=== PATIENT | female | born 1990 | race Caucasian/White ===

== ENCOUNTER 2017-01-21 08:06 | Inpatient (IN) | payer MEDICAID ==
[2017-01-21] VITALS (8 sets, daily range): BP systolic 95–132; BP diastolic 52–88
[~2017-01-21] VITALS: Ht 172.7 cm; Wt 59.2 kg
[~2017-01-21 08:06] MED LIST: ABILIFY10 MG PO; ADVAIR 250/5028 PUFF IN; ALBUTEROL-200 PUFFS/ IH; ANTIPYRINE/BENZ10 ML OT; AZITHROMYCIN250 MG; AZITHROMYCIN250 MG PO; AZITHROMYCIN500 MG PO; BACTRIM DS 8001 TAB PO; BISACODYL5 MG PO; BUPRENORPHINE H1 TA2 SL; BUPRENORPHINE H1 TAB PO; CEFDINIR 300MG300 MG PO; CEFDINIR300 M1 PO; CIPRO 250MG TA250 MG PO; CIPRO 500MG TA500 MG PO; CIPROFLOXACIN500 MG PO; CLARITIN10 MG PO; CLINDAMYCIN HC300 MG PO; CORTISPORIN (GE10 M1 OT; DILAUDID2 MG PO; FLEXERIL10 M1 PO; GABAPENTIN100 M1 PO; HUMALOG MIX 75/10 ML SC; HUMALOG100 U/M1 SC; HYDROCODONE-APA1 TA2 PO; HYDROCODONE/ACE1 TA5 PO; HYDROCODONE1 TABLET PO; IBUPROFEN400 MG PO; INDERAL 20MG. T20 MG PO; KEFLEX 500MG.500 MG PO; LANTUS INS100 UNITS/ SC; LEVAQUIN500 MG PO; LORTAB 5/500 501 TAB PO; MACROBID 100MG100 MG PO; MIRALAX(PO17 GM/1 PA PO; MIRALAX17 GM/DOSE PO; MIRALAX17 GM/PACK; MIRALAX17 GM/PACK PO; MUPIROCIN 2% O1 INCH TP; NAPROSYN 250MG250 MG PO; NAPROXEN SODIU500 MG; NORCO 325 MG-51 TAB PO; NOVOLIN 70/30 710 ML SC; NOVOLOG MIX 70/10 M1 SC; NOVOLOG100 U/ML SC; OMNICEF 300 MG300 MG PO; PAXIL PO; PAXIL30 MG PO; PHENERGAN 25MG.25 M1 PO; PHENERGAN VC +120 M1 PO; PHENERGAN25 M3 PO; PROAIR HFA0.09 MG/AC IH; PROVERA 10MG TA10 MG PO; REGLAN 5MG TABLE5 MG PO; SEROQUEL 100MG100 MG PO; SEROQUEL XR150 MG PO; SEROQUEL50 MG PO; TABL PO; TAMIFLU75 MG PO; TESSALON PERLE100 MG PO; TRAMADOL 50MG T50 M1 PO; TRAMADOL50 M1 PO; TYLENOL ES500 MG PO; TYLENOL W/CODEI1 TAB PO; VICOPROFEN 7.51 TAB PO; VOLTAREN75 MG PO; XANAX 0.5MG TA0.5 MG PO; ZANAFLEX4 MG PO; ZITHROMAX Z PA250 MG PO; ZITHROMAX Z-PA250 M2 PO; ZOFRAN ODT4 MG PO; ZOFRAN ODT8 MG PO; ZOFRAN4 MG PO
[2017-01-21 09:11] LABS: ARTERIAL ABE -26.2 MMOL/L (-2.4-+2.3); ARTERIAL TCO2 3.9 MMOL/L (23-27); OXYGEN 28%
[2017-01-21 09:12] LABS: ALLEN'S TEST ACCEPTABLE
--- NOTE | 2017-01-21 09:22 | RADIOLOGY REPORT PS360 ---
CHEST-PORTABLE HISTORY: Shortness of air SOA ORDERING PHYSICIAN: PATIENT AGE: 26 years COMPARISON: 06/27/2016 FINDINGS: The cardiomediastinal silhouette and pulmonary vascularity are within normal limits. The lungs are clear without infiltrates, suspicious nodules, or pleural effusions. No acute bony abnormalities. IMPRESSION: Negative chest, no acute finding
[2017-01-21 09:36] LABS: BUN 22 mg/dL (7-18)
[2017-01-21 09:37] LABS: URINE BILIRUBIN - DIPSTICK NEGATIVE (NEG); URINE BLOOD 1+ (NEG)
[2017-01-21 09:37] LABS: GFR (ESTIMATED) 60 ML/MIN (59-)
--- NOTE | 2017-01-21 09:40 | Emergency Room Report ---
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 N Clinical Suspician of Infection? N Mental Status: 1 - Regular (Normal Baseline) Sepsis Risk:Low Sepsis Risk Have you (or family members/close friends) recently traveled outside the [place]? N If Yes, where/when: Have you had exposure to infectious disease within the past month? TB? Other? Specify: Source patient, RN notes reviewed, RN/MD Exam Limitations no limitations Comment This is a 26-year-old lady arriving to the emergency room by ambulance , with complaints of severe abdominal pain, intractable nausea and vomiting for the past 2-3 days. Patient advised that she has been unable to hold down any solids or fluids for the past 24 hours. She has a history of diabetes. Patient denies any chest pain, shows of breath, fever, productive cough, recent travel or exposure to sick contacts. ALLERGIES Coded Allergies: Adhesives (12/12/16) Penicillins (12/12/16) butalbital (12/12/16) codeine (12/12/16) iodine (12/12/16) ketorolac (12/12/16) Home Medications Active Scripts POLYETHYLENE GLYCOL (Miralax) 17 GM PO DAILY #5 NGHIA Prov: 05/08/16 Reported Medications Paroxetine (Paxil) 30 MG PO DAILY FLUTICASONE/SALMETEROL (Advair 250-50 Diskus) 1 PUFF IN BID Medroxyprogesterone Acetate (Provera 10MG Tablet) 10 MG PO DAILY Albuterol Sulfate (Proair Hfa) 1 PUFF IH Q6HP PRN ASTHMA Quetiapine Fumarate (Seroquel 50MG) 50 MG PO DAILY BUPRENORPHINE HCL/NALOXONE HCL (Buprenorphin-Naloxon 8-2 MG Sl) 1 TAB SL DAILY Propranolol Hcl (Inderal 20MG. Tablet) 20 MG PO DAILY Gabapentin (Gabapentin 400MG Capsule) 400 MG PO TID #90 Insulin Lispro, Recombinant (Humalog 100 UNITS/ML 10ML) 20 UNITS SC AC INSULIN GLARGINE (Lantus 3ML Solostar Pen) 40 UNITS SC BID History Medical History General CAD? No Angina: Yes [place]: No Hypertension? No Hyperlipidemia? No CHF? No DVT? No PE? No COPD? No Asthma? Yes Anemia? No GERD? No Gastric ulcers? No GI Bleed? No Hernia? Yes Thyroid Problems? No Hypothyroidism? No CVA? No Seizures? No Diabetes? Yes Insulin Dependent: Yes Insulin Pump: No Home FSBS? Yes Renal Insuffiency? No End Stage Renal Disease? No UTI? Yes Stones? Yes BPH? No GB Disease: Yes Nephritic Syndrome? No Asplenia? No Hepatitis? No Sickle Cell Disease? No Arthritis? No Migraines? No Cataracts? No Glaucoma? No MRSA? Yes HIV? No TB? No Anxiety? Yes Depression? No Cancer? No More? 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 LMP N/A Family History Family Hx Diabetes Yes CAD Yes Hypertension Yes Hyperlipidemia Yes Cancer Yes TB No Social History Smoking Hx Smoker: Current Every Day Smoker Tobacco: Yes Type Cigarettes Packs/day < 1 Pack Alcohol Alcohol: No Review of Systems All Other Systems Reviewed and Negative Gastrointestinal see HPI, abdominal pain, denies constipation, denies diarrhea, nausea, vomiting Physical Exam Vital Signs Vital Signs Date Time Temp Pulse Resp B/P Pulse O2 O2 Flow FiO2 Ox Delivery Rate 01/21 1203 98.8 101 22 123/99 100 01/21 1055 22 01/21 1031 101 18 123/99 100 01/21 1015 103 18 133/71 100 01/21 0913 101 18 119/78 100 01/21 0808 98.8 108 18 132/88 99 General Appearance normal appearance, WD/WN, severe distress Neck normal inspection, non-tender, supple, full range of motion Respiratory Status Yes: trachea midline, chest symmetrical, non tender chest. No: respiratory distress. Lung Sounds bilateral: normal breath sounds, lungs clear. 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 No Comment 09:30-Upon reevaluation patient appears medically stable, clinically improving, afebrile, nonseptic. 09:45-case discussed with Dr. Ansari, advised of patient's presentation, physical examination, findings, vital signs and ED course.. Dr. Ansari agreeable with admission, recommended aggressive IV hydration, and regular insulin Drip for sliding-scale scale. Care transferred to Dr. Ansari at this time. I'll write temporary bridge admission orders, per hospital protocol, at this time. Upon patient's arrival to the floor the unit nurse to contact Dr. Ansari again , he noted to obtain full inpatient admission orders. Results/Orders Laboratory Tests 01/21/17 1345: Lactic Acid 3.5 H 01/21/17 1247: POC Glucose 353 *H 01/21/17 1106: Sodium Cancelled, Potassium Cancelled, Chloride Cancelled, Carbon Dioxide Cancelled, BUN Cancelled, Creatinine Cancelled, Estimated Creat Clear Cancelled, Estimated GFR (MDRD) Cancelled, Glucose Cancelled, Calcium Cancelled 01/21/17 1020: Peripheral Blood Smear Pending 01/21/17 0925: Opiates Screen NEGATIVE, Urine Methadone Screen NEGATIVE, Barbiturates NEGATIVE, Phencyclidine Screen NEGATIVE, Amphetamines Screen NEGATIVE, Benzodiazepines Screen NEGATIVE, Cocaine Screen NEGATIVE, Marijuana (THC) Screen NEGATIVE, Urine Color YELLOW, Urine Appearance CLEAR, Urine pH 5.5, Ur Specific [place] 1.025, Urine Protein TRACE H, Urine Ketones 3+ H, Urine Blood 1+ H, Urine Nitrate NEGATIVE, Urine Bilirubin NEGATIVE, Urine Urobilinogen 0.2, Ur Leukocyte Esterase NEGATIVE, Urine WBC OCC, Ur Squamous Epith Cells 3-5, Urine Bacteria 1+ , Urine Mucus OCC, Urine Glucose 3+ H 01/21/17 0905: Lactic Acid 2.9 H, Acetone Level SMALL 01/21/17 0905: Amylase 42, Lipase 51 L, D-Dimer 1050 *H, Salicylates 5.7, Acetaminophen 0 L 01/21/17 0855: ABG pH 7.10 *L, ABG pCO2 (Temp Corrct 11.6 L, ABG pO2 (Temp Correct 146.0 H, ABG HCO3 3.5 L, ABG Total CO2 3.9 L, ABG O2 Sat (Calculated) 97.9, ABG Base Excess -26.2 L, Luis Test ACCEPTABLE, Blood Gas Comments LEFT RADIAL 01/21/17 0850: Sodium 128 L, Potassium 5.4 H, Chloride 96 L, Carbon Dioxide < 5 *L, BUN 22 H, Creatinine 1.1 H, Estimated Creat Clear 70, Estimated GFR (MDRD) 60, Glucose 456 H, Calcium 8.3 L, Total Bilirubin 0.5, AST 16, ALT 41, Alkaline Phosphatase 87, Creatine Kinase 45, CK-MB (CK-2) Rel Index 1.8, CK and CKMB Interp 0.8, Troponin I < 0.02, Total Protein 7.6, Albumin 3.6, Globulin 4.0 H, Albumin/Globulin Ratio 0.9 L 01/21/17 0600: Protein C Activity Cancelled, Protein S Activity Cancelled, Antithrombin III Ag Cancelled 01/21/17 0102: WBC 11.2 H, RBC 5.56 H, Hgb 16.6 H, Hct 49.1 H, MCV 88.4, RDW 12.3, Plt Count 159, MPV 8.3, Gran % 87.9 H, Gran # 9.9 H, Total Counted 100, Lymphocytes % 6.7 L, Monocytes % 4.2, Eosinophils % 0.4, Basophils % 0.1, Neutrophils 91 H, Lymphocytes (Manual) 6 L, Lymphocytes # 0.8, Monocytes ( Manual) 1 L, Monocytes # 0.5, Eosinophils # 0.1, Basophils # 0.0, Metamyelocytes 1, Myelocytes 1, Platelet Estimate CLUMPED, Tear Drop Cells 2+, [place]iarra Cells 4+, PUBS MCHC 33.8, MCH 29.9 Current Medication Orders Sig/Caleb Start time Last Medication Dose Route Stop Time Status Admin Promethazine HCl 12.5 MG Q4HP PRN 01/21 1330 DC 01/22 IV 2134 Sodium Chloride 25 ML PRN PRN 01/21 1330 DC 01/22 IV 2134 Ceftriaxone Sodium 1 GM DAILY 01/21 1329 AC 01/23 Sodium Chloride 50 ML IV 01/24 0859 0758 Morphine Sulfate 4 MG Q4HP PRN 01/21 1100 DC 05 IV 0633 Ondansetron HCl 4 MG Q6HP PRN 01/21 1100 DC 01/23 IV 0550 Sodium Chloride 1,000 ML .Q5H 01/21 1100 DC 01/23 IV 01/23 1259 1401 Orders Procedure Date/time Status BASIC METABOLIC PROFILE 01/22 0900 Complete DIET-2000 CALORIE ADA 01/21 L Complete Acetone, Serum 01/21 1800 Complete BASIC METABOLIC PROFILE 01/[address] CHEST W/PE PROTOCOL REQ 01/21 1110 Complete URINE 01/21 1049 Complete Decision to admit 01/21 0950 Active SALICYLATE 01/21 0934 Complete Acetaminophen 01/21 0934 Complete URINALYSIS/COMPLETE 01/21 0931 Complete LIPASE 01/21 0931 Complete DRUG ABUSE SCREEN (10) 01/21 0931 Complete AMYLASE 01/21 0931 Complete LACTIC ACID FOLLOW UP 01/21 0929 Complete ARTERIAL BLOOD GAS REQUEST 01/21 0855 Active Acetone, Serum 01/21 0841 Complete CULTURE, BLOOD 01/21 0816 Active LACTIC ACID 01/21 0816 Complete D-DIMER 01/21 0813 Complete ELECTROCARDIOGRAM REQUEST 01/21 0812 Active IV SALINE LOCK 01/21 0812 Active FSBS REQUEST BY [facility] 01/21 0812 Active CBC WITH AUTO DIFF 01/21 0812 Complete CARDIAC ENZYMES 01/21 0812 Complete CHEM 12 PROFILE 01/21 0812 Complete 12 LEAD EKG-BESSON (INITIAL) 01/21 0800 Active DIFFERENTIAL-WBC 01/21 0102 Complete ADMIT PATIENT 01/21 UNK Active PULSE OXIMETRY REQUEST 01/21 UNK Active VITAL SIGNS 01/21 UNK Active 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 of ischemic chgs, no ectopy XRAY/CT/US XRAY/CT/US XRAY chest XR interpretation by reviewed by me, discussed w/radiologist Xray Results no infiltrates, normal heart size, normal lung inflation thi Departure Departure Time of Disposition 951 Disposition Still a Patient Clinical Impression Primary Impression: DKA (diabetic ketoacidoses) Qualifiers: Diabetes mellitus type: type 2 Diabetes mellitus complication detail: without coma Qualified Code: E13.10 - Other specified diabetes mellitus with ketoacidosis without coma Secondary Impressions: Abdominal pain Qualifiers: Abdominal location: generalized Qualified Code: R10.84 - Generalized abdominal pain Dehydration Condition STABLE ED Critical Care Critical Care Yes Time spent 30-74 min Vital system(s) involved: Circulatory Failure, Metabolic Failure I was present at bedside for Coordinating pt's care, During my initial exam, Reviewing lab results, Reviewing old records, Discussing pt condition, For re- examinations, Examining radiographs If Critical Care minutes are documented, the time involved in the performance of seperately reportable procedures was not counted toward critical care time documented. I directly delivered medical care to this critically ill and/or injured patient. Timely evaluation and treatment was necessary to address the significant organ system(s) dysfunction present in this patient. at 0844
[2017-01-21 09:52] LABS: AMPHETAMINES/METAMPHETAMINES NEGATIVE ng/mL (<1000)
[2017-01-21 10:27] LABS: HEMOGLOBIN 16.6 g/dL (12.2-16.2); LYMPH % 6.7 % (10-50.0)
[2017-01-21 10:28] LABS: LYMPH # 0.8 K/mm3 (0.7-4.5)
[2017-01-21 10:48] LABS: NEUTROPHILS 91 % (42-76)
--- NOTE | 2017-01-21 13:50 | RADIOLOGY REPORT PS360 ---
CTA-CHEST HISTORY: Chest pain, elevated d-dimer CP, INCREASED D-DIMER ORDERING PHYSICIAN: Peter Ansari MD PATIENT AGE: 26 years TECHNIQUE: Helical acquisition obtained following the bolus administration of 60 mL of Isovue 370 followed by a saline bolus. Axial, sagittal, and coronal reformatted images are generated and reviewed. COMPARISON: None FINDINGS: Filling defect is present in the posterior basilar segmental branch of the right lower lobe pulmonary artery and within the anterior basilar segmental branches of the left lower lobe pulmonary artery consistent with bilateral pulmonary emboli. Heart size is normal. No mediastinal or hilar mass is evident. There is hyperinflation with attenuation of the peripheral pulmonary vessels which may be seen with obstructive airway disease such as COPD or asthma or bronchitis. Calcified granuloma is present in the left lower lobe posteriorly. No lobar consolidation or collapse. No effusions. No evidence of aortic aneurysm or dissection. No acute bony anomalies. There are mild degenerative changes in the thoracic spine. IMPRESSION: 1. Bilateral lower lobe pulmonary thromboemboli. 2. Hyperinflation, possible small airway disease such as asthma or bronchitis. 3. Otherwise negative CT chest Significant findings called to Chasidy the patient's nurse on 01/21/2017 1:45 PM.
--- NOTE | 2017-01-21 14:08 | HISTORY AND PHYSICAL REPORT ---
History and Physical ([facility]CA) Date of admission: 01/21/17 Chief complaint: Nausea,vomiting, diarrhea and abdominal pain History: History of Present Illness: Ms. Damon is a 26 year old female, patient of Anyi Torres APRN, with a history of type1 DM who presented to [facility] ER with nausea, vomiting, diarrhea and abdominal pain for the past 3 days. Her daughter recently had a viral GI and patient thought that she could manage and get well at home. She did discuss with endocrinology who instructed her not to take her insulin because she was not eating. She awakened at 0300 and was SOB and was having some MSCP. At that time she decided to come to the ER. Patient notes that she has been unable to eat or drink and has just been in the bed vomiting since 01/19/17. With evaluation in the ER she was found to be in DKA with metabolic acidosis. CTA of the chest revealed bilateral pulmonary emboli. She was admitted for further treatment. Past Medical History: Medical History: CAD? No Angina: Yes [place]: No Hypertension? No Hyperlipidemia? No CHF? No DVT? No PE? No COPD? No Asthma? Yes Anemia? No GERD? No Gastric ulcers? No GI Bleed? No Hernia? Yes Thyroid Problems? No Hypothyroidism? No CVA? No Seizures? No Diabetes? Yes Insulin Dependent: Yes Insulin Pump: No Home FSBS? Yes Renal Insuffiency? No UTI? Yes Stones? Yes BPH? No GB Disease: Yes Nephritic Syndrome? No Asplenia? No Hepatitis? No Sickle Cell Disease? No Arthritis? No Migraines? No Cataracts? No Glaucoma? No MRSA? Yes HIV? No TB? No Anxiety? Yes Depression? No Cancer? No More? Yes Additional hx: OVARY CYST Surgical history: Previous Surgery?Y FINGER-5TH DIGIT R HAND GALLBLADDER C SECTION APPENDIX -WITH COMPLICAT WISDOM TEETH ESSURE DIAG LAP X2 HYSTERECTOMY, PARTIAL I&D IN GROIN LABIAL DYSPLAGIA Medications: Active Scripts POLYETHYLENE GLYCOL (Miralax) 17 GM PO DAILY #5 NGHIA Prov: 05/08/16 Reported Medications Paroxetine (Paxil) 30 MG PO DAILY INSULIN NPL/INSULIN LISPRO (Humalog Mix 75-25 Vial) 80 UNITS SC QAM Insulin Glargine (Lantus Insulin Vial) 50 UNITS SC QHS INSULIN NPL/INSULIN LISPRO (Humalog Mix 75-25 Vial) 50 UNITS SC BID Albuterol Sulfate (Proair Hfa) 1 PUFF IH Q6HP PRN ASTHMA FLUTICASONE/SALMETEROL (Advair 250-50 Diskus) 1 PUFF IN BID Quetiapine Fumarate (Seroquel 25MG) 50 MG PO DAILY BUPRENORPHINE HCL/NALOXONE HCL (Suboxone 8 MG-2 MG Sl Film) 1 JOHN SL Gabapentin (Gabapentin 100MG) 100 MG PO BID Medroxyprogesterone Acetate (Provera 10MG Tablet) 10 MG PO DAILY Propranolol Hcl (Inderal) 10 MG PO DAILY #30 Allergies: Coded Allergies: Adhesives (12/12/16) Penicillins (12/12/16) butalbital (12/12/16) codeine (12/12/16) iodine (12/12/16) ketorolac (12/12/16) Family History: Family history: Postive for: CAD, DM, HTN, TIA, cancer. Social History: Smoking Hx Tobacco: Yes Smoker: Current Every Day Smoker Type: Cigarettes Packs/day: < 1 Pack Are you exposed to second hand Yes Alcohol: Alcohol: No Hx of Drug Use: Drug Use? No Patien't marital status is: Review of Systems: ENT No: ear ache, sore throat. Cardiovascular Positive for: chest pain. No: edema. Respiratory Positive for: shortness of air. No: non-productive, productive cough (sputum), wheezing. GI Positive for: abdominal pain, diarrhea, nausea, vomitting. No: hematemeis, hematochezia, melena. (female) No: hematuria (minimal UOP). Neurological Positive for: dizziness, weakness. No: seizure, syncope. Musculoskeletal No: joint pain. Additional information: Fx her right foot about 1 month ago; has been seeing Dr. Espinal Physical Exam: Vital signs: 1ST Vital Signs Result Date Time Pulse Ox 99 01/22 808 B/P 132/88 01/22 808 Temp 98.8 01/22 808 Pulse 108 01/22 808 Resp 18 01/22 808 Exam: General appearance: alert, rapid RR; appears uncomfortable Eyes: anicteric, pupils reactive to light ENT: coated tongue Neck: lymphadenopathy (absent), thyroid (normal) Cardiovascular: regular rate & rhythm, ST on monitor Respiratory: clear to auscultation (bilat anterior and posterior) ABD: soft, no tenderness, bowel sounds present Extremities: moves all, warm, no calf tenderness, paloma on right foot Skin: dry, warm Neuro: alert, oriented, speech clear Lab data: Labs: Laboratory Tests 01/21/17 1345: Lactic Acid 3.5 H 01/21/17 0925: Opiates Screen NEGATIVE, Urine Methadone Screen NEGATIVE, Barbiturates NEGATIVE, Phencyclidine Screen NEGATIVE, Amphetamines Screen NEGATIVE, Benzodiazepines Screen NEGATIVE, Cocaine Screen NEGATIVE, Marijuana (THC) Screen NEGATIVE, Urine Color YELLOW, Urine Appearance CLEAR, Urine pH 5.5, Ur Specific [place] 1.025, Urine Protein TRACE H, Urine Ketones 3+ H, Urine Blood 1+ H, Urine Nitrate NEGATIVE, Urine Bilirubin NEGATIVE, Urine Urobilinogen 0.2, Ur Leukocyte Esterase NEGATIVE, Urine WBC OCC, Ur Squamous Epith Cells 3-5, Urine Bacteria 1+ , Urine Mucus OCC, Urine Glucose 3+ H 01/21/17 0905: Lactic Acid 2.9 H, Acetone Level SMALL 01/21/17 0905: Amylase 42, Lipase 51 L, D-Dimer 1050 *H, Salicylates 5.7, Acetaminophen 0 L 01/21/17 0855: ABG pH 7.10 *L, ABG pCO2 (Temp Corrct 11.6 L, ABG pO2 (Temp Correct 146.0 H, ABG HCO3 3.5 L, ABG Total CO2 3.9 L, ABG O2 Sat (Calculated) 97.9, ABG Base Excess -26.2 L, Luis Test ACCEPTABLE, Blood Gas Comments LEFT RADIAL 01/21/17 0850: Sodium 128 L, Potassium 5.4 H, Chloride 96 L, Carbon Dioxide < 5 *L, BUN 22 H, Creatinine 1.1 H, Estimated Creat Clear 70, Estimated GFR (MDRD) 60, Glucose 456 H, Calcium 8.3 L, Total Bilirubin 0.5, AST 16, ALT 41, Alkaline Phosphatase 87, Creatine Kinase 45, CK-MB (CK-2) Rel Index 1.8, CK and CKMB Interp 0.8, Troponin I < 0.02, Total Protein 7.6, Albumin 3.6, Globulin 4.0 H, Albumin/Globulin Ratio 0.9 L 01/21/17 0102: WBC 11.2 H, RBC 5.56 H, Hgb 16.6 H, Hct 49.1 H, MCV 88.4, RDW 12.3, Plt Count 159, MPV 8.3, Gran % 87.9 H, Gran # 9.9 H, Total Counted 100, Lymphocytes % 6.7 L, Monocytes % 4.2, Eosinophils % 0.4, Basophils % 0.1, Neutrophils 91 H, Lymphocytes (Manual) 6 L, Lymphocytes # 0.8, Monocytes ( Manual) 1 L, Monocytes # 0.5, Eosinophils # 0.1, Basophils # 0.0, Metamyelocytes 1, Myelocytes 1, Platelet Estimate CLUMPED, Tear Drop Cells 2+, [place] Cells 4+, PUBS MCHC 33.8, MCH 29.9 Microbiology 01/21 850 BLOOD: Anaerobic Blood Culture - RECD 01/21 850 BLOOD: Aerobic Blood Culture - RECD 01/21 850 BLOOD: Anaerobic Blood Culture - RECD 01/21 850 BLOOD: Aerobic Blood Culture - RECD Radiology results: Results: 01/21/17 CTA of chest IMPRESSION: 1. Bilateral lower lobe pulmonary thromboemboli. 2. Hyperinflation, possible small airway disease such as asthma or bronchitis. 3. Otherwise negative CT chest 01/21/17 CXR IMPRESSION: Negative chest, no acute finding Diagnosis(es): 1. DKA (diabetic ketoacidoses) Status: Acute 2. IDDM (insulin dependent diabetes mellitus) Status: Chronic 3. Metabolic acidosis Status: Acute 4. Abdominal pain Status: Acute 5. Hyperglycemia due to type 1 diabetes mellitus Status: Acute 6. Gastroenteritis Status: Acute 7. Bilateral pulmonary embolism Status: Acute Plan: Insulin GTT; IVF; Lovenox; nausea and pain control (Sarahy Hill APRN) Diagnosis(es): 1. DKA (diabetic ketoacidoses) Status: Acute 2. IDDM (insulin dependent diabetes mellitus) Status: Chronic 3. Metabolic acidosis Status: Acute 4. Bilateral pulmonary embolism Status: Acute 5. Abdominal pain Status: Acute 6. Hyperglycemia due to type 1 diabetes mellitus Status: Acute 7. Gastroenteritis Status: Acute Plan: Patient seen and agree with above note. Labs ordered on blood drawn prior to Lovenox administration as part of hypercoag workup. Continue IV fluid hydration and insulin administration. (Peter Ansari MD) at 1421 at 2039
[2017-01-22] VITALS (16 sets, daily range): BP systolic 102–137; BP diastolic 50–88
[2017-01-22 06:47] LABS: LYMPH # 2.3 K/mm3 (0.7-4.5); LYMPH % 23.3 % (10-50.0)
[2017-01-22 07:19] LABS: HEMOGLOBIN 14.3 g/dL (12.2-16.2)
[2017-01-22] MEDS ORDERED: GABAPENTIN 400400 M1 PO (08:46)
--- NOTE | 2017-01-22 09:01 | PHARMACY CLINIC NOTE ---
Patient Demographics Patient Demographics Admission date: 01/21/17 Date: 01/22/17 Time: 0859 Allergies Coded Allergies: Adhesives (12/12/16) Penicillins (12/12/16) butalbital (12/12/16) codeine (12/12/16) iodine (12/12/16) ketorolac (12/12/16) HEIGHT- FT: 5 IN: 8.00 K.153 VTE General Information Labs: Laboratory Tests 01/22 605 Hematology Hgb (12.2 - 16.2 g/dL) 14.3 Hct (37.0 - 47.0 %) 42.3 Plt Count (142 - 424 K/mm3) 215 Disclaimer The following section includes nursing documentation that has been pulled in for pharmacy review. Patient's VTE score: 2 Patient's VTE Risk: VERY LOW RISK Clinical trial participant? No VTE prophylaxis NQF [id number] VTE prophylaxis ordered? Yes Type of prophylaxis/treatment: MARYSE at 0900
--- NOTE | 2017-01-22 09:07 | ACUTE CARE PROGRESS NOTE (QUA) ---
Progress Notes Subjective Date 01/22/17 Time 0715 Note Still having nausea and is not eating; no further diarrhea; complaining of right CP and headache; feels her breathing is better. Objective Findings Laboratory Tests 01/22/17 0658: POC Glucose 116 H 01/22/17 0613: POC Glucose 112 H 01/22/17 0605: WBC 9.8, RBC 4.87, Hgb 14.3, Hct 42.3, MCV 86.9, RDW 12.6, Plt Count 215, MPV 6.6 L, Gran % 70.7, Gran # 6.9, Lymphocytes % 23.3, Monocytes % 5.6, Eosinophils % 0.3, Basophils % 0.1, Lymphocytes # 2.3, Monocytes # 0.6, Eosinophils # 0.0, Basophils # 0.0, PUBS MCHC 33.5, MCH 29.2, Acetone Level SMALL 01/22/17 0538: POC Glucose 125 H 01/22/17 0426: POC Glucose 123 H 01/22/17 0232: POC Glucose 133 H 01/22/17 0127: POC Glucose 133 H 01/22/17 0031: POC Glucose 153 H 01/21/17 2329: POC Glucose 142 H 01/21/17 2231: POC Glucose 110 01/21/17 2141: POC Glucose 106 01/21/17 2041: POC Glucose 93 01/21/17 1913: POC Glucose 148 H 01/21/17 1836: Lactic Acid 0.7, Acetone Level SMALL 01/21/17 1807: POC Glucose 153 H 01/21/17 1658: POC Glucose 214 H 01/21/17 1614: POC Glucose 212 H 01/21/17 1525: Sodium 136, Potassium 5.6 H, Chloride 104, Carbon Dioxide 6 *L, BUN 20 H, Creatinine 1.0, Estimated Creat Clear 77, Estimated GFR (MDRD) 67, Glucose 249 H, Calcium 7.9 L 01/21/17 1506: POC Glucose 259 H 01/21/17 1406: POC Glucose 256 H 01/21/17 1345: Lactic Acid 3.5 H 01/21/17 1247: POC Glucose 353 *H 01/21/17 0925: Opiates Screen NEGATIVE, Urine Methadone Screen NEGATIVE, Barbiturates NEGATIVE, Phencyclidine Screen NEGATIVE, Amphetamines Screen NEGATIVE, Benzodiazepines Screen NEGATIVE, Cocaine Screen NEGATIVE, Marijuana (THC) Screen NEGATIVE, Urine Color YELLOW, Urine Appearance CLEAR, Urine pH 5.5, Ur Specific [place] 1.025, Urine Protein TRACE H, Urine Ketones 3+ H, Urine Blood 1+ H, Urine Nitrate NEGATIVE, Urine Bilirubin NEGATIVE, Urine Urobilinogen 0.2, Ur Leukocyte Esterase NEGATIVE, Urine WBC OCC, Ur Squamous Epith Cells 3-5, Urine Bacteria 1+ , Urine Mucus OCC, Urine Glucose 3+ H 01/21/17904: Lactic Acid 2.9 H, Acetone Level SMALL 01/21/17904: Amylase 42, Lipase 51 L, D-Dimer 1050 *H, Salicylates 5.7, Acetaminophen 0 L Vital Signs Date Time Temp Pulse Resp B/P Pulse O2 O2 Flow FiO2 Ox Delivery Rate 01/22 0816 98.6 71 16 111/60 92 ROOM AIR / 0600 83 16 112/60 99 ROOM AIR / 0428 97.8 73 16 108/50 100 05/09 0422 97.8 73 16 108/50 100 ROOM AIR 05/09 0200 97 18 102/60 98 05/09 0000 99.0 90 18 103/54 100 ROOM AIR 05/08 2247 97.8 87 17 95/52 100 05/08 2200 97.8 87 17 95/52 100 ROOM AIR 05/08 1800 98.8 88 19 117/70 100 ROOM AIR 05/08 1602 98.3 90 20 116/73 05/08 1600 98.0 93 16 115/70 100 ROOM AIR 05/08 1548 98.3 90 20 116/73 100 ROOM AIR 05/08 1543 101 05/08 1539 100 ROOM AIR 05/08 1510 22 05/08 1400 98.7 107 28 129/77 99 ROOM AIR 05/08 1203 98.8 101 22 123/99 100 05/08 1055 22 05/08 1031 101 18 123/99 100 05/08 1015 103 18 133/71 100 05/08 0913 101 18 119/78 100 Current Medications Insulin Glargine 25 UNITS DAILY SC (UNV) Ondansetron HCl 0 .STK-MED ONE .ROUTE (DC) Promethazine HCl 0 .STK-MED ONE .ROUTE (DC) Sodium Chloride 25 ML .STK-MED ONE IV (DC) Enoxaparin Sodium 60 MG BID SC Sodium Chloride 25 ML .STK-MED ONE IV (DC) Promethazine HCl 0 .STK-MED ONE .ROUTE (DC) Sodium Chloride 1,000 ML .STK-MED ONE IV (DC) Ondansetron HCl 0 .STK-MED ONE .ROUTE (DC) Morphine Sulfate 0 .STK-MED ONE .ROUTE (DCr) Promethazine HCl 12.5 MG Q4HP PRN IV Sodium Chloride 25 ML PRN PRN IV Ceftriaxone Sodium 1 GM DAILY IV Sodium Chloride 50 ML Enoxaparin Sodium 0 .STK-MED ONE SC (DC) Sodium Chloride 1,000 ML .STK-MED ONE IV (DC) Iopamidol 60 ML ONCE ONE IJ (DC) Sodium Chloride 10 ML ONCE ONE IV (DC) Sodium Chloride 20 ML ONCE ONE IV (DC) Diagnostic Test (Pha) 1 EACH Q1 PS Insulin Human Regular 100 UNITS .Q25H IV Sodium Chloride 100 ML Sodium Bicarbonate 50 ML ONCE ONE IV (DC) Sodium Chloride 1,000 ML Enoxaparin Sodium 60 MG ONCE ONE SC (DC) Insulin Human Regular 100 UNITS .Q25H IV (DC) Sodium Chloride 100 ML Morphine Sulfate 4 MG Q4HP PRN IV Ondansetron HCl 4 MG Q6HP PRN IV Sodium Chloride 1,000 ML .Q5H IV Promethazine HCl 0 .STK-MED ONE .ROUTE (DC) Morphine Sulfate 4 MG ONCE ONE IV (DCr) Promethazine HCl 12.5 MG ONCE ONE IV (DC) Sodium Chloride 25 ML ONCE ONE IV (DC) Insulin Human Regular 100 UNITS .Q25H IV (DC) Sodium Chloride 100 ML Ondansetron HCl 4 MG ONCE ONE IV (DC) Sodium Bicarbonate 50 ML ONCE ONE IV (DC) Sodium Bicarbonate 50 ML ONCE ONE IV (DC) Sodium Bicarbonate 50 ML ONCE ONE IV (DC) Sodium Bicarbonate 50 ML ONCE ONE IV (DC) Sodium Chloride 1,000 ML .Q1H1M IV (DC) Sodium Chloride 10 ML PRN PRN IV Sodium Chloride 1,000 ML .Q1H1M IV (DC) Sodium Chloride 10 ML PRN PRN IV Sodium Chloride 1,000 ML .Q1H1M IV (DC) Sodium Chloride 10 ML PRN PRN IV Ondansetron HCl 4 MG ONCE ONE IV (DC) Sodium Chloride 10 ML PRN PRN IV (DC) 05/08 1500 05/08 2300 01/22 0700 Intake Total 1152 Output Total Balance 1152 Intake, IV 1152 Patient 126 lb Weight Last VS-Temp:98.6 B/P:111/60 Pulse:71 Resp:16 SaO2:92 ROOM AIR Last weight lbs:126 oz:0 K.153 Method:Stated Exam General appearance: alert, no acute distress Cardiovascular: regular rate & rhythm (ST on monitor) Respiratory: clear to auscultation (bilat anterior and posterior), good air movement ABD: non-distended, soft, no tenderness Extremities: no peripheral edema, no calf tenderness, paloma wrap on right foot Neuro: alert, oriented, speech clear Assessment/Plan Problem List 1. DKA (diabetic ketoacidoses) Status: Acute 2. IDDM (insulin dependent diabetes mellitus) Status: Chronic 3. Metabolic acidosis Status: Acute 4. Bilateral pulmonary embolism Status: Acute 5. Abdominal pain Status: Acute 6. Hyperglycemia due to type 1 diabetes mellitus Status: Acute 7. Gastroenteritis Status: Acute Patient condition Improving Plan: stop insulin gtt and place on Lantus at 25 units + LI SS insulin This inpt stay is expected to cross 2 MNs from start of care Yes (Sarahy Hill APRN) Assessment/Plan Problem List 1. DKA (diabetic ketoacidoses) Status: Acute 2. IDDM (insulin dependent diabetes mellitus) Status: Chronic 3. Metabolic acidosis Status: Acute 4. Bilateral pulmonary embolism Status: Acute 5. Abdominal pain Status: Acute 6. Hyperglycemia due to type 1 diabetes mellitus Status: Acute 7. Gastroenteritis Status: Acute Comments: Patient seen and agree with above note. (Peter Ansari MD) at [phone] at 0930
[2017-01-22] MEDS ORDERED: HUMALOG100 U/ML SC (09:20)
[2017-01-22] MEDS ORDERED: INSULIN GL100 UNITS/ SC (09:21)
[2017-01-23 04:20] VITALS: BP 118/65
[2017-01-23 07:50] VITALS: BP 126/73
[2017-01-23 08:00] VITALS: BP 126/73
--- NOTE | 2017-01-23 08:18 | ACUTE CARE PROGRESS NOTE (QUA) ---
Progress Notes Subjective Date 01/23/17 Time 0705 Note May feel a little better. Less headache; still with nausea; did eat some dinner- soup and sprite; states she vomited a little ; no stools; some abdominal pain; denies SOB; midsternal and right Chest discomfort; right foot is hurting; gets up to the BSC Objective Findings Laboratory Tests 01/23/17 0621: POC Glucose 130 H 01/23/17 0544: Acetone Level SMALL 01/22/17 2140: POC Glucose 265 H 01/22/17 1647: POC Glucose 143 H 01/22/17 1219: POC Glucose 160 H 01/22/17 1110: Sodium 136, Potassium 3.7, Chloride 107, Carbon Dioxide 12 L, BUN 12, Creatinine 0.9, Estimated Creat Clear 85, Estimated GFR (MDRD) 76, Glucose 169 H, Calcium 7.7 L 01/22/17 0907: POC Glucose 97 Vital Signs Date Time Temp Pulse Resp B/P Pulse O2 O2 Flow FiO2 Ox Delivery Rate 01/23 0633 19 01/23 0420 98.0 71 19 118/65 100 01/22 2256 16 01/22 2200 98.4 67 16 120/78 100 ROOM AIR 01/22 2115 98.5 85 16 122/76 100 01/22 2000 98.5 85 16 122/76 100 ROOM AIR 01/22 1813 98.5 85 16 116/73 100 ROOM AIR 01/22 1750 98.4 62 16 116/73 100 05/ 1623 98.6 71 16 124/71 100 ROOM AIR 01/22 1400 59 137/88 100 ROOM AIR 01/22 1219 99.7 79 16 119/58 99 ROOM AIR 01/22 1016 98.5 109 16 105/54 100 ROOM AIR 01/22 0816 98.6 71 16 111/60 92 ROOM AIR Current Medications Morphine Sulfate 0 .STK-MED ONE .ROUTE (DCr) Ondansetron HCl 0 .STK-MED ONE .ROUTE (DC) Ondansetron HCl 0 .STK-MED ONE .ROUTE (DC) Morphine Sulfate 0 .STK-MED ONE .ROUTE (DCr) Insulin Human [rDNA origin] 0 .STK-MED ONE SC (DC) Enoxaparin Sodium 0 .STK-MED ONE SC (DC) Sodium Chloride 1,000 ML .STK-MED ONE IV (DC) Sodium Chloride 25 ML .STK-MED ONE IV (DC) Promethazine HCl 0 .STK-MED ONE .ROUTE (DC) Ondansetron HCl 0 .STK-MED ONE .ROUTE (DC) Insulin Human [rDNA origin] 0 .STK-MED ONE SC (DC) Sumatriptan Succinate 6 MG ONCE ONE SC (DC) Diagnostic Test (Pha) 1 EACH W/MEALS&HS FS Insulin Human [rDNA origin] SEE ADMIN CRITERIA FOR LOW INTENSITY SS W/MEALS&HS SC Sodium Chloride 25 ML .STK-MED ONE IV (DC) Promethazine HCl 0 .STK-MED ONE .ROUTE (DC) Insulin Glargine 25 UNITS DAILY SC Enoxaparin Sodium 60 MG BID SC Promethazine HCl 12.5 MG Q4HP PRN IV Sodium Chloride 25 ML PRN PRN IV Ceftriaxone Sodium 1 GM DAILY IV Sodium Chloride 50 ML Diagnostic Test (Pha) 1 EACH Q1 PS (DC) Insulin Human Regular 100 UNITS .Q25H IV (DC) Sodium Chloride 100 ML Morphine Sulfate 4 MG Q4HP PRN IV Ondansetron HCl 4 MG Q6HP PRN IV Sodium Chloride 1,000 ML .Q5H IV Sodium Chloride 10 ML PRN PRN IV (DC) Sodium Chloride 10 ML PRN PRN IV (DC) Sodium Chloride 10 ML PRN PRN IV (DC) 05/ 1500 05/09 2300 05/10 0700 Intake Total 50 0 6165 Output Total 800 700 Balance -750 -700 6165 Intake, IV 6165 Intake, Oral 50 0 Output, Urine 800 700 Patient 126 lb 130 lb Weight Last VS-Temp:98.0 B/P:118/65 Pulse:71 Resp:19 SaO2:100 ROOM AIR Last weight lbs:130 oz:7 K.165 Method:Bed Scales Exam General appearance: alert, no acute distress Cardiovascular: regular rate & rhythm Respiratory: diminished BS in bases posteriorly ABD: non-distended, soft, no tenderness, bowel sounds present Extremities: no peripheral edema, paloma on right foot; right calf tenderness; no palpable cords or masses Neuro: alert, oriented, speech clear Assessment/Plan Problem List 1. DKA (diabetic ketoacidoses) Status: Acute 2. IDDM (insulin dependent diabetes mellitus) Status: Chronic 3. Metabolic acidosis Status: Acute 4. Bilateral pulmonary embolism Status: Acute 5. Abdominal pain Status: Acute 6. Hyperglycemia due to type 1 diabetes mellitus Status: Acute 7. Gastroenteritis Status: Acute 8. Vomiting 9. Fracture of right foot Patient condition Improving Plan: continue current care, move out of stepdown This inpt stay is expected to cross 2 MNs from start of care Yes (Sarahy Hill APRN) Assessment/Plan Problem List 1. DKA (diabetic ketoacidoses) Status: Acute 2. IDDM (insulin dependent diabetes mellitus) Status: Chronic 3. Metabolic acidosis Status: Acute 4. Bilateral pulmonary embolism Status: Acute 5. Abdominal pain Status: Acute 6. Hyperglycemia due to type 1 diabetes mellitus Status: Acute 7. Gastroenteritis Status: Acute 8. Vomiting Status: Acute 9. Fracture of right foot Status: Acute 10. Migraine Status: Acute Comments: Patient feels better today, had one dose of Imitrex yesterday, will continue it as needed, OK to transfer out of step down to acute care. (Peter Ansari MD) at 0817 at 0847
[2017-01-23 12:00] VITALS: BP 115/74
[2017-01-23 20:00] VITALS: BP 109/61
[2017-01-23 20:05] VITALS: BP 109/61
[2017-01-24] VITALS (7 sets, daily range): BP systolic 104–143; BP diastolic 57–89
--- NOTE | 2017-01-24 08:30 | ACUTE CARE PROGRESS NOTE (QUA) ---
Progress Notes Subjective Date 01/24/17 Time 0822 Note Patient reports not sleeping well overnight, had more pain, no vomiting, good UOP. Objective Findings Laboratory Tests 01/23/17 1721: POC Glucose 174 H 01/23/17 1205: POC Glucose 168 H Vital Signs Date Time Temp Pulse Resp B/P Pulse O2 O2 Flow FiO2 Ox Delivery Rate 01/25 800 98.4 59 16 104/61 97 ROOM AIR 01/24 0745 16 01/24 0400 98.5 62 16 131/87 97 ROOM AIR 01/23 2005 98.3 58 20 109/61 98 01/23 2003 20 01/24 2000 98.3 58 16 109/61 98 ROOM AIR 01/24 1200 98.5 58 20 115/74 98 ROOM AIR I&O Past 24 Hrs-ending at 0700 01/24 700 Intake Total 2104 Output Total Balance 2104 Last VS-Temp:98.4 B/P:104/61 Pulse:59 Resp:16 SaO2:97 ROOM AIR Last weight lbs:130 oz:7 K.165 Method:Bed Scales Exam General appearance: alert, awake, no acute distress Cardiovascular: regular rate & rhythm Respiratory: clear to auscultation ABD: normal bowel sounds, soft, tenderness (minimal to deep palpation) Extremities: no peripheral edema Assessment/Plan Problem List 1. DKA (diabetic ketoacidoses) Status: Acute 2. IDDM (insulin dependent diabetes mellitus) Status: Chronic 3. Metabolic acidosis Status: Resolved 4. Bilateral pulmonary embolism Status: Acute 5. Abdominal pain Status: Acute 6. Hyperglycemia due to type 1 diabetes mellitus Status: Acute 7. Gastroenteritis Status: Acute 8. Vomiting Status: Resolved 9. Fracture of right foot Status: Acute 10. Migraine Status: Acute 11. Hypokalemia Status: Acute This inpt stay is expected to cross 2 MNs from start of care Yes Comments: Patient slowly improving, plan on decreasing IV fluids today and get up to a chair today. Antibiotic Stewardship (2) Current Culture Results Microbiology 01/21 850 BLOOD: Anaerobic Blood Culture - RES 01/21 850 BLOOD: Aerobic Blood Culture - RES Infxn that will respond? Yes Right drug,dose,and route? Yes More targeted antbx? No How long atbx needed? 7 at 0830
[2017-01-24 09:13] LABS: HEMOGLOBIN 14.2 g/dL (12.2-16.2); LYMPH # 1.7 K/mm3 (0.7-4.5); LYMPH % 37.4 % (10-50.0)
[2017-01-25 04:27] VITALS: BP 107/61
[2017-01-25 07:10] LABS: HEMOGLOBIN 13.8 g/dL (12.2-16.2); LYMPH # 2.7 K/mm3 (0.7-4.5); LYMPH % 56.2 % (10-50.0)
[2017-01-25 08:00] VITALS: BP 111/71
--- NOTE | 2017-01-25 08:31 | ACUTE CARE PROGRESS NOTE (QUA) ---
Progress Notes Subjective Date 01/25/17 Time 0828 Note Still having some left-sided pain but it has improved from yesterday. She is going to try to eat breakfast this morning. Still having pain with deep breathing but that has improved. Objective Findings Last VS-Temp:97.8 B/P:111/71 Pulse:63 Resp:18 SaO2:99 ROOM AIR Last weight lbs:130 oz:7 K.165 Method:Bed Scales Laboratory Tests 01/25/17 0635: POC Glucose 231 H 01/25/17 0630: Sodium 138, Potassium 3.4 L, Chloride 105, Carbon Dioxide 31, BUN 4 L, Creatinine 0.6, Estimated Creat Clear 133, Estimated GFR (MDRD) 121, Glucose 244 H, Calcium 8.2 L, WBC 4.8, RBC 4.79, Hgb 13.8, Hct 40.2, MCV 83.9, RDW 12.5, Plt Count 175, MPV 6.7 L, Gran % 36.6 L, Gran # 1.8, Lymphocytes % 56.2 H, Monocytes % 4.8, Eosinophils % 1.9, Basophils % 0.4, Lymphocytes # 2.7, Monocytes # 0.2, Eosinophils # 0.1, Basophils # 0.0, PUBS MCHC 34.4, MCH 28.9 01/24/17 2008: POC Glucose 287 H 01/24/17 1632: POC Glucose 242 H 01/24/17 1128: POC Glucose 95 01/24/17 0905: Sodium 140, Potassium 3.3 L, Chloride 107, Carbon Dioxide 27, BUN 3 L, Creatinine 0.5 L, Estimated Creat Clear 159, Estimated GFR (MDRD) 149, Glucose 153 H, Calcium 7.9 L, WBC 4.6 L, RBC 4.89, Hgb 14.2, Hct 40.4, MCV 82.7, RDW 12.5, Plt Count 188, MPV 6.2 L, Gran % 55.1, Gran # 2.5, Lymphocytes % 37.4, Monocytes % 6.0, Eosinophils % 1.1, Basophils % 0.4, Lymphocytes # 1.7, Monocytes # 0.3, Eosinophils # 0.1, Basophils # 0.0, PUBS MCHC 35.1, MCH 29.1 Exam General appearance: alert, awake, no acute distress Cardiovascular: regular rate & rhythm Respiratory: clear to auscultation ABD: non-distended, normal bowel sounds, no rebound, soft, no guarding, slightly ttp in the LLQ Extremities: no peripheral edema Assessment/Plan Problem List 1. DKA (diabetic ketoacidoses) Status: Acute 2. IDDM (insulin dependent diabetes mellitus) Status: Chronic 3. Metabolic acidosis Status: Resolved 4. Bilateral pulmonary embolism Status: Acute 5. Abdominal pain Status: Acute 6. Hyperglycemia due to type 1 diabetes mellitus Status: Acute 7. Gastroenteritis Status: Acute 8. Vomiting Status: Resolved 9. Fracture of right foot Status: Acute 10. Migraine Status: Acute 11. Hypokalemia Status: Acute Plan: Pt has improved. Potassium still slightly low. Possible discharge home today on some xarelto and potassium. This inpt stay is expected to cross 2 MNs from start of care No (Connie Waldron) Assessment/Plan Problem List 1. DKA (diabetic ketoacidoses) Status: Acute 2. IDDM (insulin dependent diabetes mellitus) Status: Chronic 3. Metabolic acidosis Status: Resolved 4. Bilateral pulmonary embolism Status: Acute 5. Abdominal pain Status: Acute 6. Hyperglycemia due to type 1 diabetes mellitus Status: Acute 7. Gastroenteritis Status: Acute 8. Vomiting Status: Resolved 9. Fracture of right foot Status: Acute 10. Migraine Status: Acute 11. Hypokalemia Status: Acute Comments: Patient seen and agree with above note. Plan discharge on Xarelto, KCL and Zofran, f/u with primary in 1 week. (Peter Ansari MD) Antibiotic Stewardship (2) Infxn that will respond? Yes Right drug,dose,and route? Yes More targeted antbx? No (Connie Waldron) at 0831 at 0839
[2017-01-25] MEDS ORDERED: POTASSIUM CHLO20 ME4 PO (08:43)
[2017-01-25] MEDS ORDERED: ZOFRAN4 MG PO (08:44)
[2017-01-25] MEDS ORDERED: XARELTO15 MG PO (08:45)
[2017-01-25 10:11] LABS: NEUTROPHILS 35 % (42-76)
[2017-01-25 11:23] VITALS: BP 111/71
[2017-01-25 12:58] VITALS: BP 111/71
--- NOTE | 2017-01-31 08:55 | DISCHARGE SUMMARY STANDARD ---
Discharge Summary (FCA2) Date of admission: 01/21/17 Date of discharge: 01/25/17 Problem List: 1. DKA (diabetic ketoacidoses) 2. IDDM (insulin dependent diabetes mellitus) 3. Metabolic acidosis 4. Bilateral pulmonary embolism 5. Abdominal pain 6. Hyperglycemia due to type 1 diabetes mellitus 7. Gastroenteritis 8. Vomiting 9. Fracture of right foot 10. Migraine 11. Hypokalemia History of present illness: Ms. Damon is a 26 year old female, patient of Anyi Torres APRN, with a history of type1 DM who presented to [facility] ER with nausea, vomiting, diarrhea and abdominal pain for 3 days. Her daughter recently had a viral GI and patient thought that she could manage and get well at home. She did discuss with endocrinology who instructed her not to take her insulin because she was not eating. She awakened at 0300 and was SOB and was having some MSCP. At that time she decided to come to the ER. Patient noted that she had been unable to eat or drink and had just been in the bed vomiting since 01/19/17. With evaluation in the ER she was found to be in DKA with metabolic acidosis. CTA of the chest revealed bilateral pulmonary emboli. She was admitted for further treatment. Exam on admission: General appearance: alert, rapid RR; appears uncomfortable Eyes: anicteric, pupils reactive to light ENT: coated tongue Neck: lymphadenopathy (absent), thyroid (normal) Cardiovascular: regular rate & rhythm, ST on monitor Respiratory: clear to auscultation (bilat anterior and posterior) ABD: soft, no tenderness, bowel sounds present Extremities: moves all, warm, no calf tenderness, paloma on right foot Skin: dry, warm Neuro: alert, oriented, speech clear Hospital Course: She was started on an insulin drip, IVF's, lovenox, and pain control. She was able to be weaned off the insulin drip and started on lantus and sliding scale insulin. She was able to start eating and was moved out of step-down. She did develop a KHAN and was given some imitrex. She developed some left sided abdominal pain, but this improved. Her potassium was low and had to be replaced. By 01/25/17, she was stable to be discharged home on Xarelto, KCL and Zofran. She will need to f/u with her PCP in 1 week. Discharge medications: Continue taking these medications: Paroxetine (Paxil) 30 MG TAB 30 MILLIGRAM ORAL DAILY Albuterol Sulfate (Proair Hfa) 8.5 GM HFA.AER.AD 1 PUFF INHALATION EVERY 6 HOURS NEEDED as needed for ASTHMA Instructions: 1-2 PUFFS EVERY 4-6 HOURS FLUTICASONE/SALMETEROL (Advair 250-50 Diskus) 1 EACH BLST.W.DEV 1 PUFF IN VITRO TWICE A DAY Quetiapine Fumarate (Seroquel 50MG) 50 MG TABLET 50 MILLIGRAM ORAL DAILY BUPRENORPHINE HCL/NALOXONE HCL (Buprenorphin-Naloxon 8-2 MG Sl) 1 EACH TAB.SUBL 1 TABLET SUBLINGUAL DAILY Instructions: 1 AND 3/4 TABLET Medroxyprogesterone Acetate (Provera 10MG Tablet) 10 MG TABLET 10 MILLIGRAM ORAL DAILY POLYETHYLENE GLYCOL (Miralax) 17 GM POWD.PACK 17 GRAM ORAL DAILY Qty = 5 Propranolol Hcl (Inderal 20MG. Tablet) 20 MG TABLET 20 MILLIGRAM ORAL DAILY Comments: take 1 tablet by mouth at bedtime for migraines - SIG Obtained From Stephan Gabapentin (Gabapentin 400MG Capsule) 400 MG CAPSULE 400 MILLIGRAM ORAL THREE TIMES A DAY Qty = 90 Insulin Lispro, Recombinant (Humalog 100 UNITS/ML 10ML) 100 UNIT/ML VIAL 20 UNITS Subcutaneous Injection BEFORE MEALS Instructions: SLIDING SCALE PER FSBS RESULT INSULIN GLARGINE (Lantus 3ML Solostar Pen) 100 UNIT/ML VIAL 40 UNITS Subcutaneous Injection TWICE A DAY Start taking the following new medications: Potassium Chloride (Potassium Chloride) 20 MEQ TABLET.ER 20 Milliequivalent ORAL DAILY Qty = 30 No Refills ONDANSETRON HCL (Zofran 4MG Tab) 4 MG TABLET 4 MILLIGRAM ORAL EVERY 6 HOURS NEEDED as needed for NAUSEA AND VOMITING Qty = 20 No Refills Rivaroxaban (Xarelto) 15 MG TABLET 15 MILLIGRAM ORAL TWICE A DAY Qty = 42 No Refills Disposition: F/U with: ANYI TORRES APRN Follow up: 7 DAYS Activity: Cont Current activity Diet: Continue same diet Discharge to: HOME Agency needed? N at 0855
== END 2017-01-25 12:12 | disposition home or self-care (01) | DRG 175 ==
LOC: ER 08:06 → 2ND 09:53 → ER 09:53 → 2ND 11:17 → ICU 11:17 → 2ND 12:27
PROVIDERS: Emergency Medicine; Family Medicine
DX: I26.99 Other pulmonary embolism without acute cor pulmonale (principal); E13.10 Other specified diabetes mellitus with ketoacidosis without coma; Z79.4 Long term (current) use of insulin
CPT/HCPCS: J2405; Q9967

== ENCOUNTER 2017-04-14 18:09 | Inpatient (IN) | payer MEDICAID ==
[~2017-04-14] VITALS: Ht 170.2 cm; Wt 56.7 kg
[~2017-04-14 18:09] MED LIST changes: +BACTROBAN2% TP; +FLAGYL500 M1 PO; +GABAPENTIN 400400 M1 PO; +HUMALOG100 U/ML SC; +INSULIN GL100 UNITS/ SC; +POTASSIUM CHLO20 ME4 PO; +SEPTRA DS 800 M1 TAB PO; +XARELTO15 MG PO
[2017-04-14 18:10] VITALS: BP 120/68
[2017-04-14 18:23] LABS: ALLEN'S TEST Y; ARTERIAL ABE -23.6 MMOL/L (-2.4-+2.3); ARTERIAL TCO2 6.1 MMOL/L (23-27); OXYGEN R/A
[2017-04-14 18:26] LABS: LYMPH # 1.1 K/mm3 (0.7-4.5); LYMPH % 8.2 % (10-50.0)
--- NOTE | 2017-04-14 18:33 | Emergency Room Report ---
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 RECENTLY HOSPTIALIZED FOR SUCH Onset of symptoms date/time:/ or onset unknown for:MEDICAL HX UNKNOWN Treatment Prior to Arrival: [employer] Provided by: Sepsis Risk Assessment: Temp: 97.8 B/P: 120/68 MAP: 85 Pulse: 106 Resp: 18 Recent fever? N Clinical Suspician of Infection? N Mental Status: 1 - Regular (Normal Baseline) Sepsis Risk:Low Sepsis Risk Have you (or family members/close friends) recently traveled outside the [place]? N If Yes, where/when: Have you had exposure to infectious disease within the past month? TB? Other? Specify: 27 years old white female history of diabetes mellitus insulin-dependent and DKA. Recently discharged because of his C. difficile on Flagyl. She continues to have vomiting 10 times a day and diarrhea 3-4 times a day. Unable to keep anything down and getting weaker. Emesis: The patient arrived to the ED in a stable condition. Source patient, RN notes reviewed, family, EMS, old records ALLERGIES Coded Allergies: Adhesives (12/12/16) Penicillins (12/12/16) butalbital (12/12/16) caffeine (From FIORICET) (03/26/17) codeine (12/12/16) iodine (12/12/16) ketorolac (12/12/16) povidone-iodine (From BETADINE) (03/26/17) soap (From BETADINE) (03/26/17) Home Medications Active Scripts POLYETHYLENE GLYCOL (Miralax) 17 GM PO DAILY #5 NGHIA Prov: 05/08/16 Potassium Chloride 20 MEQ PO DAILY #30 TAB Prov: 01/25/17 Rivaroxaban (Xarelto) 15 MG PO BID #42 TAB Prov: 01/25/17 Metronidazole (Flagyl) 500 MG PO Q8 #30 TAB Prov: 03/29/17 PROMETHAZINE HCL (Phenergan 25MG Tab (Geq)) 25 MG PO Q6HP PRN N/V #20 TAB Prov: 03/29/17 Reported Medications Propranolol Hcl (Inderal 20MG. Tablet) 20 MG PO QHS Paroxetine (Paxil) 30 MG PO DAILY FLUTICASONE/SALMETEROL (Advair 250-50 Diskus) 1 PUFF IN BID INSULIN GLARGINE (Lantus 3ML Solostar Pen) 50 UNITS SC BID Insulin Lispro, Recombinant (Humalog 100 UNITS/ML 10ML) 15 UNITS SC ACHS Albuterol Sulfate (Proair Hfa) 1 PUFF IH Q6HP PRN ASTHMA Quetiapine Fumarate (Seroquel 50MG) 50 MG PO DAILY BUPRENORPHINE HCL/NALOXONE HCL (Buprenorphin-Naloxon 8-2 MG Sl) 1 TAB SL DAILY Gabapentin (Gabapentin 400MG Capsule) 400 MG PO TID #90 History Medical History General CAD? No Angina: Yes MO: No Hypertension? No Hyperlipidemia? No CHF? No DVT? No PE? Yes COPD? No Asthma? Yes Anemia? No GERD? Yes Gastric ulcers? Yes GI Bleed? No Hernia? Yes Thyroid Problems? No Hypothyroidism? No CVA? No Seizures? No Diabetes? Yes Insulin Dependent: Yes Insulin Pump: No Home FSBS? Yes Renal Insuffiency? No End Stage Renal Disease? No UTI? Yes Stones? Yes BPH? No GB Disease: Yes Nephritic Syndrome? No Asplenia? No Hepatitis? No Sickle Cell Disease? No Arthritis? No Migraines? Yes Cataracts? No Glaucoma? No MRSA? Yes HIV? No TB? No Anxiety? Yes Depression? No Cancer? No More? 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 Respiratory no symptoms reported Cardiovascular no symptoms reported Gastrointestinal see HPI, diarrhea, nausea, vomiting Genitourinary no symptoms reported. Musculoskeletal no symptoms reported Skin no symptoms reported Psychiatric/Neurological no symptoms reported Physical Exam Vital Signs Vital Signs Date Time Temp Pulse Resp B/P Pulse O2 O2 Flow FiO2 Ox Delivery Rate 04/14 1810 97.8 106 18 120/68 100 - WBC >12,000 or <4,000 or 10% bands? 2 or more SIRS Criteria Met? B/P:120/68 MAP:85 Creatinine >2.0? UA output<0.5ml/kg/hr for 2 hrs? Platelet count >100,000? Lactate >2.0mmol/1? INR >1.2 or PTT > than 60 sec? Evidence of Organ Dysfunction? Provider documented clinical suspician of infection? N Sepsis Criteria Count: 1 Sepsis Risk: Low Sepsis Risk General Appearance normal appearance, WD/WN Eye Exam - bilateral eye normal exam, bilateral eye PERRL, bilateral eye EOMI Ear, Nose, Throat hearing grossly normal, normal ENT inspection Neck normal inspection, non-tender, supple, full range of motion Respiratory Status Yes: trachea midline, chest symmetrical, non tender chest. No: respiratory distress. Lung Sounds bilateral: normal breath sounds, lungs clear. 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 No Results/Orders Laboratory Tests 04/14/171819: ABG pH 7.13 *L, ABG pCO2 (Temp Corrct 17.3 L, ABG pO2 (Temp Correct 110.0 H, ABG HCO3 5.6 L, ABG Total CO2 6.1 L, ABG O2 Sat (Calculated) 97.6, ABG Base Excess -23.6 L, Luis Test Y, Blood Gas Comments R/R, Magnesium 2.0 04/14/171809: Sodium 130 L, Potassium 5.6 H, Chloride 90 L, Carbon Dioxide 8 *L, BUN 26 H, Creatinine 1.5 H, Estimated Creat Clear 48 L, Estimated GFR (MDRD) 42 L, Glucose 572 *H, Calcium 10.0, Total Bilirubin 0.5, AST 28, ALT 66, Alkaline Phosphatase 136 H, Creatine Kinase 71, CK-MB (CK-2) Rel Index 0.7, CK and CKMB Interp < 0.5, Troponin I < 0.02, Total Protein 9.5 H, Albumin 4.9, Globulin 4.6 H, Albumin/Globulin Ratio 1.1, WBC 13.1 H, RBC 6.66 H, Hgb 19.6 *H, Hct 61.7 *H, MCV 92.6, RDW 12.3, Plt Count 339, MPV 8.5, Gran % 89.4 H, Gran # 11.7 H, Total Counted Pending, Lymphocytes % 8.2 L, Monocytes % 2.2, Eosinophils % 0.1, Basophils % 0.2, Neutrophils Pending, Lymphocytes (Manual) Pending, Lymphocytes # 1.1, Monocytes # 0.3, Eosinophils # 0.0, Basophils # 0.0, Platelet Estimate Pending, PUBS MCHC 31.7 L, MCH 29.4, Acetone Level SMALL Current Medication Orders Sig/Caleb Start time Last Medication Dose Route Stop Time Status Admin Insulin Human Regular 100 UNITS ONCE ONE 04/14 1900 AC Sodium Chloride 100 ML IV 04/15 1139 Sodium Chloride 10 ML PRN PRN 04/14 1830 AC IV 04/15 1817 Sodium Chloride 1,000 ML .Q1H1M 04/14 1830 AC IV 04/14 1930 Sodium Chloride 10 ML PRN PRN 04/14 1830 AC IV 04/15 1825 Sodium Chloride 1,000 ML .Q1H1M 04/14 1830 AC IV 04/14 1930 Sodium Chloride 10 ML PRN PRN 04/14 1830 AC IV 04/15 1825 Orders Procedure Date/time Status MAGNESIUM 04/14 182 Complete ABD ACUTE(MUL VIEWS) 04/14 1825 Active ELECTROCARDIOGRAM REQUEST 04/14 1818 Active IV SALINE LOCK 04/14 1818 Active URINALYSIS/COMPLETE 04/14 1818 Active URINE 04/14 1818 Active FSBS REQUEST BY CARE AREA 04/14 1818 Active DRUG ABUSE SCREEN (10) 04/14 1818 Active CBC WITH AUTO DIFF 04/14 1818 Active CARDIAC ENZYMES 04/14 1818 Complete CHEM 12 PROFILE 04/14 1818 Complete Acetone, Serum 04/14 1818 Complete DIFFERENTIAL-WBC 04/14 1810 Active 12 LEAD EKG-SIMEONSON (INITIAL) 04/14 UNK Active CM/EKG CM/EKG EKG SINUS TACHYCARDIA 105 right ATRIAL ENLARGEMENT BASELINE ARTIFACT NO ACUTE FINDING XRAY/CT/US XRAY/CT/US XRAY chest, abdomen XR interpretation by reviewed by me Xray Results normal/NAD Departure Departure Time of Disposition 1829 Disposition Still a Patient Clinical Impression Primary Impression: DKA, type 1 Secondary Impressions: C. difficile colitis, Dehydration, IDDM (insulin dependent diabetes mellitus) Condition STABLE Referrals William Lockhart MD Additional Instructions Patient was started on IV fluids and later on started insulin drip called Dr. Lockhart agreed to admit he was here tonight. She remains stable in the ED Discharge Counseling Counseled pt/family regarding diagnosis, test results, medications/RX, home care, follow up needs ED Critical Care Critical Care No If Critical Care minutes are documented, the time involved in the performance of seperately reportable procedures was not counted toward critical care time documented. I directly delivered medical care to this critically ill and/or injured patient. Timely evaluation and treatment was necessary to address the significant organ system(s) dysfunction present in this patient. at 1909
[2017-04-14 18:38] LABS: HEMOGLOBIN 19.6 g/dL (12.2-16.2)
[2017-04-14 18:51] LABS: BUN 26 mg/dL (7-18)
[2017-04-14 18:52] LABS: GFR (ESTIMATED) 42 ML/MIN (59-)
[2017-04-14 19:08] LABS: NEUTROPHILS 78 % (42-76)
--- OUTSIDE RECORDS SUMMARY | 2017-04-14 19:30 | External Medical Summary Rpt ---
Demographics Preferred Language Belarusian Marital Status Unknown Latter Day Affiliation Unknown Race Unknown Ethnic Group Unknown Author Author VIRGILIO Address Unknown Phone Immunization Unable to retrieve immunization data due to connection failure with Immunization Registry. Please try again later.
--- OUTSIDE RECORDS SUMMARY | 2017-04-14 19:30 | External Medical Summary Rpt ---
Demographics Preferred Language Urdu Marital Status Unknown Yarsani Affiliation Unknown Race Unknown Ethnic Group Unknown Author Author VIRGILIO Address Unknown Phone Immunization Unable to retrieve immunization data due to connection failure with Immunization Registry. Please try again later.
--- OUTSIDE RECORDS SUMMARY | 2017-04-14 19:32 | External Medical Summary Rpt ---
Author Author VIRGIL[employer] Finn, [employer] Address Unknown Phone Unavailable Results Glucose [Mass/volume] in Capillary blood by Glucometer Observa Value Referen Units Interpr Notes Date ti ce etation Range Glucose 70 - 110 mg/dl High No Mar 14 [Mass/vol informati 2016 6:20 ume] in on in AM Capillary source blood by data Glucomete r Glucose [Mass/volume] in Capillary blood by Glucometer Observa Value Referen Units Interpr Notes Date ti etation Range Glucose 70 - 110 mg/dl High No Mar 28 [Mass/vol informati 2016 8:54 ume] in on in PM Capillary source blood by data Glucomete r Glucose [Mass/volume] in Capillary blood by Glucometer Observa Value Referen Units Interpr Notes Date ti etation Range Glucose 70 - 110 mg/dl High No Mar 28 [Mass/vol informati 2016 4:52 ume] in on in PM Capillary source blood by data Glucomete r Glucose [Mass/volume] in Capillary blood by Glucometer Observa Value Referen Units Interpr Notes Date ti etation Range Glucose 70 - 110 mg/dl High No Mar 28 [Mass/vol informati 2016 ume] in on in 11:47 AM Capillary source blood by data Glucomete r Glucose [Mass/volume] in Capillary blood by Glucometer Observa Value Referen Units Interpr Notes Date ti etation Range Glucose 70 - 110 mg/dl High No Mar 28 [Mass/vol informati 2016 6:29 ume] in on in AM Capillary source blood by data Glucomete r Amylase [Enzymatic activity/volume] in Serum or Plasma Observa Value Referen Units Interpr Notes Date ti ce etation 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 Amylase 25 - 115 U/L Normal No Mar 28 [Enzymati informati 2017 6:15 c on in AM activity/ source volume] data in Serum or Plasma Lipase [Enzymatic activity/volume] in Serum or Plasma Observa Value Referen Units Interpr Notes Date tion ce etation 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 Lipase 73 - 393 U/L Low No Mar 28 [Enzymati informati 2016 6:15 c on in AM activity/ source volume] data in Serum or Plasma Basic metabolic panel in Blood Observa Value Referen Units Interpr Notes Date ti ce etation Range Urea 7 - 18 mg/dL No No Mar 28 nitrogen informati informati 2016 6:15 [Mass/vol on in on in AM ume] in source source Serum or data data Plasma Calcium 8.5 - mg/dL Low No Mar 28 [Mass/vol 10.1 informati 2016 6:15 ume] in on in AM Serum or source Plasma data Chloride 98 - 107 mmoL/L High No Mar 28 [Moles/vo informati 2016 6:15 lume] in on in AM Serum or source Plasma data Carbon 21.0 - mmoL/L Normal No Mar 28 dioxide, 32.0 informati 2016 6:15 total on in AM [Moles/vo source lume] in data Serum or Plasma Creatinin 0.55 - mg/dL Low No Mar 28 e 1.02 informati 2016 6:15 [Mass/vol on in AM ume] in source Serum or data Plasma Creatinin 50 - 200 ML/MIN Normal No Mar 28 e renal informati 2017 6:15 clearance on in AM source predicted data by Cockcroft -Gault formula Estimated 59- ML/MIN No REFERENCE Mar 28 informati RANGE: 2017 6:15 glomerula on in >60 AM r source ML/MIN/1. filtratio data 73 SQUARE n rate METERSIf (GF this patient is -A merican, then multiply theresult by 1.210. Glucose 74 - 106 mg/dL High No Mar 28 [Mass/vol informati 2016 6:15 ume] in on in AM Serum or source Plasma data Potassium 3.5 - 5.1 mmoL/L Normal No Mar 28 informati 2016 6:15 [Moles/vo on in AM lume] in source Serum or data Plasma Sodium 136 - 145 mmoL/L Normal No Mar 28 [Moles/vo informati 2016 6:15 lume] in on in AM Serum or source Plasma data CBC W Auto Differential panel in Blood Observa Value Referen Units Interpr Notes Date tion ce etation Range Basophils 0 - 0.2 K/MM3 Normal No Mar 28 informati 2016 6:15 [#/volume on in AM ] in source Blood by data Automated count Basophils 0.1 - 2.0 % Normal No Mar 28 / informati 2016 6:15 leukocyte on in AM s in source Blood by data Automated count Eosinophi 0.0 - 0.4 K/mm3 Normal No Mar 28 ls informati 2016 6:15 [#/volume on in AM ] in source Blood by data Automated count Eosinophi 0.1 - % Normal No Mar 28 ls/100 12.0 informati 2016 6:15 leukocyte on in AM s in source Blood by data Automated count Granulocy 1.8 - 7.8 K/mm3 Normal No Mar 28 nito informati 2016 6:15 [#/volume on in AM ] in source Blood by data Automated count Granulocy 37.0 - % Normal No Mar 28 nito/100 80.0 informati 2016 6:15 leukocyte on in AM s in source Blood by data Automated count Hematocri 37.0 - % Normal No Mar 28 t [Volume 47.0 informati 2016 6:15 on in AM Fraction] source of Blood data Hemoglobi 12.2 - g/dL No No Mar 28 n 16.2 informati informati 2016 6:15 [Mass/vol on in on in AM ume] in source source Blood data data Lymphocyt 0.7 - 4.5 K/mm3 Normal No Mar 28 es informati 2016 6:15 [#/volume on in AM ] in source Unspecifi data ed specimen by Automated count Lymphocyt 10 - 50.0 % Normal No Mar 28 es informati 2016 6:15 [#/volume on in AM ] in source Unspecifi data ed specimen by Automated count Erythrocy 27 - 31.2 pg Normal No Mar 28 te mean informati 2016 6:15 corpuscul on in AM ar source hemoglobi data n [Entitic mass] Erythrocy 31.8 - g/dl Normal No Mar 28 te mean 35.4 informati 2016 6:15 corpuscul on in AM ar source hemoglobi data n concentra tion [Mass/vol ume] by Automated count Erythrocy 82.2 - fl Normal No Mar 28 te mean 97.8 informati 2016 6:15 corpuscul on in AM ar volume source [Entitic data volume] by Automated count Monocytes 0.1 - 1.0 K/mm3 Normal No Mar 28 informati 2016 6:15 [#/volume on in AM ] in source Blood by data Automated count Monocytes 1.7 - 9.3 % Normal No Mar 28 /100 informati 2016 6:15 leukocyte on in AM s in source Blood by data Automated count Platelet 7.4 - fl Normal No Mar 28 mean 10.4 informati 2016 6:15 volume on in AM [Entitic source volume] data in Blood by Automated count Platelets 142 - 424 K/mm3 Normal No Mar 28 informati 2016 6:15 [#/volume on in AM ] in source Blood data Erythrocy 4.2 - 5.4 M/mm3 Normal No Mar 28 nito informati 2016 6:15 [#/volume on in AM ] in source Amniotic data fluid Erythrocy 11.5 - % Normal No Mar 28 te 17.5 informati 2016 6:15 distribut on in AM ion width source [Entitic data volume] by Automated count Leukocyte 4.8 - K/MM3 No No Mar 28 s 10.8 informati informati 2016 6:15 [#/volume on in on in AM ] in source source Blood data data Glucose [Mass/volume] in Capillary blood by Glucometer Observa Value Referen Units Interpr Notes Date tion ce etation Range Glucose 70 - 110 mg/dl High No Mar 27 [Mass/vol informati 2016 8:48 ume] in on in PM Capillary source blood by data Glucomete r Glucose [Mass/volume] in Capillary blood by Glucometer Observa Value Referen Units Interpr Notes Date tion ce etation Range Glucose 70 - 110 mg/dl High No Mar 27 [Mass/vol informati 2016 5:07 ume] in on in PM Capillary source blood by data Glucomete r Glucose [Mass/volume] in Capillary blood by Glucometer Observa Value Referen Units Interpr Notes Date tion ce etation Range Glucose 70 - 110 mg/dl No No Mar 27 [Mass/vol informati informati 2016 ume] in on in on in 12:04 PM Capillary source source blood by data data Glucomete r Glucose [Mass/volume] in Capillary blood by Glucometer Observa Value Referen Units Interpr Notes Date tion ce etation Range Glucose 70 - 110 mg/dl High No Mar 27 [Mass/vol informati 2017 6:51 ume] in on in AM Capillary source blood by data Glucomete r Acetone [Mass/volume] in Serum or Plasma Observa Value Referen Units Interpr Notes Date tion ce etation Range Acetone NOT No No No Mar 27 [Mass/vol DETECTD informati informati informati 2017 6:20 ume] in on in on in on in AM Serum or source source source Plasma data data data Basic metabolic panel in Blood Observa Value Referen Units Interpr Notes Date tion ce etation Range Urea 7 - 18 mg/dL No No Mar 27 nitrogen informati informati 2016 6:20 [Mass/vol on in on in AM ume] in source source Serum or data data Plasma Calcium 8.5 - mg/dL Low No Mar 27 [Mass/vol 10.1 informati 2016 6:20 ume] in on in AM Serum or source Plasma data Chloride 98 - 107 mmoL/L Normal No Mar 27 [Moles/vo informati 2016 6:20 lume] in on in AM Serum or source Plasma data Carbon 21.0 - mmoL/L Normal No Mar 27 dioxide, 32.0 informati 2017 6:20 total on in AM [Moles/vo source lume] in data Serum or Plasma Creatinin 0.55 - mg/dL No No Mar 27 e 1.02 informati informati 2017 6:20 [Mass/vol on in on in AM ume] in source source Serum or data data Plasma Creatinin 50 - 200 ML/MIN No No Mar 27 e renal informati informati 2017 6:20 clearance on in on in AM source source predicted data data by Cockcroft -Gault formula Estimated 59- ML/MIN No REFERENCE Mar 27 informati RANGE: 2017 6:20 glomerula on in >60 AM r source ML/MIN/1. filtratio data 73 SQUARE n rate METERSIf (GF this patient is -A merican, then multiply theresult by 1.210. Glucose 74 - 106 mg/dL High No Mar 27 [Mass/vol informati 2017 6:20 ume] in on in AM Serum or source Plasma data Potassium 3.5 - 5.1 mmoL/L Low No Mar 27 informati 2017 6:20 [Moles/vo on in AM lume] in source Serum or data Plasma Sodium 136 - 145 mmoL/L Normal No Mar 27 [Moles/vo informati 2017 6:20 lume] in on in AM Serum or source Plasma data Glucose [Mass/volume] in Capillary blood by Glucometer Observa Value Referen Units Interpr Notes Date tion ce etation Range Glucose 70 - 110 mg/dl High No Mar 26 [Mass/vol alert informati 2016 ume] in on in 11:56 PM Capillary source blood by data Glucomete r Gas panel in Venous blood Observa Value Referen Units Interpr Notes Date tion ce etation Range Base -2.4-2.3 MMOL/L Low No Mar 26 excess in informati 2016 Venous on in 11:11 PM blood source data Bicarbona 23 - 27 MMOL/L Low No Mar 26 te inform2016 [Moles/vo on in 11:11 PM lume] in source Venous data blood Carbon 41 - 51 MMHG Low No Mar 26 dioxide 2016 [Partial on in 11:11 PM pressure] source in data Venous blood pH of 7.31 - MMOL/L Low No Mar 26 Venous 7.41 2016 blood on in 11:11 PM source data Oxygen 35 - 40 MMHG High No Mar 26 content informati 2017 in Venous on in 11:11 PM blood source data Oxygen 75 - 80 % Low No Mar 26 saturatio ati 2017 n.calcula on in 11:11 PM jennifer from source oxygen data partial pressure in Venous blood Carbon 23 - 27 MMOL/L Low No Mar 26 dioxide, ati 2017 total on in 11:11 PM [Moles/vo source lume] in data Venous blood Acetone [Mass/volume] in Serum or Plasma Observa Value Referen Units Interpr Notes Date tion ce etation Range Acetone NOT No No No Mar 26 [Mass/vol DETECTD informati informati informati 2016 9:50 ume] in on in on in on in PM Serum or source source source Plasma data data data CBC W Auto Differential panel in Blood Observa Value Referen Units Interpr Notes Date tion ce etation Range Basophils 0 - 0.2 K/MM3 Normal No Mar 262016 9:50 [#/volume on in PM ] in source Blood by data Automated count Basophils 0.1 - 2.0 % Normal No Mar 26 /100 informati 2016 9:50 leukocyte on in PM s in source Blood by data Automated count Eosinophi 0.0 - 0.4 K/mm3 Normal No Mar 26 ls informati 2016 9:50 [#/volume on in PM ] in source Blood by data Automated count Eosinophi 0.1 - % Normal No Mar 26 ls/100 12.0 informati 2016 9:50 leukocyte on in PM s in source Blood by data Automated count Granulocy 1.8 - 7.8 K/mm3 Normal No Mar 26 nito informati 2016 9:50 [#/volume on in PM ] in source Blood by data Automated count Granulocy 37.0 - % Normal No Mar 26 nito/100 80.0 informati 2016 9:50 leukocyte on in PM s in source Blood by data Automated count Hematocri 37.0 - % High No Mar 26 t [Volume 47.0 informati 2016 9:50 on in PM Fraction] source of Blood data Hemoglobi 12.2 - g/dL Normal No Mar 26 n 16.2 informati 2016 9:50 [Mass/vol on in PM ume] in source Blood data Lymphocyt 0.7 - 4.5 K/mm3 Normal No Mar 26 es informati 2016 9:50 [#/volume on in PM ] in source Unspecifi data ed specimen by Automated count Lymphocyt 10 - 50.0 % Normal No Mar 26 es informati 2016 9:50 [#/volume on in PM ] in source Unspecifi data ed specimen by Automated count Erythrocy 27 - 31.2 pg Normal No Mar 26 te mean informati 2016 9:50 corpuscul on in PM ar source hemoglobi data n [Entitic mass] Erythrocy 31.8 - g/dl Normal No Mar 26 te mean 35.4 informati 2016 9:50 corpuscul on in PM ar source hemoglobi data n concentra tion [Mass/vol ume] by Automated count Erythrocy 82.2 - fl Normal No Mar 26 te mean 97.8 informati 2016 9:50 corpuscul on in PM ar volume source [Entitic data volume] by Automated count Monocytes 0.1 - 1.0 K/mm3 Normal No Mar 26 informati 2016 9:50 [#/volume on in PM ] in source Blood by data Automated count Monocytes 1.7 - 9.3 % Normal No Mar 26 / informati 2016 9:50 leukocyte on in PM s in source Blood by data Automated count Platelet 7.4 - fl Normal No Mar 26 mean 10.4 informati 2016 9:50 volume on in PM [Entitic source volume] data in Blood by Automated count Platelets 142 - 424 K/mm3 Normal No Mar 26 informati 2016 9:50 [#/volume on in PM ] in source Blood data Erythrocy 4.2 - 5.4 M/mm3 Normal No Mar 26 nito informati 2016 9:50 [#/volume on in PM ] in source Amniotic data fluid Erythrocy 11.5 - % Normal No Mar 26 te 17.5 informati 2016 9:50 distribut on in PM ion width source [Entitic data volume] by Automated count Leukocyte 4.8 - K/MM3 Normal No Mar 26 s 10.8 informati 2016 9:50 [#/volume on in PM ] in source Blood data Urinalysis dipstick W Reflex Microscopic panel in Urine Observa Value Referen Units Interpr Notes Date tion ce etation Range Appeara CLEAR CLEAR No No No Mar 26 nce of informa informa informa 2016 Urine tion in tion in tion in 9:46 PM source source source data data data Bilirub NEGATIV NEG No No No Mar 26 in E informa informa informa 2016 [Presen tion in tion in tion in 9:46 PM ce] in source source source Urine data data data by Test strip Erythro 3+ NEG No Abnorma No Mar 26 cytes informa l informa 2016 [Presen tion in tion in 9:46 PM ce] in source source Urine data data Color YELLOW YELLOW No No No Mar 26 of informa informa informa 2017 Urine tion in tion in tion in 9:46 PM source source source data data data Glucose NEG No High No Mar 26 [Mass/vol informati informati 2016 9:46 ume] in on in on in PM Urine by source source Test data data strip Ketones 3+ NEG mg/dL Abnorma No Mar 26 l informa 2016 [Presen tion in 9:46 PM ce] in source Urine data by Automat ed test strip Mucus NEGATIV NEG No No No Mar 26 [Presen E informa informa informa 2016 ce] in tion in tion in tion in 9:46 PM Urine source source source sedimen data data data t by Light microsc opy Nitrite NEGATIV NEG No No No Mar 26 E informa informa informa 2016 [Presen tion in tion in tion in 9:46 PM ce] in source source source Urine data data data by Test strip pH of 5.0 - 8.5 No Normal No Mar 26 Urine informati informati 2017 9:46 on in on in PM source source data data Protein NEG mg/dL High No Mar 26 [Mass/vol informati 2016 9:46 ume] in on in PM Urine by source Automated data test strip Specific 1.005 - No Normal No Mar 26 gravity 1.030 informati informati 2016 9:46 of Urine on in on in PM source source data data Urobili 0.2 NEG E.U./dL No No Mar 26 nogen informa informa 2016 [Presen tion in tion in 9:46 PM ce] in source source Urine data data by Test strip Urinalysis dipstick W Reflex Microscopic panel in Urine Observa Value Referen Units Interpr Notes Date tion ce etation Range Appeara CLEAR CLEAR No No No Mar 26 nce of informa informa informa 2016 Urine tion in tion in tion in 9:46 PM source source source data data data Bacteri OCC O No No No Mar 26 a informa informa informa 2016 [Presen tion in tion in tion in 9:46 PM ce] in source source source Urine data data data sedimen t by Light microsc opy Bilirub NEGATIV NEG No No No Mar 26 in E informa informa informa 2016 [Presen tion in tion in tion in 9:46 PM ce] in source source source Urine data data data by Test strip Erythro 3+ NEG No Abnorma No Mar 26 cytes informa l informa 2016 [Presen tion in tion in 9:46 PM ce] in source source Urine data data Color YELLOW YELLOW No No No Mar 26 of informa informa informa 2017 Urine tion in tion in tion in 9:46 PM source source source data data data Glucose NEG No High No Mar 26 [Mass/vol informati informati 2016 9:46 ume] in on in on in PM Urine by source source Test data data strip Ketones 3+ NEG mg/dL Abnorma No Mar 26 l informa 2016 [Presen tion in 9:46 PM ce] in source Urine data by Automat ed test strip Mucus NEGATIV NEG No No No Mar 26 [Presen E informa informa informa 2017 ce] in tion in tion in tion in 9:46 PM Urine source source source sedimen data data data t by Light microsc opy Nitrite NEGATIV NEG No No No Mar 26 E informa informa informa 2016 [Presen tion in tion in tion in 9:46 PM ce] in source source source Urine data data data by Test strip pH of 5.0 - 8.5 No Normal No Mar 26 Urine informati informati 2016 9:46 on in on in PM source source data data Protein NEG mg/dL High No Mar 26 [Mass/vol informati 2016 9:46 ume] in on in PM Urine by source Automated data test strip Erythro TNTC 0 rbc/hpf No No Mar 26 cytes informa informa 2016 [Presen tion in tion in 9:46 PM ce] in source source Urine data data sedimen t by Light microsc opy Specific 1.005 - No Normal No Mar 26 gravity 1.030 informati informati 2016 9:46 of Urine on in on in PM source source data data Urobili 0.2 NEG E.U./dL No No Mar 26 nogen informa informa 2016 [Presen tion in tion in 9:46 PM ce] in source source Urine data data by Test strip Leukocy [3 O wbc/hpf No No Mar 26 nito wbc/hpf informa informa 2016 [#/volu ; 5 tion in tion in 9:46 PM me] in wbc/hpf source source Urine ] data data Hemoglobin A1c in Blood Observa Value Referen Units Interpr Notes Date ti ce etation Range Hemoglo 9.6 0.0 - % High < 6% Mar 08 bin A1c 7.0 NON-ARACELI 2017 in BETIC 12:41 Blood LEVEL< AM 7% CONTROL LED DIABETI C LEVEL> 8% POORLY CONTROL LED DIABETI C LEVEL Comprehensive metabolic 2000 panel in Serum or Plasma Observa Value Referen Units Interpr Notes Date ti ce etation Range Albumin/G 1.1 - 1.8 No Normal No Mar 08 lobulin informati informati 2016 [Mass on in on in 12:41 AM ratio] in source source Serum or data data Plasma Albumin 3.4 - 5.0 gm/dL Normal No Mar 08 [Mass/vol informati 2016 ume] in on in 12:41 AM Serum or source Plasma data Alkaline 46 - 116 U/L Normal No Mar 08 phosphata informati 2017 se on in 12:41 AM [Enzymati source c data activity/ volume] in Serum or Plasma Bilirubin 0.2 - 1.0 mg/dL Normal No Mar 08 .total informati 2016 [Mass/vol on in 12:41 AM ume] in source Serum or data Plasma Urea 7 - 18 mg/dL Normal No Mar 08 nitrogen informati 2016 [Mass/vol on in 12:41 AM ume] in source Serum or data Plasma Calcium 8.5 - mg/dL Normal No Mar 08 [Mass/vol 10.1 informati 2016 ume] in on in 12:41 AM Serum or source Plasma data Chloride 98 - 107 mmoL/L Normal No Mar 08 [Moles/vo informati 2016 lume] in on in 12:41 AM Serum or source Plasma data Carbon 21.0 - mmoL/L Normal No Mar 08 dioxide, 32.0 informati 2017 total on in 12:41 AM [Moles/vo source lume] in data Serum or Plasma Creatinin 0.55 - mg/dL Normal No Mar 08 e 1.02 informati 2016 [Mass/vol on in 12:41 AM ume] in source Serum or data Plasma Creatinin 50 - 200 ML/MIN Normal No Mar 08 e renal informati 2017 clearance on in 12:41 AM source predicted data by Cockcroft -Gault formula Estimated 59- ML/MIN No REFERENCE Mar 08 informati RANGE: 2017 glomerula on in >60 12:41 AM r source ML/MIN/1. filtratio data 73 SQUARE n rate METERSIf (GF this patient is -A merican, then multiply theresult by 1.210. Globulin 1.3 - 3.2 gm/dL High No Mar 08 [Mass/vol informati 2017 ume] in on in 12:41 AM Serum source data Glucose 74 - 106 mg/dL High No Feb 23 [Mass/vol informati 2017 ume] in on in 12:41 AM Serum or source Plasma data Potassium 3.5 - 5.1 mmoL/L Normal No Mar 08 informati 2017 [Moles/vo on in 12:41 AM lume] in source Serum or data Plasma Sodium 136 - 145 mmoL/L Normal No Mar 08 [Moles/vo informati 2017 lume] in on in 12:41 AM Serum or source Plasma data Aspartate 15 - 37 U/L Normal No Mar 082016 aminotran on in 12:41 AM sferase source [Enzymati data c activity/ volume] in Serum or Plasma Alanine 12 - 78 U/L Normal No Mar 08 aminotran 2016 sferase on in 12:41 AM [Enzymati source c data activity/ volume] in Serum or Plasma Protein 6.4 - 8.2 gm/dL Normal No Mar 08 [Mass/vol inform2016 ume] in on in 12:41 AM Serum or source Plasma data CBC W Auto Differential panel in Blood Observa Value Referen Units Interpr Notes Date tion ce etation Range Basophils 0 - 0.2 K/MM3 Normal No Mar 082016 [#/volume on in 12:41 AM ] in source Blood by data Automated count Basophils 0.1 - 2.0 % Normal No Mar 08 /2016 leukocyte on in 12:41 AM s in source Blood by data Automated count Eosinophi 0.0 - 0.4 K/mm3 Normal No Mar 08 ls 2016 [#/volume on in 12:41 AM ] in source Blood by data Automated count Eosinophi 0.1 - % Normal No Mar 08 ls/100 12.0 2016 leukocyte on in 12:41 AM s in source Blood by data Automated count Granulocy 1.8 - 7.8 K/mm3 Normal No Mar 08 nito 2016 [#/volume on in 12:41 AM ] in source Blood by data Automated count Granulocy 37.0 - % Normal No Mar 08 nito/100 80.0 2016 leukocyte on in 12:41 AM s in source Blood by data Automated count Hematocri 37.0 - % Normal No Mar 08 t [Volume 47.0 ati 2016 on in 12:41 AM Fraction] source of Blood data Hemoglobi 12.2 - g/dL Normal No Mar 08 n 16.2 inform2016 [Mass/vol on in 12:41 AM ume] in source Blood data Lymphocyt 0.7 - 4.5 K/mm3 Normal No Mar 08 es inform2016 [#/volume on in 12:41 AM ] in source Unspecifi data ed specimen by Automated count Lymphocyt 10 - 50.0 % Normal No Mar 08 es inform2016 [#/volume on in 12:41 AM ] in source Unspecifi data ed specimen by Automated count Erythrocy 27 - 31.2 pg Normal No Mar 08 te mean 2016 corpuscul on in 12:41 AM ar source hemoglobi data n [Entitic mass] Erythrocy 31.8 - g/dl Normal No Mar 08 te mean 35.4 2016 corpuscul on in 12:41 AM ar source hemoglobi data n concentra tion [Mass/vol ume] by Automated count Erythrocy 82.2 - fl Normal No Mar 08 te mean 97.8 2016 corpuscul on in 12:41 AM ar volume source [Entitic data volume] by Automated count Monocytes 0.1 - 1.0 K/mm3 Normal No Mar 08 inform2016 [#/volume on in 12:41 AM ] in source Blood by data Automated count Monocytes 1.7 - 9.3 % Normal No Mar 08 /100 2016 leukocyte on in 12:41 AM s in source Blood by data Automated count Platelet 7.4 - fl Normal No Mar 08 mean 10.4 2016 volume on in 12:41 AM [Entitic source volume] data in Blood by Automated count Platelets 142 - 424 K/mm3 Normal No Mar 082016 [#/volume on in 12:41 AM ] in source Blood data Erythrocy 4.2 - 5.4 M/mm3 Normal No Mar 08 nito inform2016 [#/volume on in 12:41 AM ] in source Amniotic data fluid Erythrocy 11.5 - % Normal No Mar 08 te 17.5 2016 distribut on in 12:41 AM ion width source [Entitic data volume] by Automated count Leukocyte 4.8 - K/MM3 Normal No Mar 08 s 10.8 2016 [#/volume on in 12:41 AM ] in source Blood data Urinalysis dipstick W Reflex Microscopic panel in Urine Observa Value Referen Units Interpr Notes Date tion ce etation Range Appeara CLEAR CLEAR No No No Mar 08 nce of informa informa informa 2016 Urine tion in tion in tion in 12:23 source source source AM data data data Bacteri 1+ O No No No Mar 08 a informa informa informa 2016 [Presen tion in tion in tion in 12:23 ce] in source source source AM Urine data data data sedimen t by Light microsc opy Bilirub NEGATIV NEG No No No Mar 08 in E informa informa informa 2017 [Presen tion in tion in tion in 12:23 ce] in source source source AM Urine data data data by Test strip Erythro NEGATIV NEG No No No Mar 08 cytes E informa informa informa 2017 [Presen tion in tion in tion in 12:23 ce] in source source source AM Urine data data data Color YELLOW YELLOW No No No Mar 08 of informa informa informa 2017 Urine tion in tion in tion in 12:23 source source source AM data data data Glucose NEG No High No Mar 08 [Mass/vol informati informati 2017 ume] in on in on in 12:23 AM Urine by source source Test data data strip Ketones NEGATIV NEG mg/dL No No Mar 08 E informa informa 2016 [Presen tion in tion in 12:23 ce] in source source AM Urine data data by Automat ed test strip Mucus NEGATIV NEG No No No Mar 08 [Presen E informa informa informa 2017 ce] in tion in tion in tion in 12:23 Urine source source source AM sedimen data data data t by Light microsc opy Nitrite NEGATIV NEG No No No Mar 08 E informa informa informa 2016 [Presen tion in tion in tion in 12:23 ce] in source source source AM Urine data data data by Test strip pH of 5.0 - 8.5 No Normal No Mar 08 Urine informati informati 2017 on in on in 12:23 AM source source data data Protein NEG mg/dL No No Mar 08 [Mass/vol informati informati 2017 ume] in on in on in 12:23 AM Urine by source source Automated data data test strip Specific 1.005 - No Normal No Mar 08 gravity 1.030 informati informati 2017 of Urine on in on in 12:23 AM source source data data Epithel 3-5 0 - 5 #/hpf No No Mar 08 ial informa informa 2017 cells.s tion in tion in 12:23 quamous source source AM data data [Presen ce] in Urine sedimen t by Microsc opy high power field Urobili 1.0 NEG E.U./dL No No Mar 08 nogen informa informa 2017 [Presen tion in tion in 12:23 ce] in source source AM Urine data data by Test strip Leukocyte O wbc/hpf No No Mar 08 s informati informati 2016 [#/volume on in on in 12:23 AM ] in source source Urine data data Urinalysis dipstick W Reflex Microscopic panel in Urine Observa Value Referen Units Interpr Notes Date tion ce etation Range Appeara CLEAR CLEAR No No No Mar 08 nce of informa informa informa 2017 Urine tion in tion in tion in 12:23 source source source AM data data data Bilirub NEGATIV NEG No No No Mar 08 in E informa informa informa 2016 [Presen tion in tion in tion in 12:23 ce] in source source source AM Urine data data data by Test strip Erythro NEGATIV NEG No No No Mar 08 cytes E informa informa informa 2016 [Presen tion in tion in tion in 12:23 ce] in source source source AM Urine data data data Color YELLOW YELLOW No No No Mar 08 of informa informa informa 2017 Urine tion in tion in tion in 12:23 source source source AM data data data Glucose NEG No High No Mar 08 [Mass/vol informati informati 2017 ume] in on in on in 12:23 AM Urine by source source Test data data strip Ketones NEGATIV NEG mg/dL No No Mar 08 E informa informa 2016 [Presen tion in tion in 12:23 ce] in source source AM Urine data data by Automat ed test strip Mucus NEGATIV NEG No No No Mar 08 [Presen E informa informa informa 2016 ce] in tion in tion in tion in 12:23 Urine source source source AM sedimen data data data t by Light microsc opy Nitrite NEGATIV NEG No No No Mar 08 E informa informa informa 2016 [Presen tion in tion in tion in 12:23 ce] in source source source AM Urine data data data by Test strip pH of 5.0 - 8.5 No Normal No Mar 08 Urine informati informati 2017 on in on in 12:23 AM source source data data Protein NEG mg/dL No No Mar 08 [Mass/vol informati informati 2017 ume] in on in on in 12:23 AM Urine by source source Automated data data test strip Specific 1.005 - No Normal No Mar 08 gravity 1.030 informati informati 2016 of Urine on in on in 12:23 AM source source data data Urobili 1.0 NEG E.U./dL No No Mar 08 nogen informa informa 2017 [Presen tion in tion in 12:23 ce] in source source AM Urine data data by Test strip Acetone [Mass/volume] in Serum or Plasma Observa Value Referen Units Interpr Notes Date tion ce etation Range Acetone NOT No No No February 12 [Mass/vol DETECTD informati informati informati 2016 ume] in on in on in on in 10:20 PM Serum or source source source Plasma data data data Amylase [Enzymatic activity/volume] in Serum or Plasma Observa Value Referen Units Interpr Notes Date ti ce etation Range Amylase 25 - 115 U/L Normal No February 12 [Enzymati informati 2017 c on in 10:20 PM activity/ source volume] data in Serum or Plasma Comprehensive metabolic 2000 panel in Serum or Plasma Observa Value Referen Units Interpr Notes Date tion ce etation Range Albumin/G 1.1 - 1.8 No Low No February 12 lobulin informati informati 2016 [Mass on in on in 10:20 PM ratio] in source source Serum or data data Plasma Albumin 3.4 - 5.0 gm/dL Low No February 12 [Mass/vol informati 2016 ume] in on in 10:20 PM Serum or source Plasma data Alkaline 46 - 116 U/L Normal No February 12 phosphata informati 2016 se on in 10:20 PM [Enzymati source c data activity/ volume] in Serum or Plasma Bilirubin 0.2 - 1.0 mg/dL Low No February 12 .total informati 2016 [Mass/vol on in 10:20 PM ume] in source Serum or data Plasma Urea 7 - 18 mg/dL Normal No February 12 nitrogen informati 2016 [Mass/vol on in 10:20 PM ume] in source Serum or data Plasma Calcium 8.5 - mg/dL Normal No February 12 [Mass/vol 10.1 informati 2016 ume] in on in 10:20 PM Serum or source Plasma data Chloride 98 - 107 mmoL/L Normal No February 12 [Moles/vo informati 2017 lume] in on in 10:20 PM Serum or source Plasma data Carbon 21.0 - mmoL/L Normal No February 12 dioxide, 32.0 informati 2016 total on in 10:20 PM [Moles/vo source lume] in data Serum or Plasma Creatinin 0.55 - mg/dL Normal No February 12 e 1.02 informati 2016 [Mass/vol on in 10:20 PM ume] in source Serum or data Plasma Creatinin 50 - 200 ML/MIN Normal No February 12 e renal informati 2017 clearance on in 10:20 PM source predicted data by Cockcroft -Gault formula Estimated 59- ML/MIN No REFERENCE February 12 informati RANGE: 2017 glomerula on in >60 10:20 PM r source ML/MIN/1. filtratio data 73 SQUARE n rate METERSIf (GF this patient is -A merican, then multiply theresult by 1.210. Globulin 1.3 - 3.2 gm/dL High No February 12 [Mass/vol informati 2016 ume] in on in 10:20 PM Serum source data Glucose 74 - 106 mg/dL Normal No February 12 [Mass/vol informati 2016 ume] in on in 10:20 PM Serum or source Plasma data Potassium 3.5 - 5.1 mmoL/L Normal No February 12 inform2016 [Moles/vo on in 10:20 PM lume] in source Serum or data Plasma Sodium 136 - 145 mmoL/L Normal No February 12 [Moles/vo informati 2017 lume] in on in 10:20 PM Serum or source Plasma data Aspartate 15 - 37 U/L Normal No February 12 inform2016 aminotran on in 10:20 PM sferase source [Enzymati data c activity/ volume] in Serum or Plasma Alanine 12 - 78 U/L Normal No February 12 aminotran inform2016 sferase on in 10:20 PM [Enzymati source c data activity/ volume] in Serum or Plasma Protein 6.4 - 8.2 gm/dL Normal No February 12 [Mass/vol informati 2016 ume] in on in 10:20 PM Serum or source Plasma data Lipase [Enzymatic activity/volume] in Serum or Plasma Observa Value Referen Units Interpr Notes Date tion ce etation Range Lipase 73 - 393 U/L Low No February 12 [Enzymati informati 2017 c on in 10:20 PM activity/ source volume] data in Serum or Plasma Urinalysis dipstick W Reflex Microscopic panel in Urine Observa Value Referen Units Interpr Notes Date tion ce etation Range Appeara CLEAR CLEAR No No No February 12 nce of informa informa informa 2017 Urine tion in tion in tion in 10:20 source source source PM data data data Bacteri 1+ O No No No February 12 a informa informa informa 2016 [Presen tion in tion in tion in 10:20 ce] in source source source PM Urine data data data sedimen t by Light microsc opy Bilirub NEGATIV NEG No No No February 12 in E informa informa informa 2016 [Presen tion in tion in tion in 10:20 ce] in source source source PM Urine data data data by Test strip Erythro NEGATIV NEG No No No February 12 cytes E informa informa informa 2016 [Presen tion in tion in tion in 10:20 ce] in source source source PM Urine data data data Color YELLOW YELLOW No No No February 12 of informa informa informa 2016 Urine tion in tion in tion in 10:20 source source source PM data data data Glucose NEG No High No February 12 [Mass/vol informati informati 2016 ume] in on in on in 10:20 PM Urine by source source Test data data strip Ketones NEGATIV NEG mg/dL No No February 12 E informa informa 2016 [Presen tion in tion in 10:20 ce] in source source PM Urine data data by Automat ed test strip Mucus NEGATIV NEG No No No February 12 [Presen E informa informa informa 2016 ce] in tion in tion in tion in 10:20 Urine source source source PM sedimen data data data t by Light microsc opy Nitrite NEGATIV NEG No No No February 12 E informa informa informa 2016 [Presen tion in tion in tion in 10:20 ce] in source source source PM Urine data data data by Test strip pH of 5.0 - 8.5 No Normal No February 12 Urine informati informati 2017 on in on in 10:20 PM source source data data Protein NEG mg/dL No No February 12 [Mass/vol informati informati 2016 ume] in on in on in 10:20 PM Urine by source source Automated data data test strip Specific 1.005 - No Normal No February 12 gravity 1.030 informati informati 2016 of Urine on in on in 10:20 PM source source data data Epithel 5-10 0 - 5 #/hpf No No February 12 ial informa informa 2017 cells.s tion in tion in 10:20 quamous source source PM data data [Presen ce] in Urine sedimen t by Microsc opy high power field Urobili 1.0 NEG E.U./dL No No February 12 nogen informa informa 2016 [Presen tion in tion in 10:20 ce] in source source PM Urine data data by Test strip Leukocy [3 O wbc/hpf No No February 12 nito wbc/hpf informa informa 2016 [#/volu ; 5 tion in tion in 10:20 me] in wbc/hpf source source PM Urine ] data data Urinalysis dipstick W Reflex Microscopic panel in Urine Observa Value Referen Units Interpr Notes Date tion ce etation Range Appeara CLEAR CLEAR No No No February 12 nce of informa informa informa 2017 Urine tion in tion in tion in 10:20 source source source PM data data data Bilirub NEGATIV NEG No No No February 12 in E informa informa informa 2016 [Presen tion in tion in tion in 10:20 ce] in source source source PM Urine data data data by Test strip Erythro NEGATIV NEG No No No February 12 cytes E informa informa informa 2016 [Presen tion in tion in tion in 10:20 ce] in source source source PM Urine data data data Color YELLOW YELLOW No No No February 12 of informa informa informa 2017 Urine tion in tion in tion in 10:20 source source source PM data data data Glucose NEG No High No February 12 [Mass/vol informati informati 2017 ume] in on in on in 10:20 PM Urine by source source Test data data strip Ketones NEGATIV NEG mg/dL No No February 12 E informa informa 2016 [Presen tion in tion in 10:20 ce] in source source PM Urine data data by Automat ed test strip Mucus NEGATIV NEG No No No February 12 [Presen E informa informa informa 2016 ce] in tion in tion in tion in 10:20 Urine source source source PM sedimen data data data t by Light microsc opy Nitrite NEGATIV NEG No No No February 12 E informa informa informa 2016 [Presen tion in tion in tion in 10:20 ce] in source source source PM Urine data data data by Test strip pH of 5.0 - 8.5 No Normal No February 12 Urine informati ati 2016 on in on in 10:20 PM source source data data Protein NEG mg/dL No No February 12 [Mass/vol informati informati 2016 ume] in on in on in 10:20 PM Urine by source source Automated data data test strip Specific 1.005 - No Normal No February 12 gravity 1.030 informati 2016 of Urine on in on in 10:20 PM source source data data Urobili 1.0 NEG E.U./dL No No February 12 nogen informa informa 2016 [Presen tion in tion in 10:20 ce] in source source PM Urine data data by Test strip CBC W Auto Differential panel in Blood Observa Value Referen Units Interpr Notes Date tion ce etation Range Basophils 0 - 0.2 K/MM3 Normal No February 122016 [#/volume on in 10:20 PM ] in source Blood by data Automated count Basophils 0.1 - 2.0 % Normal No February 12 /100 2016 leukocyte on in 10:20 PM s in source Blood by data Automated count Eosinophi 0.0 - 0.4 K/mm3 Normal No February 12 ls 2016 [#/volume on in 10:20 PM ] in source Blood by data Automated count Eosinophi 0.1 - % Normal No February 12 ls/100 12.0 2016 leukocyte on in 10:20 PM s in source Blood by data Automated count Granulocy 1.8 - 7.8 K/mm3 Normal No February 12 nito 2016 [#/volume on in 10:20 PM ] in source Blood by data Automated count Granulocy 37.0 - % Normal No February 12 nito/100 80.0 2016 leukocyte on in 10:20 PM s in source Blood by data Automated count Hematocri 37.0 - % Normal No February 12 t [Volume 47.0 informati 2017 on in 10:20 PM Fraction] source of Blood data Hemoglobi 12.2 - g/dL Normal No February 12 n 16.2 inform2016 [Mass/vol on in 10:20 PM ume] in source Blood data Lymphocyt 0.7 - 4.5 K/mm3 Normal No February 12 es 2016 [#/volume on in 10:20 PM ] in source Unspecifi data ed specimen by Automated count Lymphocyt 10 - 50.0 % Normal No February 12 es inform2016 [#/volume on in 10:20 PM ] in source Unspecifi data ed specimen by Automated count Erythrocy 27 - 31.2 pg Normal No February 12 te mean 2016 corpuscul on in 10:20 PM ar source hemoglobi data n [Entitic mass] Erythrocy 31.8 - g/dl Normal No February 12 te mean 35.4 2016 corpuscul on in 10:20 PM ar source hemoglobi data n concentra tion [Mass/vol ume] by Automated count Erythrocy 82.2 - fl Normal No February 12 te mean 97.8 2016 corpuscul on in 10:20 PM ar volume source [Entitic data volume] by Automated count Monocytes 0.1 - 1.0 K/mm3 Normal No February 122016 [#/volume on in 10:20 PM ] in source Blood by data Automated count Monocytes 1.7 - 9.3 % Normal No February 12 /100 2016 leukocyte on in 10:20 PM s in source Blood by data Automated count Platelet 7.4 - fl Low No February 12 mean 10.4 2016 volume on in 10:20 PM [Entitic source volume] data in Blood by Automated count Platelets 142 - 424 K/mm3 Normal No February 122016 [#/volume on in 10:20 PM ] in source Blood data Erythrocy 4.2 - 5.4 M/mm3 Normal No February 12 nito inform2016 [#/volume on in 10:20 PM ] in source Amniotic data fluid Erythrocy 11.5 - % Normal No February 12 te 17.5 2016 distribut on in 10:20 PM ion width source [Entitic data volume] by Automated count Leukocyte 4.8 - K/MM3 Normal No February 12 s 10.8 informati 2016 [#/volume on in 10:20 PM ] in source Blood data Glucose [Mass/volume] in Capillary blood by Glucometer Observa Value Referen Units Interpr Notes Date tion ce etation Range Glucose 70 - 110 mg/dl High No January 24 [Mass/vol informati 2016 6:25 ume] in on in AM Capillary source blood by data Glucomete r Glucose [Mass/volume] in Capillary blood by Glucometer Observa Value Referen Units Interpr Notes Date ti ce etation Range Glucose 70 - 110 mg/dl High No January 23 [Mass/vol informati 2016 7:48 ume] in on in PM Capillary source blood by data Glucomete r F5 gene.p.[id number] [Presence] in Blood or Tissue by Molecular genetics method Observa Value Referen Units Interpr Notes Date ti ce etation Range 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 Factor V Leiden is more resistant to inactivation by activated protein C. As a result, factor V persists in the circulation leading to a mild hypercoagulable state. Factor V Leiden has been reported in patients with deep vein thrombosis, pulmonary embolus, central retinal vein occulsion, cerebral sinus thrombosis, and hepatic vein thrombosis. The relative risk of venous thrombosis is increased approximately 4-8 fold in individuals who are heterozygous. About 3-8% of the general [place] and popualation are heterozygous. The risk of venous thrombosis increases exponentially in patients with more than one risk factor, including: age, surgery, oral contreceptive use, , elevated homocystein levels, or Factor II/prothrombin mutation ([id number]). Additionally, for individuals found to be heterozygous for the Factor V Leiden mutation, presence of a second mutation, Factor V R2, further increases the risk of venous thrombosis. Contact [facility]'s Genetic Customer Service at for further information on both the Factor II (Prothrombin) DNA Analysis, and Factor V R2 DNA Analysis tests. Comment: Genetic counselors are available for health care providers to discuss results at [phone] ([phone]). Methodology: DNA analysis of the Factor V gene was performed by allele-specific PCR. The diagnostic sensitivity and specificity is >99% for both. Molecular-based testing is highly accurate, but as in any laboratory test, diagnostic errors may occur. All test results must be combined with clinical information for the most accurate interpretation. This test was developed and its performance characteristics determined by [facility]. It has not been cleared or approved by the [place]. Food and Drug administration. References: Timothy Lama (1996). Clin Lab Med 16:169-186 Marce Gutierrez, PhD, [facility] Nargis Salcido, PhD, [facility] Jing Tubbs, PhD, [facility] Teresa Lagos M.S., PhD, [facility] Ana Harding, PhD, [facility] Larissa Richardson, PhD, [facility] Buster Blount, PhD, [facility] TEST FLAG Factor V Leiden Mutation Factor V Leiden Abnormal Result: SINGLE R506Q MUTATION IDENTIFIED (HETEROZYGOUS) Factor V Leiden is a specific mutation (R506Q) in the factor V gene that is associated with an increased risk of venous thrombosis. Factor V Leiden is more resistant to inactivation by activated protein C. As a result, factor V persists in the circulation leading to a mild hypercoagulable state. Factor V Leiden has been reported in patients with deep vein thrombosis, pulmonary embolus, central retinal vein occulsion, cerebral sinus thrombosis, and hepatic vein thrombosis. The relative risk of venous thrombosis is increased approximately 4-8 fold in individuals who are heterozygous. About 3-8% of the general [place] and popualation are heterozygous. The risk of venous thrombosis increases exponentially in patients with more than one risk factor, including: age, surgery, oral contreceptive use, , elevated homocystein levels, or Factor II/prothrombin mutation (K59901A). Additionally, for individuals found to be heterozygous for the Factor V Leiden mutation, presence of a second mutation, Factor V R2, further increases the risk of venous thrombosis. Contact [facility] Genetic Customer Service at for further information on both the Factor II (Prothrombin) DNA Analysis, and Factor V R2 DNA Analysis tests. Comment: Genetic counselors are available for health care providers to discuss results at [phone] Methodology: DNA analysis of the Factor V gene was performed by allele-specific PCR. The diagnostic sensitivity and specificity is >99% for both. Molecular-based testing is highly accurate, but as in any laboratory test, diagnostic errors may occur. All test results must be combined with clinical information for the most accurate interpretation. This test was developed and its performance characteristics determined by [facility]. It has not been cleared or approved by the [place]. Food and Drug administration. References: Timothy Hicks. (1996). Clin Lab Med 16:169-186 Marce Gutierrez, PhD, [facility] Nargis Salcido, PhD, [facility] Jing Tubbs, PhD, FAC Eliane HendrixSYo, PhD, FAC Ana Harding, PhD, [facility] Larissa Richardson, PhD, [facility] Buster Blount, PhD, FAC
--- OUTSIDE RECORDS SUMMARY | 2017-04-14 19:32 | External Medical Summary Rpt ---
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 Additionally, for individuals found to be heterozygous for the Factor V Leiden mutation, presence of a second mutation, Factor V R2, further increases the risk of venous thrombosis. Contact [facility] Genetic Customer Service at for further information on both the Factor II (Prothrombin) DNA Analysis, and Factor V R2 DNA Analysis tests. Comment: Genetic counselors are available for health care providers to discuss results at [phone]). Methodology: DNA analysis of the Factor V gene was performed by allele-specific PCR. The diagnostic sensitivity and specificity is >99% for both. Molecular-based testing is highly accurate, but as in any laboratory test, diagnostic errors may occur. All test results must be combined with clinical information for the most accurate interpretation. This test was developed and its performance characteristics determined by [facility]. It has not been cleared or approved by the [place]. Food and Drug administration. References: Timothy Lama (1996). Clin Lab Med 16:169-186 Marce Gutierrez, PhD, [facility] Nargis Salcido, PhD, [facility] Jing Tubbs, PhD, [facility] Teresa Lagos M.S., PhD, [facility] Ana Harding, PhD, [facility] Larissa Richardson, PhD, [facility] Buster Blount, PhD, [facility] TEST FLAG Factor V Leiden Mutation Factor [...] elevated homocystein levels, or Factor II/prothrombin mutation ([id number]). Additionally, for individuals found to be heterozygous for the Factor V Leiden mutation, presence of a second mutation, Factor V R2, further increases the risk of venous thrombosis. Contact [facility] Genetic Customer Service at for further information on both the Factor II (Prothrombin) DNA Analysis, and Factor V R2 DNA Analysis tests. Comment: Genetic counselors are available for health care providers to discuss results at [phone] Methodology: DNA analysis of the Factor V gene was performed by allele-specific PCR. The diagnostic sensitivity and specificity is >99% for both. Molecular-based testing is highly accurate, but as in any laboratory test, diagnostic errors may occur. All test results must be combined with clinical information for the most accurate interpretation. This test was developed and its performance characteristics determined by [facility]. It has not been cleared or approved by the [place].S. Food and Drug administration. References: Timothy Hicks. (1996). Clin Lab Med 16:169-186 Marce Gutierrez, PhD, FAC Nargis Salcido, PhD, [facility] Jing Tubbs, PhD, FAC Eliane HendrixSYo, PhD, FAC Ana Harding, PhD, [facility] Larissa Richardson, PhD, [facility] Buster Blount, PhD, FAC
[2017-04-14 20:48] LABS: URINE BILIRUBIN - DIPSTICK NEGATIVE (NEG); URINE BLOOD TRACE-INTACT (NEG)
--- OUTSIDE RECORDS SUMMARY | 2017-04-14 20:49 | External Medical Summary Rpt ---
Demographics Preferred Language Indonesian Marital Status Unknown Alevism Affiliation Unknown Race Unknown Ethnic Group Unknown Author Author VIRGILIO Address Unknown Phone Immunization Unable to retrieve immunization data due to connection failure with Immunization Registry. Please try again later.
--- OUTSIDE RECORDS SUMMARY | 2017-04-14 20:49 | External Medical Summary Rpt ---
Demographics Preferred Language Kyrgyz Marital Status Unknown Latter Day Affiliation Unknown Race Unknown Ethnic Group Unknown Author Author VIRGILIO Address Unknown Phone Immunization Unable to retrieve immunization data due to connection failure with Immunization Registry. Please try again later.
--- OUTSIDE RECORDS SUMMARY | 2017-04-14 20:51 | External Medical Summary Rpt ---
Author Author VIRGILIO Huma, [employer] Organization [employer] Address Unknown Phone Unavailable Results Magnesium [Moles/volume] in Unspecified specimen Observa Value Referen Units Interpr Notes Date tion ce etation Range Magnesium 1.7 - 2.8 mg/dL Normal No Apr 14 informati 2016 6:20 [Moles/vo on in PM lume] in source Unspecifi data ed specimen Gas panel in Arterial blood Observa Value Referen Units Interpr Notes Date ti ce etation Range Base -2.4-+2.3 MMOL/L Low No Apr 14 excess in informati 2016 6:20 Arterial on in PM blood source data Arteria Y No No No No Apr 14 l informa informa informa informa 2017 patency tion in tion in tion in tion in 6:20 PM Wrist source source source source artery data data data data --pre arteria l punctur e Bicarbona 22.0 - MMOL/L Low No Apr 14 te 26.0 informati 2016 6:20 [Moles/vo on in PM lume] in source Arterial data blood Oxygen No No No No Apr 14 content informati informati informati informati 2017 6:20 in on in on in on in on in PM Arterial source source source source blood data data data data Carbon 35.0 - MMHG Low Apr 14 dioxide 45.0 2016 6:20 [Partial CRITICAL PM pressure] RESULTS in Arterial RESU blood LTS CALLED TO: DR CONRAD 04/14/17 [facility] [place] pH of 7.35 - MMOL/L Low alert Apr 14 Arterial 7.45 2016 6:20 blood CRITICAL PM RESULTS RESU LTS CALLED TO: DR CONRAD 04/14/17 [facility] [place] Oxygen 80 - 100 MMHG High No Apr 14 [Partial informati 2017 6:20 pressure] on in PM in source Arterial data blood Oxygen 90 - 100 % Normal No Apr 14 saturatio informati 2017 6:20 n.calcula on in PM jennifer from source oxygen data partial pressure in Arterial blood SOURCE R/R No No No No Apr 14 informa informa informa informa 2017 tion in tion in tion in tion in 6:20 PM source source source source data data data data Carbon 23 - 27 MMOL/L Low No Apr 14 dioxide, informati 2017 6:20 total on in PM [Moles/vo source lume] in data Arterial blood CBC W Auto Differential panel in Blood Observa Value Referen Units Interpr Notes Date tion ce etation Range Basophils 0 - 0.2 K/MM3 Normal No Apr 14 informati 2017 6:10 [#/volume on in PM ] in source Blood by data Automated count Basophils 0.1 - 2.0 % Normal No Apr 14 informati 2016 6:10 leukocyte on in PM s in source Blood by data Automated count Eosinophi 0.0 - 0.4 K/mm3 Normal No Apr 14 ls informati 2016 6:10 [#/volume on in PM ] in source Blood by data Automated count Eosinophi 0.1 - % Normal No Apr 14 ls/100 12.0 informati 2016 6:10 leukocyte on in PM s in source Blood by data Automated count Granulocy 1.8 - 7.8 K/mm3 High No Apr 14 nito informati 2016 6:10 [#/volume on in PM ] in source Blood by data Automated count Granulocy 37.0 - % High No Apr 14 nito/100 80.0 informati 2016 6:10 leukocyte on in PM s in source Blood by data Automated count Hematocri 37.0 - % High Apr 14 t [Volume 47.0 alert 2016 6:10 CRITICAL PM Fraction] RESULTS of Blood RESU LTS CALLED TO: Brijesh SAEED RN 04/14/17 1837 Vanesa Lange hn Hemoglobi 12.2 - g/dL High CALLED TO Apr 14 n 16.2 alert Brijesh SAEED 2016 6:10 [Mass/vol RN IN ER PM ume] in 04/14/17 Blood 1835 JS Lymphocyt 0.7 - 4.5 K/mm3 Normal No Apr 14 es informati 2016 6:10 [#/volume on in PM ] in source Unspecifi data ed specimen by Automated count Lymphocyt 10 - 50.0 % Low No Apr 14 es informati 2017 6:10 [#/volume on in PM ] in source Unspecifi data ed specimen by Automated count Erythrocy 27 - 31.2 pg Normal No Apr 14 te mean informati 2016 6:10 corpuscul on in PM ar source hemoglobi data n [Entitic mass] Erythrocy 31.8 - g/dl Low No Apr 14 te mean 35.4 informati 2017 6:10 corpuscul on in PM ar source hemoglobi data n concentra tion [Mass/vol ume] by Automated count Erythrocy 82.2 - fl Normal No Apr 14 te mean 97.8 informati 2017 6:10 corpuscul on in PM ar volume source [Entitic data volume] by Automated count Monocytes 0.1 - 1.0 K/mm3 Normal No Apr 14 informati 2017 6:10 [#/volume on in PM ] in source Blood by data Automated count Monocytes 1.7 - 9.3 % Normal No Apr 14 /100 informati 2017 6:10 leukocyte on in PM s in source Blood by data Automated count Platelet 7.4 - fl Normal No Apr 14 mean 10.4 informati 2017 6:10 volume on in PM [Entitic source volume] data in Blood by Automated count Platelets 142 - 424 K/mm3 No No Apr 14 informati informati 2017 6:10 [#/volume on in on in PM ] in source source Blood data data Erythrocy 4.2 - 5.4 M/mm3 High No Apr 14 nito informati 2017 6:10 [#/volume on in PM ] in source Amniotic data fluid Erythrocy 11.5 - % Normal No Apr 14 te 17.5 informati 2017 6:10 distribut on in PM ion width source [Entitic data volume] by Automated count Leukocyte 4.8 - K/MM3 High No Apr 14 s 10.8 informati 2016 6:10 [#/volume on in PM ] in source Blood data Differential panel, method unspecified - Observa Value Referen Units Interpr Notes Date tion ce etation Range Neutrophi 0 - 8 % High No Apr 14 ls.band informati 2017 6:10 form/100 on in PM leukocyte source s in data Blood by Automated count LYMPH 9 10 - 50 % Low No Apr 14 inform2016 tion in 6:10 PM source data Monocytes 2 - 9 % Low No Apr 14 / informati 2017 6:10 leukocyte on in PM s in source Blood by data Automated count Platele NORMAL No No No No Apr 14 ts informa informa informa informa 2016 [Presen tion in tion in tion in tion in 6:10 PM ce] in source source source source Blood data data data data by Light microsc opy Neutrophi 42 - 76 % High No Apr 14 ls informati 2016 6:10 [#/volume on in PM ] in source Blood by data Automated count Erythro NORMAL No No No No Apr 14 cyte informa informa informa informa 2017 morphol tion in tion in tion in tion in 6:10 PM ogy source source source source finding data data data data [Identi fier] in Blood Cells No #CELLS No No Apr 14 Counted informati informati informati 2016 6:10 Total [#] on in on in on in PM in Blood source source source data data data Glucose [Mass/volume] in Capillary blood by Glucometer Observa Value Referen Units Interpr Notes Date etation Range Glucose 70 - 110 mg/dl High No Mar 29 [Mass/vol informati 2016 6:20 ume] in on in AM Capillary source blood by data Glucomete r Glucose [Mass/volume] in Capillary blood by Glucometer Observa Value Referen Units Interpr Notes Date etation Range Glucose 70 - 110 mg/dl High No Mar 28 [Mass/vol informati 2016 8:54 ume] in on in PM Capillary source blood by data Glucomete r Glucose [Mass/volume] in Capillary blood by Glucometer Observa Value Referen Units Interpr Notes Date etation Range Glucose 70 - 110 mg/dl High No Mar 28 [Mass/vol informati 2016 4:52 ume] in on in PM Capillary source blood by data Glucomete r Glucose [Mass/volume] in Capillary blood by Glucometer Observa Value Referen Units Interpr Notes Date ce etation Range Glucose 70 - 110 [...] Date tion ce etation Range COMMENTS TO WASTE MANAGEMENT ENGINEER: run on blood in lab Amylase 25 - 115 U/L Normal No Mar 28 [Enzymati informati 2016 6:15 c on in AM activity/ source volume] data in Serum or Plasma Lipase [Enzymatic activity/volume] in Serum or Plasma Observa Value Referen Units Interpr Notes Date ti ce etation Range COMMENTS TO WASTE MANAGEMENT ENGINEER: run on blood in lab Lipase 73 [...] Low No Mar 28 e 1.02 informati 2017 6:15 [Mass/vol on in AM ume] in [...] - 5.1 mmoL/L Normal No Mar 28 inform2016 6:15 [Moles/vo on in AM lume] in [...] - 2.0 % Normal No Mar 28 informati 2016 6:15 leukocyte on in AM [...] % Normal No Mar 28 /100 informati 2017 6:15 leukocyte on in AM s in [...] High No Mar 27 [Mass/vol informati 2017 8:48 ume] in on in PM Capillary source blood by data Glucomete r Glucose [Mass/volume] in Capillary blood by Glucometer Observa Value Referen Units Interpr Notes Date tion ce etation Range Glucose 70 - 110 mg/dl High No Mar 27 [Mass/vol informati 2017 5:07 ume] in on in PM Capillary source blood by data Glucomete r Glucose [Mass/volume] in Capillary blood by Glucometer Observa Value Referen Units Interpr Notes Date tion ce etation Range Glucose 70 - 110 mg/dl No No Mar 27 [Mass/vol informati informati 2017 ume] in on in on in 12:04 PM Capillary source source blood by data data Glucomete r Glucose [Mass/volume] in Capillary blood by Glucometer Observa Value Referen Units Interpr Notes Date tion ce etation Range Glucose 70 - 110 mg/dl High No Mar 27 [Mass/vol informati 2016 6:51 ume] in on in AM Capillary source blood by data Glucomete r Acetone [Mass/volume] in Serum or Plasma Observa Value Referen Units Interpr Notes Date tion ce etation Range Acetone NOT No No No Mar 27 [Mass/vol DETECTD informati informati informati 2016 6:20 ume] in on in on in [...] Low No Mar 27 [Mass/vol 10.1 informati 2017 6:20 ume] in on in [...] mg/dL High No Mar 27 [Mass/vol informati 2016 6:20 ume] in on in AM Serum or source Plasma data Potassium 3.5 - 5.1 mmoL/L Low No Mar 27 inform2016 6:20 [Moles/vo on in AM lume] in [...] MMOL/L Low No Mar 26 excess in 2016 Venous on in 11:11 PM blood source data Bicarbona 23 - 27 MMOL/L Low No Mar 26 te 2016 [Moles/vo on in 11:11 PM lume] in [...] 80 % Low No Mar 26 saturatio 2016 n.calcula on in 11:11 PM jennifer from source oxygen data partial pressure in Venous blood Carbon 23 - 27 MMOL/L Low No Mar 26 dioxide, informati 2016 total on in 11:11 PM [Moles/vo source lume] in data Venous blood Acetone [Mass/volume] in Serum or Plasma Observa Value Referen Units Interpr Notes Date tion ce etation Range Acetone NOT No No No Mar 26 [Mass/vol DETECTD informati informati informati 2017 9:50 ume] in on in on in on in PM Serum or source source source Plasma data data data CBC W Auto Differential panel in Blood Observa Value Referen Units Interpr Notes Date tion ce etation Range Basophils 0 - 0.2 K/MM3 Normal No Mar 26 informati 2016 9:50 [...] Normal No Mar 26 nito/100 80.0 informati 2017 9:50 leukocyte on in PM s in [...] - 9.3 % Normal No Mar 26 /100 informati 2016 9:50 leukocyte on in PM s in source Blood by data Automated count Platelet 7.4 - fl Normal No Mar 26 mean 10.4 informati 2016 9:50 volume on in PM [Entitic source volume] data in Blood by Automated count Platelets 142 - 424 K/mm3 Normal No Mar 26 inform2016 9:50 [#/volume on in PM ] in source Blood data Erythrocy 4.2 - 5.4 M/mm3 Normal No Mar 26 nito ati 2016 9:50 [#/volume on in PM ] in source Amniotic data fluid Erythrocy 11.5 - % Normal No Mar 26 te 17.5 ati 2016 9:50 distribut on in PM ion [...] No Mar 26 of informa informa informa 2016 Urine tion [...] mg/dL High No Mar 26 [Mass/vol informati 2017 9:46 ume] in on in PM Urine [...] Interpr Notes Date tion ce etation Range Hemoglo 9.6 0.0 - [...] U/L Normal No Mar 08 phosphata informati 2016 se on in 12:41 AM [Enzymati source [...] Normal No Mar 08 dioxide, 32.0 informati 2016 total on in 12:41 AM [Moles/vo source [...] gm/dL High No Mar 08 [Mass/vol informati 2016 ume] in on in 12:41 AM Serum source data Glucose 74 - 106 mg/dL High No Mar 08 [Mass/vol informati 2016 ume] in on in 12:41 AM Serum or source Plasma data Potassium 3.5 - 5.1 mmoL/L Normal No Mar 082016 [Moles/vo on in 12:41 AM lume] in [...] 8.2 gm/dL Normal No Mar 08 [Mass/vol informati [...] - 2.0 % Normal No Mar 08 inform2016 leukocyte on in 12:41 AM s in source Blood by data Automated count Eosinophi 0.0 - 0.4 K/mm3 Normal No Mar 08 ls informati 2016 [#/volume on in 12:41 AM ] in source Blood by data Automated count Eosinophi 0.1 - % Normal No Mar 08 ls/100 12.0 informati 2016 leukocyte on in 12:41 AM s in source Blood by data Automated count Granulocy 1.8 - 7.8 K/mm3 Normal No Mar 08 nito informati 2016 [#/volume on in 12:41 AM ] in source Blood by data Automated count Granulocy 37.0 - % Normal No Mar 08 nito/100 80.0 informati 2016 leukocyte on in 12:41 AM s in source Blood by data Automated count Hematocri 37.0 - % Normal No Mar 08 t [Volume 47.0 informati 2016 on in 12:41 AM Fraction] source of Blood data Hemoglobi 12.2 - g/dL Normal No Mar 08 n 16.2 informati 2016 [Mass/vol on in 12:41 AM ume] in source Blood data Lymphocyt 0.7 - 4.5 K/mm3 Normal No Mar 08 es informati 2016 [#/volume on in 12:41 AM ] in source Unspecifi data ed specimen by Automated count Lymphocyt 10 - 50.0 % Normal No Mar 08 es informati 2016 [#/volume on in 12:41 AM ] in source Unspecifi data ed specimen by Automated count Erythrocy 27 - 31.2 pg Normal No Mar 08 te mean inform2016 corpuscul on in 12:41 AM ar source hemoglobi data n [Entitic mass] Erythrocy 31.8 - g/dl Normal No Mar 08 te mean 35.4 informati 2016 corpuscul on in 12:41 AM ar source hemoglobi data n concentra tion [Mass/vol ume] by Automated count Erythrocy 82.2 - fl Normal No Mar 08 te mean 97.8 informati 2016 corpuscul on in 12:41 AM ar volume source [Entitic data volume] by Automated count Monocytes 0.1 - 1.0 K/mm3 Normal No Mar 08 inform2016 [#/volume on in 12:41 AM ] in source Blood by data Automated count Monocytes 1.7 - 9.3 % Normal No Mar 08 /100 informati 2016 leukocyte on in 12:41 AM s in source Blood by data Automated count Platelet 7.4 - fl Normal No Mar 08 mean 10.4 informati 2016 volume on in 12:41 AM [Entitic source volume] data in Blood by Automated count Platelets 142 - 424 K/mm3 Normal No Mar 08 informati 2016 [#/volume on in 12:41 AM ] in source Blood data Erythrocy 4.2 - 5.4 M/mm3 Normal No Mar 08 nito informati 2016 [#/volume on in 12:41 AM ] in source Amniotic data fluid Erythrocy 11.5 - % Normal No Mar 08 te 17.5 informati 2016 distribut on in 12:41 AM ion width source [Entitic data volume] by Automated count Leukocyte 4.8 - K/MM3 Normal No Mar 08 s 10.8 informati 2017 [#/volume on in 12:41 AM ] in [...] No Mar 08 a informa informa informa 2017 [Presen tion in [...] No Mar 08 E informa informa informa 2017 [Presen tion [...] No No Mar 08 s informati informati 2017 [#/volume on in on in 12:23 AM [...] No No Mar 08 [Mass/vol informati informati 2016 ume] in on in on in 12:23 AM Urine by source source Automated data data test strip Specific 1.005 - No Normal No Mar 08 gravity 1.030 informati informati 2016 of Urine on in on in 12:23 AM source source data data Urobili 1.0 NEG E.U./dL No No Mar 08 nogen informa informa 2016 [Presen tion in tion in 12:23 ce] in source source AM Urine data data by Test strip Acetone [Mass/volume] in Serum or Plasma Observa Value Referen Units Interpr Notes Date ti ce etation Range Acetone NOT No No [...] U/L Normal No February 12 [Enzymati informati 2016 c on in 10:20 PM activity/ source [...] gm/dL Low No February 12 [Mass/vol informati 2017 ume] in on in 10:20 PM Serum [...] mmoL/L Normal No February 12 [Moles/vo informati 2016 lume] in on in 10:20 PM Serum [...] ML/MIN Normal No February 12 e renal inform2016 clearance on in 10:20 PM source predicted data by Cockcroft -Gault formula Estimated 59- ML/MIN No REFERENCE February 12 informati RANGE: 2017 glomerula on in >60 10:20 PM r source ML/MIN/1. filtratio data 73 SQUARE n rate METERSIf (GF this patient is -A merican, then multiply theresult by 1.210. Globulin 1.3 - 3.2 gm/dL High No February 12 [Mass/vol informati 2017 ume] in on in 10:20 PM Serum [...] mmoL/L Normal No February 12 [Moles/vo informati 2016 lume] in on in 10:20 PM Serum or source Plasma data Aspartate 15 - 37 U/L Normal No February 122016 aminotran on in 10:20 PM sferase source [...] Interpr Notes Date ti ce etation Range Appeara CLEAR CLEAR No No No February 12 nce of informa informa informa 2016 Urine [...] No No February 12 [Mass/vol informati informati 2017 [...] February 12 in E informa informa informa 2017 [Presen [...] NEGATIV NEG No No No February 12 [Pres E informa informa informa 2016 ce] in [...] 0.4 K/mm3 Normal No February 12 ls informati 2016 [#/volume on in 10:20 PM ] in source Blood by data Automated count Eosinophi 0.1 - % Normal No February 12 ls/100 12.0 inform2016 leukocyte on in 10:20 PM s in source Blood by data Automated count Granulocy 1.8 - 7.8 K/mm3 Normal No February 12 nito inform2016 [#/volume on in 10:20 PM ] in source Blood by data Automated count Granulocy 37.0 - % Normal No February 12 nito/100 80.0 inform2016 leukocyte on in 10:20 PM s in source Blood by data Automated count Hematocri 37.0 - % Normal No February 12 t [Volume 47.0 ati 2016 on in 10:20 PM Fraction] source of Blood data Hemoglobi 12.2 - g/dL Normal No February 12 n 16.2 inform2016 [Mass/vol on in 10:20 PM ume] in source Blood data Lymphocyt 0.7 - 4.5 K/mm3 Normal No February 12 es informati 2016 [#/volume on in 10:20 PM ] in source Unspecifi data ed specimen by Automated count Lymphocyt 10 - 50.0 % Normal No February 12 es informati 2016 [#/volume on in 10:20 PM [...] Normal No February 12 te mean 97.8 inform2016 corpuscul on in 10:20 PM ar volume source [Entitic data volume] by Automated count Monocytes 0.1 - 1.0 K/mm3 Normal No February 122016 [#/volume on in 10:20 PM ] in source Blood by data Automated count Monocytes 1.7 - 9.3 % Normal No February 12 /100 inform2016 leukocyte on in 10:20 PM s in source Blood by data Automated count Platelet 7.4 - fl Low No February 12 mean 10.4 informati 2016 volume on in 10:20 PM [Entitic source volume] data in Blood by Automated count Platelets 142 - 424 K/mm3 Normal No February 12 inform2016 [#/volume on in 10:20 PM ] in source Blood data Erythrocy 4.2 - 5.4 M/mm3 Normal No February 12 nito inform2016 [#/volume on in 10:20 PM ] in source Amniotic data fluid Erythrocy 11.5 - % Normal No February 12 te 17.5 inform2016 distribut on in 10:20 PM ion width [...] source blood by data Glucomete r F5 gene.p.[id number] [Presence] in Blood or Tissue by Molecular genetics method Observa Value Referen Units Interpr Notes Date tion ce etation Range COMMENTS TO WASTE MANAGEMENT ENGINEER: please do on blood drawn in ER [...] elevated homocystein levels, or Factor II/prothrombin mutation ([id number]). Additionally, for individuals found to be heterozygous for the Factor V Leiden mutation, presence of a second mutation, Factor V R2, further increases the risk of venous thrombosis. Contact [facility]'s Genetic Customer Service at for further information on both the Factor II (Prothrombin) DNA Analysis, and Factor V R2 DNA Analysis tests. Comment: Genetic counselors are available for health care providers to discuss results at [phone] Methodology: DNA analysis of the Factor V gene was performed by allele-specific PCR. The diagnostic sensitivity and specificity is >99% for both. Molecular-based testing is highly accurate, but as in any laboratory test, diagnostic errors may occur. All test results must be combined with clinical information for the most accurate interpretation. This test was developed and its performance characteristics determined by [employer]. It has not been cleared or approved by the [place] Food and Drug administration. References: Timothy Lama (1996). Clin Lab Med 16:169-186 Marce Gutierrez, PhD, FAC Nargis Salcido, PhD, [facility] Jing Tubbs, PhD, FAC Teresa Lagos MYoSYo, PhD, FAC Ana Harding, PhD, FAC Larissa Richardson, PhD, FAC Buster Blount, PhD, FACMG TEST FLAG Factor V Leiden Mutation Factor [...] elevated homocystein levels, or Factor II/prothrombin mutation ([id number]). Additionally, for individuals found to be heterozygous for the Factor V Leiden mutation, presence of a second mutation, Factor V R2, further increases the risk of venous thrombosis. Contact [facility]'s Genetic Customer Service at for further information on both the Factor II (Prothrombin) DNA Analysis, and Factor V R2 DNA Analysis tests. Comment: Genetic counselors are available for health care providers to discuss results at [phone] Methodology: DNA analysis of the Factor V gene was performed by allele-specific PCR. The diagnostic sensitivity and specificity is >99% for both. Molecular-based testing is highly accurate, but as in any laboratory test, diagnostic errors may occur. All test results must be combined with clinical information for the most accurate interpretation. This test was developed and its performance characteristics determined by [facility]. It has not been cleared or approved by the [place]. Food and Drug administration. References: Timothy Lama (1996). Clin Lab Med 16:169-186 Marce Gutierrez, PhD, FACMG Nargis Salcido, PhD, [facility] Jing Tubbs, PhD, FAC Teresa Lagos MYoS., PhD, FAC Ana Harding, PhD, FAC Larissa Richardson, PhD, FAC Buster Blount, PhD, FAC
--- OUTSIDE RECORDS SUMMARY | 2017-04-14 20:51 | External Medical Summary Rpt ---
[...] Date tion ce etation Range COMMENTS TO COAT CUTTER: run on blood in lab Amylase 25 - 115 U/L Normal No Mar 28 [Enzymati informati 2016 6:15 c on in AM activity/ source volume] data in Serum or Plasma Lipase [Enzymatic activity/volume] in Serum or Plasma Observa Value Referen Units Interpr Notes Date ti ce etation Range COMMENTS TO COAT CUTTER: run on blood in lab Lipase 73 [...] source blood by data Glucomete r F5 gene.p.[id number] [Presence] in Blood or Tissue by Molecular genetics method Observa Value Referen Units Interpr Notes Date tion ce etation Range COMMENTS TO COAT CUTTER: please do on blood drawn in ER [...] elevated homocystein levels, or Factor II/prothrombin mutation ([id number]). Additionally, for individuals found to be heterozygous for the Factor V Leiden mutation, presence of a second mutation, Factor V R2, further increases the risk of venous thrombosis. Contact [facility]'s Genetic Customer Service at for further information on both the Factor II (Prothrombin) DNA Analysis, and Factor V R2 DNA Analysis tests. Comment: Genetic counselors are available for health care providers to discuss results at [phone] Methodology: DNA analysis of the Factor V gene was performed by allele-specific PCR. The diagnostic sensitivity and specificity is >99% for both. Molecular-based testing is highly accurate, but as in any laboratory test, diagnostic errors may occur. All test results must be combined with clinical information for the most accurate interpretation. This test was developed and its performance characteristics determined by [employer]. It has not been cleared or approved by the [place]. Food and Drug administration. References: Timothy Lama (1996). Clin Lab Med 16:169-186 Marce Gutierrez, PhD, FAC Nargis Salcido, PhD, [facility] Jing Tubbs, PhD, FAC Teresa Lagos MYoSYo, [...] elevated homocystein levels, or Factor II/prothrombin mutation ([id number]). Additionally, for individuals found to be heterozygous for the Factor V Leiden mutation, presence of a second mutation, Factor V R2, further increases the risk of venous thrombosis. Contact [facility]'s Genetic Customer Service at for further information on both the Factor II (Prothrombin) DNA Analysis, and Factor V R2 DNA Analysis tests. Comment: Genetic counselors are available for health care providers to discuss results at [phone] Methodology: DNA analysis of the Factor V gene was performed by allele-specific PCR. The diagnostic sensitivity and specificity is >99% for both. Molecular-based testing is highly accurate, but as in any laboratory test, diagnostic errors may occur. All test results must be combined with clinical information for the most accurate interpretation. This test was developed and its performance characteristics determined by [facility]. It has not been cleared or approved by the [place]S. Food and Drug administration. References: Timothy Lama (1996). Clin Lab Med 16:169-186 Marce Gutierrez, PhD, FACMG Nargis Salcido, PhD, [facility] Jing Tubbs, PhD, FAC Teresa Lagos MYoS., PhD, FAC Ana Harding, PhD, FAC Larissa Richardson, PhD, FAC Buster Blount, PhD, FAC
[2017-04-14 21:04] LABS: AMPHETAMINES/METAMPHETAMINES NEGATIVE ng/mL (<1000)
--- NOTE | 2017-04-14 21:50 | HISTORY AND PHYSICAL REPORT ---
History and Physical (FCA) Date of admission: 04/14/17 Chief complaint: DKA, vomiting and diarrhea History: History of Present Illness: This 27-year-old diabetic returns to [facility] in diabetic ketoacidosis. She was hospitalized March 27 through March 29 in DKA and with diarrhea and vomiting. She states that she saw Anyi laguerre when necessary 1 week ago. There were no medication changes after hospitalization. 3 days ago she resumed vomiting and diarrhea. She states that she's vomited about 15 or 20 times today. Her last episode of diarrhea was this afternoon. During last hospitalization no stool was collected thus no testing was done. Her had been diagnosed with Salmonella and C. difficile. The patient states that she took a lesser amount of insulin yesterday while she was having vomiting and diarrhea. She took no insulin today. Past Medical History: Medical History: CAD? No Angina: No W[place]: No Hypertension? No Hyperlipidemia? No CHF? No DVT? No PE? Yes (January 21 [facility]. Takes Xarelto) COPD? No Asthma? Yes Anemia? No GERD? Yes Gastric ulcers? Yes GI Bleed? No Hernia? Yes Thyroid Problems? No Hypothyroidism? No CVA? No Seizures? No Diabetes? Yes (insulin-dependent) Insulin Dependent: Yes Insulin Pump: No Home FSBS? Yes Renal Insuffiency? No UTI? Yes Stones? Yes GB Disease: Yes Nephritic Syndrome? No Asplenia? No Hepatitis? No Sickle Cell Disease? No Arthritis? No Migraines? Yes (Propranolol) Cataracts? No Glaucoma? No MRSA? Yes HIV? No TB? No Anxiety? Yes Depression? No Cancer? No More? Yes Additional hx: OVARIAN CYSTS Additional medical history: She takes Buphenorphine/Naloxone, administered at a [facility] in [place], [place]. But she denies any drug abuse history. States she was directed by the court to attend the clinic and lost custody of her children. Surgical history: Previous Surgery?Y 1. FINGER-5TH DIGIT R HAND 2. Cholecystectomy 06/30/10 3. C SECTION 4. Peritoneal adhesions and APPENDIX-WITH bowel perforation and repair 10/30/10. Carly Ellison 5. WISDOM TEETH 6. ESSURE 7. DIAG LAP X2 8. HYSTERECTOMY & BSO, 04/07/12 9. PARTIAL I&D IN [place] 10. Labioplasty 07/14/13, Dr. Reina Medications: Active Scripts POLYETHYLENE GLYCOL (Miralax) 17 GM PO DAILY #5 NGHIA Prov: 05/08/16 Potassium Chloride 20 MEQ PO DAILY #30 TAB Prov: 01/25/17 Rivaroxaban (Xarelto) 15 MG PO BID #42 TAB Prov: 01/25/17 Metronidazole (Flagyl) 500 MG PO Q8 #30 TAB Prov: 03/29/17 PROMETHAZINE HCL (Phenergan 25MG Tab (Geq)) 25 MG PO Q6HP PRN N/V #20 TAB Prov: 03/29/17 Reported Medications Propranolol Hcl (Inderal 20MG. Tablet) 20 MG PO QHS Paroxetine (Paxil) 30 MG PO DAILY FLUTICASONE/SALMETEROL (Advair 250-50 Diskus) 1 PUFF IN BID INSULIN GLARGINE (Lantus 3ML Solostar Pen) 50 UNITS SC BID Insulin Lispro, Recombinant (Humalog 100 UNITS/ML 10ML) 15 UNITS SC ACHS Albuterol Sulfate (Proair Hfa) 1 PUFF IH Q6HP PRN ASTHMA Quetiapine Fumarate (Seroquel 50MG) 50 MG PO DAILY BUPRENORPHINE HCL/NALOXONE HCL (Buprenorphin-Naloxon 8-2 MG Sl) 1 TAB SL DAILY Gabapentin (Gabapentin 400MG Capsule) 400 MG PO TID #90 Allergies: Coded Allergies: Adhesives (12/12/16) Penicillins (12/12/16) butalbital (12/12/16) caffeine (From FIORICET) (03/26/17) codeine (12/12/16) iodine (12/12/16) ketorolac (12/12/16) povidone-iodine (From BETADINE) (03/26/17) soap (From BETADINE) (03/26/17) Family History: Family history: Postive for: CAD, DM, HTN. Additional family history: Her mother had a blood disorder. Her father had a heart attack. There is a history of diabetes in a paternal grandmother. She has 2 children living 6 and 8 years old. She had one stillborn child. Social History: Smoking Hx Tobacco: Yes Smoker: Current Every Day Smoker Type: Cigarettes Packs/day: < 1 Pack Are you exposed to second hand Yes Alcohol: Alcohol: No Hx of Drug Use: Drug Use? No Patien't marital status is: Patient's support system is: fair Review of Systems: Patient unresponsive? No Constitutional Positive for: chills, fatigue, lethargy, weak. ENT No: throat swelling. Cardiovascular Positive for: LUNA, chest pain. Respiratory Positive for: shortness of air. No: wheezing. GI Positive for: diarrhea, nausea, vomitting. (female) No: flank pain, vaginal bleeding. Skin No: bruising, laceration, rash. Neurological Positive for: bowel dysfunction, headache, weakness. No: change in LOC, syncope. Immune/allergy No: allergy. Eyes No: vision loss, eye pain. Musculoskeletal No: extremity pain, extremity swelling. Heme No: bleeding, bruising. Psychiatric Positive for: agitation, anxious. Physical Exam: Vital signs: 1ST Vital Signs Result Date Time Pulse Ox 100 04/14 1810 B/P 120/68 04/14 1810 Temp 97.8 04/14 1810 Pulse 106 04/14 1810 Resp 18 04/14 1810 Exam: General appearance: moderate distress, not feeling well. Complains of nausea. Eyes: anicteric, PERRLA ENT: dry mucous membranes Neck: supple Cardiovascular: regular rate & rhythm, no murmur Respiratory: aerating well, clear to auscultation, no respiratory distress ABD: normal bowel sounds, soft, no tenderness, no organomegaly Extremities: full range of motion, no peripheral edema Skin: dry, intact Neuro: alert, oriented, speech clear Lab data: Labs: Laboratory Tests 04/14/17 2030: Opiates Screen NEGATIVE, Urine Methadone Screen NEGATIVE, Barbiturates NEGATIVE, Phencyclidine Screen NEGATIVE, Amphetamines Screen NEGATIVE, Benzodiazepines Screen NEGATIVE, Cocaine Screen NEGATIVE, Marijuana (THC) Screen NEGATIVE, Urine Color YELLOW, Urine Appearance CLEAR, Urine pH 5.5, Ur Specific [place] >= 1.030 , Urine Protein TRACE H, Urine Ketones 3+ H, Urine Blood TRACE-INTACT, Urine Nitrate NEGATIVE, Urine Bilirubin NEGATIVE, Urine Urobilinogen 0.2, Ur Leukocyte Esterase NEGATIVE, Urine RBC OCC, Amorphous Sediment TRACE, Urine Glucose 3+ H 04/14/172021: POC Glucose 465 *H 04/14/171819: ABG pH 7.13 *L, ABG pCO2 (Temp Corrct 17.3 L, ABG pO2 (Temp Correct 110.0 H, ABG HCO3 5.6 L, ABG Total CO2 6.1 L, ABG O2 Sat (Calculated) 97.6, ABG Base Excess -23.6 L, Luis Test Y, Blood Gas Comments R/R, Magnesium 2.0 04/14/171809: Sodium 130 L, Potassium 5.6 H, Chloride 90 L, Carbon Dioxide 8 *L, BUN 26 H, Creatinine 1.5 H, Estimated Creat Clear 48 L, Estimated GFR (MDRD) 42 L, Glucose 572 *H, Calcium 10.0, Total Bilirubin 0.5, AST 28, ALT 66, Alkaline Phosphatase 136 H, Creatine Kinase 71, CK-MB (CK-2) Rel Index 0.7, CK and CKMB Interp < 0.5, Troponin I < 0.02, Total Protein 9.5 H, Albumin 4.9, Globulin 4.6 H, Albumin/Globulin Ratio 1.1, WBC 13.1 H, RBC 6.66 H, Hgb 19.6 *H, Hct 61.7 *H, MCV 92.6, RDW 12.3, Plt Count 339, MPV 8.5, Gran % 89.4 H, Gran # 11.7 H, Total Counted 100, Lymphocytes % 8.2 L, Monocytes % 2.2, Eosinophils % 0.1, Basophils % 0.2, Neutrophils 78 H, Band Neutrophils 12 H, Lymphocytes (Manual) 9 L, Lymphocytes # 1.1, Monocytes (Manual) 1 L, Monocytes # 0.3, Eosinophils # 0.0, Basophils # 0.0, RBC/WBC/PLT Morphology NORMAL, Platelet Estimate NORMAL, PUBS MCHC 31.7 L, MCH 29.4, Acetone Level SMALL Diagnosis(es): 1. Ketoacidosis in type I diabetes mellitus Status: Chronic 2. LONG-TERM (CURRENT) USE OF INSULIN Status: Chronic 3. Vomiting and diarrhea 4. IDDM (insulin dependent diabetes mellitus) 5. History of pulmonary embolus (PE) Status: Chronic 6. Bipolar 1 disorder Status: Chronic Plan: Receiving Insulin drip, IV fluids. Close monitoring of electrolytes. Diarrhea panel. at 0434
[2017-04-14 22:00] VITALS: BP 128/76
[2017-04-14 22:16] VITALS: BP 128/74
[2017-04-14 22:23] VITALS: BP 128/74
--- NOTE | 2017-04-14 22:48 | RADIOLOGY REPORT PS360 ---
ABD ACUTE(MUL VIEWS) Ordering Physician: William Lockhart MD Patient Age: 27 years: Female HISTORY: DKA . Abdominal pain TECHNIQUE: Upright chest with flat and upright views of abdomen FINDINGS UPRIGHT CHEST. Lungs are hyperexpanded with no acute findings. No focal pneumonia. No active disease. Small nodular density at the medial right base most likely partially calcified granuloma but is better appreciated than on previous CXR study . It does correlate with a calcified granuloma at the posterior LLL on previous CT chest 02/13/2017. There is also a nearly 9.5 mm partially calcified granuloma at far medial left lung base retrocardiac region. The tube was seen on CT chest 02/13/2017. No new findings. Heart jerrica and mediastinal structures unremarkable Right chest. Right lungs are clear and unremarkable. No air beneath diaphragm The flat and upright views of abdomen reveal nonspecific bowel gas pattern with no bowel dilatation or obstruction. Cholecystectomy noted. Minimal gas, throughout the bowel as well as well as minimal stool in colon. Kidneys appear generous but normal size. Psoas shadows are clear. Innumerable phleboliths are seen at the pelvic basin similar to previous studies. Postsurgical changes right and left pelvic basin from previous hysterectomy. IMPRESSION: 1. Unremarkable bowel gas pattern. Nonspecific abdomen with no bowel dilatation or obstruction. Previous cholecystectomy. Previous hysterectomy.. 2. The lungs are clear with no active disease.
[2017-04-15] VITALS (13 sets, daily range): BP systolic 92–132; BP diastolic 53–77
[2017-04-15 08:00] LABS: LYMPH # 2.4 K/mm3 (0.7-4.5); LYMPH % 15.8 % (10-50.0)
[2017-04-15 08:02] LABS: HEMOGLOBIN 16.4 g/dL (12.2-16.2)
--- NOTE | 2017-04-15 08:55 | PHARMACY CLINIC NOTE ---
Patient Demographics Patient Demographics Admission date: 04/14/17 Date: 04/15/17 Time: 0855 Allergies Coded Allergies: tramadol (Severe, 04/15/17) Adhesives (12/12/16) Penicillins (12/12/16) butalbital (12/12/16) caffeine (From FIORICET) (03/26/17) codeine (12/12/16) iodine (12/12/16) ketorolac (12/12/16) povidone-iodine (From BETADINE) (03/26/17) soap (From BETADINE) (03/26/17) HEIGHT- FT: 5 IN: 7.00 K.936 VTE General Information Labs: Laboratory Tests 04/15 04/14 0745 1810 Hematology Hgb (12.2 - 16.2 g/dL) 16.4 H 19.6 *H Hct (37.0 - 47.0 %) 47.6 H 61.7 *H Plt Count (142 - 424 K/mm3) 273 339 Disclaimer The following section includes nursing documentation that has been pulled in for pharmacy review. Patient's VTE score: 2 Patient's VTE Risk: VERY LOW RISK Clinical trial participant? No VTE prophylaxis NQF [id number] VTE prophylaxis ordered? Yes Type of prophylaxis/treatment: MARYSE at 0855
--- NOTE | 2017-04-15 09:47 | ACUTE CARE PROGRESS NOTE (QUA) ---
See Addendum Progress Notes Subjective Date 04/15/17 Time 0943 Note She remained stable through the night with blood sugars gradually coming down. At 0405 this morning her potassium was 5.8 and sugar was 292. At 7 this morning her sugar had come down to 171. We have decreased her insulin drip accordingly. Her white count remains elevated at 15,000. Chest x-ray is ordered urinalysis is ordered. Lantus will be continued. Objective Findings Last VS-Temp:98.5 B/P:107/71 Pulse:95 Resp:18 SaO2:98 ROOM AIR Last weight lbs:114 oz:8 K.936 Method:Bed Scales Exam General appearance: no acute distress (sleeping) Eyes: anicteric, PERRLA ENT: tongue appears a little dry Neck: full range of motion Cardiovascular: regular rate & rhythm Respiratory: good air movement ABD: soft, no tenderness Extremities: no peripheral edema Skin: dry, intact Neuro: oriented, speech clear Reviewed: medications, vital signs, lab results Assessment/Plan Problem List 1. Ketoacidosis in type I diabetes mellitus Status: Chronic 2. LONG-TERM (CURRENT) USE OF INSULIN Status: Chronic 3. Vomiting and diarrhea 4. IDDM (insulin dependent diabetes mellitus) 5. History of pulmonary embolus (PE) Status: Chronic 6. Bipolar 1 disorder Status: Chronic Plan: make medication changes This inpt stay is expected to cross 2 MNs from start of care Yes at 0947
--- NOTE | 2017-04-15 11:19 | RADIOLOGY REPORT PS360 ---
CHEST(2 VIEWS-NOT PORTABLE) Ordering Physician: William Lockhart MD Patient Age: 27 years: Female HISTORY: DKA, leukocytosis TECHNIQUE: PA and lateral chest COMPARISON is made to previous chest film from 03/26/2017 and February 12, 2017 Also utilized: CT chest january & yesterday's acute abdominal series FINDINGS No interval change. No focal pneumonia. No active disease evident. Heart, jerrica and mediastinal structures stable and satisfactory. The small calcified granuloma towards the left lung base again observed and was seen on prior CT from January 2017. There is also a vague 1 cm granuloma retrocardiac region at the far medial left base stable since the prior CT as well. IMPRESSION: ... Stable chest.. No appreciable change Nothing definitely acute. Old granulomatous disease noted
--- NOTE | 2017-04-15 18:41 | ACUTE CARE PROGRESS NOTE (QUA) ---
Progress Notes Subjective Date 04/15/17 Time 1836 Note Her blood sugars have stabilized. She still shows significant calculated anion gap. She did drop her blood sugar to 51 earlier today and required some orange juice. Sugars a bit in the high 100s and low 200 range. She is more alert this evening. She would like her diet advanced and we will do that. She did not get her morning long-acting insulin. I asked the nurse to go ahead and give her her evening dose at this point. She is on a sliding scale for additional insulin as needed. She has not urinated hardly at all today. Her IV rate remains 150. She seems well hydrated. Objective Findings Laboratory Tests 04/15/17 1750: POC Glucose 211 H 04/15/17 1647: POC Glucose 51 L 04/15/17 1321: POC Glucose 114 H 04/15/17 1300: Sodium 138, Potassium 5.1, Chloride 109 H, Carbon Dioxide 15 L, BUN 18, Creatinine 0.8, Estimated Creat Clear 87, Estimated GFR (MDRD) 86, Glucose 114 H, Calcium 8.8 04/15/17 0900: Sodium 134 L, Potassium 4.9, Chloride 107, Carbon Dioxide 13 L, BUN 18, Creatinine 0.9, Estimated Creat Clear 77, Estimated GFR (MDRD) 75, Glucose 233 H, Calcium 8.8 04/15/17 0747: POC Glucose 171 H 04/15/17 0745: WBC 15.0 H, RBC 5.51 H, Hgb 16.4 H, Hct 47.6 H, MCV 86.3, RDW 12.7, Plt Count 273, MPV 8.4, Gran % 77.5, Gran # 11.7 H, Lymphocytes % 15.8, Monocytes % 5.7, Eosinophils % 0.7, Basophils % 0.4, Lymphocytes # 2.4, Monocytes # 0.9, Eosinophils # 0.1, Basophils # 0.1, PUBS MCHC 33.8, MCH 29.2 04/15/17 0645: POC Glucose 224 H 04/15/17 0610: POC Glucose 217 H 04/15/17 0519: POC Glucose 230 H 04/15/17 0416: POC Glucose 322 *H 04/15/17 0405: Sodium 135 L, Potassium 5.8 H, Chloride 103, Carbon Dioxide 12 L, BUN 20 H, Creatinine 1.3 H, Estimated Creat Clear 53, Estimated GFR (MDRD) 49 L, Glucose 292 H, Calcium 8.7 04/15/17 0208: POC Glucose 336 *H 04/15/17 0205: Sodium 136, Potassium 5.9 H, Chloride 101, Carbon Dioxide 11 L, BUN 20 H, Creatinine 1.3 H, Estimated Creat Clear 53, Estimated GFR (MDRD) 49 L, Glucose 362 H, Calcium 8.6 04/15/17 0056: POC Glucose 383 *H 04/14/17 2359: Sodium 134 L, Potassium 6.8 *H, Chloride 98, Carbon Dioxide 10 *L, BUN 21 H, Creatinine 1.3 H, Estimated Creat Clear 53, Estimated GFR (MDRD) 49 L, Glucose 423 H, Calcium 8.6 04/14/17 2303: POC Glucose 409 *H 04/14/17 2210: Sodium 135 L, Potassium 6.0 H, Chloride 98, Carbon Dioxide 12 L, BUN 23 H, Creatinine 1.4 H, Estimated Creat Clear 49 L, Estimated GFR (MDRD) 45 L, Glucose 472 H, Calcium 9.1, Phosphorus 5.1 H, Magnesium 1.9, Total Bilirubin 0.3, AST 19, ALT 58, Alkaline Phosphatase 121 H, Total Protein 8.4 H, Albumin 4.2, Globulin 4.2 H, Albumin/Globulin Ratio 1.0 L 04/14/172156: POC Glucose 477 *H 04/14/172048: POC Glucose 494 *H 04/14/17 2030: Opiates Screen NEGATIVE, Urine Methadone Screen NEGATIVE, Barbiturates NEGATIVE, Phencyclidine Screen NEGATIVE, Amphetamines Screen NEGATIVE, Benzodiazepines Screen NEGATIVE, Cocaine Screen NEGATIVE, Marijuana (THC) Screen NEGATIVE, Urine Color YELLOW, Urine Appearance CLEAR, Urine pH 5.5, Ur Specific [place] >= 1.030 , Urine Protein TRACE H, Urine Ketones 3+ H, Urine Blood TRACE-INTACT, Urine Nitrate NEGATIVE, Urine Bilirubin NEGATIVE, Urine Urobilinogen 0.2, Ur Leukocyte Esterase NEGATIVE, Urine RBC OCC, Amorphous Sediment TRACE, Urine Glucose 3+ H 04/14/172021: POC Glucose 465 *H Last VS-Temp:98.5 B/P:107/71 Pulse:95 Resp:18 SaO2:98 ROOM AIR Last weight lbs:114 oz:8 K.936 Method:Bed Scales Exam General appearance: alert Cardiovascular: regular rate & rhythm Respiratory: clear to auscultation ABD: non-distended, soft, no tenderness Neuro: alert, oriented Reviewed: medications, vital signs, lab results, radiology report Assessment/Plan Problem List 1. Ketoacidosis in type I diabetes mellitus Status: Chronic 2. LONG-TERM (CURRENT) USE OF INSULIN Status: Chronic 3. Vomiting and diarrhea 4. IDDM (insulin dependent diabetes mellitus) 5. History of pulmonary embolus (PE) Status: Chronic 6. Bipolar 1 disorder Status: Chronic Patient condition Improving Plan: advance diet. Monitor blood sugars. Complete blood count and BMP in the morning. This inpt stay is expected to cross 2 MNs from start of care Yes at 1841
[2017-04-16] VITALS (11 sets, daily range): BP systolic 90–129; BP diastolic 58–84
[2017-04-16 06:32] LABS: LYMPH # 3.4 K/mm3 (0.7-4.5); LYMPH % 37.3 % (10-50.0)
--- NOTE | 2017-04-16 08:41 | ACUTE CARE PROGRESS NOTE (QUA) ---
Progress Notes Subjective Date 04/16/17 Time 0740 Note Pt is resting quietly in bed. She does not feel well. She reports having a migraine headache, as well as nausea and abdominal discomfort, which pain and nausea medication have not relieved. She did not eat breakfast. She has a hat in for stool specimen collection, however, she has not voided or had BM overnight. Objective Findings Last VS-Temp:98.1 B/P:106/74 Pulse:65 Resp:19 SaO2:97 ROOM AIR Last weight lbs:123 oz:0 K.792 Method:Floor Scales Exam General appearance: alert, awake, no acute distress Cardiovascular: regular rate & rhythm, normal peripheral pulses Respiratory: CTAB A&P ABD: non-distended, no rebound, soft, no tenderness, no guarding, no organomegaly, no palpable mass, bowel sounds present Extremities: full range of motion, no peripheral edema, no calf tenderness Neuro: alert, oriented, no focal deficit Reviewed: medications, vital signs, lab results, radiology report Assessment/Plan Problem List 1. Ketoacidosis in type I diabetes mellitus Status: Chronic 2. LONG-TERM (CURRENT) USE OF INSULIN Status: Chronic 3. Vomiting and diarrhea 4. IDDM (insulin dependent diabetes mellitus) 5. History of pulmonary embolus (PE) Status: Chronic 6. Bipolar 1 disorder Status: Chronic Patient condition Improving Plan: Glucose levels are improved. Will continue current care. Further per Dr. Lockhart. This inpt stay is expected to cross 2 MNs from start of care Yes at 0840
--- NOTE | 2017-04-16 08:50 | ACUTE CARE PROGRESS NOTE (QUA) ---
Progress Notes Subjective Date 04/16/17 Time 0844 Note She states that she still doesn't feel well and has not gotten out of bed except to go the bathroom. She states that she still has some loose stools but these have not been collected for analysis. She says that she hasn't urinated since she's been here. Her lab work has all normalized except for potassium of 3.3. Her blood sugar was 221 this morning. She did have another decline to 56 during the night. She received 40 units of Lantus this morning. Patient/family reports: headache, nausea Objective Findings Laboratory Tests 04/16/17 0605: Sodium 141, Potassium 3.3 L, Chloride 110 H, Carbon Dioxide 22, BUN 13, Creatinine 0.8, Estimated Creat Clear 87, Estimated GFR (MDRD) 86, Glucose 56 L , Calcium 8.6, WBC 9.0, RBC 5.16, Hgb 15.0, Hct 44.7, MCV 86.6, RDW 12.7, Plt Count 231, MPV 7.6, Gran % 56.3, Gran # 5.1, Lymphocytes % 37.3, Monocytes % 4.8 , Eosinophils % 1.2, Basophils % 0.4, Lymphocytes # 3.4, Monocytes # 0.4, Eosinophils # 0.1, Basophils # 0.0, PUBS MCHC 33.5, MCH 29.0 04/16/17 0602: POC Glucose 74 04/16/17 0204: POC Glucose 124 H 04/15/17 1946: POC Glucose 282 H 04/15/17 1750: POC Glucose 211 H 04/15/17 1647: POC Glucose 51 L 04/15/17 1321: POC Glucose 114 H 04/15/17 1300: Sodium 138, Potassium 5.1, Chloride 109 H, Carbon Dioxide 15 L, BUN 18, Creatinine 0.8, Estimated Creat Clear 87, Estimated GFR (MDRD) 86, Glucose 114 H, Calcium 8.8 04/15/17 1148: POC Glucose 140 H 04/15/17 0956: POC Glucose 180 H 04/15/17 0901: POC Glucose 215 H 04/15/17 0900: Sodium 134 L, Potassium 4.9, Chloride 107, Carbon Dioxide 13 L, BUN 18, Creatinine 0.9, Estimated Creat Clear 77, Estimated GFR (MDRD) 75, Glucose 233 H, Calcium 8.8 Last VS-Temp:98.1 B/P:106/74 Pulse:65 Resp:19 SaO2:97 ROOM AIR Last weight lbs:123 oz:0 K.792 Method:Floor Scales Exam General appearance: alert, no acute distress Cardiovascular: regular rate & rhythm Respiratory: clear to auscultation ABD: soft, no tenderness, no guarding, no organomegaly Genitourinary: decreased output Extremities: no peripheral edema (no evidence of edema) Musculoskeletal: normal exam Skin: dry, intact, normal color Neuro: oriented, speech clear Reviewed: medications, vital signs, lab results Assessment/Plan Problem List 1. Ketoacidosis in type I diabetes mellitus Status: Chronic 2. LONG-TERM (CURRENT) USE OF INSULIN Status: Chronic 3. Vomiting and diarrhea 4. IDDM (insulin dependent diabetes mellitus) 5. History of pulmonary embolus (PE) Status: Chronic 6. Bipolar 1 disorder Status: Chronic Patient condition Improving Plan: decrease Lantus. Straight cath for urine residual. Decrease IV rate. She is encouraged to get out of bed and to be more mobile. This inpt stay is expected to cross 2 MNs from start of care Yes at 0850
[2017-04-16 09:30] LABS: AEROMONAS NOT DETECTED (NOT DETECTE); ASTROVIRUS NOT DETECTED (NOT DETECTE); CYCLOSPORA CAYETANENSIS NOT DETECTED (NOT DETECTE); E COLI O157 NOT DETECTED (NOT DETECTE); ENTEROAGGREGATIVE E COLI NOT DETECTED (NOT DETECTE); ENTEROPATHOGENIC E COLI NOT DETECTED (NOT DETECTE); ENTEROTOXIGENIC E COLI NOT DETECTED (NOT DETECTE); NOROVIRUS NOT DETECTED (NOT DETECTE); SAPOVIRUS NOT DETECTED (NOT DETECTE); SHIGA-LIKE TOXIN PROD. E COLI NOT DETECTED (NOT DETECTE); SHIGELLA/ENTEROINVASIVE E COLI NOT DETECTED (NOT DETECTE); VIBRIO CHOLERAE NOT DETECTED (NOT DETECTE)
[2017-04-16 18:02] LABS: URINE BILIRUBIN - DIPSTICK NEGATIVE (NEG); URINE BLOOD NEGATIVE (NEG)
[2017-04-16 18:30] LABS: URINE SQUAMOUS CELLS TNTC #/hpf (0-5)
[2017-04-17 03:45] VITALS: BP 149/75
[2017-04-17 06:32] LABS: HEMOGLOBIN 13.5 g/dL (12.2-16.2); LYMPH # 2.6 K/mm3 (0.7-4.5); LYMPH % 38.1 % (10-50.0)
[2017-04-17 08:00] VITALS: BP 92/40
--- NOTE | 2017-04-17 08:17 | ACUTE CARE PROGRESS NOTE (QUA) ---
See Addendum Progress Notes Subjective Date 04/17/17 Time 0745 Note Pt is resting quietly in bed, arouses easily to voice. She reports she is feeling somewhat better. Her abdominal pain has improved, however, she is still having intermittent sharp abdominal pain. She was able to eat some breakfast this morning although she remains nauseated. She has been up and about, ambulated in the halls with her yesterday. She continues with loose stools, notes a specimen was collected overnight. She has voided several times. Objective Findings Last VS-Temp:98.6 B/P:149/75 Pulse:56 Resp:18 SaO2:100 ROOM AIR Last weight lbs:125 oz:0 K.699 Method:Floor Scales Exam General appearance: alert, awake, no acute distress Cardiovascular: regular rate & rhythm, normal peripheral pulses Respiratory: good air movement, CTAB A&P ABD: non-distended, no rebound, soft, no guarding, no organomegaly, no palpable mass, bowel sounds present, mildly and diffusely ttp Extremities: moves all, no peripheral edema, no calf tenderness Neuro: alert, oriented, no focal deficit Reviewed: medications, vital signs, lab results, radiology report, nursing notes Assessment/Plan Problem List 1. Ketoacidosis in type I diabetes mellitus Status: Chronic 2. LONG-TERM (CURRENT) USE OF INSULIN Status: Chronic 3. Vomiting and diarrhea 4. IDDM (insulin dependent diabetes mellitus) 5. History of pulmonary embolus (PE) Status: Chronic 6. Bipolar 1 disorder Status: Chronic Patient condition Improving Plan: Pt continues to improve. Labs have normalized. Urine culture showed no growth. Will continue current care. This inpt stay is expected to cross 2 MNs from start of care Yes at 0817 at 0838
[2017-04-17 09:27] VITALS: BP 92/50
--- NOTE | 2017-04-19 08:57 | DISCHARGE SUMMARY STANDARD ---
Discharge Summary (FCA2) Date of admission: 04/14/17 Date of discharge: 04/17/17 Problem List: 1. Ketoacidosis in type I diabetes mellitus 2. LONG-TERM (CURRENT) USE OF INSULIN 3. Vomiting and diarrhea 4. IDDM (insulin dependent diabetes mellitus) 5. History of pulmonary embolus (PE) 6. Bipolar 1 disorder History of present illness: Ms. Damon was a 27-year-old diabetic who returned to [facility] in diabetic ketoacidosis. She was hospitalized March 27 through March 29 in DKA and with diarrhea and vomiting. Her had been diagnosed with Salmonella and C. difficile. During recent hospitalization, no stool was collected, thus, no testing was done. She stated that she saw Anyi Vail when necessary one week ago and there were no medication changes after hospitalization. Three days ago she resumed vomiting and diarrhea. She stated that she vomited about 15 or 20 times and her last episode of diarrhea was this afternoon. The patient stated that she took a lesser amount of insulin the day prior to admission while she was having vomiting and diarrhea. She reported taking no insulin today. She was admitted and placed on insulin gtt. Exam on admission: General appearance: moderate distress, not feeling well. Complains of nausea. Eyes: anicteric, PERRLA ENT: dry mucous membranes Neck: supple Cardiovascular: regular rate & rhythm, no murmur Respiratory: aerating well, clear to auscultation, no respiratory distress ABD: normal bowel sounds, soft, no tenderness, no organomegaly Extremities: full range of motion, no peripheral edema Skin: dry, intact Neuro: alert, oriented, speech clear Hospital Course: The patient remained stable through the night with blood glucose levels decreasing gradually. Her WBC remained elevated and CXR and UA were ordered. By the morning of 04/15/17, her glucose levels had stabilized. Her long-acting insulin was resumed and her diet was advanced. She seemed well-hydrated, however , she reported little UOP since admission. The following morning, she was feeling worse with migraine, nausea, and abdominal discomfort. She again reported no UOP. Her glucose levels remained stable. Her potassium was low at 3.3. By the afternoon she was still not feeling well and had not voided. She was instructed to get out of bed and move around and straight cath was ordered for urine residual. By 04/17/17, the patient was feeling better. Her labs had normalized. She had been up and about on the unit with her and had eaten breakfast without nausea. She had voided several times. She had soft BM which was collected for stool PCR. 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 Imagin04/14/17 Acute Abdomen Series: 1. Unremarkable bowel gas pattern. Nonspecific abdomen with no bowel dilatation or obstruction. Previous cholecystectomy. Previous hysterectomy. 2. The lungs are clear with no active disease. 04/14/17 CXR: Stable chest. No appreciable change. Nothing definitely acute. Old granulomatous disease noted. 04/14/17 EKG: Sinus Tachycardia 105, right atrial enlargement, baseline artifact, no acute finding Discharge medications: Continue taking these medications: Paroxetine (Paxil) 30 MG TAB 30 MILLIGRAM ORAL DAILY Albuterol Sulfate (Proair Hfa) 8.5 GM HFA.AER.AD 1 PUFF INHALATION EVERY 6 HOURS NEEDED as needed for ASTHMA Instructions: 1-2 PUFFS EVERY 4-6 HOURS FLUTICASONE/SALMETEROL (Advair 250-50 Diskus) 1 EACH BLST.W.DEV 1 PUFF IN VITRO TWICE A DAY Quetiapine Fumarate (Seroquel 50MG) 50 MG TABLET 50 MILLIGRAM ORAL DAILY BUPRENORPHINE HCL/NALOXONE HCL (Buprenorphin-Naloxon 8-2 MG Sl) 1 EACH TAB.SUBL 1 TABLET SUBLINGUAL DAILY Instructions: 1 AND 3/4 TABLET Propranolol Hcl (Inderal 20MG. Tablet) 20 MG TABLET 20 MILLIGRAM ORAL AT BEDTIME NIGHTLY Comments: take 1 tablet by mouth at bedtime for migraines - SIG Obtained From Stephan Gabapentin (Gabapentin 400MG Capsule) 400 MG CAPSULE 400 MILLIGRAM ORAL THREE TIMES A DAY Qty = 90 Rivaroxaban (Xarelto) 15 MG TABLET 15 MILLIGRAM ORAL TWICE A DAY Qty = 42 INSULIN GLARGINE (Lantus 3ML Solostar Pen) 100 UNIT/ML VIAL 50 UNITS Subcutaneous Injection TWICE A DAY Insulin Lispro, Recombinant (Humalog 100 UNITS/ML 10ML) 100 UNIT/ML VIAL 15 UNITS Subcutaneous Injection BEFORE MEALS AND AT BEDTIME Instructions: SLIDING SCALE PER FSBS RESULT Disposition: Follow up with: ANYI VAIL APRN Follow up: 5 DAYS Activity: Cont Current activity Diet: Continue same diet Discharge to: HOME Agency needed? N at [phone]
== END 2017-04-17 10:10 | disposition home or self-care (01) | DRG 639 ==
LOC: ER 18:09 → 2ND 19:30 → ER 19:30 → 2ND 20:39
PROVIDERS: Emergency Medicine; Family Medicine
DX: E13.10 Other specified diabetes mellitus with ketoacidosis without coma (principal); Z79.4 Long term (current) use of insulin
CPT/HCPCS: J2405

== ENCOUNTER 2017-06-28 21:12 | Observation (INO) | payer MEDICAID ==
[~2017-06-28] VITALS: Ht 170.2 cm; Wt 57.8 kg
[2017-06-28 21:25] VITALS: BP 124/83
[2017-06-28 21:55] LABS: URINE BILIRUBIN - DIPSTICK NEGATIVE (NEG); URINE BLOOD 3+ (NEG)
[2017-06-28 21:58] LABS: URINE SQUAMOUS CELLS OCC #/hpf (0-5)
[2017-06-28 22:14] LABS: LYMPH # 2.3 K/mm3 (0.7-4.5)
[2017-06-28 22:18] LABS: HEMOGLOBIN 17.9 g/dL (12.2-16.2)
--- NOTE | 2017-06-28 22:42 | Emergency Room Report ---
History of Present Illness Time Seen by 2129 Presenting Problem in Triage Pt arrived:Walked Presenting Problem:BLOOD GLUCOSE HIGH CHECKED AT HOME 45 MINUTES AGO WAS 511, HAD KETONES IN URINE, CALLED PCP AND WAS TOLD TO COME TO ED. PT STATES SHE IS TIRED, LIGHT HEADED, NAUSEATED, VISION BLURRED. 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 N Clinical Suspician of Infection? N Mental Status: 1 - Regular (Normal Baseline) Sepsis Risk:Possible Sepsis Risk Have you (or family members/close friends) recently traveled outside the [place]? N If Yes, where/when: Have you had exposure to infectious disease within the past month? N TB? Other? Specify: Source patient, RN notes reviewed, family, old records Exam Limitations no limitations Comment pt with n/v over the last 24 hrs with hx of iddm and presents with larsen and not feeling well -no fever Cardiac Chest Pain Chest pain indicative of cardiac No Timing/Duration this evening Severity moderate ALLERGIES Coded Allergies: tramadol (Severe, 04/15/17) Adhesives (12/12/16) Penicillins (12/12/16) butalbital (12/12/16) caffeine (From FIORICET) (03/26/17) codeine (12/12/16) iodine (12/12/16) ketorolac (12/12/16) povidone-iodine (From BETADINE) (03/26/17) soap (From BETADINE) (03/26/17) Home Medications Active Scripts Rivaroxaban (Xarelto) 15 MG PO BID #42 TAB Prov: 01/25/17 Reported Medications Propranolol Hcl (Inderal 20MG. Tablet) 20 MG PO QHS Paroxetine (Paxil) 30 MG PO DAILY FLUTICASONE/SALMETEROL (Advair 250-50 Diskus) 1 PUFF IN BID INSULIN GLARGINE (Lantus 3ML Solostar Pen) 50 UNITS SC BID Insulin Lispro, Recombinant (Humalog 100 UNITS/ML 10ML) 15 UNITS SC ACHS Albuterol Sulfate (Proair Hfa) 1 PUFF IH Q6HP PRN ASTHMA Quetiapine Fumarate (Seroquel 50MG) 50 MG PO DAILY BUPRENORPHINE HCL/NALOXONE HCL (Buprenorphin-Naloxon 8-2 MG Sl) 1 TAB SL DAILY Gabapentin (Gabapentin 400MG Capsule) 400 MG PO TID #90 History Medical History General CAD? No Angina: No NM: No Hypertension? No Hyperlipidemia? No CHF? No DVT? No PE? Yes COPD? No Asthma? Yes Anemia? No GERD? Yes Gastric ulcers? Yes GI Bleed? No Hernia? Yes Thyroid Problems? No Hypothyroidism? No CVA? No Seizures? No Diabetes? Yes Insulin Dependent: Yes Insulin Pump: No Home FSBS? Yes Renal Insuffiency? No End Stage Renal Disease? No UTI? Yes Stones? Yes GB Disease: Yes Nephritic Syndrome? No Asplenia? No Hepatitis? No Sickle Cell Disease? No Arthritis? No Migraines? Yes Cataracts? No Glaucoma? No MRSA? Yes HIV? No TB? No Anxiety? Yes Depression? No Cancer? No More? 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 Respiratory denies cough, denies shortness of breath, denies wheezing Cardiovascular denies chest pain, denies syncope Gastrointestinal see HPI, denies abdominal pain, denies diarrhea, nausea, vomiting Genitourinary denies: dysuria, frequency, hesitancy, hematuria. Musculoskeletal denies joint pain, denies neck pain Skin denies rash Psychiatric/Neurological denies headache, denies seizure Physical Exam Vital Signs Vital Signs Date Time Temp Pulse Resp B/P Pulse O2 O2 Flow FiO2 Ox Delivery Rate 06/28 2317 98.4 89 18 98/56 97 06/285 98.6 125 20 124/83 93 - WBC >12,000 or <4,000 or 10% bands? 2 or more SIRS Criteria Met? B/P: MAP:96 Creatinine >2.0? UA output<0.5ml/kg/hr for 2 hrs? Platelet count >100,000? Lactate >2.0mmol/1? INR >1.2 or PTT > than 60 sec? Evidence of Organ Dysfunction? Provider documented clinical suspician of infection? N Sepsis Criteria Count: 2N Sepsis Risk: Possible Sepsis Risk General Appearance no apparent distress Eye Exam - bilateral eye PERRL, bilateral eye EOMI Ear, Nose, Throat normal ENT inspection Neck supple Respiratory Status No: respiratory distress. Lung Sounds bilateral: lungs clear. 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 No Results/Orders Laboratory Tests 06/28/172204: Sodium 130 L, Potassium 4.6, Chloride 95 L, Carbon Dioxide 16 L, BUN 17, Creatinine 1.0, Estimated Creat Clear 72, Estimated GFR (MDRD) 67, Glucose 549 * H, Calcium 9.2, Total Bilirubin 0.8, AST 19, ALT 18, Alkaline Phosphatase 85, Total Protein 8.0, Albumin 4.3, Globulin 3.7 H, Albumin/Globulin Ratio 1.2, WBC 9.8, RBC 6.35 H, Hgb 17.9 H, Hct 54.4 H, MCV 85.7, RDW 12.6, Plt Count 290, MPV 8.8, Gran % 72.2, Gran # 7.1, Lymphocytes % 23.0, Monocytes % 3.4, Eosinophils % 0.8, Basophils % 0.5, Lymphocytes # 2.3, Monocytes # 0.3, Eosinophils # 0.1, Basophils # 0.1, PUBS MCHC 32.9, MCH 28.2, Acetone Level SMALL 10/13/17 2148: Urine Color YELLOW, Urine Appearance CLOUDY, Urine pH 5.5, Ur Specific [place] 1.020, Urine Protein NEGATIVE, Urine Ketones 3+ H, Urine Blood 3+ H, Urine Nitrate NEGATIVE, Urine Bilirubin NEGATIVE, Urine Urobilinogen 0.2, Ur Leukocyte Esterase NEGATIVE, Urine RBC TNTC, Ur Squamous Epith Cells OCC, Urine Glucose 3+ H 06/28/174: POC Glucose 480 *H Current Medication Orders Sig/Caleb Start time Last Medication Dose Route Stop Time Status Admin Ondansetron HCl 4 MG ONCE ONE 06/28 2330 DC 06/28 IV 06/28 2331 2324 Ondansetron HCl 0 .STK-MED ONE 06/28 2322 DC .ROUTE Insulin Human Regular 5 UNITS ONCE ONE 06/28 2315 DC 06/28 IVP 06/28 Insulin Human Regular 0 .STK-MED ONE 06/28 2306 DC .ROUTE Sodium Chloride 1,000 ML .STK-MED ONE 06/28 2146 DC IV Sodium Chloride 10 ML PRN PRN 06/28 2145 AC IV 06/29 2141 Sodium Chloride 1,000 ML .Q1H1M 06/28 2145 DC 06/28 IV 06/28 2245 231 Sodium Chloride 10 ML PRN PRN 06/28 2145 AC IV 06/29 2142 Orders Procedure Date/time Status Decision to admit 06/28 2320 Active Acetone, Serum 06/28 2242 Complete FSBS REQUEST BY CARE AREA 06/28 2147 Active IV SALINE LOCK 06/28 2142 Active URINALYSIS/COMPLETE 06/28 2142 Complete CBC WITH AUTO DIFF 06/28 2142 Complete CHEM 12 PROFILE 06/28 2142 Complete FINGERSTICK BLOOD SUGAR 06/28 2134 Complete Departure Departure Time of Disposition 2314 Disposition Still a Patient Clinical Impression Primary Impression: DKA (diabetic ketoacidoses) Qualifiers: Diabetes mellitus type: type 1 Diabetes mellitus complication detail: without coma Qualified Code: E10.10 - Type 1 diabetes mellitus with ketoacidosis without coma Condition STABLE Referrals ROMAN VAIL APRN (Family) discussed with dr presley ESPANA Critical Care Critical Care No at 2344
[2017-06-29] VITALS (18 sets, daily range): BP systolic 85–115; BP diastolic 45–77
--- NOTE | 2017-06-29 13:21 | HISTORY AND PHYSICAL REPORT ---
Demographics: Admit date: 06/28/17 Chief complaint: Nausea/vomiting PRIMARY DIAGNOSIS: DKA Allergies: Coded Allergies: tramadol (Severe, 04/15/17) Adhesives (12/12/16) Penicillins (12/12/16) butalbital (12/12/16) caffeine (From FIORICET) (03/26/17) codeine (12/12/16) iodine (12/12/16) ketorolac (12/12/16) povidone-iodine (From BETADINE) (03/26/17) soap (From BETADINE) (03/26/17) History of present illness: History of present illness: 27-year-old white female with type 1 diabetes for the last 10 years with a history of multiple episodes of DKA and variety of sicknesses who came to the emergency department with nausea and vomiting. Found to be ketotic and acidotic with serum acetone positive. Admitted to step down unit with insulin drip. This morning on rn managed care rounds was improved, conscious. Improving vital sign parameters. Past medical history: Family HX Diabetes Yes CAD Yes Hypertension Yes Hyperlipidemia Yes Cancer Yes TB No Immunization HX DT/Tetanus Unknown Flu 2017-18FSN Pneumonia Received In Past Other PT STATES SHE HAD HER FLU SHOT IN THE LAST 30 DAYS TB Test in last year No General CAD? No Angina: No [place]: No Hypertension? No Hyperlipidemia? No CHF? No DVT? No PE? Yes COPD? No Asthma? Yes Anemia? No GERD? Yes Gastric ulcers? Yes GI Bleed? No Hernia? Yes Thyroid Problems? No Hypothyroidism? No CVA? No Seizures? Yes Diabetes? Yes Insulin Dependent: Yes Insulin Pump: No Home FSBS? Yes Renal Insuffiency? No UTI? Yes Stones? Yes GB Disease: Yes Nephritic Syndrome? No Asplenia? No Hepatitis? No Sickle Cell Disease? No Arthritis? No Migraines? Yes Cataracts? No Glaucoma? No MRSA? Yes HIV? No TB? No Anxiety? Yes Depression? No Cancer? No More? Yes Additional hx: OVARIAN CYSTS Past Surgical HX Previous Surgery?Y FINGER-5TH DIGIT R HAND GALLBLADDER C SECTION APPENDIX -WITH COMPLICAT WISDOM TEETH ESSURE DIAG LAP X2 HYSTERECTOMY, PARTIAL I&D IN GROIN LABIAL DYSPLAGIA Current home meds: Active Scripts Rivaroxaban (Xarelto) 15 MG PO BID #42 TAB Prov: 01/25/17 Reported Medications Propranolol Hcl (Inderal 20MG. Tablet) 20 MG PO QHS Paroxetine (Paxil) 30 MG PO DAILY FLUTICASONE/SALMETEROL (Advair 250-50 Diskus) 1 PUFF IN BID INSULIN GLARGINE (Lantus 3ML Solostar Pen) 50 UNITS SC BID Insulin Lispro, Recombinant (Humalog 100 UNITS/ML 10ML) 15 UNITS SC ACHS Albuterol Sulfate (Proair Hfa) 1 PUFF IH Q6HP PRN ASTHMA Quetiapine Fumarate (Seroquel 50MG) 50 MG PO DAILY BUPRENORPHINE HCL/NALOXONE HCL (Buprenorphin-Naloxon 8-2 MG Sl) 1 TAB SL DAILY Gabapentin (Gabapentin 400MG Capsule) 400 MG PO TID #90 Social Hx: Smoking HX Tobacco Yes Type Cigarettes Packs/day < 1 PACK Are you/the child exposed to second-hand smoke: Yes Alcohol Alcohol: No Hx of Drug Use Drug Use? No Patien't marital status is single Patient's support system is poor Comment: Multiple issues of medical noncompliance, tobacco abuse in spite of her medical problems and history of pulmonary embolism. Review of systems: Constitutional malaise, weakness. Respiratory No: no symptoms reported. Cardiovascular No no symptoms reported Gastrointestinal/Abdominal abdomen distended, abdominal pain, nausea, poor appetite Genitourinary No: no symptoms reported. Musculoskeletal No: no symptoms reported. Neurological No: see HPI. Exam: Lab data for last 24 hours: Laboratory Tests 06/29/17 1229: POC Glucose 334 *H 06/29/17 1148: Sodium 135 L, Potassium 4.0, Chloride 105, Carbon Dioxide 19 L, BUN 9, Creatinine 0.7, Estimated Creat Clear 107, Estimated GFR (MDRD) 100, Glucose 371 H, Calcium 7.5 L, Phosphorus 3.0, Magnesium 1.4, Acetone Level NONE DETECTED 06/29/17 1143: POC Glucose 320 *H 06/29/17 1041: POC Glucose 340 *H 06/29/17 0939: POC Glucose 224 H 06/29/17 0903: Sodium 137, Potassium 3.5, Chloride 109 H, Carbon Dioxide 23, BUN 12, Creatinine 0.6, Estimated Creat Clear 124, Estimated GFR (MDRD) 120, Glucose 112 H, Calcium 7.5 L 06/29/17 0841: POC Glucose 93 06/29/17 0745: Sodium 138, Potassium 3.5, Chloride 109 H, Carbon Dioxide 22, BUN 11, Creatinine 0.6, Estimated Creat Clear 124, Estimated GFR (MDRD) 120, Glucose 116 H, Calcium 7.5 L 06/29/17 0644: POC Glucose 140 H 06/29/17 0526: POC Glucose 188 H 06/29/17 0405: Sodium 136, Potassium 3.5, Chloride 106, Carbon Dioxide 21 L, BUN 12, Creatinine 0.6, Estimated Creat Clear 124, Estimated GFR (MDRD) 120, Glucose 256 H, Calcium 7.8 L, Acetone Level DETECTED H 06/29/17 0334: POC Glucose 259 H 06/29/17 0228: POC Glucose 271 H 06/29/17 0016: Sodium 135 L, Potassium 3.7, Chloride 103, Carbon Dioxide 18 L, BUN 15, Creatinine 0.8, Estimated Creat Clear 90, Estimated GFR (MDRD) 86, Glucose 372 H, Calcium 7.7 L, Phosphorus 2.9, Magnesium 1.5 06/28/175: Sodium 130 L, Potassium 4.6, Chloride 95 L, Carbon Dioxide 16 L, BUN 17, Creatinine 1.0, Estimated Creat Clear 72, Estimated GFR (MDRD) 67, Glucose 549 * H, Calcium 9.2, Total Bilirubin 0.8, AST 19, ALT 18, Alkaline Phosphatase 85, Total Protein 8.0, Albumin 4.3, Globulin 3.7 H, Albumin/Globulin Ratio 1.2, WBC 9.8, RBC 6.35 H, Hgb 17.9 H, Hct 54.4 H, MCV 85.7, RDW 12.6, Plt Count 290, MPV 8.8, Gran % 72.2, Gran # 7.1, Lymphocytes % 23.0, Monocytes % 3.4, Eosinophils % 0.8, Basophils % 0.5, Lymphocytes # 2.3, Monocytes # 0.3, Eosinophils # 0.1, Basophils # 0.1, PUBS MCHC 32.9, MCH 28.2, Acetone Level SMALL 06/28/17 9329: Urine Color YELLOW, Urine Appearance CLOUDY, Urine pH 5.5, Ur Specific [employer] 1.020, Urine Protein NEGATIVE, Urine Ketones 3+ H, Urine Blood 3+ H, Urine Nitrate NEGATIVE, Urine Bilirubin NEGATIVE, Urine Urobilinogen 0.2, Ur Leukocyte Esterase NEGATIVE, Urine RBC TNTC, Ur Squamous Epith Cells OCC, Urine Glucose 3+ H 06/28/172133: POC Glucose 480 *H Admission vital signs: 1ST Vital Signs Result Date Time Pulse Ox 93 06/28 2125 B/P 124/83 06/28 2125 Temp 98.6 06/28 2125 Pulse 125 06/28 2125 Resp 20 06/28 2125 O2 Delivery ROOM AIR 06/29 010 Additional information: This morning on rn managed care rounds patient is awake, alert, responsive, normal cranial nerves. Lungs clear except for smoker's rhonchi, heart rate regular- improved over admission in the ER. Abdomen soft. No extremity edema or clubbing. Plan: Problem List 1. IDDM Status Chronic 2. Ketoacidosis in type I diabetes mellitus Status Chronic Plan: Continue step down care. Insulin drip and ongoing monitoring. Await clearance of ketones. Cautious diet advancement. at 1321
--- NOTE | 2017-06-29 13:35 | PHARMACY CLINIC NOTE ---
Patient Demographics Patient Demographics Admission date: 06/29/17 Date: 06/29/17 Time: 1334 Allergies Coded Allergies: tramadol (Severe, 04/15/17) Adhesives (12/12/16) Penicillins (12/12/16) butalbital (12/12/16) caffeine (From FIORICET) (03/26/17) codeine (12/12/16) iodine (12/12/16) ketorolac (12/12/16) povidone-iodine (From BETADINE) (03/26/17) soap (From BETADINE) (03/26/17) HEIGHT- FT: 5 IN: 7.00 K.991 VTE General Information Labs: Laboratory Tests 06/285 Hematology Hgb (12.2 - 16.2 g/dL) 17.9 H Hct (37.0 - 47.0 %) 54.4 H Plt Count (142 - 424 K/mm3) 290 Disclaimer The following section includes nursing documentation that has been pulled in for pharmacy review. Patient's VTE score: 3 Patient's VTE Risk: LOW RISK Clinical trial participant? No VTE prophylaxis NQF [id number] VTE prophylaxis ordered? Yes Type of prophylaxis/treatment: Heparin (XARELTO) at 1045
--- OUTSIDE RECORDS SUMMARY | 2017-06-29 22:41 | External Medical Summary Rpt | Continuity of Care Document ---
Author Author Organization Address Unknown Phone Unavailable Care Team Providers Care Nurses' Association Counselor Name Role Phone , Unavailable Unavailable EMS Current Medications Section EMS Allergies and Adverse Reactions EMS Past Medical History Medications Administered Section EMS Procedures Performed EMS Vital Signs EMS Patient Care Report Narrative EC-1 responded emergent to the [address] [place] [address] for a 27 year old female who has fallen. Upon arrival [facility] Department was out with the patient providing care. Patient was found sitting upright in the floor of the gas station. Patient was alert. Patient confused about the event. Patient could tell me her name and date of . Bystanders stated patient came in the store. Stated patient was shaking and not making sense. Stated she fell backwards and was unresponsive for a brief period of time. Patient is an insulin dependent diabetic. Patient had hit her head during the fall. Patient had an approximately 1.5 cm laceration to the back of the head, minor bleeding. Blood glucose obtained, 70 mg/dl. Patient had drank some of an orange juice prior to my arrival. Cervical collar placed on patient. Patient laid back on the floor. Motor and sensory intact in extremities. Patient scooped with scoop stretcher. Towel rolls placed and taped to secure head. Patient secured and lifted to stretcher. Patient secured and moved to ambulance. Patient vitals obtained. Patient placed on environmental services director, sinus rhythm, No ST abnormality, No ectopy. 12 lead transmitted to [facility] ER. 18g IV started in right AC, saline lock. Blood samples obtained. Patient given fluid bolus of sodium chloride 0.9%. EC-1 then cleared en route to [facility] ER non-emergent. Patient monitored en route with no change. Patient report called in to [facility] ER en route. Patient delivered to [facility] ER bed #5. Patient lifted and moved over to bed on board. Patient report given to Peter Humphrey EMT-P. EC-1 then cleared returning to service. PATIENT TRANSPORTED DUE TO FALL AND LOC. PATIENT CONFUSED.
--- OUTSIDE RECORDS SUMMARY | 2017-06-29 22:41 | External Medical Summary Rpt | Continuity of Care Document ---
Author Author Organization Address Unknown Phone Unavailable Care Team Providers Care Yarding Supervisor Name Role Phone , Unavailable Unavailable EMS Current Medications Section EMS Allergies and Adverse Reactions EMS Past Medical History Medications Administered Section EMS Procedures Performed EMS Vital Signs EMS Patient Care Report Narrative EC-1 responded emergent to the [address] [place] [address] for a 27 year old female who has fallen. Upon arrival [facility] Department was out with the patient [...] ambulance. Patient vitals obtained. Patient placed on bus driver/monitor, sinus rhythm, No ST abnormality, No ectopy. 12 lead transmitted to [facility] ER. 18g IV started in right AC, saline lock. Blood samples obtained. Patient given fluid bolus of sodium chloride 0.9%. EC-1 then cleared en route to [facility] ER non-emergent. Patient monitored en route with no change. Patient report called in to [facility] ER en route. Patient delivered to [facility] ER bed #5. Patient lifted and moved over to bed on board. Patient report given to Peter Humphrey EMT-P. EC-1 then cleared returning to service. PATIENT TRANSPORTED DUE TO FALL AND LOC. PATIENT CONFUSED.
--- OUTSIDE RECORDS SUMMARY | 2017-06-29 23:51 | External Medical Summary Rpt | CCD ---
Author Author , VIRGILIO POOLE Address Unknown Phone [email or web address] Name Relationship Address Phone WILLY, Next Of Kin Unknown Unavailable NAEL Immunization Name Date Rout CVX Reac Dose Comm Prov Is Faci e tion ent ider Refu lity Give sed n PPV2 09-0 Intr 33 0.5 Hist BOUR No BOUR 3 7-20 amus mL oric BONC BONC 17 cula al OMMH OMMH r Info rmat ion - Sour ce Unsp ecif ied
--- OUTSIDE RECORDS SUMMARY | 2017-06-29 23:51 | External Medical Summary Rpt | CCD ---
Author Author , VIRGILIO POOLE Address Unknown Phone [email or web address] Name Relationship Address Phone WILLY, Next [...]
--- OUTSIDE RECORDS SUMMARY | 2017-06-29 23:54 | External Medical Summary Rpt ---
Author Author VIRGILIO Finn, [employer] Organization [employer] Address Unknown Phone Unavailable Results Urinalysis dipstick W Reflex Microscopic panel in Urine Observa Value Referen Units Interpr Notes Date tion ce etation Range Appeara CLOUDY CLEAR No No No Jun 28 nce of informa informa informa 2016 Urine tion in tion in tion in 9:48 PM source source source data data data Bilirub NEGATIV NEG No No No Jun 28 in E informa informa informa 2016 [Presen tion in tion in tion in 9:48 PM ce] in source source source Urine data data data by Test strip Erythro 3+ NEG No Abnorma No Jun 28 cytes informa l informa 2016 [Presen tion in tion in 9:48 PM ce] in source source Urine data data Color YELLOW YELLOW No No No Jun 28 of informa informa informa 2016 Urine tion in tion in tion in 9:48 PM source source source data data data Glucose NEG No High No Jun 28 [Mass/vol informati informati 2016 9:48 ume] in on in on in PM Urine by source source Test data data strip Ketones 3+ NEG mg/dL Abnorma No Jun 28 l informa 2016 [Presen tion in 9:48 PM ce] in source Urine data by Automat ed test strip Mucus NEGATIV NEG No No No Jun 28 [Presen E informa informa informa 2016 ce] in tion in tion in tion in 9:48 PM Urine source source source sedimen data data data t by Light microsc opy Nitrite NEGATIV NEG No No No Jun 28 E informa informa informa 2016 [Presen tion in tion in tion in 9:48 PM ce] in source source source Urine data data data by Test strip pH of 5.0 - 8.5 No Normal No Jun 28 Urine informati informati 2016 9:48 on in on in PM source source data data Protein NEG mg/dL No No Jun 28 [Mass/vol informati informati 2016 9:48 ume] in on in on in PM Urine by source source Automated data data test strip Specific 1.005 - No Normal No Jun 28 gravity 1.030 informati informati 2017 9:48 of Urine on in on in PM source source data data Urobili 0.2 NEG E.U./dL No No Jun 28 nogen informa informa 2016 [Presen tion in tion in 9:48 PM ce] in source source Urine data data by Test strip Glucose [Mass/volume] in Capillary blood by Glucometer Observa Value Referen Units Interpr Notes Date tion ce etation Range Glucose 70 - 110 mg/dl High No Jun 28 [Mass/vol alert informati 2016 9:34 ume] in on in PM Capillary source blood by data Glucomete r Basic metabolic panel in Blood Observa Value Referen Units Interpr Notes Date ti ce etation Range Urea 7 - 18 mg/dL Normal No Apr 17 nitrogen informati 2016 6:25 [Mass/vol on in AM ume] in source Serum or data Plasma Calcium 8.5 - mg/dL Low No Apr 17 [Mass/vol 10.1 informati 2017 6:25 ume] in on in AM Serum or source Plasma data Chloride 98 - 107 mmoL/L High No Apr 17 [Moles/vo informati 2017 6:25 lume] in on in AM Serum or source Plasma data Carbon 21.0 - mmoL/L Normal No Apr 17 dioxide, 32.0 informati 2017 6:25 total on in AM [Moles/vo source lume] in data Serum or Plasma Creatinin 0.55 - mg/dL Normal No Apr 17 e 1.02 informati 2016 6:25 [Mass/vol on in AM ume] in source Serum or data Plasma Creatinin 50 - 200 ML/MIN Normal No Apr 17 e renal informati 2017 6:25 clearance on in AM source predicted data by Cockcroft -Gault formula Estimated 59- ML/MIN No REFERENCE Apr 17 informati RANGE: 2017 6:25 glomerula on in >60 AM r source ML/MIN/1. filtratio data 73 SQUARE n rate METERSIf (GF this patient is -A merican, then multiply theresult by 1.210. Glucose 74 - 106 mg/dL High No Aug 2 [Mass/vol informati 2017 6:25 ume] in on in AM Serum or source Plasma data Potassium 3.5 - 5.1 mmoL/L Normal No Apr 17 informati 2017 6:25 [Moles/vo on in AM lume] in source Serum or data Plasma Sodium 136 - 145 mmoL/L Normal No Apr 17 [Moles/vo informati 2017 6:25 lume] in on in AM Serum or source Plasma data CBC W Auto Differential panel in Blood Observa Value Referen Units Interpr Notes Date tion ce etation Range Basophils 0 - 0.2 K/MM3 Normal No Apr 17 informati 2016 6:25 [#/volume on in AM ] in source Blood by data Automated count Basophils 0.1 - 2.0 % Normal No Apr 17 /100 informati 2017 6:25 leukocyte on in AM s in source Blood by data Automated count Eosinophi 0.0 - 0.4 K/mm3 Normal No Apr 17 ls informati 2017 6:25 [#/volume on in AM ] in source Blood by data Automated count Eosinophi 0.1 - % Normal No Apr 17 ls/100 12.0 informati 2017 6:25 leukocyte on in AM s in source Blood by data Automated count Granulocy 1.8 - 7.8 K/mm3 Normal No Apr 17 nito informati 2017 6:25 [#/volume on in AM ] in source Blood by data Automated count Granulocy 37.0 - % Normal No Apr 17 nito/100 80.0 informati 2017 6:25 leukocyte on in AM s in source Blood by data Automated count Hematocri 37.0 - % Normal No Apr 17 t [Volume 47.0 informati 2016 6:25 on in AM Fraction] source of Blood data Hemoglobi 12.2 - g/dL Normal No Apr 17 n 16.2 informati 2017 6:25 [Mass/vol on in AM ume] in source Blood data Lymphocyt 0.7 - 4.5 K/mm3 Normal No Apr 17 es informati 2017 6:25 [#/volume on in AM ] in source Unspecifi data ed specimen by Automated count Lymphocyt 10 - 50.0 % Normal No Apr 17 es informati 2016 6:25 [#/volume on in AM ] in source Unspecifi data ed specimen by Automated count Erythrocy 27 - 31.2 pg Normal No Apr 17 te mean informati 2017 6:25 corpuscul on in AM ar source hemoglobi data n [Entitic mass] Erythrocy 31.8 - g/dl Normal No Apr 17 te mean 35.4 informati 2017 6:25 corpuscul on in AM ar source hemoglobi data n concentra tion [Mass/vol ume] by Automated count Erythrocy 82.2 - fl Normal No Apr 17 te mean 97.8 informati 2017 6:25 corpuscul on in AM ar volume source [Entitic data volume] by Automated count Monocytes 0.1 - 1.0 K/mm3 Normal No Apr 2 informati 2017 6:25 [#/volume on in AM ] in source Blood by data Automated count Monocytes 1.7 - 9.3 % Normal No Apr 2 /100 informati 2017 6:25 leukocyte on in AM s in source Blood by data Automated count Platelet 7.4 - fl Normal No Apr 17 mean 10.4 informati 2017 6:25 volume on in AM [Entitic source volume] data in Blood by Automated count Platelets 142 - 424 K/mm3 No No Apr 2 informati informati 2017 6:25 [#/volume on in on in AM ] in source source Blood data data Erythrocy 4.2 - 5.4 M/mm3 Normal No Apr 2 nito informati 2017 6:25 [#/volume on in AM ] in source Amniotic data fluid Erythrocy 11.5 - % Normal No Apr 17 te 17.5 informati 2017 6:25 distribut on in AM ion width source [Entitic data volume] by Automated count Leukocyte 4.8 - K/MM3 Normal No Apr 2 s 10.8 informati 2016 6:25 [#/volume on in AM ] in source Blood data Glucose [Mass/volume] in Capillary blood by Glucometer Observa Value Referen Units Interpr Notes Date tion ce etation Range Glucose 70 - 110 mg/dl High No Apr 2 [Mass/vol informati 2017 5:52 ume] in on in AM Capillary source blood by data Glucomete r Glucose [Mass/volume] in Capillary blood by Glucometer Observa Value Referen Units Interpr Notes Date tion ce etation Range Glucose 70 - 110 mg/dl High No Apr 16 [Mass/vol informati 2017 8:56 ume] in on in PM Capillary source blood by data Glucomete r Urinalysis dipstick W Reflex Microscopic panel in Urine Observa Value Referen Units Interpr Notes Date tion ce etation Range Collected by nurse? Y Hold specimen in OE? N Appeara SL CLEAR No No No Apr 16 nce of CLOUDY informa informa informa 2016 Urine tion in tion in tion in 5:42 PM source source source data data data Bacteri 3+ O No No No Apr 16 a informa informa informa 2016 [Presen tion in tion in tion in 5:42 PM ce] in source source source Urine data data data sedimen t by Light microsc opy Bilirub NEGATIV NEG No No No Apr 16 in E informa informa informa 2016 [Presen tion in tion in tion in 5:42 PM ce] in source source source Urine data data data by Test strip Erythro NEGATIV NEG No No No Apr 16 cytes E informa informa informa 2016 [Presen tion in tion in tion in 5:42 PM ce] in source source source Urine data data data Color YELLOW YELLOW No No No Apr 16 of informa informa informa 2016 Urine tion in tion in tion in 5:42 PM source source source data data data Glucose NEG No High No Apr 16 [Mass/vol informati informati 2016 5:42 ume] in on in on in PM Urine by source source Test data data strip Ketones NEGATIV NEG mg/dL No No Apr 16 E informa informa 2016 [Presen tion in tion in 5:42 PM ce] in source source Urine data data by Automat ed test strip Mucus NEGATIV NEG No No No Apr 16 [Presen E informa informa informa 2016 ce] in tion in tion in tion in 5:42 PM Urine source source source sedimen data data data t by Light microsc opy Nitrite NEGATIV NEG No No No Apr 16 E informa informa informa 2016 [Presen tion in tion in tion in 5:42 PM ce] in source source source Urine data data data by Test strip pH of 5.0 - 8.5 No Normal No Apr 16 Urine informati informati 2017 5:42 on in on in PM source source data data Protein NEG mg/dL No No Apr 16 [Mass/vol informati informati 2016 5:42 ume] in on in on in PM Urine by source source Automated data data test strip Erythro NONE 0 rbc/hpf No No Apr 16 cytes informa informa 2016 [Presen tion in tion in 5:42 PM ce] in source source Urine data data sedimen t by Light microsc opy Specific 1.005 - No Normal No Apr 16 gravity 1.030 informati informati 2017 5:42 of Urine on in on in PM source source data data Epithel TNTC 0 - 5 #/hpf No No Apr 16 ial informa informa 2017 cells.s tion in tion in 5:42 PM quamous source source data data [Presen ce] in Urine sedimen t by Microsc opy high power field Urobili 0.2 NEG E.U./dL No No Apr 16 nogen informa informa 2016 [Presen tion in tion in 5:42 PM ce] in source source Urine data data by Test strip Leukocy [10 O wbc/hpf No No Apr 16 nito wbc/hpf informa informa 2016 [#/volu ; 20 tion in tion in 5:42 PM me] in wbc/hpf source source Urine ] data data Yeast 1+ NONE No No No Apr 16 [Presen informa informa informa 2016 ce] in tion in tion in tion in 5:42 PM Urine source source source sedimen data data data t by Light microsc opy Urinalysis dipstick W Reflex Microscopic panel in Urine Observa Value Referen Units Interpr Notes Date tion ce etation Range Collected by nurse? Y Hold specimen in OE? N Appeara SL CLEAR No No No Apr 16 nce of CLOUDY informa informa informa 2017 Urine tion in tion in tion in 5:42 PM source source source data data data Bilirub NEGATIV NEG No No No Apr 16 in E informa informa informa 2016 [Presen tion in tion in tion in 5:42 PM ce] in source source source Urine data data data by Test strip Erythro NEGATIV NEG No No No Apr 16 cytes E informa informa informa 2016 [Presen tion in tion in tion in 5:42 PM ce] in source source source Urine data data data Color YELLOW YELLOW No No No Apr 16 of informa informa informa 2017 Urine tion in tion in tion in 5:42 PM source source source data data data Glucose NEG No High No Apr 16 [Mass/vol informati informati 2016 5:42 ume] in on in on in PM Urine by source source Test data data strip Ketones NEGATIV NEG mg/dL No No Apr 16 E informa informa 2016 [Presen tion in tion in 5:42 PM ce] in source source Urine data data by Automat ed test strip Mucus NEGATIV NEG No No No Apr 16 [Presen E informa informa informa 2016 ce] in tion in tion in tion in 5:42 PM Urine source source source sedimen data data data t by Light microsc opy Nitrite NEGATIV NEG No No No Apr 16 E informa informa informa 2016 [Presen tion in tion in tion in 5:42 PM ce] in source source source Urine data data data by Test strip pH of 5.0 - 8.5 No Normal No Apr 16 Urine informati informati 2016 5:42 on in on in PM source source data data Protein NEG mg/dL No No Apr 16 [Mass/vol informati informati 2016 5:42 ume] in on in on in PM Urine by source source Automated data data test strip Specific 1.005 - No Normal No Apr 16 gravity 1.030 informati informati 2016 5:42 of Urine on in on in PM source source data data Urobili 0.2 NEG E.U./dL No No Apr 16 nogen informa informa 2016 [Presen tion in tion in 5:42 PM ce] in source source Urine data data by Test strip Glucose [Mass/volume] in Capillary blood by Glucometer Observa Value Referen Units Interpr Notes Date ti ce etation Range Glucose 70 - 110 mg/dl High No Apr 16 [Mass/vol informati 2016 4:46 ume] in on in PM Capillary source blood by data Glucomete r Glucose [Mass/volume] in Capillary blood by Glucometer Observa Value Referen Units Interpr Notes Date ti ce etation Range Glucose 70 - 110 mg/dl High No Apr 16 [Mass/vol informati 2016 ume] in on in 11:57 AM Capillary source blood by data Glucomete r Glucose [Mass/volume] in Capillary blood by Glucometer Observa Value Referen Units Interpr Notes Date tion ce etation Range Glucose 70 - 110 mg/dl High No Apr 16 [Mass/vol informati 2017 8:27 ume] in on in AM Capillary source blood by data Glucomete r Basic metabolic panel in Blood Observa Value Referen Units Interpr Notes Date tion ce etation Range Urea 7 - 18 mg/dL No No Apr 16 nitrogen informati informati 2017 6:05 [Mass/vol on in on in AM ume] in source source Serum or data data Plasma Calcium 8.5 - mg/dL Normal No Apr 16 [Mass/vol 10.1 informati 2017 6:05 ume] in on in AM Serum or source Plasma data Chloride 98 - 107 mmoL/L High No Apr 16 [Moles/vo informati 2016 6:05 lume] in on in AM Serum or source Plasma data Carbon 21.0 - mmoL/L Normal No Apr 16 dioxide, 32.0 informati 2017 6:05 total on in AM [Moles/vo source lume] in data Serum or Plasma Creatinin 0.55 - mg/dL Normal No Apr 16 e 1.02 informati 2017 6:05 [Mass/vol on in AM ume] in source Serum or data Plasma Creatinin 50 - 200 ML/MIN Normal No Apr 16 e renal informati 2017 6:05 clearance on in AM source predicted data by Cockcroft -Gault formula Estimated 59- ML/MIN No REFERENCE Apr 16 informati RANGE: 2017 6:05 glomerula on in >60 AM r source ML/MIN/1. filtratio data 73 SQUARE n rate METERSIf (GF this patient is -A merican, then multiply theresult by 1.210. Glucose 74 - 106 mg/dL Low No Apr 16 [Mass/vol informati 2017 6:05 ume] in on in AM Serum or source Plasma data Potassium 3.5 - 5.1 mmoL/L Low No Apr 16 informati 2016 6:05 [Moles/vo on in AM lume] in source Serum or data Plasma Sodium 136 - 145 mmoL/L Normal No Apr 16 [Moles/vo informati 2017 6:05 lume] in on in AM Serum or source Plasma data CBC W Auto Differential panel in Blood Observa Value Referen Units Interpr Notes Date tion ce etation Range Basophils 0 - 0.2 K/MM3 Normal No Apr 16 informati 2017 6:05 [#/volume on in AM ] in source Blood by data Automated count Basophils 0.1 - 2.0 % Normal No Apr 16 /100 informati 2017 6:05 leukocyte on in AM s in source Blood by data Automated count Eosinophi 0.0 - 0.4 K/mm3 Normal No Apr 16 ls informati 2016 6:05 [#/volume on in AM ] in source Blood by data Automated count Eosinophi 0.1 - % Normal No Apr 16 ls/100 12.0 informati 2017 6:05 leukocyte on in AM s in source Blood by data Automated count Granulocy 1.8 - 7.8 K/mm3 Normal No Apr 16 nito informati 2017 6:05 [#/volume on in AM ] in source Blood by data Automated count Granulocy 37.0 - % Normal No Apr 16 nito/100 80.0 informati 2017 6:05 leukocyte on in AM s in source Blood by data Automated count Hematocri 37.0 - % Normal No Apr 16 t [Volume 47.0 informati 2016 6:05 on in AM Fraction] source of Blood data Hemoglobi 12.2 - g/dL Normal No Apr 16 n 16.2 informati 2017 6:05 [Mass/vol on in AM ume] in source Blood data Lymphocyt 0.7 - 4.5 K/mm3 Normal No Apr 16 es informati 2017 6:05 [#/volume on in AM ] in source Unspecifi data ed specimen by Automated count Lymphocyt 10 - 50.0 % Normal No Apr 16 es informati 2017 6:05 [#/volume on in AM ] in source Unspecifi data ed specimen by Automated count Erythrocy 27 - 31.2 pg Normal No Apr 16 te mean informati 2017 6:05 corpuscul on in AM ar source hemoglobi data n [Entitic mass] Erythrocy 31.8 - g/dl Normal No Apr 16 te mean 35.4 informati 2017 6:05 corpuscul on in AM ar source hemoglobi data n concentra tion [Mass/vol ume] by Automated count Erythrocy 82.2 - fl Normal No Apr 16 te mean 97.8 informati 2017 6:05 corpuscul on in AM ar volume source [Entitic data volume] by Automated count Monocytes 0.1 - 1.0 K/mm3 Normal No Apr 16 informati 2016 6:05 [#/volume on in AM ] in source Blood by data Automated count Monocytes 1.7 - 9.3 % Normal No Apr 16 informati 2017 6:05 leukocyte on in AM s in source Blood by data Automated count Platelet 7.4 - fl Normal No Apr 16 mean 10.4 informati 2017 6:05 volume on in AM [Entitic source volume] data in Blood by Automated count Platelets 142 - 424 K/mm3 Normal No Apr 16 informati 2017 6:05 [#/volume on in AM ] in source Blood data Erythrocy 4.2 - 5.4 M/mm3 Normal No Apr 16 nito informati 2017 6:05 [#/volume on in AM ] in source Amniotic data fluid Erythrocy 11.5 - % Normal No Apr 16 te 17.5 informati 2017 6:05 distribut on in AM ion width source [Entitic data volume] by Automated count Leukocyte 4.8 - K/MM3 No No Apr 16 s 10.8 informati informati 2017 6:05 [#/volume on in on in AM ] in source source Blood data data Glucose [Mass/volume] in Capillary blood by Glucometer Observa Value Referen Units Interpr Notes Date tion ce etation Range Glucose 70 - 110 mg/dl No No Apr 16 [Mass/vol informati informati 2017 6:02 ume] in on in on in AM Capillary source source blood by data data Glucomete r Glucose [Mass/volume] in Capillary blood by Glucometer Observa Value Referen Units Interpr Notes Date tion ce etation Range Glucose 70 - 110 mg/dl High No Apr 16 [Mass/vol informati 2016 2:04 ume] in on in AM Capillary source blood by data Glucomete r Glucose [Mass/volume] in Capillary blood by Glucometer Observa Value Referen Units Interpr Notes Date tion ce etation Range Glucose 70 - 110 mg/dl High No Apr 15 [Mass/vol informati 2016 7:46 ume] in on in PM Capillary source blood by data Glucomete r Glucose [Mass/volume] in Capillary blood by Glucometer Observa Value Referen Units Interpr Notes Date ti ce etation Range Glucose 70 - 110 mg/dl High No Apr 15 [Mass/vol informati 2016 5:50 ume] in on in PM Capillary source blood by data Glucomete r Glucose [Mass/volume] in Capillary blood by Glucometer Observa Value Referen Units Interpr Notes Date tion ce etation Range Glucose 70 - 110 mg/dl Low No Apr 15 [Mass/vol informati 2016 4:47 ume] in on in PM Capillary source blood by data Glucomete r Glucose [Mass/volume] in Capillary blood by Glucometer Observa Value Referen Units Interpr Notes Date tion ce etation Range Glucose 70 - 110 mg/dl High No Apr 15 [Mass/vol informati 2016 1:21 ume] in on in PM Capillary source blood by data Glucomete r Basic metabolic panel in Blood Observa Value Referen Units Interpr Notes Date tion ce etation Range COMMENTS TO RESIDENT CARE MANAGER RN: draw around 1300 Urea 7 - 18 mg/dL Normal No Apr 15 nitrogen informati 2016 1:00 [Mass/vol on in PM ume] in source Serum or data Plasma Calcium 8.5 - mg/dL Normal No Apr 15 [Mass/vol 10.1 informati 2016 1:00 ume] in on in PM Serum or source Plasma data Chloride 98 - 107 mmoL/L High No Apr 15 [Moles/vo informati 2016 1:00 lume] in on in PM Serum or source Plasma data Carbon 21.0 - mmoL/L Low No Apr 15 dioxide, 32.0 informati 2017 1:00 total on in PM [Moles/vo source lume] in data Serum or Plasma Creatinin 0.55 - mg/dL Normal No Apr 15 e 1.02 informati 2017 1:00 [Mass/vol on in PM ume] in source Serum or data Plasma Creatinin 50 - 200 ML/MIN Normal No Apr 15 e renal informati 2017 1:00 clearance on in PM source predicted data by Cockcroft -Gault formula Estimated 59- ML/MIN No REFERENCE Apr 15 informati RANGE: 2017 1:00 glomerula on in >60 PM r source ML/MIN/1. filtratio data 73 SQUARE n rate METERSIf (GF this patient is -A merican, then multiply theresult by 1.210. Glucose 74 - 106 mg/dL High No Apr 15 [Mass/vol informati 2016 1:00 ume] in on in PM Serum or source Plasma data Potassium 3.5 - 5.1 mmoL/L Normal No Apr 15 informati 2016 1:00 [Moles/vo on in PM lume] in source Serum or data Plasma Sodium 136 - 145 mmoL/L Normal No Apr 15 [Moles/vo informati 2017 1:00 lume] in on in PM Serum or source Plasma data Glucose [Mass/volume] in Capillary blood by Glucometer Observa Value Referen Units Interpr Notes Date tion ce etation Range Glucose 70 - 110 mg/dl High No Apr 15 [Mass/vol informati 2016 ume] in on in 11:48 AM Capillary source blood by data Glucomete r Glucose [Mass/volume] in Capillary blood by Glucometer Observa Value Referen Units Interpr Notes Date ti ce etation Range Glucose 70 - 110 mg/dl High No Apr 15 [Mass/vol informati 2016 9:56 ume] in on in AM Capillary source blood by data Glucomete r Glucose [Mass/volume] in Capillary blood by Glucometer Observa Value Referen Units Interpr Notes Date ti ce etation Range Glucose 70 - 110 mg/dl High No Apr 15 [Mass/vol informati 2016 9:01 ume] in on in AM Capillary source blood by data Glucomete r DIARRHEA PANEL,PCR Observa Value Referen Units Interpr Notes Date tion ce etation Range Adenovi NOT NOT No No No Apr 15 geena DETECTE DETECTE informa informa informa 2016 40+41 D tion in tion in tion in 9:00 AM Ag source source source [Presen data data data ce] in Stool Aeromon NOT NOT No No No Apr 15 as DETECTE DETECTE informa informa informa 2016 salmoni D tion in tion in tion in 9:00 AM ria source source source [Presen data data data ce] in Unspeci fied specime n Astrovi NOT NOT No No No Apr 15 geena DETECTE DETECTE informa informa informa 2017 [Presen D tion in tion in tion in 9:00 AM ce] in source source source Stool data data data by Electro n microsc opy Campylo NOT NOT No No No Apr 15 bacter DETECTE DETECTE informa informa informa 2017 sp Ab D tion in tion in tion in 9:00 AM [Presen source source source ce] in data data data Serum Clostri NOT NOT No No No Apr 15 dium DETECTE DETECTE informa informa informa 2017 diffici D tion in tion in tion in 9:00 AM le source source source toxin data data data A+B [Presen ce] in Stool Cryptos NOT NOT No No No Apr 15 poridiu DETECTE DETECTE informa informa informa 2017 m sp Ag D tion in tion in tion in 9:00 AM source source source [Presen data data data ce] in Unspeci fied specime n Cyclosp NOT NOT No No No Apr 15 ora DETECTE DETECTE informa informa informa 2017 cayetan D tion in tion in tion in 9:00 AM thom source source source [Presen data data data ce] in Unspeci fied specime n Escheri NOT NOT No No No Apr 15 zbigniew DETECTE DETECTE informa informa informa 2017 coli D tion in tion in tion in 9:00 AM [Presen source source source ce] in data data data Unspeci fied specime n by Culture FDA method Escheri NOT NOT No No No Apr 15 zbigniew DETECTE DETECTE informa informa informa 2017 coli D tion in tion in tion in 9:00 AM [Presen source source source ce] in data data data Unspeci fied specime n by Culture FDA method Escheri NOT NOT No No No Apr 15 zbigniew DETECTE DETECTE informa informa informa 2017 coli D tion in tion in tion in 9:00 AM Shiga-l source source source jurgen data data data toxin 1 assa Escheri NOT NOT No No No Apr 15 zbigniew DETECTE DETECTE informa informa informa 2017 coli D tion in tion in tion in 9:00 AM [id number] source source source data data data [Presen ce] in Stool by Organis m specifi c culture Entamoe NOT NOT No No No Apr 15 ba DETECTE DETECTE informa informa informa 2017 histoly D tion in tion in tion in 9:00 AM rula source source source [Presen data data data ce] in Stool by Trichro me stain Giardia NOT NOT No No No Apr 15 DETECTE DETECTE informa informa informa 2017 lamblia D tion in tion in tion in 9:00 AM Ag source source source [Presen data data data ce] in Stool Norovir NOT NOT No No No Apr 15 us Ag DETECTE DETECTE informa informa informa 2017 [Presen D tion in tion in tion in 9:00 AM ce] in source source source Stool data data data Stool NOT NOT No No No Apr 15 Plesiom DETECTE DETECTE informa informa informa 2017 onas D tion in tion in tion in 9:00 AM shigell source source source oides data data data DNA detec Rotavir NOT NOT No No No Apr 15 us RNA DETECTE DETECTE informa informa informa 2017 detecti D tion in tion in tion in 9:00 AM on by source source source probe data data data and tar Salmone NOT NOT No No No Apr 15 lla sp DETECTE DETECTE informa informa informa 2017 DNA D tion in tion in tion in 9:00 AM [Identi source source source fier] data data data in Unspeci fied specime n by Probe & target amplifi cation method Caliciv NOT NOT No No No Apr 15 irus DETECTE DETECTE informa informa informa 2017 [Identi D tion in tion in tion in 9:00 AM fier] source source source in data data data Stool by Electro n microsc opy Escheri NOT NOT No No No Apr 15 zbigniew DETECTE DETECTE informa informa informa 2016 coli D tion in tion in tion in 9:00 AM [Presen source source source ce] in data data data Unspeci fied specime n by Culture FDA method Escheri NOT NOT No No No Apr 15 zbigniew DETECTE DETECTE informa informa informa 2017 coli D tion in tion in tion in 9:00 AM SXT source source source gene+H7 data data data gene [Identi fier] in Unspeci fied specime n by Probe & target amplifi cation method Vibrio NOT NOT No No No Apr 15 cholera DETECTE DETECTE informa informa informa 2017 e DNA D tion in tion in tion in 9:00 AM [Presen source source source ce] in data data data Unspeci fied specime n by Probe & target amplifi cation method Vibrio NOT NOT No No No Apr 15 sp DNA DETECTE DETECTE informa informa informa 2017 [Identi D tion in tion in tion in 9:00 AM fier] source source source in data data data Unspeci fied specime n by Probe & target amplifi cation method Vibrio NOT NOT No No No Apr 15 sp DETECTE DETECTE informa informa informa 2017 identif D tion in tion in tion in 9:00 AM ied in source source source Stool data data data by Lana aquino c culture Basic metabolic panel in Blood Observa Value Referen Units Interpr Notes Date tion ce etation Range COMMENTS TO RESIDENT CARE MANAGER RN: Q2HR X 5 TILL 6AM TIMED FOR 0640, SAMPLE COLLECTED AT 0900 AFTER MULTIPLE ATTEMPS TO OBTAIN USABLE SAMPLE(FINGERSTICK) Urea 7 - 18 mg/dL Normal No Apr 15 nitrogen informati 2016 9:00 [Mass/vol on in AM ume] in source Serum or data Plasma Calcium 8.5 - mg/dL Normal No Apr 15 [Mass/vol 10.1 informati 2017 9:00 ume] in on in AM Serum or source Plasma data Chloride 98 - 107 mmoL/L Normal No Apr 15 [Moles/vo informati 2016 9:00 lume] in on in AM Serum or source Plasma data Carbon 21.0 - mmoL/L Low No Apr 15 dioxide, 32.0 informati 2017 9:00 total on in AM [Moles/vo source lume] in data Serum or Plasma Creatinin 0.55 - mg/dL No No Apr 15 e 1.02 informati informati 2017 9:00 [Mass/vol on in on in AM ume] in source source Serum or data data Plasma Creatinin 50 - 200 ML/MIN No No Apr 15 e renal informati informati 2017 9:00 clearance on in on in AM source source predicted data data by Cockcroft -Gault formula Estimated 59- ML/MIN No REFERENCE Apr 15 informati RANGE: 2017 9:00 glomerula on in >60 AM r source ML/MIN/1. filtratio data 73 SQUARE n rate METERSIf (GF this patient is -A merican, then multiply theresult by 1.210. Glucose 74 - 106 mg/dL High No Apr 15 [Mass/vol informati 2017 9:00 ume] in on in AM Serum or source Plasma data Potassium 3.5 - 5.1 mmoL/L Normal No Apr 15 informati 2016 9:00 [Moles/vo on in AM lume] in source Serum or data Plasma Sodium 136 - 145 mmoL/L Low No Apr 15 [Moles/vo informati 2017 9:00 lume] in on in AM Serum or source Plasma data Glucose [Mass/volume] in Capillary blood by Glucometer Observa Value Referen Units Interpr Notes Date tion ce etation Range Glucose 70 - 110 mg/dl High No Apr 15 [Mass/vol informati 2016 7:47 ume] in on in AM Capillary source blood by data Glucomete r CBC W Auto Differential panel in Blood Observa Value Referen Units Interpr Notes Date tion ce etation Range Basophils 0 - 0.2 K/MM3 Normal No Apr 15 informati 2016 7:45 [#/volume on in AM ] in source Blood by data Automated count Basophils 0.1 - 2.0 % Normal No Apr 15 / informati 2017 7:45 leukocyte on in AM s in source Blood by data Automated count Eosinophi 0.0 - 0.4 K/mm3 Normal No Apr 15 ls informati 2016 7:45 [#/volume on in AM ] in source Blood by data Automated count Eosinophi 0.1 - % Normal No Apr 15 ls/100 12.0 informati 2017 7:45 leukocyte on in AM s in source Blood by data Automated count Granulocy 1.8 - 7.8 K/mm3 High No Apr 15 nito informati 2017 7:45 [#/volume on in AM ] in source Blood by data Automated count Granulocy 37.0 - % Normal No Apr 15 nito/100 80.0 informati 2017 7:45 leukocyte on in AM s in source Blood by data Automated count Hematocri 37.0 - % High No Apr 15 t [Volume 47.0 informati 2016 7:45 on in AM Fraction] source of Blood data Hemoglobi 12.2 - g/dL High No Apr 15 n 16.2 informati 2016 7:45 [Mass/vol on in AM ume] in source Blood data Lymphocyt 0.7 - 4.5 K/mm3 Normal No Apr 15 es informati 2016 7:45 [#/volume on in AM ] in source Unspecifi data ed specimen by Automated count Lymphocyt 10 - 50.0 % Normal No Apr 15 es informati 2016 7:45 [#/volume on in AM ] in source Unspecifi data ed specimen by Automated count Erythrocy 27 - 31.2 pg Normal No Apr 15 te mean informati 2017 7:45 corpuscul on in AM ar source hemoglobi data n [Entitic mass] Erythrocy 31.8 - g/dl Normal No Apr 15 te mean 35.4 informati 2017 7:45 corpuscul on in AM ar source hemoglobi data n concentra tion [Mass/vol ume] by Automated count Erythrocy 82.2 - fl Normal No Apr 15 te mean 97.8 informati 2016 7:45 corpuscul on in AM ar volume source [Entitic data volume] by Automated count Monocytes 0.1 - 1.0 K/mm3 Normal No Apr 15 informati 2016 7:45 [#/volume on in AM ] in source Blood by data Automated count Monocytes 1.7 - 9.3 % Normal No Apr 15 /100 informati 2017 7:45 leukocyte on in AM s in source Blood by data Automated count Platelet 7.4 - fl Normal No Apr 15 mean 10.4 informati 2016 7:45 volume on in AM [Entitic source volume] data in Blood by Automated count Platelets 142 - 424 K/mm3 Normal No Apr 15 informati 2017 7:45 [#/volume on in AM ] in source Blood data Erythrocy 4.2 - 5.4 M/mm3 High No Apr 15 nito informati 2017 7:45 [#/volume on in AM ] in source Amniotic data fluid Erythrocy 11.5 - % Normal No Apr 15 te 17.5 informati 2017 7:45 distribut on in AM ion width source [Entitic data volume] by Automated count Leukocyte 4.8 - K/MM3 High No Apr 15 s 10.8 informati 2016 7:45 [#/volume on in AM ] in source Blood data Glucose [Mass/volume] in Capillary blood by Glucometer Observa Value Referen Units Interpr Notes Date tion ce etation Range Glucose 70 - 110 mg/dl High No Apr 15 [Mass/vol informati 2016 6:45 ume] in on in AM Capillary source blood by data Glucomete r Glucose [Mass/volume] in Capillary blood by Glucometer Observa Value Referen Units Interpr Notes Date ti ce etation Range Glucose 70 - 110 mg/dl High No Apr 15 [Mass/vol informati 2016 6:10 ume] in on in AM Capillary source blood by data Glucomete r Glucose [Mass/volume] in Capillary blood by Glucometer Observa Value Referen Units Interpr Notes Date tion ce etation Range Glucose 70 - 110 mg/dl High No Apr 15 [Mass/vol informati 2017 5:19 ume] in on in AM Capillary source blood by data Glucomete r Glucose [Mass/volume] in Capillary blood by Glucometer Observa Value Referen Units Interpr Notes Date tion ce etation Range Glucose 70 - 110 mg/dl High No Apr 15 [Mass/vol alert informati 2016 4:16 ume] in on in AM Capillary source blood by data Glucomete r Basic metabolic panel in Blood Observa Value Referen Units Interpr Notes Date tion ce etation Range COMMENTS TO RESIDENT CARE MANAGER RN: Q2HR X 5 TILL 6AM Urea 7 - 18 mg/dL High No Apr 15 nitrogen informati 2016 4:05 [Mass/vol on in AM ume] in source Serum or data Plasma Calcium 8.5 - mg/dL Normal No Apr 15 [Mass/vol 10.1 informati 2016 4:05 ume] in on in AM Serum or source Plasma data Chloride 98 - 107 mmoL/L Normal No Apr 15 [Moles/vo informati 2017 4:05 lume] in on in AM Serum or source Plasma data Carbon 21.0 - mmoL/L Low No Apr 15 dioxide, 32.0 informati 2017 4:05 total on in AM [Moles/vo source lume] in data Serum or Plasma Creatinin 0.55 - mg/dL High No Apr 15 e 1.02 informati 2017 4:05 [Mass/vol on in AM ume] in source Serum or data Plasma Creatinin 50 - 200 ML/MIN Normal No Apr 15 e renal informati 2017 4:05 clearance on in AM source predicted data by Cockcroft -Gault formula Estimated 59- ML/MIN Low REFERENCE Apr 15 RANGE: 2017 4:05 glomerula >60 AM r ML/MIN/1. filtratio 73 SQUARE n rate METERSIf (GF this patient is -A merican, then multiply theresult by 1.210. Glucose 74 - 106 mg/dL High No Apr 15 [Mass/vol informati 2016 4:05 ume] in on in AM Serum or source Plasma data Potassium 3.5 - 5.1 mmoL/L High SERUM Apr 15 SLIGHTLY 2017 4:05 [Moles/vo HEMOLYZED AM lume] in DUE TO Serum or DIFFICULT Plasma VENIPUNCT URE Sodium 136 - 145 mmoL/L Low No Apr 15 [Moles/vo informati 2017 4:05 lume] in on in AM Serum or source Plasma data Glucose [Mass/volume] in Capillary blood by Glucometer Observa Value Referen Units Interpr Notes Date tion ce etation Range Glucose 70 - 110 mg/dl High No Apr 15 [Mass/vol informati 2016 3:19 ume] in on in AM Capillary source blood by data Glucomete r Glucose [Mass/volume] in Capillary blood by Glucometer Observa Value Referen Units Interpr Notes Date tion ce etation Range Glucose 70 - 110 mg/dl High No Apr 15 [Mass/vol alert informati 2017 2:08 ume] in on in AM Capillary source blood by data Glucomete r Basic metabolic panel in Blood Observa Value Referen Units Interpr Notes Date tion ce etation Range COMMENTS TO RESIDENT CARE MANAGER RN: Q2HR X 5 TILL 6AM Urea 7 - 18 mg/dL High No Apr 15 nitrogen informati 2016 2:05 [Mass/vol on in AM ume] in source Serum or data Plasma Calcium 8.5 - mg/dL Normal No Apr 15 [Mass/vol 10.1 informati 2017 2:05 ume] in on in AM Serum or source Plasma data Chloride 98 - 107 mmoL/L Normal No Apr 15 [Moles/vo informati 2017 2:05 lume] in on in AM Serum or source Plasma data Carbon 21.0 - mmoL/L Low No Apr 15 dioxide, 32.0 informati 2017 2:05 total on in AM [Moles/vo source lume] in data Serum or Plasma Creatinin 0.55 - mg/dL High No Apr 15 e 1.02 informati 2017 2:05 [Mass/vol on in AM ume] in source Serum or data Plasma Creatinin 50 - 200 ML/MIN Normal No Apr 15 e renal informati 2017 2:05 clearance on in AM source predicted data by Cockcroft -Gault formula Estimated 59- ML/MIN Low REFERENCE Apr 15 RANGE: 2017 2:05 glomerula >60 AM r ML/MIN/1. filtratio 73 SQUARE n rate METERSIf (GF this patient is -A merican, then multiply theresult by 1.210. Glucose 74 - 106 mg/dL High No Apr 15 [Mass/vol informati 2017 2:05 ume] in on in AM Serum or source Plasma data Potassium 3.5 - 5.1 mmoL/L High SERUM NOT Apr 15 2017 2:05 [Moles/vo HEMOLYZED AM lume] in Serum or Plasma Sodium 136 - 145 mmoL/L Normal No Apr 15 [Moles/vo informati 2017 2:05 lume] in on in AM Serum or source Plasma data Glucose [Mass/volume] in Capillary blood by Glucometer Observa Value Referen Units Interpr Notes Date tion ce etation Range Glucose 70 - 110 mg/dl High No Apr 15 [Mass/vol alert informati 2017 ume] in on in 12:56 AM Capillary source blood by data Glucomete r Basic metabolic panel in Blood Observa Value Referen Units Interpr Notes Date tion ce etation Range COMMENTS TO RESIDENT CARE MANAGER RN: Q2HR X 5 TILL 6AM SPECIMEN SLIGHTLY HEMOLYZED DUE TO DIFFICULT VENIPUNCTURE CALLED TO DR. PICKARD Urea 7 - 18 mg/dL High No Apr 14 nitrogen informati 2016 [Mass/vol on in 11:59 PM ume] in source Serum or data Plasma Calcium 8.5 - mg/dL Normal No Apr 14 [Mass/vol 10.1 informati 2017 ume] in on in 11:59 PM Serum or source Plasma data Chloride 98 - 107 mmoL/L Normal No Apr 14 [Moles/vo informati 2017 lume] in on in 11:59 PM Serum or source Plasma data Carbon 21.0 - mmoL/L Low alert Apr 14 dioxide, 32.0 NOTIFICAT 2017 total ION 11:59 PM [Moles/vo RESULT lume] in Serum or Plasma Creatinin 0.55 - mg/dL High No Apr 14 e 1.02 informati 2017 [Mass/vol on in 11:59 PM ume] in source Serum or data Plasma Creatinin 50 - 200 ML/MIN Normal No Apr 14 e renal informati 2016 clearance on in 11:59 PM source predicted data by Cockcroft -Gault formula Estimated 59- ML/MIN Low REFERENCE Apr 14 RANGE: 2017 glomerula >60 11:59 PM r ML/MIN/1. filtratio 73 SQUARE n rate METERSIf (GF this patient is -A merican, then multiply theresult by 1.210. Glucose 74 - 106 mg/dL High Apr 14 [Mass/vol 2017 ume] in CRITICAL 11:59 PM Serum or RESULTS Plasma RESU LTS CALLED TO: 04/15/17 0042 Vanesa Lange hn Potassium 3.5 - 5.1 mmoL/L High Apr 14 alert 2016 [Moles/vo CRITICAL 11:59 PM lume] in RESULTS Serum or Plasma RESU LTS CALLED TO: DR. PICKARD 04/15/17 004 Vanesa Lange hnSPECIME N SLIGHTLY HEMOLYZED DUE TO DIFFICULT VENIPUNCT URE Sodium 136 - 145 mmoL/L Low No Apr 14 [Moles/vo informati 2017 lume] in on in 11:59 PM Serum or source Plasma data Glucose [Mass/volume] in Capillary blood by Glucometer Observa Value Referen Units Interpr Notes Date tion ce etation Range Glucose 70 - 110 mg/dl High No Apr 14 [Mass/vol alert informati 2017 ume] in on in 11:03 PM Capillary source blood by data Glucomete r Comprehensive metabolic 2000 panel in Serum or Plasma Observa Value Referen Units Interpr Notes Date tion ce etation Range HEMOLYSIS INDEX 111 Albumin/G 1.1 - 1.8 No Low No Apr 14 lobulin informati informati 2016 [Mass on in on in 10:10 PM ratio] in source source Serum or data data Plasma Albumin 3.4 - 5.0 gm/dL No No Apr 14 [Mass/vol informati informati 2017 ume] in on in on in 10:10 PM Serum or source source Plasma data data Alkaline 46 - 116 U/L High No Apr 14 phosphata informati 2017 se on in 10:10 PM [Enzymati source c data activity/ volume] in Serum or Plasma Bilirubin 0.2 - 1.0 mg/dL Normal No Apr 14 .total informati 2017 [Mass/vol on in 10:10 PM ume] in source Serum or data Plasma Urea 7 - 18 mg/dL High No Apr 14 nitrogen informati 2017 [Mass/vol on in 10:10 PM ume] in source Serum or data Plasma Calcium 8.5 - mg/dL Normal No Apr 14 [Mass/vol 10.1 informati 2017 ume] in on in 10:10 PM Serum or source Plasma data Chloride 98 - 107 mmoL/L Normal No Apr 14 [Moles/vo informati 2017 lume] in on in 10:10 PM Serum or source Plasma data Carbon 21.0 - mmoL/L Low No Apr 14 dioxide, 32.0 informati 2017 total on in 10:10 PM [Moles/vo source lume] in data Serum or Plasma Creatinin 0.55 - mg/dL High No Apr 14 e 1.02 informati 2017 [Mass/vol on in 10:10 PM ume] in source Serum or data Plasma Creatinin 50 - 200 ML/MIN Low No Apr 14 e renal informati 2017 clearance on in 10:10 PM source predicted data by Cockcroft -Gault formula Estimated 59- ML/MIN Low REFERENCE Apr 14 RANGE: 2017 glomerula >60 10:10 PM r ML/MIN/1. filtratio 73 SQUARE n rate METERSIf (GF this patient is -A merican, then multiply theresult by 1.210. Globulin 1.3 - 3.2 gm/dL High No Apr 14 [Mass/vol informati 2016 ume] in on in 10:10 PM Serum source data Glucose 74 - 106 mg/dL High Apr 14 [Mass/vol 2017 ume] in CRITICAL 10:10 PM Serum or RESULTS Plasma RESU LTS CALLED TO: Beba VILLATORO 04/14/17 2234 LangeVanesa hn Potassium 3.5 - 5.1 mmoL/L High Apr 14 2016 [Moles/vo CRITICAL 10:10 PM lume] in RESULTS Serum or Plasma RESU LTS CALLED TO: Beba BAIG RN 04/14/17 2235 LangeVanesa hn Sodium 136 - 145 mmoL/L Low No Apr 14 [Moles/vo informati 2017 lume] in on in 10:10 PM Serum or source Plasma data Aspartate 15 - 37 U/L No No Apr 14 informati informati 2017 aminotran on in on in 10:10 PM sferase source source [Enzymati data data c activity/ volume] in Serum or Plasma Alanine 12 - 78 U/L Normal No Apr 14 aminotran inform2016 sferase on in 10:10 PM [Enzymati source c data activity/ volume] in Serum or Plasma Protein 6.4 - 8.2 gm/dL High No Apr 14 [Mass/vol informati 2016 ume] in on in 10:10 PM Serum or source Plasma data Magnesium [Moles/volume] in Unspecified specimen Observa Value Referen Units Interpr Notes Date tion ce etation Range HEMOLYSIS INDEX 111 Magnesium 1.4 - 2.2 mg/dL Normal No Apr 14 inform2016 [Moles/vo on in 10:10 PM lume] in source Unspecifi data ed specimen Phosphate [Moles/volume] in Unspecified specimen Observa Value Referen Units Interpr Notes Date tion ce etation Range HEMOLYSIS INDEX 111 Phosphate 2.4 - 4.9 mg/dL High No Apr 14 inform2016 [Moles/vo on in 10:10 PM lume] in source Unspecifi data ed specimen Glucose [Mass/volume] in Capillary blood by Glucometer Observa Value Referen Units Interpr Notes Date tion ce etation Range Glucose 70 - 110 mg/dl High No Apr 14 [Mass/vol alert informati 2017 9:57 ume] in on in PM Capillary source blood by data Glucomete r Glucose [Mass/volume] in Capillary blood by Glucometer Observa Value Referen Units Interpr Notes Date ti ce etation Range Glucose 70 - 110 mg/dl High No Apr 14 [Mass/vol alert informati 2017 8:49 ume] in on in PM Capillary source blood by data Glucomete r Drugs identified in Urine by Screen method Observa Value Referen Units Interpr Notes Date tion ce etation Range Positive urine drug screen samples are stored for 7 days. Contact the Lab if confirmation of positives is needed. Ampheta NEGATIV <1000 ng/mL No No Apr 14 mine E informa informa 2016 [Presen tion in tion in 8:30 PM ce] in source source Urine data data by Screen method Barbitura <200 ng/mL No No Apr 14 nito informati informati 2017 8:30 [Mass/vol on in on in PM ume] in source source Urine by data data Screen method Benzodiaz 200 ng/mL ng/mL No No Apr 14 epines informati informati 2017 8:30 [Mass/vol on in on in PM ume] in source source Serum or data data Plasma by Screen method Cocaine <300 ng/g No No Apr 14 [Mass/vol informati informati 2017 8:30 ume] in on in on in PM Unspecifi source source ed data data specimen Methadone <300 ng/mL No No Apr 14 informati informati 2017 8:30 [Mass/vol on in on in PM ume] in source source Unspecifi data data ed specimen Opiates <300 ng/mL No No Apr 14 [Mass/vol informati informati 2017 8:30 ume] in on in on in PM Unspecifi source source ed data data specimen Phencycli <25 ng/mL No No Apr 14 dine informati informati 2017 8:30 [Mass/vol on in on in PM ume] in source source Unspecifi data data ed specimen 11-Hydr NEGATIV <50 ng/mL No No Apr 14 oxy E informa informa 2017 delta-9 tion in tion in 8:30 PM source source tetrahy data data drocann abinol [Presen ce] in Unspeci fied specime n Choriogonadotropin.beta subunit [Units] in 24 hour Urine Observa Value Referen Units Interpr Notes Date tion ce etation Range Choriogon NEG No No No Apr 14 adotropin informati informati informati 2017 8:30 .beta on in on in on in PM subunit source source source [Units] data data data in 24 hour Urine Glucose [Mass/volume] in Capillary blood by Glucometer Observa Value Referen Units Interpr Notes Date tion ce etation Range Glucose 70 - 110 mg/dl High No Apr 14 [Mass/vol alert informati 2017 8:22 ume] in on in PM Capillary source blood by data Glucomete r Magnesium [Moles/volume] in Unspecified specimen Observa Value Referen Units Interpr Notes Date tion ce etation Range Magnesium 1.7 - 2.8 mg/dL Normal No Apr 14 informati 2017 6:20 [Moles/vo on in PM lume] in source Unspecifi data ed specimen Gas panel in Arterial blood Observa Value Referen Units Interpr Notes Date tion ce etation Range Base -2.4-+2.3 MMOL/L Low No Apr 14 excess in informati 2017 6:20 Arterial on in PM blood source [...] Apr 14 content informati informati informati informati 2016 6:20 in on in on in on in on in PM Arterial source source source source blood data data data data Carbon 35.0 - MMHG Low Apr 14 dioxide 45.0 2016 6:20 [Partial CRITICAL PM pressure] RESULTS in Arterial RESU blood LTS CALLED TO: DR CONRAD 04/14/17 1822 Anderson Naranjo pH of 7.35 - MMOL/L Low alert Apr 14 Arterial 7.45 2016 6:20 blood CRITICAL PM RESULTS RESU LTS CALLED TO: DR CONRAD 04/14/172 Anderson Naranjo Oxygen 80 - 100 MMHG High No Apr 14 [Partial informati 2017 6:20 pressure] on in PM in source Arterial data blood Oxygen 90 - 100 % Normal No Apr 14 saturatio informati 2016 6:20 n.calcula on in PM jennifer from source oxygen data partial pressure in Arterial blood SOURCE R/R No No No No Apr 14 informa informa informa informa 2017 tion in tion in tion in tion in 6:20 PM source source source source data data data data Carbon 23 - 27 MMOL/L Low No Apr 14 dioxide, informati 2016 6:20 total on in PM [Moles/vo source [...] 2.0 % Normal No Apr 14 informati 2017 6:10 leukocyte on in PM s in source Blood by data Automated count Eosinophi 0.0 - 0.4 K/mm3 Normal No Apr 14 ls informati 2017 6:10 [#/volume on in PM ] in source Blood by data Automated count Eosinophi 0.1 - % Normal No Apr 14 ls/100 12.0 informati 2017 6:10 leukocyte on in PM s in source Blood by data Automated count Granulocy 1.8 - 7.8 K/mm3 High No Apr 14 nito informati 2017 6:10 [#/volume on in PM ] in source Blood by data Automated count Granulocy 37.0 - % High No Apr 14 nito/ 80.0 informati 2017 6:10 leukocyte on in PM s in source Blood by data Automated count Hematocri 37.0 - % High Apr 14 t [Volume 47.0 alert 2017 6:10 CRITICAL PM Fraction] RESULTS of Blood RESU LTS CALLED TO: Brijesh SAEED RN 04/14/17 1837 LangeVanesa hn Hemoglobi 12.2 - g/dL High CALLED [...] Normal No Apr 14 te mean informati 2017 6:10 corpuscul on in PM [...] 1.0 K/mm3 Normal No Apr 14 informati 2016 6:10 [#/volume on in PM ] in source Blood by data Automated count Monocytes 1.7 - 9.3 % Normal No Apr 14 informati 2016 [...] Normal No Apr 14 te 17.5 informati 2016 6:10 distribut on in PM ion width [...] - 9 % Low No Apr 14 informati 2016 6:10 leukocyte on in PM s in source Blood by data Automated count Platele NORMAL No No No No Apr 14 ts informa informa informa informa 2017 [Presen tion in tion in tion in tion in 6:10 PM ce] in source source source source Blood data data data data by Light microsc opy Neutrophi 42 - 76 % High No Apr 14 ls informati 2017 6:10 [#/volume on in PM [...] mg/dl High No Mar 28 [Mass/vol informati 2017 ume] in on in 11:47 AM Capillary [...] Date ti ce etation Range COMMENTS TO RESIDENT CARE MANAGER RN: run on blood in lab Amylase 25 - 115 U/L Normal No Mar 28 [Enzymati informati 2017 6:15 c on in AM activity/ source volume] data in Serum or Plasma Lipase [Enzymatic activity/volume] in Serum or Plasma Observa Value Referen Units Interpr Notes Date ti ce etation Range COMMENTS TO RESIDENT CARE MANAGER RN: run on blood in lab Lipase 73 [...] Normal No Mar 28 e renal informati 2016 6:15 clearance on in AM source predicted [...] Normal No Mar 28 mean 10.4 informati 2017 6:15 volume on in AM [Entitic source volume] data in Blood by Automated count Platelets 142 - 424 K/mm3 Normal No Mar 28 informati 2017 6:15 [#/volume on in AM ] in source Blood data Erythrocy 4.2 - 5.4 M/mm3 Normal No Mar 28 nito informati 2017 6:15 [#/volume on in AM ] in source Amniotic data fluid Erythrocy 11.5 - % Normal No Mar 28 te 17.5 informati 2017 6:15 distribut on in AM ion width [...] Normal No Mar 27 dioxide, 32.0 informati 2016 6:20 total on in AM [Moles/vo source lume] in data Serum or Plasma Creatinin 0.55 - mg/dL No No Mar 27 e 1.02 informati informati 2016 6:20 [Mass/vol on in [...] 5.1 mmoL/L Low No Mar 27 informati 2016 6:20 [Moles/vo on in AM lume] in [...] Units Interpr Notes Date ti etation Range Base -2.4-2.3 MMOL/L Low No Mar 26 excess in 2016 Venous on in 11:11 PM blood source data Bicarbona 23 - 27 MMOL/L Low No Mar 26 te 2016 [Moles/vo on in 11:11 PM lume] in source Venous data blood Carbon 41 - 51 MMHG Low No Mar 26 dioxide informati 2016 [Partial on in 11:11 PM pressure] source in data Venous blood pH of 7.31 - MMOL/L Low No Mar 26 Venous 7.41 2016 blood on in 11:11 PM source data Oxygen 35 - 40 MMHG High No Mar 26 content informati 2017 in Venous on in 11:11 PM blood source data Oxygen 75 - 80 % Low No Mar 26 saturatio 2017 n.calcula on in 11:11 PM jennifer from source oxygen data partial pressure in Venous blood Carbon 23 - 27 MMOL/L Low No Mar 26 dioxide, informati 2017 total on in 11:11 PM [Moles/vo [...] Interpr Notes Date ti ce etation Range Basophils 0 - 0.2 K/MM3 Normal No Mar 262016 9:50 [#/volume on in PM ] in source Blood by data Automated count Basophils 0.1 - 2.0 % Normal No Mar 26 informati 2016 9:50 leukocyte on in PM s in source Blood by data Automated count Eosinophi 0.0 - 0.4 K/mm3 Normal No Mar 26 ls ati 2016 9:50 [#/volume on in PM [...] - 9.3 % Normal No Mar 26 informati 2016 9:50 leukocyte on in PM s in source Blood by data Automated count Platelet 7.4 - fl Normal No Mar 26 mean 10.4 informati 2016 9:50 volume on in PM [Entitic source volume] data in Blood by Automated count Platelets 142 - 424 K/mm3 Normal No Mar 26 informati 2017 9:50 [#/volume on in PM ] in [...] No Mar 26 gravity 1.030 informati informati 2017 9:46 of Urine on in on in [...] 08 bin A1c 7.0 NON-ARACELI 2017 in [facility] 12:41 Blood LEVEL< AM 7% CONTROL LED [...] mg/dL High No Mar 08 [Mass/vol informati 2017 ume] in on in 12:41 AM Serum or source Plasma data Potassium 3.5 - 5.1 mmoL/L Normal No Mar 08 informati 2016 [Moles/vo on in 12:41 AM lume] in source Serum or data Plasma Sodium 136 - 145 mmoL/L Normal No Mar 08 [Moles/vo informati 2017 lume] in on in 12:41 AM Serum or source Plasma data Aspartate 15 - 37 U/L Normal No Mar 08 informati 2016 aminotran on in 12:41 AM sferase source [Enzymati data c activity/ volume] in Serum or Plasma Alanine 12 - 78 U/L Normal No Mar 08 aminotran 2016 sferase on in 12:41 AM [Enzymati source c data activity/ volume] in Serum or Plasma Protein 6.4 - 8.2 gm/dL Normal No Mar 08 [Mass/vol 2016 ume] in on in 12:41 AM Serum or source Plasma data CBC W Auto Differential panel in Blood Observa Value Referen Units Interpr Notes Date tion ce etation Range Basophils 0 - 0.2 K/MM3 Normal No Mar 08 inform2016 [#/volume on in 12:41 AM ] in source Blood by data Automated count Basophils 0.1 - 2.0 % Normal No Mar 08 /100 inform2016 leukocyte on in 12:41 AM s in source Blood by data Automated count Eosinophi 0.0 - 0.4 K/mm3 Normal No Mar 08 ls 2016 [#/volume on in 12:41 AM ] in source Blood by data Automated count Eosinophi 0.1 - % Normal No Mar 08 ls/100 12.0 inform2016 leukocyte on in 12:41 AM s [...] g/dL Normal No Mar 08 n 16.2 2016 [Mass/vol on in 12:41 AM ume] in source Blood data Lymphocyt 0.7 - 4.5 K/mm3 Normal No Mar 08 es 2016 [#/volume on in 12:41 AM ] [...] Normal No Mar 08 te mean 35.4 inform2016 corpuscul on in 12:41 AM ar source hemoglobi data n concentra tion [Mass/vol ume] by Automated count Erythrocy 82.2 - fl Normal No Mar 08 te mean 97.8 inform2016 corpuscul on in 12:41 AM ar volume source [Entitic data volume] by Automated count Monocytes 0.1 - 1.0 K/mm3 Normal No Mar 08 informati 2016 [#/volume on in 12:41 AM ] in source Blood by data Automated count Monocytes 1.7 - 9.3 % Normal No Mar 08 /100 inform2016 leukocyte on in 12:41 AM s in source Blood by data Automated count Platelet 7.4 - fl Normal No Mar 08 mean 10.4 inform2016 volume on in 12:41 AM [Entitic source [...] % Normal No Mar 08 te 17.5 inform2016 distribut on in 12:41 AM ion width source [Entitic data volume] by Automated count Leukocyte 4.8 - K/MM3 Normal No Mar 08 s 10.8 informati 2016 [#/volume on in 12:41 AM [...] February 12 [Mass/vol DETECTD informati informati informati 2017 ume] in on in on in on [...] ML/MIN Normal No February 12 e renal inform 2017 clearance on in 10:20 PM source [...] 3.5 - 5.1 mmoL/L Normal No February 122016 [Moles/vo on in 10:20 PM lume] in [...] 78 U/L Normal No February 12 aminotran 2016 sferase on in 10:20 PM [Enzymati source [...] Normal No February 12 Urine informati informati 2016 on in on in 10:20 PM source source data data Protein NEG mg/dL No No February 12 [Mass/vol informati informati 2016 ume] in on in on in 10:20 PM Urine by source source Automated data data test strip Specific 1.005 - No Normal No February 12 gravity 1.030 informati informati 2017 of Urine on in on in 10:20 PM source source data data Epithel 5-10 0 - 5 #/hpf No No February 12 ial informa informa 2017 cells.s tion in tion in 10:20 quamous source source PM data data [Presen ce] in Urine sedimen t by Microsc opy high power field Urobili 1.0 NEG E.U./dL No No February 12 nogen informa informa 2017 [Presen tion in tion in 10:20 ce] in source source PM Urine data data by Test strip Leukocy [3 O wbc/hpf No No February 12 nito wbc/hpf informa informa 2017 [#/volu ; 5 tion in tion in [...] February 12 [Presen E informa informa informa 2017 ce] [...] 8.5 No Normal No February 12 Urine 2016 on in on in 10:20 PM source source data data Protein NEG mg/dL No No February 12 [Mass/vol ati 2016 ume] in on in on in 10:20 PM Urine by source source Automated data data test strip Specific 1.005 - No Normal No February 12 gravity 1.030 ati 2016 of Urine on in on in [...] - 2.0 % Normal No February 12 /2016 leukocyte on in 10:20 PM s in [...] Normal No February 12 t [Volume 47.0 2016 on in 10:20 PM Fraction] source of Blood data Hemoglobi 12.2 - g/dL Normal No February 12 n 16.2 2016 [Mass/vol on in 10:20 PM ume] in source Blood data Lymphocyt 0.7 - 4.5 K/mm3 Normal No February 12 es inform2016 [#/volume [...] K/MM3 Normal No February 12 s 10.8 inform2016 [#/volume on in 10:20 PM ] [...] source blood by data Glucomete r F5 gene.p.[id number] [Presence] in Blood or Tissue by Molecular genetics method Observa Value Referen Units Interpr Notes Date ti ce etation Range COMMENTS TO RESIDENT CARE MANAGER RN: please do on blood drawn in ER [...] elevated homocystein levels, or Factor II/prothrombin mutation ([id number]). Additionally, for individuals found to be heterozygous for the Factor V Leiden mutation, presence of a second mutation, Factor V R2, further increases the risk of venous thrombosis. Contact [employer]'s Genetic Customer Service at for further information on both the Factor II (Prothrombin) DNA Analysis, and Factor V R2 DNA Analysis tests. Comment: Genetic counselors are available for health care providers to discuss results at [phone] Methodology: DNA analysis of the Factor V gene was performed by allele-specific PCR. The diagnostic sensitivity and specificity is >99% for both. Molecular-based testing is highly accurate, but as in any laboratory test, diagnostic errors may occur. All test results must be combined with clinical information for the most accurate interpretation. This test was developed and its performance characteristics determined by [employer]. It has not been cleared or approved by the [place]. Food and Drug administration. References: Timothy Lama (1996). Clin Lab Med 16:169-186 Marce Gutierrez, PhD, [facility] Nargis Salcido, PhD, [facility] Jing Tubbs, PhD, [facility] Teresa Lagos M.S., PhD, [facility] Ana Harding, PhD, [facility] Larissa Richardson, PhD, [facility] Buster Blount, PhD, [facility] TEST FLAG Factor V Leiden Mutation Factor [...] elevated homocystein levels, or Factor II/prothrombin mutation ([id number]). Additionally, for individuals found to be heterozygous for the Factor V Leiden mutation, presence of a second mutation, Factor V R2, further increases the risk of venous thrombosis. Contact [facility]'s Genetic Customer Service at for further information on both the Factor II (Prothrombin) DNA Analysis, and Factor V R2 DNA Analysis tests. Comment: Genetic counselors are available for health care providers to discuss results at [phone] Methodology: DNA analysis of the Factor V gene was performed by allele-specific PCR. The diagnostic sensitivity and specificity is >99% for both. Molecular-based testing is highly accurate, but as in any laboratory test, diagnostic errors may occur. All test results must be combined with clinical information for the most accurate interpretation. This test was developed and its performance characteristics determined by [facility]. It has not been cleared or approved by the U.S. Food and Drug administration. References: Timothy Hicks. (1996). Clin Lab Med 16:169-186 Marce Gutierrez, PhD, [facility] Nargis Salcido, PhD, [facility] Jing Tubbs, PhD, [facility] Teresa Lagos M.S., PhD, [facility] Ana Harding, PhD, [facility] Larissa Richardson, PhD, [facility] Buster Blount, PhD, [facility]
--- OUTSIDE RECORDS SUMMARY | 2017-06-29 23:54 | External Medical Summary Rpt ---
[...] Date tion ce etation Range COMMENTS TO PROCESS IMPROVEMENT SPECIALIST: draw around 1300 Urea 7 - 18 [...] Date tion ce etation Range COMMENTS TO PROCESS IMPROVEMENT SPECIALIST: Q2HR X 5 TILL 6AM TIMED FOR [...] Date tion ce etation Range COMMENTS TO PROCESS IMPROVEMENT SPECIALIST: Q2HR X 5 TILL 6AM Urea 7 [...] Date tion ce etation Range COMMENTS TO PROCESS IMPROVEMENT SPECIALIST: Q2HR X 5 TILL 6AM Urea 7 [...] Date tion ce etation Range COMMENTS TO PROCESS IMPROVEMENT SPECIALIST: Q2HR X 5 TILL 6AM SPECIMEN SLIGHTLY [...] Date ti ce etation Range COMMENTS TO PROCESS IMPROVEMENT SPECIALIST: run on blood in lab Amylase 25 - 115 U/L Normal No Mar 28 [Enzymati informati 2017 6:15 c on in AM activity/ source volume] data in Serum or Plasma Lipase [Enzymatic activity/volume] in Serum or Plasma Observa Value Referen Units Interpr Notes Date ti ce etation Range COMMENTS TO PROCESS IMPROVEMENT SPECIALIST: run on blood in lab Lipase 73 [...] 08 bin A1c 7.0 NON-ARACELI 2017 in [facility] 12:41 Blood LEVEL< AM 7% CONTROL [...] source blood by data Glucomete r F5 gene.p.[id number] [Presence] in Blood or Tissue by Molecular genetics method Observa Value Referen Units Interpr Notes Date ti ce etation Range COMMENTS TO PROCESS IMPROVEMENT SPECIALIST: please do on blood drawn in ER [...] elevated homocystein levels, or Factor II/prothrombin mutation ([id number]). Additionally, for individuals found to be heterozygous for the Factor V Leiden mutation, presence of a second mutation, Factor V R2, further increases the risk of venous thrombosis. Contact [employer]'s Genetic Customer Service at for further information on both the Factor II (Prothrombin) DNA Analysis, and Factor V R2 DNA Analysis tests. Comment: Genetic counselors are available for health care providers to discuss results at [phone]). Methodology: DNA analysis of the Factor V gene was performed by allele-specific PCR. The diagnostic sensitivity and specificity is >99% for both. Molecular-based testing is highly accurate, but as in any laboratory test, diagnostic errors may occur. All test results must be combined with clinical information for the most accurate interpretation. This test was developed and its performance characteristics determined by [employer]. It has not been cleared or approved by the [place].S. Food and Drug administration. References: Timothy Lama (1996). Clin Lab Med 16:169-186 Marce Gutierrez, PhD, [facility] Nargis Salcido, PhD, [facility] Jing Tubbs, PhD, [facility] Teresa Lagos M.S., PhD, [facility] Ana Harding, PhD, [facility] Larissa Richardson, PhD, [facility] Buster Blount, PhD, [facility] TEST FLAG Factor V Leiden Mutation Factor [...] elevated homocystein levels, or Factor II/prothrombin mutation ([id number]). Additionally, for individuals found to be heterozygous for the Factor V Leiden mutation, presence of a second mutation, Factor V R2, further increases the risk of venous thrombosis. Contact [facility]'s Genetic Customer Service at for further information on both the Factor II (Prothrombin) DNA Analysis, and Factor V R2 DNA Analysis tests. Comment: Genetic counselors are available for health care providers to discuss results at [phone]). Methodology: DNA analysis of the Factor V gene was performed by allele-specific PCR. The diagnostic sensitivity and specificity is >99% for both. Molecular-based testing is highly accurate, but as in any laboratory test, diagnostic errors may occur. All test results must be combined with clinical information for the most accurate interpretation. This test was developed and its performance characteristics determined by [facility]. It has not been cleared or approved by the U.S. Food and Drug administration. References: Timothy Hicks. (1996). Clin Lab Med 16:169-186 Marce Gutierrez, PhD, [facility] Nargis Salcido, PhD, [facility] Jing Tubbs, PhD, [facility] Teresa Lagos M.S., PhD, [facility] Ana Harding, PhD, [facility] Larissa Richardson, PhD, FAC Buster Blount, PhD, [facility]
[2017-06-30] VITALS (9 sets, daily range): BP systolic 90–131; BP diastolic 43–77
--- OUTSIDE RECORDS SUMMARY | 2017-06-30 01:28 | External Medical Summary Rpt | CCD ---
Author Author , VIRIGLIO POOLE Address Unknown Phone [email or web address] Support Name Relationship Address Phone WILLY, Next [...]
--- OUTSIDE RECORDS SUMMARY | 2017-06-30 01:28 | External Medical Summary Rpt | CCD ---
Author Author , VIRGILIO POOLE Address Unknown Phone [email or web address] Name Relationship Address Phone [place]Y, Next [...]
--- OUTSIDE RECORDS SUMMARY | 2017-06-30 01:32 | External Medical Summary Rpt ---
Author Author [facility] Finn, LEXISANGELES [employer] Organization [facility] Address Unknown Phone Unavailable Results Acetone [Mass/volume] in Serum or Plasma Observa Value Referen Units Interpr Notes Date tion ce etation Range Acetone NOT No No No Jun 28 [Mass/vol DETECTD informati informati informati 2016 ume] in on in on in on in 10:05 PM Serum or source source source Plasma data data data Comprehensive metabolic 2000 panel in Serum or Plasma Observa Value Referen Units Interpr Notes Date tion ce etation Range Albumin/G 1.1 - 1.8 No Normal No Jun 28 lobulin informati informati 2016 [Mass on in on in 10:05 PM ratio] in source source Serum or data data Plasma Albumin 3.4 - 5.0 gm/dL Normal No Jun 28 [Mass/vol informati 2016 ume] in on in 10:05 PM Serum or source Plasma data Alkaline 46 - 116 U/L Normal No Jun 28 phosphata informati 2016 se on in 10:05 PM [Enzymati source c data activity/ volume] in Serum or Plasma Bilirubin 0.2 - 1.0 mg/dL Normal No Jun 28 .total informati 2016 [Mass/vol on in 10:05 PM ume] in source Serum or data Plasma Urea 7 - 18 mg/dL Normal No Jun 28 nitrogen informati 2016 [Mass/vol on in 10:05 PM ume] in source Serum or data Plasma Calcium 8.5 - mg/dL Normal No Jun 28 [Mass/vol 10.1 informati 2016 ume] in on in 10:05 PM Serum or source Plasma data Chloride 98 - 107 mmoL/L Low No Jun 28 [Moles/vo informati 2016 lume] in on in 10:05 PM Serum or source Plasma data Carbon 21.0 - mmoL/L Low No Jun 28 dioxide, 32.0 informati 2016 total on in 10:05 PM [Moles/vo source lume] in data Serum or Plasma Creatinin 0.55 - mg/dL Normal No Jun 28 e 1.02 informati 2016 [Mass/vol on in 10:05 PM ume] in source Serum or data Plasma Creatinin 50 - 200 ML/MIN Normal No Jun 28 e renal 2016 clearance on in 10:05 PM source predicted data by Cockcroft -Gault formula Estimated 59- ML/MIN No REFERENCE Jun 28 informati RANGE: 2017 glomerula on in >60 10:05 PM r source ML/MIN/1. filtratio data 73 SQUARE n rate METERSIf (GF this patient is -A merican, then multiply theresult by 1.210. Globulin 1.3 - 3.2 gm/dL High No Jun 28 [Mass/vol informati 2016 ume] in on in 10:05 PM Serum source data Glucose 74 - 106 mg/dL High Jun 28 [Mass/vol alert 2016 ume] in CRITICAL 10:05 PM Serum or RESULTS Plasma RESU LTS CALLED TO: Magy WELSHPEE ER TECH06/28 2231 Vanesa Lange Potassium 3.5 - 5.1 mmoL/L Normal No Jun 282016 [Moles/vo on in 10:05 PM lume] in source Serum or data Plasma Sodium 136 - 145 mmoL/L Low No Jun 28 [Moles/vo informati 2016 lume] in on in 10:05 PM Serum or source Plasma data Aspartate 15 - 37 U/L Normal No Jun 282016 aminotran on in 10:05 PM sferase source [Enzymati data c activity/ volume] in Serum or Plasma Alanine 12 - 78 U/L Normal No Jun 28 aminotran 2016 sferase on in 10:05 PM [Enzymati source c data activity/ volume] in Serum or Plasma Protein 6.4 - 8.2 gm/dL Normal No Jun 28 [Mass/vol informati 2016 ume] in on in 10:05 PM Serum or source Plasma data CBC W Auto Differential panel in Blood Observa Value Referen Units Interpr Notes Date tion ce etation Range Basophils 0 - 0.2 K/MM3 Normal No Jun 282016 [#/volume on in 10:05 PM ] in source Blood by data Automated count Basophils 0.1 - 2.0 % Normal No Jun 282016 leukocyte on in 10:05 PM s in source Blood by data Automated count Eosinophi 0.0 - 0.4 K/mm3 Normal No Jun 28 ls 2016 [#/volume on in 10:05 PM ] in source Blood by data Automated count Eosinophi 0.1 - % Normal No Jun 28 ls/100 12.0 2016 leukocyte on in 10:05 PM s in source Blood by data Automated count Granulocy 1.8 - 7.8 K/mm3 Normal No Jun 28 nito 2016 [#/volume on in 10:05 PM ] in source Blood by data Automated count Granulocy 37.0 - % Normal No Jun 28 nito/100 80.0 inform2016 leukocyte on in 10:05 PM s in source Blood by data Automated count Hematocri 37.0 - % High No Jun 28 t [Volume 47.0 2016 on in 10:05 PM Fraction] source of Blood data Hemoglobi 12.2 - g/dL High No Jun 28 n 16.2 2016 [Mass/vol on in 10:05 PM ume] in source Blood data Lymphocyt 0.7 - 4.5 K/mm3 Normal No Jun 28 es 2016 [#/volume on in 10:05 PM ] in source Unspecifi data ed specimen by Automated count Lymphocyt 10 - 50.0 % Normal No Jun 28 es 2016 [#/volume on in 10:05 PM ] in source Unspecifi data ed specimen by Automated count Erythrocy 27 - 31.2 pg Normal No Jun 28 te mean 2016 corpuscul on in 10:05 PM ar source hemoglobi data n [Entitic mass] Erythrocy 31.8 - g/dl Normal No Jun 28 te mean 35.4 2016 corpuscul on in 10:05 PM ar source hemoglobi data n concentra tion [Mass/vol ume] by Automated count Erythrocy 82.2 - fl Normal No Jun 28 te mean 97.8 2016 corpuscul on in 10:05 PM ar volume source [Entitic data volume] by Automated count Monocytes 0.1 - 1.0 K/mm3 Normal No Jun 282016 [#/volume on in 10:05 PM ] in source Blood by data Automated count Monocytes 1.7 - 9.3 % Normal No Jun 282016 leukocyte on in 10:05 PM s in source Blood by data Automated count Platelet 7.4 - fl Normal No Jun 28 mean 10.4 2016 volume on in 10:05 PM [Entitic source volume] data in Blood by Automated count Platelets 142 - 424 K/mm3 No No Jun 28 informati inform2016 [#/volume on in on in 10:05 PM ] in source source Blood data data Erythrocy 4.2 - 5.4 M/mm3 High No Jun 28 nito 2016 [#/volume on in 10:05 PM ] in source Amniotic data fluid Erythrocy 11.5 - % Normal No Jun 28 te 17.5 2016 distribut on in 10:05 PM ion width source [Entitic data volume] by Automated count Leukocyte 4.8 - K/MM3 Normal No Jun 28 s 10.8 2016 [#/volume on in 10:05 PM ] in source Blood data Urinalysis [...] Abnorma No Jun 28 cytes informa l 2016 [Presen tion in tion in 9:48 PM ce] in source source Urine data data Color YELLOW YELLOW No No No Jun 28 of informa informa informa 2016 Urine tion in tion in tion in 9:48 PM source source source data data data Glucose NEG No High No Jun 28 [Mass/vol informati ati 2016 9:48 ume] in on in on in PM Urine by source source Test data data strip Ketones 3+ NEG mg/dL Abnorma No Jun 28 l inform2016 [Presen tion in 9:48 PM ce] in [...] Normal No Jun 28 Urine informati informati 2017 9:48 on in on in PM source source data data Protein NEG mg/dL No No Jun 28 [Mass/vol informati informati 2016 9:48 ume] in on in on in PM Urine by source source Automated data data test strip Erythro TNTC 0 rbc/hpf No No Jun 28 cytes informa informa 2016 [Presen tion in tion in 9:48 PM ce] in source source Urine data data sedimen t by Light microsc opy Specific 1.005 - No Normal No Jun 28 gravity 1.030 informati informati 2016 9:48 of Urine on in on in PM source source data data Epithel OCC 0 - 5 #/hpf No No Jun 28 ial informa informa 2017 cells.s tion in tion in 9:48 PM quamous source source data data [Presen ce] in Urine sedimen t by Microsc opy high power field Urobili 0.2 NEG E.U./dL No No Jun [...] No Jun 28 of informa informa informa 2017 Urine tion in tion in tion in 9:48 PM source source source data data data Glucose NEG No High No Jun 28 [Mass/vol informati informati 2016 9:48 ume] in on in on in PM Urine by source source Test data data strip Ketones 3+ NEG mg/dL Abnorma No Jun 28 l inform2016 [Presen tion in 9:48 PM ce] in [...] No Jun 28 gravity 1.030 informati informati 2016 9:48 of Urine on in on in [...] Low No Apr 17 [Mass/vol 10.1 informati 2016 6:25 ume] in on in AM Serum or source Plasma data Chloride 98 - 107 mmoL/L High No Apr 17 [Moles/vo informati 2016 6:25 lume] in on in AM Serum [...] 74 - 106 mg/dL High No Apr 17 [Mass/vol informati 2016 6:25 ume] in on in AM Serum or source Plasma data Potassium 3.5 - 5.1 mmoL/L Normal No Apr 17 informati 2016 6:25 [Moles/vo on in AM lume] in source Serum or data Plasma Sodium 136 - 145 mmoL/L Normal No Apr 17 [Moles/vo informati 2016 6:25 lume] in on in AM Serum [...] % Normal No Apr 17 /100 informati 2016 6:25 leukocyte on in AM s in source Blood by data Automated count Eosinophi 0.0 - 0.4 K/mm3 Normal No Apr 17 ls informati 2016 6:25 [#/volume on in AM ] in source Blood by data Automated count Eosinophi 0.1 - % Normal No Apr 17 ls/100 12.0 informati 2016 6:25 leukocyte on in AM s in [...] No Apr 17 t [Volume 47.0 informati 2017 6:25 on in AM Fraction] source of [...] 0.1 - 1.0 K/mm3 Normal No Apr 17 informati 2017 6:25 [#/volume on in AM ] in source Blood by data Automated count Monocytes 1.7 - 9.3 % Normal No Apr 17 /100 informati 2017 6:25 leukocyte on in AM s in source Blood by data Automated count Platelet 7.4 - fl Normal No Apr 17 mean 10.4 informati 2017 6:25 volume on in AM [Entitic source volume] data in Blood by Automated count Platelets 142 - 424 K/mm3 No No Apr 17 informati informati 2017 6:25 [#/volume on in on in AM ] in source source Blood data data Erythrocy 4.2 - 5.4 M/mm3 Normal No Apr 17 nito informati 2017 6:25 [#/volume on in AM ] in source Amniotic data fluid Erythrocy 11.5 - % Normal No Apr 17 te 17.5 informati 2016 6:25 distribut on in AM ion width source [Entitic data volume] by Automated count Leukocyte 4.8 - K/MM3 Normal No Apr 17 s 10.8 informati 2016 6:25 [#/volume on in AM ] in source Blood data Glucose [Mass/volume] in Capillary blood by Glucometer Observa Value Referen Units Interpr Notes Date tion ce etation Range Glucose 70 - 110 mg/dl High No Apr 17 [Mass/vol informati 2016 5:52 ume] in on in AM Capillary source blood by data Glucomete r Glucose [Mass/volume] in Capillary blood by Glucometer Observa Value Referen Units Interpr Notes Date ti ce etation Range Glucose 70 - 110 mg/dl High No Apr 16 [Mass/vol informati 2016 8:56 ume] in on in PM Capillary source blood by data Glucomete r Urinalysis dipstick W Reflex Microscopic panel in Urine Observa Value Referen Units Interpr Notes Date ti ce etation Range Collected by nurse? Y [...] High No Apr 16 [Mass/vol informati informati 2017 5:42 ume] in on in on in [...] No No Apr 16 ial informa informa 2016 cells.s tion in tion in 5:42 PM [...] High No Apr 16 [Mass/vol informati informati 2017 5:42 ume] in on in on in [...] No Apr 16 [Mass/vol informati informati 2017 5:42 ume] in on in on in [...] High No Apr 16 [Mass/vol informati 2017 4:46 ume] in on in PM Capillary source blood by data Glucomete r Glucose [Mass/volume] in Capillary blood by Glucometer Observa Value Referen Units Interpr Notes Date tion ce etation Range Glucose 70 - 110 mg/dl High No Apr 16 [Mass/vol informati 2017 ume] in on in 11:57 AM Capillary [...] mmoL/L High No Apr 16 [Moles/vo informati 2017 6:05 [...] mg/dL Low No Apr 16 [Mass/vol informati 2016 6:05 ume] in on in AM Serum or source Plasma data Potassium 3.5 - 5.1 mmoL/L Low No Apr 16 informati 2016 6:05 [Moles/vo on in AM lume] in source Serum or data Plasma Sodium 136 - 145 mmoL/L Normal No Apr 16 [Moles/vo informati 2016 6:05 lume] in on in AM Serum or source Plasma data CBC W Auto Differential panel in Blood Observa Value Referen Units Interpr Notes Date tion ce etation Range Basophils 0 - 0.2 K/MM3 Normal No Apr 16 informati 2016 6:05 [...] Normal No Apr 16 ls/100 12.0 informati 2016 6:05 leukocyte on in AM s in source Blood by data Automated count Granulocy 1.8 - 7.8 K/mm3 Normal No Apr 16 nito informati 2016 6:05 [#/volume on in AM ] in source Blood by data Automated count Granulocy 37.0 - % Normal No Apr 16 nito/100 80.0 informati 2017 6:05 leukocyte on in AM s in source Blood by data Automated count Hematocri 37.0 - % Normal No Apr 16 t [Volume 47.0 informati 2017 6:05 on in AM Fraction] source of Blood data Hemoglobi 12.2 - g/dL Normal No Apr 16 n 16.2 informati 2016 6:05 [Mass/vol on in AM ume] in [...] 1.0 K/mm3 Normal No Apr 16 informati 2017 6:05 [#/volume on in AM ] in source Blood by data Automated count Monocytes 1.7 - 9.3 % Normal No Apr 16 /100 informati [...] High No Apr 16 [Mass/vol informati 2017 2:04 ume] in on in AM Capillary [...] Date tion ce etation Range 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 TO CHARTER COACH DRIVER: draw around 1300 Urea 7 - 18 mg/dL Normal No Apr 15 nitrogen informati 2017 1:00 [Mass/vol on in PM ume] in source Serum or data Plasma Calcium 8.5 - mg/dL Normal No Apr 15 [Mass/vol 10.1 informati 2016 1:00 ume] in on in PM Serum or source Plasma data Chloride 98 - 107 mmoL/L High No Apr 15 [Moles/vo informati 2017 1:00 [...] Normal No Apr 15 [Moles/vo informati 2016 1:00 [...] geena DETECTE DETECTE informa informa informa 2017 40+41 D tion in tion in tion in 9:00 AM Ag source source source [Presen data data data ce] in Stool Aeromon NOT NOT No No No Apr 15 as DETECTE DETECTE informa informa informa 2017 salmoni D tion in tion in tion [...] source Stool data data data by Lana m specifi c culture Basic metabolic panel in Blood Observa Value Referen Units Interpr Notes Date tion ce etation Range COMMENTS TO CHARTER COACH DRIVER: Q2HR X 5 TILL 6AM TIMED FOR [...] Normal No Apr 15 [Moles/vo informati 2017 9:00 [...] High No Apr 15 [Mass/vol informati 2016 9:00 ume] in on in AM Serum or source Plasma data Potassium 3.5 - 5.1 mmoL/L Normal No Apr 15 informati 2016 9:00 [Moles/vo on in AM lume] in source Serum or data Plasma Sodium 136 - 145 mmoL/L Low No Apr 15 [Moles/vo informati 2016 9:00 [...] % Normal No Apr 15 / informati 2016 7:45 leukocyte on in AM s in source Blood by data Automated count Eosinophi 0.0 - 0.4 K/mm3 Normal No Apr 15 ls informati 2016 7:45 [#/volume on in AM ] in source Blood by data Automated count Eosinophi 0.1 - % Normal No Apr 15 ls/100 12.0 informati 2016 7:45 leukocyte on in AM s in [...] No Apr 15 t [Volume 47.0 informati 2017 7:45 on in AM Fraction] source of Blood data Hemoglobi 12.2 - g/dL High No Apr 15 n 16.2 informati 2017 7:45 [Mass/vol on in AM ume] in source Blood data Lymphocyt 0.7 - 4.5 K/mm3 Normal No Apr 15 es informati 2017 7:45 [#/volume on in AM ] in source Unspecifi data ed specimen by Automated count Lymphocyt 10 - 50.0 % Normal No Apr 15 es informati 2017 7:45 [#/volume on in AM [...] No Apr 15 te mean 97.8 informati 2017 7:45 corpuscul on in AM ar volume source [Entitic data volume] by Automated count Monocytes 0.1 - 1.0 K/mm3 Normal No Apr 15 informati 2017 7:45 [#/volume on in AM ] in source Blood by data Automated count Monocytes 1.7 - 9.3 % Normal No Apr 15 /100 informati 2017 7:45 leukocyte on in AM s in source Blood by data Automated count Platelet 7.4 - fl Normal No Apr 15 mean 10.4 informati 2017 7:45 volume on in AM [Entitic source [...] High No Apr 15 s 10.8 informati 2017 7:45 [#/volume on in AM ] in source Blood data Glucose [Mass/volume] in Capillary blood by Glucometer Observa Value Referen Units Interpr Notes Date tion ce etation Range Glucose 70 - 110 mg/dl High No Apr 15 [Mass/vol informati 2017 6:45 ume] in on in AM Capillary source blood by data Glucomete r Glucose [Mass/volume] in Capillary blood by Glucometer Observa Value Referen Units Interpr Notes Date tion ce etation Range Glucose 70 - 110 mg/dl High No Apr 15 [Mass/vol informati 2017 6:10 ume] in on in AM Capillary [...] No Apr 15 [Mass/vol alert informati 2017 4:16 ume] in on in AM Capillary source blood by data Glucomete r Basic metabolic panel in Blood Observa Value Referen Units Interpr Notes Date tion ce etation Range COMMENTS TO CHARTER COACH DRIVER: Q2HR X 5 TILL 6AM Urea 7 - 18 mg/dL High No Apr 15 nitrogen informati 2017 4:05 [Mass/vol on in AM ume] in source Serum or data Plasma Calcium 8.5 - mg/dL Normal No Apr 15 [Mass/vol 10.1 informati 2017 4:05 ume] in on in AM Serum [...] High No Apr 15 [Mass/vol informati 2017 3:19 ume] in on in AM Capillary [...] Date tion ce etation Range COMMENTS TO CHARTER COACH DRIVER: Q2HR X 5 TILL 6AM Urea 7 - 18 mg/dL High No Apr 15 nitrogen informati 2017 2:05 [Mass/vol on in AM ume] in source Serum or data Plasma Calcium 8.5 - mg/dL Normal No Apr 15 [Mass/vol 10.1 informati 2016 2:05 ume] in on in AM Serum or source Plasma data Chloride 98 - 107 mmoL/L Normal No Apr 15 [Moles/vo informati 2016 2:05 lume] in on in AM Serum or source Plasma data Carbon 21.0 - mmoL/L Low No Apr 15 dioxide, 32.0 informati 2016 2:05 total on in AM [Moles/vo source lume] in data Serum or Plasma Creatinin 0.55 - mg/dL High No Apr 15 e 1.02 informati 2016 2:05 [Mass/vol on in AM ume] in source Serum or data Plasma Creatinin 50 - 200 ML/MIN Normal No Apr 15 e renal informati 2016 2:05 clearance on in AM source predicted data by Cockcroft -Gault formula Estimated 59- ML/MIN Low REFERENCE Apr 15 RANGE: 2017 2:05 glomerula >60 AM r ML/MIN/1. filtratio 73 SQUARE n rate METERSIf (GF this patient is -A merican, then multiply theresult by 1.210. Glucose 74 - 106 mg/dL High No Apr 15 [Mass/vol informati 2016 2:05 ume] in on in AM Serum or source Plasma data Potassium 3.5 - 5.1 mmoL/L High SERUM NOT Apr 15 2017 2:05 [Moles/vo HEMOLYZED AM lume] in Serum or Plasma Sodium 136 - 145 mmoL/L Normal No Apr 15 [Moles/vo informati 2016 2:05 lume] in on in AM Serum or source Plasma data Glucose [Mass/volume] in Capillary blood by Glucometer Observa Value Referen Units Interpr Notes Date tion ce etation Range Glucose 70 - 110 mg/dl High No Apr 15 [Mass/vol alert informati 2016 ume] in on in 12:56 AM Capillary source blood by data Glucomete r Basic metabolic panel in Blood Observa Value Referen Units Interpr Notes Date tion ce etation Range COMMENTS TO CHARTER COACH DRIVER: Q2HR X 5 TILL 6AM SPECIMEN SLIGHTLY HEMOLYZED DUE TO DIFFICULT VENIPUNCTURE CALLED TO DR. PICKARD Urea 7 - 18 mg/dL High No Apr 14 nitrogen informati 2016 [Mass/vol on in 11:59 PM ume] in source Serum or data Plasma Calcium 8.5 - mg/dL Normal No Apr 14 [Mass/vol 10.1 informati 2016 ume] in on in 11:59 PM Serum [...] Normal No Apr 14 e renal informati 2017 clearance on in 11:59 PM source predicted data by Cockcroft -Gault formula Estimated 59- ML/MIN Low REFERENCE Apr 14 RANGE: 2017 glomerula >60 11:59 PM r ML/MIN/1. filtratio 73 SQUARE n rate METERSIf (GF this patient is -A merican, then multiply theresult by 1.210. Glucose 74 - 106 mg/dL High Apr 14 [Mass/vol 2016 ume] in CRITICAL 11:59 PM Serum or RESULTS Plasma RESU LTS CALLED TO: 04/15/17 0042 Vanesa Lange hn Potassium 3.5 - 5.1 mmoL/L High Apr 14 alert 2016 [Moles/vo CRITICAL 11:59 PM lume] in RESULTS Serum or Plasma RESU LTS CALLED TO: DR. PICKARD 04/15/17 0043 Vanesa Lange hnSPECIME N SLIGHTLY HEMOLYZED DUE TO DIFFICULT VENIPUNCT URE Sodium 136 - 145 mmoL/L Low No Apr 14 [Moles/vo informati 2016 lume] in on in 11:59 PM Serum [...] No No Apr 14 [Mass/vol informati informati 2016 ume] in on in on in 10:10 PM Serum or source source Plasma data data Alkaline 46 - 116 U/L High No Apr 14 phosphata informati 2016 se on in 10:10 PM [Enzymati source c data activity/ volume] in Serum or Plasma Bilirubin 0.2 - 1.0 mg/dL Normal No Apr 14 .total informati 2016 [Mass/vol on in 10:10 PM ume] in source Serum or data Plasma Urea 7 - 18 mg/dL High No Apr 14 nitrogen informati 2016 [Mass/vol on in 10:10 PM ume] in source Serum or data Plasma Calcium 8.5 - mg/dL Normal No Apr 14 [Mass/vol 10.1 informati 2016 ume] in on in 10:10 PM Serum or source Plasma data Chloride 98 - 107 mmoL/L Normal No Apr 14 [Moles/vo informati 2016 lume] in on in 10:10 PM Serum or source Plasma data Carbon 21.0 - mmoL/L Low No Apr 14 dioxide, 32.0 informati 2017 total on in 10:10 PM [Moles/vo source lume] in data Serum or Plasma Creatinin 0.55 - mg/dL High No Apr 14 e 1.02 informati 2016 [Mass/vol on in 10:10 PM ume] in [...] RESULTS Plasma RESU LTS CALLED TO: Beba SAFIA RM 04/14/17 2234 Vanesa Lange Potassium 3.5 - 5.1 mmoL/L High Apr 14 2016 [Moles/vo CRITICAL 10:10 PM lume] in RESULTS Serum or Plasma RESU LTS CALLED TO: Beba SAFIA RN 04/14/17 2235 LangeVanesa hn Sodium 136 - 145 mmoL/L Low No Apr 14 [Moles/vo informati 2016 lume] in on in 10:10 PM Serum or source Plasma data Aspartate 15 - 37 U/L No No Apr 14 informati informati 2016 aminotran on in on in 10:10 PM sferase source source [Enzymati data data c activity/ volume] in Serum or Plasma Alanine 12 - 78 U/L Normal No Apr 14 aminotran informati 2017 sferase on in 10:10 PM [Enzymati source c data activity/ volume] in Serum or Plasma Protein 6.4 - 8.2 gm/dL High No Apr 14 [Mass/vol informati 2017 ume] in on in 10:10 PM Serum or source Plasma data Magnesium [Moles/volume] in Unspecified specimen Observa Value Referen Units Interpr Notes Date ti etation Range HEMOLYSIS INDEX 111 Magnesium 1.4 - 2.2 mg/dL Normal No Apr 14 inform2016 [Moles/vo on in 10:10 PM lume] in source Unspecifi data ed specimen Phosphate [Moles/volume] in Unspecified specimen Observa Value Referen Units Interpr Notes Date ti etation Range HEMOLYSIS INDEX 111 Phosphate 2.4 - 4.9 mg/dL High No Apr 14 inform2016 [Moles/vo on in 10:10 PM lume] in source Unspecifi data ed specimen Glucose [Mass/volume] in Capillary blood by Glucometer Observa Value Referen Units Interpr Notes Date ti etation Range Glucose 70 - 110 mg/dl High No Apr 14 [Mass/vol alert informati 2016 9:57 ume] in on in PM Capillary source blood by data Glucomete r Glucose [Mass/volume] in Capillary blood by Glucometer Observa Value Referen Units Interpr Notes Date tion ce etation Range Glucose 70 - 110 mg/dl High No Apr 14 [Mass/vol alert informati 2016 8:49 ume] in on in PM Capillary [...] No Apr 14 adotropin informati informati informati 2016 8:30 .beta on in on in on in PM subunit source source source [Units] data data data in 24 hour Urine Glucose [Mass/volume] in Capillary blood by Glucometer Observa Value Referen Units Interpr Notes Date ti ce etation Range Glucose 70 - 110 mg/dl High No Apr 14 [Mass/vol alert informati 2016 8:22 ume] in on in PM Capillary source blood by data Glucomete r Magnesium [Moles/volume] in Unspecified specimen Observa Value Referen Units Interpr Notes Date ti ce etation Range Magnesium 1.7 - 2.8 [...] Low No Apr 14 te 26.0 informati 2017 6:20 [Moles/vo on in PM [...] MMOL/L Low alert Apr 14 Arterial 7.45 2017 6:20 blood CRITICAL PM RESULTS RESU LTS CALLED TO: DR CONRAD 04/14/17 182 Anderson Naranjo Oxygen 80 - 100 MMHG [...] High No Apr 14 nito/100 80.0 informati 2017 6:10 leukocyte on in PM s in source Blood by data Automated count Hematocri 37.0 - % High Apr 14 t [Volume 47.0 alert 2016 6:10 CRITICAL PM Fraction] RESULTS of Blood RESU LTS CALLED TO: Brijesh SAEED RN 04/14/17 1837 Lange,Vanesa hn Hemoglobi 12.2 - g/dL High CALLED TO Apr 14 n 16.2 alert L STRONG 2017 6:10 [Mass/vol RN IN ER PM ume] in 04/14/17 Blood 1835 JS Lymphocyt 0.7 - 4.5 K/mm3 Normal No Apr 14 es informati 2016 6:10 [#/volume on in PM ] in source Unspecifi data ed specimen by Automated count Lymphocyt 10 - 50.0 % Low No Apr 14 es informati 2016 6:10 [...] - 9.3 % Normal No Apr 14 / informati 2017 6:10 [...] Units Interpr Notes Date ce etation Range Neutrophi 0 - 8 % High No Apr 14 ls.band informati 2017 6:10 form/100 on in PM leukocyte source s in data Blood by Automated count LYMPH 9 10 - 50 % Low No Apr 14 inform2016 tion in 6:10 PM source data Monocytes 2 - 9 % Low No Apr 14 / informati 2016 6:10 leukocyte on in PM [...] No Apr 14 Counted informati informati informati 2017 6:10 Total [#] on in on in [...] Date tion ce etation Range COMMENTS TO CHARTER COACH DRIVER: run on blood in lab Amylase 25 - 115 U/L Normal No Mar 28 [Enzymati informati 2016 6:15 c on in AM activity/ source volume] data in Serum or Plasma Lipase [Enzymatic activity/volume] in Serum or Plasma Observa Value Referen Units Interpr Notes Date ti ce etation Range COMMENTS TO CHARTER COACH DRIVER: run on blood in lab Lipase 73 - 393 U/L Low No Mar 28 [Enzymati informati 2017 6:15 [...] Low No Mar 28 [Mass/vol 10.1 informati 2017 6:15 ume] in on in AM Serum or source Plasma data Chloride 98 - 107 mmoL/L High No Mar 28 [Moles/vo informati 2017 6:15 lume] in on in AM Serum or source Plasma data Carbon 21.0 - mmoL/L Normal No Mar 28 dioxide, 32.0 informati 2017 6:15 total on in AM [Moles/vo source [...] 0.4 K/mm3 Normal No Mar 28 ls ati 2016 6:15 [#/volume on in AM ] [...] No No Mar 27 nitrogen informati informati 2017 6:20 [Mass/vol on in [...] No Mar 27 e renal informati informati 2016 6:20 clearance on in on in AM [...] 51 MMHG Low No Mar 26 dioxide ati 2016 [Partial on in 11:11 PM pressure] source in data Venous blood pH of 7.31 - MMOL/L Low No Mar 26 Venous 7.41 2016 blood on in 11:11 PM source data Oxygen 35 - 40 MMHG High No Mar 26 content informati 2017 in Venous on in 11:11 PM blood source data Oxygen 75 - 80 % Low No Mar 26 saturatio informati 2016 n.calcula on in 11:11 PM jennifer [...] No Mar 26 nito wbc/hpf informa informa 2017 [#/volu ; 5 tion in tion in 9:46 PM me] in wbc/hpf source source Urine ] data data Hemoglobin A1c in Blood Observa Value Referen Units Interpr Notes Date tion ce etation Range Hemoglo 9.6 0.0 - % High < 6% Mar 08 bin A1c 7.0 NON-ARACELI 2017 in [facility] 12:41 Blood LEVEL< AM 7% CONTROL [...] Normal No Mar 08 e 1.02 informati 2017 [Mass/vol on in 12:41 AM ume] in [...] 78 U/L Normal No Mar 08 aminotran inform2016 sferase on in 12:41 AM [Enzymati source [...] - 2.0 % Normal No Mar 08 / inform2016 leukocyte on in 12:41 AM s [...] % Normal No Mar 08 /100 informati 2017 leukocyte on in 12:41 AM s in [...] M/mm3 Normal No Mar 08 nito informati 2017 [#/volume on in 12:41 AM [...] Units Interpr Notes Date ti etation Range Acetone NOT No No No [...] 116 U/L Normal No February 12 phosphata inform2016 se on in 10:20 PM [Enzymati source [...] [Moles/vo informati 2016 lume] in on in 10: PM Serum or source Plasma data Carbon [...] - 5.1 mmoL/L Normal No February 12 informati 2016 [Moles/vo on in 10:20 PM lume] in [...] No No February 12 E informa informa 2017 [Presen tion in tion [...] 7.8 K/mm3 Normal No February 12 nito informati 2016 [#/volume on in 10:20 PM ] in source Blood by data Automated count Granulocy 37.0 - % Normal No February 12 nito/100 80.0 2016 leukocyte on in 10:20 PM s in source Blood by data Automated count Hematocri 37.0 - % Normal No February 12 t [Volume 47.0 informati 2016 on in 10:20 PM Fraction] source of Blood data Hemoglobi 12.2 - g/dL Normal February 12 n 16.2 inform2016 [Mass/vol on [...] Automated count Erythrocy 82.2 - fl Normal February 12 te mean 97.8 inform2016 corpuscul on in 10:20 PM ar volume source [Entitic data volume] by Automated count Monocytes 0.1 - 1.0 K/mm3 Normal No February 122016 [#/volume on in 10:20 PM ] in source Blood by data Automated count Monocytes 1.7 - 9.3 % Normal No February 12 /2016 leukocyte [...] % Normal No February 12 te 17.5 informati 2016 distribut on in 10:20 PM ion width source [Entitic data volume] by Automated count Leukocyte 4.8 - K/MM3 Normal No February 12 s 10.8 2016 [#/volume on in 10:20 PM ] [...] source blood by data Glucomete r F5 gene.p.[id number] [Presence] in Blood or Tissue by Molecular genetics method Observa Value Referen Units Interpr Notes Date tion ce etation Range COMMENTS TO CHARTER COACH DRIVER: please do on blood drawn in ER [...] elevated homocystein levels, or Factor II/prothrombin mutation ([id number]). Additionally, for individuals found to be heterozygous for the Factor V Leiden mutation, presence of a second mutation, Factor V R2, further increases the risk of venous thrombosis. Contact [facility] at for further information on both the Factor II (Prothrombin) DNA Analysis, and Factor V R2 DNA Analysis tests. Comment: Genetic counselors are available for health care providers to discuss results at [phone]). Methodology: DNA analysis of the Factor V gene was performed by allele-specific PCR. The diagnostic sensitivity and specificity is >99% for both. Molecular-based testing is highly accurate, but as in any laboratory test, diagnostic errors may occur. All test results must be combined with clinical information for the most accurate interpretation. This test was developed and its performance characteristics determined by [facility]. It has not been cleared or approved by the U.S. Food and Drug administration. References: Timothy Lama (1996). Clin Lab Med 16:169-186 Marce Gutierrez, PhD, [facility] Nargis Salcido, PhD, [facility] Jing Tubbs, PhD, [facility] Teresa Lagos MYoSYo, PhD, [facility] Ana Harding, PhD, [facility] Larissa Richardson, PhD, [facility] Buster Blount, PhD, FAC TEST FLAG Factor V Leiden Mutation Factor [...] elevated homocystein levels, or Factor II/prothrombin mutation ([id number]). Additionally, for individuals found to be heterozygous for the Factor V Leiden mutation, presence of a second mutation, Factor V R2, further increases the risk of venous thrombosis. Contact [facility] at for further information on both the Factor II (Prothrombin) DNA Analysis, and Factor V R2 DNA Analysis tests. Comment: Genetic counselors are available for health care providers to discuss results at [phone]). Methodology: DNA analysis of the Factor V gene was performed by allele-specific PCR. The diagnostic sensitivity and specificity is >99% for both. Molecular-based testing is highly accurate, but as in any laboratory test, diagnostic errors may occur. All test results must be combined with clinical information for the most accurate interpretation. This test was developed and its performance characteristics determined by [facility]. It has not been cleared or approved by the [place].S. Food and Drug administration. References: Timothy Lama (1996). Clin Lab Med 16:169-186 Marce Gutierrez, PhD, [facility] Nargis Salcido, PhD, [facility] Jing Tubbs, PhD, FAC Teresa Lagos MYoS., PhD, FAC Ana Harding, PhD, [facility] Larissa Richardson, PhD, F[facility] Buster Blount, PhD, [facility]
--- OUTSIDE RECORDS SUMMARY | 2017-06-30 01:32 | External Medical Summary Rpt ---
[...] Date tion ce etation Range COMMENTS TO OCULAR CARE TECHNOLOGIST: draw around 1300 Urea 7 - 18 [...] Date tion ce etation Range COMMENTS TO OCULAR CARE TECHNOLOGIST: Q2HR X 5 TILL 6AM TIMED FOR [...] Date tion ce etation Range COMMENTS TO OCULAR CARE TECHNOLOGIST: Q2HR X 5 TILL 6AM Urea 7 [...] Date tion ce etation Range COMMENTS TO OCULAR CARE TECHNOLOGIST: Q2HR X 5 TILL 6AM Urea 7 [...] Date tion ce etation Range COMMENTS TO OCULAR CARE TECHNOLOGIST: Q2HR X 5 TILL 6AM SPECIMEN SLIGHTLY [...] Date tion ce etation Range COMMENTS TO OCULAR CARE TECHNOLOGIST: run on blood in lab Amylase 25 - 115 U/L Normal No Mar 28 [Enzymati informati 2016 6:15 c on in AM activity/ source volume] data in Serum or Plasma Lipase [Enzymatic activity/volume] in Serum or Plasma Observa Value Referen Units Interpr Notes Date ti ce etation Range COMMENTS TO OCULAR CARE TECHNOLOGIST: run on blood in lab Lipase 73 [...] 08 bin A1c 7.0 NON-ARACELI 2017 in [facility] 12:41 Blood LEVEL< AM 7% CONTROL LED [...] source blood by data Glucomete r F5 gene.p.[id number] [Presence] in Blood or Tissue by Molecular genetics method Observa Value Referen Units Interpr Notes Date tion ce etation Range COMMENTS TO OCULAR CARE TECHNOLOGIST: please do on blood drawn in ER [...] elevated homocystein levels, or Factor II/prothrombin mutation ([id number]). Additionally, for individuals found to be heterozygous for the Factor V Leiden mutation, presence of a second mutation, Factor V R2, further increases the risk of venous thrombosis. Contact [facility] Customer [facility] at for further information on both the Factor II (Prothrombin) DNA Analysis, and Factor V R2 DNA Analysis tests. Comment: Genetic counselors are available for health care providers to discuss results at [phone]). Methodology: DNA analysis of the Factor V gene was performed by allele-specific PCR. The diagnostic sensitivity and specificity is >99% for both. Molecular-based testing is highly accurate, but as in any laboratory test, diagnostic errors may occur. All test results must be combined with clinical information for the most accurate interpretation. This test was developed and its performance characteristics determined by [facility]. It has not been cleared or approved by the [place].S. Food and Drug administration. References: Timothy Lama (1996). Clin Lab Med 16:169-186 Marce Gutierrez, PhD, [facility] Nargis Salcido, PhD, [facility] Jing Tubbs, PhD, [facility] Teresa Lagos MYoSYo, PhD, [facility] Ana Harding, PhD, [facility] Larissa Richardson, PhD, [facility] Buster Blount, PhD, FAC TEST FLAG Factor [...] elevated homocystein levels, or Factor II/prothrombin mutation ([id number]). Additionally, for individuals found to be heterozygous for the Factor V Leiden mutation, presence of a second mutation, Factor V R2, further increases the risk of venous thrombosis. Contact [facility] at for further information on both the Factor II (Prothrombin) DNA Analysis, and Factor V R2 DNA Analysis tests. Comment: Genetic counselors are available for health care providers to discuss results at [phone]). Methodology: DNA analysis of the Factor V gene was performed by allele-specific PCR. The diagnostic sensitivity and specificity is >99% for both. Molecular-based testing is highly accurate, but as in any laboratory test, diagnostic errors may occur. All test results must be combined with clinical information for the most accurate interpretation. This test was developed and its performance characteristics determined by [facility]. It has not been cleared or approved by the U.S. Food and Drug administration. References: Timothy Lama (1996). Clin Lab Med 16:169-186 Marce Gutierrez, PhD, [facility] Nargis Salcido, PhD, [facility] Jing Tubbs, PhD, FAC Teresa Lagos MYoS., PhD, FAC Ana Harding, PhD, FAC Larissa Richardson, PhD, FAC Buster Blount, PhD, [facility]
--- NOTE | 2017-06-30 08:24 | ACUTE CARE PROGRESS NOTE (QUA) ---
Progress Notes Subjective Date 06/30/17 Time 0822 Note Overall patient feels better, acetone levels have become negative and remained negative. Mild hyperglycemia-for her-noted. Cardiopulmonary exam unremarkable. Abdomen soft. However, patient has had significant diarrhea including a couple of incontinent episodes. Objective Findings Last VS-Temp:99.4 B/P:99/57 Pulse:56 Resp:17 SaO2:99 ROOM AIR Last weight lbs:127 oz:6 K.776 Method:Bed Scales Assessment/Plan Problem List 1. IDDM Status: Chronic 2. Ketoacidosis in type I diabetes mellitus Status: Chronic 3. Diarrhea Patient condition Improving Plan: continue current care, DKA has improved. Continue current care but I am concerned about her diarrhea. PCR panel. Continue hydration. This inpt stay is expected to cross 2 MNs from start of care Yes at 0823
[2017-07-01 03:59] VITALS: BP 109/58
--- NOTE | 2017-07-01 07:31 | DISCHARGE SUMMARY STANDARD ---
Demographics Admit date: 06/28/17 Discharge date: 07/01/17 History of present illness History of present illness 27-year-old white female with type 1 diabetes for the last 10 years with a history of multiple episodes of DKA and variety of sicknesses who came to the emergency department with nausea and vomiting. Found to be ketotic and acidotic with serum acetone positive. Admitted to step down unit with insulin drip. This morning on utility teller rounds was improved, conscious. Improving vital sign parameters. Hospital Course Hospital Course: Patient was admitted. On further evaluation of her situation it was found that she had not been taking her insulin over the past week because "it was too expensive." On further questioning, she states that she had been prescribed long-acting glargine insulin as well as rapid acting Humulin R type insulin from endocrinology at [facility], but because she is "locked in" to a nurse practitioner clinic in [place], [place] she was unable to obtain the prescriptions from [facility]. She states she's been trying to call her primary practitioner to get a refill but has not been successful in doing this. The end result was DKA and admission to the hospital. She improved in a stepwise fashion as noted in my daily progress notes and cleared her ketones after 36 hours of treatment of the step down unit. She did have some diarrhea. This spontaneously resolved and we were unable to get a PCR test. She had some nausea but this has also resolved and this morning she is eating well. Glucose levels remain elevated but acetone levels have cleared. She has no evidence of acidosis on basic metabolic panel and her renal function is unremarkable. Her examination this morning reveals clear lungs. Regular heart rate. Abdomen is slightly tender but no deep tenderness, rebound or guarding. Much improved. No edema or clubbing. Good capillary refill. She is alert and oriented 3. Plan will be to discharge her home today. Our care management staff will be in touch with her primary care practitioner to try to get these refills done for her given her "locked in" status. We will also make an appointment at the practitioner's office. Discharge diagnoses Problem List 1. IDDM Status Chronic 2. Ketoacidosis in type I diabetes mellitus Status Chronic 3. Diarrhea Medications Medications: Discharge meds are as noted. Follow up Follow up in office in: 2 DAYS with: GENNA ASSISTANT PASSENGER LOCOMOTIVE ENGINEER,ROMAN at [phone]
--- NOTE | 2017-07-01 07:31 | DISCHARGE SUMMARY STANDARD ---
Demographics Admit date: 06/28/17 Discharge date: 07/01/17 History of present illness History of present illness 27-year-old white female with type 1 diabetes for the last 10 years with a history of multiple episodes of DKA and variety of sicknesses who came to the emergency department with nausea and vomiting. Found to be ketotic and acidotic with serum acetone positive. Admitted to step down unit with insulin drip. This morning on tobacco educator rounds was improved, conscious. Improving vital sign parameters. Hospital Course Hospital Course: Patient was admitted. On further evaluation of her situation it was found that she had not been taking her insulin over the past week because "it was too expensive." On further questioning, she states that she had been prescribed long-acting glargine insulin as well as rapid acting Humulin R type insulin from endocrinology at [facility], but because she is "locked in" to a nurse practitioner clinic in [place], [place] she was unable to obtain the prescriptions from [facility]. She states she's been trying to call her primary practitioner to get a refill but has not been successful in doing this. The end result was DKA and admission to the hospital. She improved in a stepwise fashion as noted in my daily progress notes and cleared her ketones after 36 hours of treatment of the step down unit. She did have some diarrhea. This spontaneously resolved and we were unable to get a PCR test. She had some nausea but this has also resolved and this morning she is eating well. Glucose levels remain elevated but acetone levels have cleared. She has no evidence of acidosis on basic metabolic panel and her renal function is unremarkable. Her examination this morning reveals clear lungs. Regular heart rate. Abdomen is slightly tender but no deep tenderness, rebound or guarding. Much improved. No edema or clubbing. Good capillary refill. She is alert and oriented 3. Plan will be to discharge her home today. Our care management staff will be in touch with her primary care practitioner to try to get these refills done for her given her "locked in" status. We will also make an appointment at the practitioner's office. Discharge diagnoses Problem List 1. IDDM Status Chronic 2. Ketoacidosis in type I diabetes mellitus Status Chronic 3. Diarrhea Medications Medications: Discharge meds are as noted. Follow up Follow up in office in: 2 DAYS with: GENNA PROJECT RESERVOIR ENGINEER,ROMAN at [phone]
[2017-07-01 08:00] VITALS: BP 117/71
[2017-07-01 08:56] VITALS: BP 117/71
[2017-07-01 14:50] VITALS: BP 117/71
== END 2017-07-01 14:50 | disposition home or self-care (01) ==
LOC: ER 21:12 → 2ND 23:21 → ER 23:21 → 2ND 23:30
PROVIDERS: Emergency Medicine; Internal Medicine Adolescent Medicine
DX: E10.10 Type 1 diabetes mellitus with ketoacidosis without coma (principal); Z79.4 Long term (current) use of insulin; J45.909 Unspecified asthma, uncomplicated; Z23 Encounter for immunization; Z79.899 Other long term (current) drug therapy; F41.9 Anxiety disorder, unspecified; Z79.51 Long term (current) use of inhaled steroids; F17.210 Nicotine dependence, cigarettes, uncomplicated; Z86.711 Personal history of pulmonary embolism; R19.7 Diarrhea, unspecified; T38.3X6A Underdosing of insulin and oral hypoglycemic [antidiabetic] drugs, initial encounter; Z91.120 Patient's intentional underdosing of medication regimen due to financial hardship
CPT/HCPCS: G0378; J2405

== ENCOUNTER 2017-08-11 19:35 | Emergency (ER) | payer MEDICAID ==
[~2017-08-11] VITALS: Ht 170.2 cm; Wt 57.2 kg
[2017-08-11 20:11] LABS: HEMOGLOBIN 16.5 g/dL (12.2-16.2); LYMPH # 1.5 K/mm3 (0.7-4.5); LYMPH % 19.4 % (10-50.0)
--- OUTSIDE RECORDS SUMMARY | 2017-08-11 20:17 | External Medical Summary Rpt | CCD ---
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 Name Role Phone [facility] Unavailable Unavailable Hospital, [facility] Keyur Rees MD, Unavailable Unavailable Keyur Rees MD Purpose Continuity of Care Document - 12-10-2012 through 2016 Problems Code Diagnosis DOS Provider Status D68.51 ACTIVATED 07-17-2017 PROTEIN C RESISTANCE E11.65 TYPE 2 07-17-2017 DIABETES MELLITUS WITH HYPERGLYCEM IA F17.210 NICOTINE 07-17-2017 DEPENDENCE, CIGARETTES, UNCOMPLICAT ED F31.9 BIPOLAR 07-17-2017 DISORDER, UNSPECIFIED F41.9 ANXIETY 07-17-2017 DISORDER, UNSPECIFIED G43.909 MIGRAINE, 07-17-2017 UNSPECIFIED , NOT INTRACTABLE , WITHOUT STATUS MIGRAINOSUS I26.99 OTHER 07-17-2017 PULMONARY EMBOLISM WITHOUT ACUTE COR PULMONALE S93.401A SPRAIN OF 07-17-2017 UNSPECIFIED LIGAMENT OF RIGHT ANKLE, INITIAL ENCOUNTER X50.1XXA OVEREXERTIO 07-17-2017 N FROM PROLONGED STATIC OR AWKWARD POSTURES, INITIAL ENCOUNTER Y92.239 UNSPECIFIED 07-17-[address] PL[address]PITAL THE PLACE OF OCCURRENCE OF THE EXTERNAL CAUSE Z79.01 WOOD BORER 07-17-2017 (CURRENT) USE OF ANTICOAGULA NTS Z79.4 RESIDENTIAL 07-17-2017 (CURRENT) USE OF INSULIN Z79.899 OTHER LONG 07-17-2017 TERM (CURRENT) DRUG THERAPY Z83.2 FAMILY 07-17-2017 HISTORY OF DISEASES OF THE BLOOD AND BLOOD-FORMI NG ORGANS AND CERTAIN DISORDERS INVOLVING THE IMMUNE MECHANISM Z86.711 PERSONAL 07-17-2017 HISTORY OF PULMONARY EMBOLISM Z88.0 ALLERGY 07-17-2017 STATUS TO PENICILLIN Z88.6 ALLERGY 07-17-2017 STATUS TO ANALGESIC AGENT STATUS Z88.8 ALLERGY 07-17-2017 STATUS TO OTHER DRUGS, MEDICAMENTS AND BIOLOGICAL SUBSTANCES STATUS Z91.14 PATIENT'S 07-17-2017 OTHER NONCOMPLIAN CE WITH MEDICATION REGIMEN E04.2 NONTOXIC 06-26-2017 MULTINODULA R GOITER E11.40 TYPE 2 05-24-2017 DIABETES MELLITUS WITH DIABETIC NEUROPATHY, UNSPECIFIED E11.649 TYPE 2 05-24-2017 DIABETES MELLITUS WITH HYPOGLYCEMI A WITHOUT COMA E87.6 HYPOKALEMIA 05-24-2017 J45.909 UNSPECIFIED 05-24-2017 ASTHMA, UNCOMPLICAT ED M54.2 CERVICALGIA 05-24-2017 R51 HEADACHE 05-24-2017 R55 SYNCOPE AND 05-24-2017 COLLAPSE S09.90XA UNSPECIFIED 05-24-2017 INJURY OF HEAD, INITIAL ENCOUNTER Z79.02 WOOD BORER 05-24-2017 (CURRENT) USE OF ANTITHROMBO TICS/ANTIPL ATELETS Z79.51 WOOD BORER 05-24-2017 (CURRENT) USE OF INHALED STEROIDS Z86.14 PERSONAL 05-24-2017 HISTORY OF METHICILLIN RESISTANT STAPHYLOCOC CUS AUREUS INFECTION Z91.5 PERSONAL 05-24-2017 HISTORY OF SELF-HARM A04.7 ENTEROCOLIT 04-15-2017 IS DUE TO CLOSTRIDIUM DIFFICILE 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 E10.65 TYPE 1 04-15-2017 DIABETES MELLITUS WITH HYPERGLYCEM IA E86.0 DEHYDRATION 04-15-2017 R11.2 NAUSEA WITH 04-15-2017 VOMITING, UNSPECIFIED E10.10 TYPE 1 04-03-2017 DIABETES MELLITUS WITH KETOACIDOSI S WITHOUT COMA F11.20 OPIOID 04-03-2017 DEPENDENCE, UNCOMPLICAT ED M41.9 SCOLIOSIS, 04-03-2017 UNSPECIFIED R11.10 VOMITING, 04-03-2017 UNSPECIFIED Z88.5 ALLERGY 04-03-2017 STATUS TO NARCOTIC AGENT STATUS 250.11 Ketoacidosi Jeff s in type I [facility] mellitus [id number] Vaginitis [facility] [id number] Active [facility] 682.2 Cellulitis [place] and abscess [facility] 682.5 Cellulitis [place] of [facility] [id number] Chronic [facility] A04.72 ENTEROCOLIT IS D/T CLOSTRIDIUM DIFFICILE, NOT SPCF RECUR B34.9 VIRAL INFECTION, UNSPECIFIED E11.10 TYPE 2 DIABETES MELLITUS WITH KETOACIDOSI S WITHOUT COMA E11.9 TYPE 2 DIABETES MELLITUS WITHOUT COMPLICATIO NS E13.10 OTH DIABETES MELLITUS WITH KETOACIDOSI S WITHOUT COMA E87.2 ACIDOSIS H66.91 OTITIS MEDIA, UNSPECIFIED , RIGHT EAR J02.0 STREPTOCOCC AL PHARYNGITIS J02.9 ACUTE PHARYNGITIS , UNSPECIFIED J40 BRONCHITIS, NOT SPECIFIED ACUTE OR CHRONIC K59.00 CONSTIPATIO N, UNSPECIFIED L03.90 CELLULITIS, UNSPECIFIED M79.89 OTHER SPECIFIED SOFT TISSUE DISORDERS N23 UNSPECIFIED RENAL COLIC R10.9 UNSPECIFIED ABDOMINAL PAIN R31.9 HEMATURIA, UNSPECIFIED R73.9 HYPERGLYCEM IA, UNSPECIFIED S92.213A DISP FX OF CUBOID BONE OF UNSP FOOT, INIT FOR CLOS FX Allergies, Adverse Reactions, Alerts Type Allergy to substance Drug Allergy Adverse Reaction to Substance Substance Reaction Severity Adhesives I-RASH, STERI STRIPS Intermediate PCN (penicillin) I-HIVES/RASH Intermediate Codeine ANAPHYLACTIC REACTION Severe Acetaminophen S-DIFF. BREATHING Severe Povidone Iodine I-HIVES/RASH Intermediate Ketorolac NA-NAUSEA/VOMITING Mild Butalbital S-DIFF. BREATHING Severe Caffeine S-DIFF. BREATHING Severe Tramadol ANAPHYLACTIC REACTION Severe Clinical Alert Notifications Alert Diabetes: no eye exam in the last 365 days Diabetes: no lipid panel in the last 365 days Diabetes: no urine protein screening in the last 365 days Medications Na ND Rx Da Fi Fi Am Da Di Ph RX Ph St me C No te ll ll ou ys ag ar # ys at rm s nt no ma ic us Or Da si cy ia de te s n re d IN 49 12 0 No FL 28 -2 UE 10 2- Lo NZ 39 20 ng A 21 13 er 5 RU Ac S ti VA ve CC IN E 0. 5M L DE 00 12 0 No XT 40 -2 RO 97 2- Lo SE 51 20 ng 71 13 er 50 6 %- Ac WA ti TE ve R SY RI NG E IN 49 12 0 No FL 28 -2 UE 10 2- Lo NZ 39 20 ng A 21 13 er 5 RU Ac S ti VA ve CC IN E 0. 5M L IN 49 12 0 No FL 28 -2 UE 10 2- Lo NZ 39 20 ng A 21 13 er 5 RU Ac S ti VA ve CC IN E 0. 5M L AP 00 12 1 No AP 40 -2 /H 60 1- Lo YD 36 20 ng RO 56 13 er CO 2 DO Ac NE ti ve 32 5 MG -5 MG Al 68 12 1 No pr 08 -2 az 40 1- Lo ol 01 20 ng am 90 13 er 1 0. Ac 5M ti G ve Ta bl et Qu 00 12 1 No et 31 -2 ia 00 1- Lo pi 27 20 ng ne 13 13 er 9 10 Ac 0M ti G ve Ta bl et ON 00 12 1 No DA 64 -2 NS 16 1- Lo ET 08 20 ng RO 02 13 er N 5 HC Ac L ti 4 ve MG /2 ML AL AP 00 12 1 No AP 40 -2 /H 60 1- Lo YD 36 20 ng RO 56 13 er CO 2 DO Ac NE ti ve 32 5 MG -5 MG Al 68 12 1 No pr 08 -2 az 40 1- Lo ol 01 20 ng am 90 13 er 1 0. Ac 5M ti G ve Ta bl et Qu 00 12 1 No et 31 -2 ia 00 1- Lo pi 27 20 ng ne 13 13 er 9 10 Ac 0M ti G ve Ta bl et SO 00 12 1 No DI 40 -2 UM 97 1- Lo 98 20 ng CH 30 13 er LO 9 RI Ac DE ti ve 0. 9% SO CHARLES TI ON MA 00 12 1 No PA 90 -2 P 41 1- Lo 32 98 20 ng 5 26 13 er MG 1 Ac TA ti BL ve ET FS 12 1 No -2 BL 1- Lo OO 20 ng D 13 er [place] Ac R ti ve HU 00 12 1 No MA 00 -2 LO 27 1- Lo G 51 20 ng 10 01 13 er 0 7 UN Ac IT ti S/ ve ML AL AP 00 12 1 No AP 40 -2 /H 60 1- Lo YD 36 20 ng RO 56 13 er CO 2 DO Ac NE ti ve 32 5 MG -5 MG NO 00 12 1 No VO 16 -2 LO 93 1- Lo G 69 20 ng NM 61 13 er X 9 70 Ac -3 ti 0 ve FL EX PE N SY RN Al 68 12 1 No pr 08 -2 az 40 1- Lo ol 01 20 ng am 90 13 er 1 0. Ac 5M ti G ve Ta bl et LO 00 12 1 No VE 07 -2 NO 50 1- Lo X 62 20 ng 40 04 13 er 1 MG Ac /0 ti .4 ve ML SY RI NG E PA 68 12 1 No RO 08 -2 XE 40 1- Lo TI 04 20 ng NE 40 13 er 1 HC Ac L ti 10 ve MG TA BL ET LA 00 12 1 No NT 08 -2 US 82 1- Lo 21 20 ng SO [address] Ac AR ti ve 10 0 UN IT /M L Qu 00 12 1 No et 31 -2 ia 00 1- Lo pi 27 20 ng ne 13 13 er 9 10 Ac 0M ti G ve Ta bl et Sa 63 12 1 No li 80 -2 ne 70 0- Lo 10 20 ng Fl 07 13 er us 5 h Ac 10 ti ML ve Sy ri ng e Mo 00 12 0 No rp 40 -2 hi 91 0- Lo ne 76 20 ng 23 13 er 2M 0 G/ Ac Ml ti ve Sy ri ng e Sa 63 12 1 No li 80 -2 ne 70 0- Lo 10 20 ng Fl 07 13 er us 5 h Ac 10 ti ML ve Sy ri ng e Mo 00 12 0 No rp 40 -2 hi 91 0- Lo ne 76 20 ng 23 13 er 2M 0 G/ Ac Ml ti ve Sy ri ng e SO 00 12 0 No DI 40 -2 UM 97 0- Lo 98 20 ng CH 30 13 er LO 9 RI Ac DE ti ve 0. 9% SO CHARLES TI ON ON 00 12 0 No DA 64 -2 NS 16 0- Lo ET 08 20 ng RO 02 13 er N 5 HC Ac L ti 4 ve MG /2 ML AL Sa 63 12 1 No li 80 -2 ne 70 0- Lo 10 20 ng Fl 07 13 er us 5 h Ac 10 ti ML ve Sy ri ng e Mo 00 12 0 No rp 40 -2 hi 91 0- Lo ne 76 20 ng 23 13 er 2M 0 G/ Ac Ml ti ve Sy ri ng e SO 00 11 0 No DI 40 -1 UM 97 5- Lo 98 20 ng CH 30 13 er LO 9 RI Ac DE ti ve 0. 9% SO CHARLES TI ON Sa 63 11 0 No li 80 -1 ne 70 5- Lo 10 20 ng Fl 07 13 er us 5 h Ac 10 ti ML ve Sy ri ng e ON 00 11 0 No DA 64 -1 NS 16 5- Lo ET 08 20 ng RO 02 13 er N 5 HC Ac L ti 4 ve MG /2 ML AL HU 00 11 0 No MA 00 -1 LO 27 5- Lo G 51 20 ng 10 01 13 er 0 7 UN Ac IT ti S/ ve ML AL LA 00 11 0 No NT 08 -1 US 82 5- Lo 21 20 ng SO [address] Ac AR ti ve 10 0 UN IT /M L MA 00 11 0 No PA 90 -1 P 41 5- Lo 32 98 20 ng 5 26 13 er MG 1 Ac TA ti BL ve ET Sa 63 11 0 No li 80 -1 ne 70 5- Lo 10 20 ng Fl 07 13 er us 5 h Ac 10 ti ML ve Sy ri ng e SO 00 09 0 No DI 40 -1 UM 97 1- Lo 98 20 ng CH 30 13 er LO 9 RI Ac DE ti ve 0. 9% SO CHARLES TI ON Sa 63 09 0 No li 80 -1 ne 70 1- Lo 10 20 ng Fl 07 13 er us 5 h Ac 10 ti ML ve Sy ri ng e Sa 63 09 0 No li 80 -1 ne 70 1- Lo 10 20 ng Fl 07 13 er us 5 h Ac 10 ti ML ve Sy ri ng e HU 00 06 0 No MA 00 -2 LO 27 3- Lo G 51 20 ng 10 01 13 er 0 7 UN Ac IT ti S/ ve ML AL Sa 63 06 0 No li 80 -2 ne 70 2- Lo 10 20 ng Fl 07 13 er us 5 h Ac 10 ti ML ve Sy ri ng e Al 68 06 0 No pr 08 -2 az 40 2- Lo ol 01 20 ng am 90 13 er 1 0. Ac 5M ti G ve Ta bl et AP 00 06 1 No AP 40 -2 /H 60 2- Lo YD 36 20 ng RO 56 13 er CO 2 DO Ac NE ti ve 32 5 MG -5 MG Al 68 06 1 No pr 08 -2 az 40 2- Lo ol 01 20 ng am 90 13 er 1 0. Ac 5M ti G ve Ta bl et SO 00 06 0 No DI 40 -2 UM 97 2- Lo 98 20 ng CH 30 13 er LO 9 RI Ac DE ti ve 0. 9% SO CHARLES TI ON NO 00 06 0 No VO 16 -2 LI 91 2- Lo N 83 20 ng R 31 13 er 10 1 0 Ac UN ti IT ve S/ ML AL DE 00 06 0 No XT 40 -2 RO 97 2- Lo SE 94 20 ng 10 13 er 5% 9 -0 Ac .9 ti % ve NA CL IV SO LN Sa 63 06 0 No li 80 -2 ne 70 2- Lo 10 20 ng Fl 07 13 er us 5 h Ac 10 ti ML ve Sy ri ng e FS 06 0 No -2 BL 2- Lo OO 20 ng D 13 er [place] Ac R ti ve Al 68 06 0 No pr 08 -2 az 40 2- Lo ol 01 20 ng am 90 13 er 1 0. Ac 5M ti G ve Ta bl et AP 00 06 1 No AP 40 -2 /H 60 2- Lo YD 36 20 ng RO 56 13 er CO 2 DO Ac NE ti ve 32 5 MG -5 MG SD 00 06 1 No OM 64 -2 ET 11 2- Lo KHAN 49 20 ng ZI 53 13 er NE 5 Ac 25 ti ve MG /M L AM PU L NO 00 06 1 No VO 16 -2 LO 93 2- Lo G 69 20 ng NM 61 13 er X 9 70 Ac -3 ti 0 ve FL EX PE N SY RN Al 68 06 1 No pr 08 -2 az 40 2- Lo ol 01 20 ng am 90 13 er 1 0. Ac 5M ti G ve Ta bl et HU 00 03 0 No MA 00 -2 LO 27 8- Lo G 51 20 ng 10 01 13 er 0 7 UN Ac IT ti S/ ve ML AL FS 03 1 No -2 BL 8- Lo OO 20 ng D 13 er [place] Ac R ti ve OX 00 03 1 No YC 40 -2 OD 60 8- Lo ON 55 20 ng E 26 13 er HC 2 L Ac 5 ti MG ve TA BL ET LO 00 03 1 No VE 07 -2 NO 50 8- Lo X 62 20 ng 40 04 13 er 1 MG Ac /0 ti .4 ve ML SY RI NG E DI 00 03 1 No FL 04 -2 UC 93 8- Lo AN 43 20 ng 04 13 er 20 1 0 Ac MG ti ve TA BL ET NO 00 03 1 No VO 16 -2 LO 93 8- Lo G 69 20 ng NM 61 13 er X 9 70 Ac -3 ti 0 ve FL EX PE N SY RN Pa 00 03 1 No xi 90 -2 l 46 8- Lo 20 11 20 ng MG 06 13 er . 1 Ta Ac bl ti et ve Qu 00 03 1 No et 31 -2 ia 00 8- Lo pi 27 20 ng ne 13 13 er 9 10 Ac 0M ti G ve Ta bl et In 00 03 1 No [place] 08 -2 li 82 8- Lo n 22 20 ng Gl 06 13 er ar 0 gi Ac ne ti ve 10 0 Un it s/ Ml LE 50 03 0 No VA 45 -2 QU 80 7- Lo IN 16 20 ng -D 80 13 er 5W 1 Ac 50 ti 0 ve MG /1 00 ML BA G SO 00 03 2 No DI 40 -2 UM 97 7- Lo 98 20 ng CH 30 13 er LO 9 RI Ac DE ti ve 0. 9% SO CHARLES TI ON Al 68 03 2 No pr 08 -2 az 40 7- Lo ol 01 20 ng am 90 13 er 1 0. Ac 5M ti G ve Ta bl et In 00 03 1 No [place] 08 -2 li 82 7- Lo n 22 20 ng Gl 06 13 er ar 0 gi Ac ne ti ve 10 0 Un it s/ Ml Vital Signs 09-06-2013 15:25 Name Value Interpretat Reference Comment ion Range Body 98.4 [degF] Temperature BP 74 mm[Hg] Diastolic BP Systolic 117 mm[Hg] Heart 64 /min Rate/Pulse Respiratory 16 /min Rate 09-06-2013 08:00 Name Value Interpretat Reference Comment ion Range O2% 99 % 09-05-2013 00:35 Name Value Interpretat Reference Comment ion Range Height 167.64 cm Weight 56.756 kg Measured 09-04-2013 20:55 Name Value Interpretat Reference Comment ion Range Body 97 [degF] Temperature BP 82 mm[Hg] Diastolic BP Systolic 114 mm[Hg] Heart 112 /min Rate/Pulse O2% 98 % Respiratory 16 /min Rate Weight 0 [oz_av] Measured 07-31-2013 23:58 Name Value Interpretat Reference Comment ion Range BP 56 mm[Hg] Diastolic BP Systolic 103 mm[Hg] Heart 76 /min Rate/Pulse O2% 98 % Respiratory 18 /min Rate 07-31-2013 23:16 Name Value Interpretat Reference Comment ion Range Body 98.3 [degF] Temperature 07-31-2013 22:06 Name Value Interpretat Reference Comment ion Range Body 98.6 [degF] Temperature BP 79 mm[Hg] Diastolic BP Systolic 117 mm[Hg] Heart 69 /min Rate/Pulse O2% 97 % Respiratory 16 /min Rate 05-27-2013 17:51 Name Value Interpretat Reference Comment ion Range Body 98.9 [degF] Temperature BP 81 mm[Hg] Diastolic BP Systolic 127 mm[Hg] Heart 64 /min Rate/Pulse O2% 96 % Respiratory 20 /min Rate 05-27-2013 16:15 Name Value Interpretat Reference Comment ion Range Body 98.7 [degF] Temperature BP 69 mm[Hg] Diastolic BP Systolic 138 mm[Hg] Heart 81 /min Rate/Pulse O2% 98 % Respiratory 16 /min Rate 03-08-2013 11:16 Name Value Interpretat Reference Comment ion Range Body 99.2 [degF] Temperature BP 74 mm[Hg] Diastolic BP Systolic 126 mm[Hg] Heart 69 /min Rate/Pulse Respiratory 16 /min Rate 03-08-2013 08:00 Name Value Interpretat Reference Comment ion Range O2% 98 % 03-07-2013 05:16 Name Value Interpretat Reference Comment ion Range Height 152.40 cm Weight 58.968 kg Measured 03-07-2013 01:36 Name Value Interpretat Reference Comment ion Range Body 97.8 [degF] Temperature BP 93 mm[Hg] Diastolic BP Systolic 128 mm[Hg] Heart 82 /min Rate/Pulse O2% 98 % Respiratory 20 /min Rate Weight 00 [oz_av] Measured 12-12-2012 15:16 Name Value Interpretat Reference Comment ion Range Body 98.5 [degF] Temperature BP 78 mm[Hg] Diastolic BP Systolic 111 mm[Hg] Heart 69 /min Rate/Pulse Respiratory 20 /min Rate 12-12-2012 04:00 Name Value Interpretat Reference Comment ion Range O2% 97 % 12-10-2012 22:00 Name Value Interpretat Reference Comment ion Range O2% 98 % 12-10-2012 20:55 Name Value Interpretat Reference Comment ion Range Body 97.9 [degF] Temperature BP 75 mm[Hg] Diastolic BP Systolic 111 mm[Hg] Heart 70 /min Rate/Pulse Height 152.40 cm Respiratory 20 /min Rate Weight 124 [lb_av] Measured Weight 56.501 kg Measured Results Labs Lab Lab Date Result Refere Interp Status Commen Order Detail nces retati t Range on Glucose capillary blood glucometer (07-01-2017 11:45) Glucose = 191 70-110 complet 017 mg/dl ed capilla 11:[address] Basic metabolic panel (07-01-2017 09:00) Serum = 141 136-145 complet sodium 017 mmoL/L ed measure 09:00 ment Serum 2 = 3.7 3.5-5.1 complet potassi 017 mmoL/L ed um 09:00 measure ment Serum 2 = 212 74-106 complet or 017 mg/dL ed plasma 09:00 glucose measure ment (mas Estimat 2 = 86 59- complet ed 017 ML/MIN ed glomeru 09:00 lar filtrat ion rate (GF Comment: REFERENCE RANGE: >60 ML/MIN/1.73 SQUARE METERS Comment: If this patient is -[place], then multiply the Comment: result by 1.210. Estimat 2 = 96 50-200 complet ion of 017 ML/MIN ed creatin 09:00 ine renal clearan ce Serum 2 = 0.8 0.55-1. complet or 017 mg/dL 02 ed plasma 09:00 creatin ine measure ment ( Carbon 2 = 25 21.0-32 complet dioxide 017 mmoL/L .0 ed 09:00 measure ment Serum 2 = 109 98-107 complet or 017 mmoL/L ed plasma 09:00 chlorid e measure ment (mo Serum 2 = 8.0 8.5-10. complet or 017 mg/dL 1 ed plasma 09:00 calcium measure ment (mas Serum 2 = 9 7-18 complet or 017 mg/dL ed plasma 09:00 urea nitroge n measure men Glucose capillary blood glucometer (07-01-2017 06:34) Glucose 07-01-2 = 399 70-110 complet 017 mg/dl ed capilla 06:[address] Acetone, serum (07-01-2017 05:10) Acetone 07-01-2 = NONE NOT complet , serum 017 DETECTE DETECTD ed 05:10 D Basic metabolic panel (07-01-2017 05:10) Serum 07-01-2 = 139 136-145 complet sodium 017 mmoL/L ed measure 05:10 ment Serum 2 = 4.0 3.5-5.1 complet potassi 017 mmoL/L ed um 05:10 measure ment Serum 2 = 395 74-106 complet or 017 mg/dL ed plasma 05:10 glucose measure ment (mas Estimat 2 = 100 59- complet ed 017 ML/MIN ed glomeru 05:10 lar filtrat ion rate (GF Comment: REFERENCE RANGE: >60 ML/MIN/1.73 SQUARE METERS Comment: If this patient is -[place], then multiply the Comment: result by 1.210. Estimat 2 = 110 50-200 complet ion of 017 ML/MIN ed creatin 05:10 ine renal clearan ce Serum 2 = 0.7 0.55-1. complet or 017 mg/dL 02 ed plasma 05:10 creatin ine measure ment ( Carbon = 24 21.0-32 complet dioxide 017 mmoL/L .0 ed 05:10 measure ment Serum = 107 98-107 complet or 017 mmoL/L ed plasma 05:10 chlorid e measure ment (mo Serum = 8.2 8.5-10. complet or 017 mg/dL 1 ed plasma 05:10 calcium measure ment (mas Serum = 11 7-18 complet or 017 mg/dL ed plasma 05:10 urea nitroge n measure men Glucose capillary blood glucometer (06-30-2017 19:56) Glucose 2 = 254 70-110 complet 017 mg/dl ed capilla 19:[address] Basic metabolic panel (06-30-2017 18:00) Serum 06-30-2 = 140 136-145 complet sodium 017 mmoL/L ed measure 18:00 ment Serum 2 = 3.8 3.5-5.1 complet potassi 017 mmoL/L ed um 18:00 measure ment Serum = 370 74-106 complet or 017 mg/dL ed plasma 18:00 glucose measure ment (mas Estimat 2 = 75 59- complet ed 017 ML/MIN ed glomeru 18:00 lar filtrat ion rate (GF Comment: REFERENCE RANGE: >60 ML/MIN/1.73 SQUARE METERS Comment: If this patient is -[place], then multiply the Comment: result by 1.210. Estimat 2 = 86 50-200 complet ion of 017 ML/MIN ed creatin 18:00 ine renal clearan ce Serum = 0.9 0.55-1. complet or 017 mg/dL 02 ed plasma 18:00 creatin ine measure ment ( Carbon 10-15-2 = 27 21.0-32 complet dioxide 017 mmoL/L .0 ed 18:00 measure ment Serum 1015-2 = 107 98-107 complet or 017 mmoL/L ed plasma 18:00 chlorid e measure ment (mo Serum 15-2 = 8.3 8.5-10. complet or 017 mg/dL 1 ed plasma 18:00 calcium measure ment (mas Serum 06-30-2 = 9 7-18 complet or 017 mg/dL ed plasma 18:00 urea nitroge n measure men Acetone, serum (06-30-2017 18:00) Acetone -15-2 = NONE NOT complet , serum 017 DETECTE DETECTD ed 18:00 D Glucose capillary blood glucometer (06-30-2017 17:09) Glucose 06-30-2 = 352 70-110 complet 017 mg/dl ed capilla 17:[address] Phosphorus measurement (06-30-2017 12:00) Phospho -15-2 = 3.1 2.4-4.9 complet geena 017 mg/dL ed measure 12:00 ment Magnesium measurement (06-30-2017 12:00) Magnesi 06-30-2 = 1.4 1.4-2.2 complet um 017 mg/dL ed measure 12:00 ment Glucose capillary blood glucometer (06-30-2017 11:58) Glucose 06-30-2 = 293 70-110 complet 017 mg/dl ed capilla 11:[address] Basic metabolic panel (06-30-2017 08:59) Serum 15-2 = 142 136-145 complet sodium 017 mmoL/L ed measure 08:59 ment Serum 06-30-2 = 3.6 3.5-5.1 complet potassi 017 mmoL/L ed um 08:59 measure ment Serum 2 = 220 74-106 complet or 017 mg/dL ed plasma 08:59 glucose measure ment (mas Estimat 06-30-2 = 100 59- complet ed 017 ML/MIN ed glomeru 08:59 lar filtrat ion rate (GF Comment: REFERENCE RANGE: >60 ML/MIN/1.73 SQUARE METERS Comment: If this patient is -[place], then multiply the Comment: result by 1.210. Estimat 06-30-2 = 110 50-200 complet ion of 017 ML/MIN ed creatin 08:59 ine renal clearan ce Serum 2 = 0.7 0.55-1. complet or 017 mg/dL 02 ed plasma 08:59 creatin ine measure ment ( Carbon 06-30- = 24 21.0-32 complet dioxide 017 mmoL/L .0 ed 08:59 measure ment Serum 06-30-2 = 110 98-107 complet or 017 mmoL/L ed plasma 08:59 chlorid e measure ment (mo Serum 06-30-2 = 8.4 8.5-10. complet or 017 mg/dL 1 ed plasma 08:59 calcium measure ment (mas Serum 06-30-2 = 6 7-18 complet or 017 mg/dL ed plasma 08:59 urea nitroge n measure men Glucose capillary blood glucometer (06-30-2017 06:07) Glucose 06-30-2 = 360 70-110 complet 017 mg/dl ed capilla 06:[address] Basic metabolic panel (06-30-2017 06:00) Serum 06-30-2 = 6 7-18 complet or 017 mg/dL ed plasma 06:00 urea nitroge n measure men Serum 2 = 138 136-145 complet sodium 017 mmoL/L ed measure 06:00 ment Serum 06-30-2 = 4.1 3.5-5.1 complet potassi 017 mmoL/L ed um 06:00 measure ment Serum 06-30-2 = 436 74-106 complet or 017 mg/dL ed plasma 06:00 glucose measure ment (mas Comment: CRITICAL RESULTS Comment: RESULTS CALLED TO: S CALL RN 06/30/17 0630 [address] [place] Estimat 06-30-2 = 120 59- complet ed 017 ML/MIN ed glomeru 06:00 lar filtrat ion rate (GF Comment: REFERENCE RANGE: >60 ML/MIN/1.73 SQUARE METERS Comment: If this patient is -[place], then multiply the Comment: result by 1.210. Estimat 06-30-2 = 128 50-200 complet ion of 017 ML/MIN ed creatin 06:00 ine renal clearan ce Serum 2 = 0.6 0.55-1. complet or 017 mg/dL 02 ed plasma 06:00 creatin ine measure ment ( Carbon = 21 21.0-32 complet dioxide 017 mmoL/L .0 ed 06:00 measure ment Serum = 106 98-107 complet or 017 mmoL/L ed plasma 06:00 chlorid e measure ment (mo Serum = 8.4 8.5-10. complet or 017 mg/dL 1 ed plasma 06:00 calcium measure ment (mas Acetone, serum (06-30-2017 06:00) Acetone = NONE NOT complet , serum 017 DETECTE DETECTD ed 06:00 D Phosphorus measurement (06-29-2017 23:59) Phospho = 2.0 2.4-4.9 complet geena 017 mg/dL ed measure 23:59 ment Comment: NOTIFICATION RESULT Magnesium measurement (06-29-2017 23:59) Magnesi = 1.5 1.4-2.2 complet um 017 mg/dL ed measure 23:59 ment Glucose capillary blood glucometer (06-29-2017 20:16) Glucose = 374 70-110 complet 017 mg/dl ed capilla 20:[address] Acetone, serum (06-29-2017 18:03) Acetone = NONE NOT complet , serum 017 DETECTE DETECTD ed 18:03 D Basic metabolic panel (06-29-2017 18:03) Serum = 138 136-145 complet sodium 017 mmoL/L ed measure 18:03 ment Serum = 3.7 3.5-5.1 complet potassi 017 mmoL/L ed um 18:03 measure ment Serum = 340 74-106 complet or 017 mg/dL ed plasma 18:03 glucose measure ment (mas Estimat = 86 59- complet ed 017 ML/MIN ed glomeru 18:03 lar filtrat ion rate (GF Comment: REFERENCE RANGE: >60 ML/MIN/1.73 SQUARE METERS Comment: If this patient is -[place], then multiply the Comment: result by 1.210. Estimat = 93 50-200 complet ion of 017 ML/MIN ed creatin 18:03 ine renal clearan ce Carbon = 23 21.0-32 complet dioxide 017 mmoL/L .0 ed 18:03 measure ment Serum = 105 98-107 complet or 017 mmoL/L ed plasma 18:03 chlorid e measure ment (mo Serum 2 = 8.1 8.5-10. complet or 017 mg/dL 1 ed plasma 18:03 calcium measure ment (mas Serum = 5 7-18 complet or 017 mg/dL ed plasma 18:03 urea nitroge n measure men Serum 2 = 0.8 0.55-1. complet or 017 mg/dL 02 ed plasma 18:03 creatin ine measure ment ( Glucose capillary blood glucometer (06-29-2017 17:23) Glucose = 262 70-110 complet 017 mg/dl ed capilla 17:[address] Glucose capillary blood glucometer (06-29-2017 14:03) Glucose 2 = 323 70-110 complet 017 mg/dl ed capilla 14:[address] Glucose capillary blood glucometer (06-29-2017 12:29) Glucose = 334 70-110 complet 017 mg/dl ed capilla 12:[address] Acetone, serum (06-29-2017 11:48) Comment: SPECIMEN COMMENT: MAY USE BLOOD FROM 1200 LABS Acetone = NONE NOT complet , serum 017 DETECTE DETECTD ed 11:48 D Phosphorus measurement (06-29-2017 11:48) Phospho = 3.0 2.4-4.9 complet geena 017 mg/dL ed measure 11:48 ment Magnesium measurement (06-29-2017 11:48) Magnesi = 1.4 1.4-2.2 complet um 017 mg/dL ed measure 11:48 ment Basic metabolic panel (06-29-2017 11:48) Serum = 9 7-18 complet or 017 mg/dL ed plasma 11:48 urea nitroge n measure men Serum = 135 136-145 complet sodium 017 mmoL/L ed measure 11:48 ment Serum = 4.0 3.5-5.1 complet potassi 017 mmoL/L ed um 11:48 measure ment Serum = 371 74-106 complet or 017 mg/dL ed plasma 11:48 glucose measure ment (mas Estimat = 100 59- complet ed 017 ML/MIN ed glomeru 11:48 lar filtrat ion rate (GF Comment: REFERENCE RANGE: >60 ML/MIN/1.73 SQUARE METERS Comment: If this patient is -[place], then multiply the Comment: result by 1.210. Estimat = 107 50-200 complet ion of 017 ML/MIN ed creatin 11:48 ine renal clearan ce Serum = 0.7 0.55-1. complet or 017 mg/dL 02 ed plasma 11:48 creatin ine measure ment ( Carbon = 19 21.0-32 complet dioxide 017 mmoL/L .0 ed 11:48 measure ment Serum = 105 98-107 complet or 017 mmoL/L ed plasma 11:48 chlorid e measure ment (mo Serum = 7.5 8.5-10. complet or 017 mg/dL 1 ed plasma 11:48 calcium measure ment (mas Glucose capillary blood glucometer (06-29-2017 11:43) Glucose = 320 70-110 complet 017 mg/dl ed capilla 11:[address] Glucose capillary blood glucometer (06-29-2017 10:41) Glucose = 340 70-110 complet 017 mg/dl ed capilla 10:[address] Glucose capillary blood glucometer (06-29-2017 09:39) Glucose = 224 70-110 complet 017 mg/dl ed capilla 09:[address] Basic metabolic panel (06-29-2017 09:03) Serum = 137 136-145 complet sodium 017 mmoL/L ed measure 09:03 ment Serum = 3.5 3.5-5.1 complet potassi 017 mmoL/L ed um 09:03 measure ment Serum = 112 74-106 complet or 017 mg/dL ed plasma 09:03 glucose measure ment (mas Estimat = 120 59- complet ed 017 ML/MIN ed glomeru 09:03 lar filtrat ion rate (GF Comment: REFERENCE RANGE: >60 ML/MIN/1.73 SQUARE METERS Comment: If this patient is -[place], then multiply the Comment: result by 1.210. Estimat 06-29-2 = 124 50-200 complet ion of 017 ML/MIN ed creatin 09:03 ine renal clearan ce Serum = 0.6 0.55-1. complet or 017 mg/dL 02 ed plasma 09:03 creatin ine measure ment ( Carbon = 23 21.0-32 complet dioxide 017 mmoL/L .0 ed 09:03 measure ment Serum 2 = 109 98-107 complet or 017 mmoL/L ed plasma 09:03 chlorid e measure ment (mo Serum = 7.5 8.5-10. complet or 017 mg/dL 1 ed plasma 09:03 calcium measure ment (mas Serum 2 = 12 7-18 complet or 017 mg/dL ed plasma 09:03 urea nitroge n measure men Glucose capillary blood glucometer (06-29-2017 08:41) Glucose = 93 70-110 complet 017 mg/dl ed capilla 08:[address] Basic metabolic panel (06-29-2017 07:45) Serum 06-29-2 = 138 136-145 complet sodium 017 mmoL/L ed measure 07:45 ment Serum 2 = 3.5 3.5-5.1 complet potassi 017 mmoL/L ed um 07:45 measure ment Serum = 116 74-106 complet or 017 mg/dL ed plasma 07:45 glucose measure ment (mas Estimat = 120 59- complet ed 017 ML/MIN ed glomeru 07:45 lar filtrat ion rate (GF Comment: REFERENCE RANGE: >60 ML/MIN/1.73 SQUARE METERS Comment: If this patient is -[place], then multiply the Comment: result by 1.210. Estimat 06-29-2 = 124 50-200 complet ion of 017 ML/MIN ed creatin 07:45 ine renal clearan ce Serum = 0.6 0.55-1. complet or 017 mg/dL 02 ed plasma 07:45 creatin ine measure ment ( Carbon = 22 21.0-32 complet dioxide 017 mmoL/L .0 ed 07:45 measure ment Serum = 109 98-107 complet or 017 mmoL/L ed plasma 07:45 chlorid e measure ment (mo Serum = 7.5 8.5-10. complet or 017 mg/dL 1 ed plasma 07:45 calcium measure ment (mas Serum = 11 7-18 complet or 017 mg/dL ed plasma 07:45 urea nitroge n measure men Glucose capillary blood glucometer (06-29-2017 06:44) Glucose = 140 70-110 complet 017 mg/dl ed capilla 06:[address] Glucose capillary blood glucometer (06-29-2017 05:26) Glucose = 188 70-110 complet 017 mg/dl ed capilla 05:[address] Acetone, serum (06-29-2017 04:05) Acetone = NOT complet , serum 017 DETECTE DETECTD ed 04:05 D Comment: TRACE Comment: NOTIFICATION RESULT Basic metabolic panel (06-29-2017 04:05) Serum = 106 98-107 complet or 017 mmoL/L ed plasma 04:05 chlorid e measure ment (mo Serum = 7.8 8.5-10. complet or 017 mg/dL 1 ed plasma 04:05 calcium measure ment (mas Serum = 12 7-18 complet or 017 mg/dL ed plasma 04:05 urea nitroge n measure men Serum = 136 136-145 complet sodium 017 mmoL/L ed measure 04:05 ment Serum = 3.5 3.5-5.1 complet potassi 017 mmoL/L ed um 04:05 measure ment Serum = 256 74-106 complet or 017 mg/dL ed plasma 04:05 glucose measure ment (mas Estimat = 120 59- complet ed 017 ML/MIN ed glomeru 04:05 lar filtrat ion rate (GF Comment: REFERENCE RANGE: >60 ML/MIN/1.73 SQUARE METERS Comment: If this patient is -[place], then multiply the Comment: result by 1.210. Estimat = 124 50-200 complet ion of 017 ML/MIN ed creatin 04:05 ine renal clearan ce Serum 2 = 0.6 0.55-1. complet or 017 mg/dL 02 ed plasma 04:05 creatin ine measure ment ( Carbon 2 = 21 21.0-32 complet dioxide 017 mmoL/L .0 ed 04:05 measure ment Glucose capillary blood glucometer (06-29-2017 03:34) Glucose 06-29-2 = 259 70-110 complet 017 mg/dl ed capilla 03:[address] Glucose capillary blood glucometer (06-29-2017 02:28) Glucose 06-29-2 = 271 70-110 complet 017 mg/dl ed capilla 02:[address] Glucose capillary blood glucometer (06-29-2017 00:29) Glucose 06-29-2 = 347 70-110 complet 017 mg/dl ed capilla 00:[address] Phosphorus measurement (06-29-2017 00:16) Phospho 06-29-2 = 2.9 2.4-4.9 complet geena 017 mg/dL ed measure 00:16 ment Magnesium measurement (06-29-2017 00:16) Magnesi 06-29-2 = 1.5 1.4-2.2 complet um 017 mg/dL ed measure 00:16 ment Basic metabolic panel (06-29-2017 00:16) Serum 06-29-2 = 135 136-145 complet sodium 017 mmoL/L ed measure 00:16 ment Serum 2 = 3.7 3.5-5.1 complet potassi 017 mmoL/L ed um 00:16 measure ment Serum 2 = 372 74-106 complet or 017 mg/dL ed plasma 00:16 glucose measure ment (mas Estimat 2 = 86 59- complet ed 017 ML/MIN ed glomeru 00:16 lar filtrat ion rate (GF Comment: REFERENCE RANGE: >60 ML/MIN/1.73 SQUARE METERS Comment: If this patient is -[place], then multiply the Comment: result by 1.210. Estimat 2 = 90 50-200 complet ion of 017 ML/MIN ed creatin 00:16 ine renal clearan ce Serum 2 = 0.8 0.55-1. complet or 017 mg/dL 02 ed plasma 00:16 creatin ine measure ment ( Carbon = 18 21.0-32 complet dioxide 017 mmoL/L .0 ed 00:16 measure ment Serum = 103 98-107 complet or 017 mmoL/L ed plasma 00:16 chlorid e measure ment (mo Serum = 7.7 8.5-10. complet or 017 mg/dL 1 ed plasma 00:16 calcium measure ment (mas Serum = 15 7-18 complet or 017 mg/dL ed plasma 00:16 urea nitroge n measure men Acetone, serum (06-28-2017 22:05) Acetone = SMALL NOT complet , serum 017 DETECTD ed 22:05 Comprehensive metabolic panel (06-28-2017 22:05) Estimat = 67 59- complet ed 017 ML/MIN ed glomeru 22:05 lar filtrat ion rate (GF Comment: REFERENCE RANGE: >60 ML/MIN/1.73 SQUARE METERS Comment: If this patient is -[place], then multiply the Comment: result by 1.210. Estimat = 72 50-200 complet ion of 017 ML/MIN ed creatin 22:05 ine renal clearan ce Serum = 1.0 0.55-1. complet or 017 mg/dL 02 ed plasma 22:05 creatin ine measure ment ( Carbon = 16 21.0-32 complet dioxide 017 mmoL/L .0 ed 22:05 measure ment Serum = 95 98-107 complet or 017 mmoL/L ed plasma 22:05 chlorid e measure ment (mo Serum = 9.2 8.5-10. complet or 017 mg/dL 1 ed plasma 22:05 calcium measure ment (mas Serum = 17 7-18 complet or 017 mg/dL ed plasma 22:05 urea nitroge n measure men Serum = 0.8 0.2-1.0 complet or 017 mg/dL ed plasma 22:05 total bilirub in measure m Serum = 85 46-116 complet or 017 U/L ed plasma 22:05 alkalin e phospha tase avtar Serum = 4.3 3.4-5.0 complet or 017 gm/dL ed plasma 22:05 albumin measure ment (mas Serum = 1.2 1.1-1.8 complet or 017 ed plasma 22:05 albumin /globul in mass ra Protein = 8.0 6.4-8.2 complet total 017 gm/dL ed ser/denilson 22:05 s ALT = 18 12-78 complet (SGPT) 017 U/L ed ser/denilson 22:05 s Serum = 19 15-37 complet or 017 U/L ed plasma 22:05 asparta te aminotr ansfera Serum = 130 136-145 complet sodium 017 mmoL/L ed measure 22:05 ment Serum = 4.6 3.5-5.1 complet potassi 017 mmoL/L ed um 22:05 measure ment Serum = 549 74-106 complet or 017 mg/dL ed plasma 22:05 glucose measure ment (mas Comment: CRITICAL RESULTS Comment: RESULTS CALLED TO: Magy GLASGOW CATHOLIC PRIEST Comment: 06/28/17 [address] Serum = 3.7 1.3-3.2 complet globuli 017 gm/dL ed n 22:05 measure ment (mass/v olume) CBC w auto diff (06-28-2017 22:05) Blood = 9.8 4.8-10. complet leukocy 017 K/MM3 8 ed nito 22:05 count (number /volume ) Automat = 12.6 11.5-17 complet ed 017 % .5 ed erythro 22:05 cyte distrib ution width Pershing % = 3.4 % 1.7-9.3 complet 017 ed 22:05 Absolut = 0.3 0.1-1.0 complet e 017 K/mm3 ed monocyt 22:05 e count Automat = 85.7 82.2-97 complet ed 017 fl .8 ed erythro 22:05 cyte mean corpusc ular v Automat = 32.9 31.8-35 complet ed 017 g/dl .4 ed erythro 22:05 cyte mean corpusc ular h Mean = 28.2 27-31.2 complet corpusc 017 pg ed ular 22:05 hemoglo bin (MCH) determ Lymphoc = 23.0 10-50.0 complet yte 017 % ed count, 22:05 blood, automat ed Absolut = 2.3 0.7-4.5 complet e 017 K/mm3 ed lymphoc 22:05 yte count Blood = 17.9 12.2-16 complet hemoglo 017 g/dL .2 ed bin 22:05 measure ment (mass/v olum Blood = 54.4 37.0-47 complet hematoc 017 % .0 ed rit 22:05 (volume fractio n) Granulo = 72.2 37.0-80 complet cyte 017 % .0 ed percent 22:05 age Blood = 7.1 1.8-7.8 complet granulo 017 K/mm3 ed cytes 22:05 automat ed count (numb Automat = 0.8 % 0.1-12. complet ed 017 0 ed blood 22:05 eosinop hils/10 0 leukocy t Automat = 0.1 0.0-0.4 complet ed 017 K/mm3 ed blood 22:05 eosinop hil count Baso % = 0.5 % 0.1-2.0 complet 017 ed 22:05 Automat = 0.1 0-0.2 complet ed 017 K/MM3 ed blood 22:05 basophi l count (count/ vo Red = 6.35 4.2-5.4 complet blood 017 M/mm3 ed cell 22:05 count Blood = 290 142-424 complet platele 017 K/mm3 ed t count 22:05 Automat = 8.8 7.4-10. complet ed 017 fl 4 ed blood 22:05 platele t mean volume avtar Urinalysis with microscopy (06-28-2017 21:48) Urine = 5.5 5.0-8.5 complet pH 017 ed 21:48 Urine NEGATIV NEG complet nitrite 017 E ed 21:48 NEGATIV detecti E L on by test strip Mucus NEGATIV NEG complet detecti 017 E ed on in 21:48 NEGATIV urine E L sedimen t by lig Urine 0.2 0.2 NEG complet urobili 017 L ed nogen 21:48 E.U./dL detecti on by test str [place] OCC OCC 0-5 complet s 017 L ed epithel 21:48 #/hpf ial cells detecti on in u Urine = 1.020 1.005-1 complet specifi 017 .030 ed c 21:48 gravity measure ment Erythro TNTC 0 complet cytes 017 TNTC L ed detecti 21:48 rbc/hpf on in urine sedimen t Urine = NEG complet protein 017 NEGATIV ed 21:48 E mg/dL measure ment by automat ed t Urine 3+ 3+ L NEG complet ketones 017 mg/dL ed 21:48 detecti on by automat ed nito Glucose 3 + NEG complet ur 017 ed test 21:48 strip Urine YELLOW YELLOW complet color 017 YELLOW ed 21:48 L Urine 3+ 3+ L NEG complet blood 017 ed detecti 21:48 on Urine NEGATIV NEG complet total 017 E ed bilirub 21:48 NEGATIV in E L detecti on by test Urine CLOUDY CLEAR complet appeara 017 CLOUDY ed nce 21:48 L determi nation Urinalysis dipstick W Reflex Microscopic panel in Urine (06-28-2017 21:48) Erythro TNTC 0 complet cytes 017 ed [Presen 21:48 ce] in Urine sedimen t by Light microsc opy Epithel OCC 0#/hp complet ial 017 f - ed cells.s 21:48 5#/hp quamous f [Presen ce] in Urine sedimen t by Microsc opy high power field Urinalysis dipstick W Reflex Microscopic panel in Urine (06-28-2017 21:48) Appeara CLOUDY CLEAR complet nce of 017 ed Urine 21:48 Bilirub NEGATIV NEG complet in 017 E ed [Presen 21:48 ce] in Urine by Test strip Erythro 3+ NEG Abnorma complet cytes 017 l ed [Presen 21:48 ce] in Urine Color YELLOW YELLOW complet of 017 ed Urine 21:48 Ketones 3+ NEG Abnorma complet 017 l ed [Presen 21:48 ce] in Urine by Automat ed test strip Mucus NEGATIV NEG complet [Presen 017 E ed ce] in 21:48 Urine sedimen t by Light microsc opy Nitrite NEGATIV NEG complet 017 E ed [Presen 21:48 ce] in Urine by Test strip Urobili 0.2 NEG complet nogen 017 ed [Presen 21:48 ce] in Urine by Test strip Glucose capillary blood glucometer (06-28-2017 21:34) Glucose = 480 70-110 complet 017 mg/dl ed capilla 21:[address] Urinalysis dipstick W Reflex Microscopic panel in Urine (04-16-2017 17:42) Bacteri 3+ O complet a 017 ed [Presen 17:42 ce] in Urine sedimen t by Light microsc opy Erythro NONE 0 complet cytes 017 ed [Presen 17:42 ce] in Urine sedimen t by Light microsc opy Epithel TNTC 0#/hp complet ial 017 f - ed cells.s 17:42 5#/hp quamous f [Presen ce] in Urine sedimen t by Microsc opy high power field Leukocy 10-20 O complet nito 017 wbc/hpf ed [#/volu 17:42 me] in Urine Yeast 1+ NONE complet [Presen 017 ed ce] in 17:42 Urine sedimen t by Light microsc opy Urinalysis dipstick W Reflex Microscopic panel in Urine (04-16-2017 17:42) Appeara SL CLEAR complet nce of 017 CLOUDY ed Urine 17:42 Bilirub NEGATIV NEG complet in 017 E ed [Presen 17:42 ce] in Urine by Test strip Erythro NEGATIV NEG complet cytes 017 E ed [Presen 17:42 ce] in Urine Color YELLOW YELLOW complet of 017 ed Urine 17:42 Ketones NEGATIV NEG complet 017 E ed [Presen 17:42 ce] in Urine by Automat ed test strip Mucus NEGATIV NEG complet [Presen 017 E ed ce] in 17:42 Urine sedimen t by Light microsc opy Nitrite NEGATIV NEG complet 017 E ed [Presen 17:42 ce] in Urine by Test strip Urobili 0.2 NEG complet nogen 017 ed [Presen 17:42 ce] in Urine by Test strip Drugs identified in Urine by Screen method (04-14-2017 20:30) Ampheta NEGATIV <1000 complet mine 017 E ed [Presen 20:30 ce] in Urine by Screen method 11-Hydr NEGATIV <50 complet oxy 017 E ed delta-9 20:30 tetrahy drocann abinol [Presen ce] in Unspeci fied specime n Gas panel in Arterial blood (04-14-2017 18:20) Arteria Y complet l 017 ed patency 18:20 Wrist artery --pre arteria l punctur e SOURCE R/R complet 017 ed 18:20 Differential panel, method unspecified - (04-14-2017 18:10) LYMPH 9 % 10% - Low complet 017 50% ed 18:10 Platele NORMAL complet ts 017 ed [Presen 18:10 ce] in Blood by Light microsc opy Erythro NORMAL complet cyte 017 ed morphol 18:10 ogy finding [Identi fier] in Blood Urinalysis dipstick W Reflex Microscopic panel in Urine (03-26-2017 21:46) Appeara CLEAR CLEAR complet nce of 017 ed Urine 21:46 Bacteri OCC O complet a 017 ed [Presen 21:46 ce] in Urine sedimen t by Light microsc opy Bilirub NEGATIV NEG complet in 017 E ed [Presen 21:46 ce] in Urine by Test strip Erythro 3+ NEG Abnorma complet cytes 017 l ed [Presen 21:46 ce] in Urine Color YELLOW YELLOW complet of 017 ed Urine 21:46 Ketones 3+ NEG Abnorma complet 017 l ed [Presen 21:46 ce] in Urine by Automat ed test strip Mucus NEGATIV NEG complet [Presen 017 E ed ce] in 21:46 Urine sedimen t by Light microsc opy Nitrite NEGATIV NEG complet 017 E ed [Presen 21:46 ce] in Urine by Test strip Erythro TNTC 0 complet cytes 017 ed [Presen 21:46 ce] in Urine sedimen t by Light microsc opy Urobili 0.2 NEG complet nogen 017 ed [Presen 21:46 ce] in Urine by Test strip Leukocy 3-5 O complet nito 017 wbc/hpf ed [#/volu 21:46 me] in Urine Hemoglobin A1c in Blood (03-08-2017 00:41) Hemoglo 9.6 % 0.0% High complet bin A1c 017 - ed in 00:41 7.0% Blood Urinalysis dipstick W Reflex Microscopic panel in Urine (03-08-2017 00:23) Bacteri 1+ O complet a 017 ed [Presen 00:23 ce] in Urine sedimen t by Light microsc opy Epithel 3-5 0#/hp complet ial 017 f - ed cells.s 00:23 5#/hp quamous f [Presen ce] in Urine sedimen t by Microsc opy high power field Urinalysis dipstick W Reflex Microscopic panel in Urine (03-08-2017 00:23) Appeara CLEAR CLEAR complet nce of 017 ed Urine 00:23 Bilirub NEGATIV NEG complet in 017 E ed [Presen 00:23 ce] in Urine by Test strip Erythro NEGATIV NEG complet cytes 017 E ed [Presen 00:23 ce] in Urine Color YELLOW YELLOW complet of 017 ed Urine 00:23 Ketones NEGATIV NEG complet 017 E ed [Presen 00:23 ce] in Urine by Automat ed test strip Mucus NEGATIV NEG complet [Presen 017 E ed ce] in 00:23 Urine sedimen t by Light microsc opy Nitrite NEGATIV NEG complet 017 E ed [Presen 00:23 ce] in Urine by Test strip Urobili 1.0 NEG complet nogen 017 ed [Presen 00:23 ce] in Urine by Test strip Urinalysis dipstick W Reflex Microscopic panel in Urine (02-12-2017 22:20) Bacteri 1+ O complet a 017 ed [Presen 22:20 ce] in Urine sedimen t by Light microsc opy Epithel 5-10 0#/hp complet ial 017 f - ed cells.s 22:20 5#/hp quamous f [Presen ce] in Urine sedimen t by Microsc opy high power field Leukocy 3-5 O complet nito 017 wbc/hpf ed [#/volu 22:20 me] in Urine Urinalysis dipstick W Reflex Microscopic panel in Urine (02-12-2017 22:20) Appeara CLEAR CLEAR complet nce of ed Urine 22:20 Bilirub NEGATIV NEG complet in 017 E ed [Presen 22:20 ce] in Urine by Test strip Erythro NEGATIV NEG complet cytes 017 E ed [Presen 22:20 ce] in Urine Color YELLOW YELLOW complet of 017 ed Urine 22:20 Ketones NEGATIV NEG complet 017 E ed [Presen 22:20 ce] in Urine by Automat ed test strip Mucus NEGATIV NEG complet [Presen 017 E ed ce] in 22:20 Urine sedimen t by Light microsc opy Nitrite NEGATIV NEG complet 017 E ed [Presen 22:20 ce] in Urine by Test strip Urobili 02-12-2 1.0 NEG complet nogen 017 ed [Presen 22:20 ce] in Urine by Test strip Glucose [facility]comtr[facility] (09-06-2013 12:19) Glucose 188 70-110 complet BldC 013 mg/dl ed Glucomt 12:19 r-[facility] Glucose [facility] (09-06-2013 11:40) Glucose 2 54 74-106 complet 013 mg/dL ed d-n 11:40 c Glucose [facility] Glucom-[facility] (09-06-2013 06:39) Glucose 205 70-110 complet BldC 013 mg/dl ed Glucomt 06:39 r-[facility] BASIC METABOLIC PANEL (09-06-2013 06:30) Glucose 201 74-106 complet 013 mg/dL ed d-n 06:30 c BUN 6 mg/dL 7-18 complet Bld-n 013 ed c 06:30 Creat 0.7 0.6-1.0 complet SerPl-m 013 mg/dL ed Cnc 06:30 Creat 112 50-200 complet Cl 013 ML/MIN ed predict 06:30 ed SerPl C-G-vRa te GFR/BSA 104 59- complet .pred 013 ML/MIN ed SerPl 06:30 Schwart z-vRate Sodium 141 136-145 complet SerPl-s 013 mmoL/L ed Cnc 06:30 Potassi 3.6 3.5-5.1 complet um 013 mmoL/L ed SerPl-s 06:30 Cnc Chlorid 110 98-107 complet e 013 mmoL/L ed SerPl-s 06:30 Cnc CO2 24 21.0-32 complet SerPl-s 013 mmoL/L .0 ed Cnc 06:30 Calcium 7.8 8.5-10. complet 013 mg/dL 1 ed SerPl-m 06:30 Cnc CBC with AUTO DIFF (09-06-2013 06:30) WBC # 09-06- 3.9 4.8-10. complet Bld 013 K/MM3 8 ed Auto 06:30 RBC # 12-22-2 4.41 4.2-5.4 complet Bld 013 M/mm3 ed Auto 06:30 Hgb 12-22-2 12.4 12.2-16 complet Bld-mCn 013 g/dL .2 ed c 06:30 Hct Fr 12-22-2 36.0 % 37.0-47 complet Bld 013 .0 ed 06:30 MCV RBC 12-22-2 81.6 fl 82.2-97 complet 013 .8 ed 06:30 MCH RBC 12-22-2 28.0 pg 27-31.2 complet Qn 013 ed Auto 06:30 MEAN 12-22-2 34.3 31.8-35 complet CORPUSC 013 g/dl .4 ed ULAR 06:30 HGB CONC RDW RBC 12-22-2 14.1 % 11.5-17 complet Auto 013 .5 ed 06:30 Platele 12-22-2 168 142-424 complet t Bld 013 K/mm3 ed Ql 06:30 Manual MEAN 12-22-2 8.2 fl 7.4-10. complet PLATELE 013 4 ed T 06:30 VOLUME Granulo 12-22-2 48.3 % 37.0-80 complet cytes 013 .0 ed Fr Bld 06:30 Auto LYMPH % 12-22-2 39.6 % 10-50.0 complet 013 ed 06:30 Monocyt 12-22-2 9.4 % 1.7-9.3 complet es Fr 013 ed Bld 06:30 Auto Eosinop 12-22-2 2.5 % 0.1-12. complet hil Fr 013 0 ed Bld 06:30 Auto Basophi 12-22-2 0.1 % 0.1-2.0 complet ls Fr 013 ed Bld 06:30 Auto Granulo 12-22-2 1.9 1.8-7.8 complet cytes # 013 K/mm3 ed Bld 06:30 Auto Lymphoc 12-22-2 1.6 0.7-4.5 complet ytes Fr 013 K/mm3 ed Bld 06:30 Auto Monocyt 12-22-2 0.4 0.1-1.0 complet es # 013 K/mm3 ed Bld 06:30 Auto Eosinop 12-22-2 0.1 0.0-0.4 complet hil # 013 K/mm3 ed Bld 06:30 Auto Basophi 2 0.0 0-0.2 complet ls # 013 K/MM3 ed Bld 06:30 Auto Glucose BldC Glucomtr-[facility] (09-05-2013 13:24) Glucose 104 70-110 complet BldC 013 mg/dl ed Glucomt 13:24 r-[facility] Glucose BldC Glucomtr-[facility] (09-05-2013 12:02) Glucose 09-05-2 80 70-110 complet BldC 013 mg/dl ed Glucomt 12:02 r-[facility] Glucose BldC Glucomtr-[facility] (09-05-2013 09:13) Glucose 09-05-2 165 70-110 complet BldC 013 mg/dl ed Glucomt 09:13 r-[facility] BASIC METABOLIC PANEL (09-05-2013 06:50) Glucose 198 74-106 complet 013 mg/dL ed Bld-mCn 06:50 c BUN 12 7-18 complet Bld-mCn 013 mg/dL ed c 06:50 Creat 0.7 0.6-1.0 complet SerPl-m 013 mg/dL ed Cnc 06:50 Creat 112 50-200 complet Cl 013 ML/MIN ed predict 06:50 ed SerPl C-G-vRa te GFR/BSA 104 59- complet .pred 013 ML/MIN ed SerPl 06:50 Schwart z-vRate Sodium 138 136-145 complet SerPl-s 013 mmoL/L ed Cnc 06:50 Potassi 3.7 3.5-5.1 complet um 013 mmoL/L ed SerPl-s 06:50 Cnc Chlorid 107 98-107 complet e 013 mmoL/L ed SerPl-s 06:50 Cnc CO2 20 21.0-32 complet SerPl-s 013 mmoL/L .0 ed Cnc 06:50 Calcium 7.5 8.5-10. complet 013 mg/dL 1 ed SerPl-m 06:50 Cnc Amylase SerPl-cCnc (09-05-2013 06:50) Amylase 12-21-2 28 U/L 25-115 complet 013 ed SerPl-c 06:50 Cnc LIPASE (09-05-2013 06:50) LIPASE 12-21-2 86 U/L 73-393 complet 013 ed 06:50 CBC with AUTO DIFF (09-05-2013 06:50) WBC # 12-21-2 6.3 4.8-10. complet Bld 013 K/MM3 8 ed Auto 06:50 RBC # 12-21-2 4.87 4.2-5.4 complet Bld 013 M/mm3 ed Auto 06:50 Hgb 12-21-2 13.5 12.2-16 complet Bld-mCn 013 g/dL .2 ed c 06:50 Hct Fr 12-21-2 39.2 % 37.0-47 complet Bld 013 .0 ed 06:50 MCV RBC 12-21-2 80.6 fl 82.2-97 complet 013 .8 ed 06:50 MCH RBC 09-05-2 27.8 pg 27-31.2 complet Qn 013 ed Auto 06:50 MEAN 12-21-2 34.5 31.8-35 complet CORPUSC 013 g/dl .4 ed ULAR 06:50 HGB CONC RDW RBC -21-2 14.5 % 11.5-17 complet Auto 013 .5 ed 06:50 Platele 12-21-2 183 142-424 complet t Bld 013 K/mm3 ed Ql 06:50 Manual MEAN 12-21-2 8.1 fl 7.4-10. complet PLATELE 013 4 ed T 06:50 VOLUME Granulo -21-2 71.6 % 37.0-80 complet cytes 013 .0 ed Fr Bld 06:50 Auto LYMPH % 12-21-2 21.4 % 10-50.0 complet 013 ed 06:50 Monocyt 12-21-2 5.7 % 1.7-9.3 complet es Fr 013 ed Bld 06:50 Auto Eosinop 12-21-2 1.2 % 0.1-12. complet hil Fr 013 0 ed Bld 06:50 Auto Basophi 12-21-2 0.1 % 0.1-2.0 complet ls Fr 013 ed Bld 06:50 Auto Granulo 12-21-2 4.5 1.8-7.8 complet cytes # 013 K/mm3 ed Bld 06:50 Auto Lymphoc -21-2 1.3 0.7-4.5 complet ytes Fr 013 K/mm3 ed Bld 06:50 Auto Monocyt 1221-2 0.4 0.1-1.0 complet es # 013 K/mm3 ed Bld 06:50 Auto Eosinop -21-2 0.1 0.0-0.4 complet hil # 013 K/mm3 ed Bld 06:50 Auto Basophi 21-2 0.0 0-0.2 complet ls # 013 K/MM3 ed Bld 06:50 Auto Glucose BldC Glucomtr-mCnc (09-05-2013 06:32) Glucose 09-05-2 211 70-110 complet BldC 013 mg/dl ed Glucomt 06:32 r-mCnc URINALYSIS/COMPLETE (09-04-2013 22:00) URINE YELLOW YELLOW complet COLOR 013 ed 22:00 URINE CLEAR CLEAR complet APPEARA 013 ed NCE 22:00 URINE 2+ NEG complet GLUCOSE 013 ed - 22:00 DIPSTIC K URINE NEGATIV NEG complet BILIRUB 013 E ed IN - 22:00 DIPSTIC K URINE 3+ NEG complet KETONE 013 mg/dL ed 22:00 URINE Greater 1.005-1 complet SPECIFI 013 than .030 ed C 22:00 or GRAVITY equal to 1.030 URINE NEGATIV NEG complet BLOOD 013 E ed 22:00 URINE 6.0 UNK 5.0-8.5 complet PH 013 ed 22:00 URINE 09-04- TRACE NEG complet PROTEIN 013 mg/dL ed - 22:00 DIPSTIC K URINE 09-04- 0.2 NEG complet UROBILI 013 E.U./dL ed NOGEN - 22:00 DIPSTIC K URINE NEGATIV NEG complet NITRATE 013 E ed - 22:00 DIPSTIC K URINE NEGATIV NEG complet LEUK 013 E ed ESTERAS 22:00 E URINE OCC O complet WBC 013 wbc/hpf ed 22:00 URINE 20-50 0-5 complet SQUAMOU 013 #/hpf ed S CELLS 22:00 URINE TRACE NONE complet AMORPH 013 ed SEDIMEN 22:00 T COMPREHENSIVE METABOLIC PANEL (09-04-2013 21:30) Glucose 233 74-106 complet 013 mg/dL ed Bld-mCn 21:30 c BUN 20 7-18 complet Bld-mCn 013 mg/dL ed c 21:30 Creat 1.0 0.6-1.0 complet SerPl-m 013 mg/dL ed Cnc 21:30 Creat 78 50-200 complet Cl 013 ML/MIN ed predict 21:30 ed SerPl C-G-vRa te GFR/BSA 69 59- complet .pred 013 ML/MIN ed SerPl 21:30 Schwart z-vRate Sodium 137 136-145 complet SerPl-s 013 mmoL/L ed Cnc 21:30 Potassi 4.3 3.5-5.1 complet um 013 mmoL/L ed SerPl-s 21:30 Cnc Chlorid 100 98-107 complet e 013 mmoL/L ed SerPl-s 21:30 Cnc CO2 24 21.0-32 complet SerPl-s 013 mmoL/L .0 ed Cnc 21:30 Calcium 8.9 8.5-10. complet 013 mg/dL 1 ed SerPl-m 21:30 Cnc Prot 7.7 6.4-8.2 complet SerPl-m 013 gm/dL ed Cnc 21:30 Albumin 4.4 3.4-5.0 complet 013 gm/dL ed SerPl-m 21:30 Cnc Globuli 3.3 1.3-3.2 complet n 013 gm/dL ed Ser-mCn 21:30 c Albumin 1.3 UNK 1.1-1.8 complet /Glob 013 ed SerPl-m 21:30 Rto Bilirub 1.0 0.2-1.0 complet 013 mg/dL ed SerPl-m 21:30 Cnc AST 12-20-2 13 U/L 15-37 complet SerPl-c 013 ed Cnc 21:30 ALT 09-04-2 36 U/L 30-65 complet SerPl-c 013 ed Cnc 21:30 ALP 09-04-2 92 U/L 50-136 complet SerPl-c 013 ed Cnc 21:30 ACETONE, SERUM (09-04-2013 21:30) ACETONE 20-2 NONE NOT complet , SERUM 013 DETECTE DETECTD ed 21:30 D CBC with AUTO DIFF (09-04-2013 21:30) WBC # 12-20-2 11.6 4.8-10. complet Bld 013 K/MM3 8 ed Auto 21:30 RBC # 20-2 6.34 4.2-5.4 complet Bld 013 M/mm3 ed Auto 21:30 Hgb 09-04-2 17.4 12.2-16 complet Bld-mCn 013 g/dL .2 ed c 21:30 Hct Fr 09-04- 51.1 % 37.0-47 complet Bld 013 .0 ed 21:30 MCV RBC 09-04-2 80.7 fl 82.2-97 complet 013 .8 ed 21:30 MCH RBC 09-04-2 27.5 pg 27-31.2 complet Qn 013 ed Auto 21:30 MEAN 09-04-2 34.0 31.8-35 complet CORPUSC 013 g/dl .4 ed ULAR 21:30 HGB CONC RDW RBC 09-04-2 14.2 % 11.5-17 complet Auto 013 .5 ed 21:30 Platele 09-04-2 233 142-424 complet t Bld 013 K/mm3 ed Ql 21:30 Manual MEAN 09-04-2 8.0 fl 7.4-10. complet PLATELE 013 4 ed T 21:30 VOLUME Granulo 09-04-2 89.9 % 37.0-80 complet cytes 013 .0 ed Fr Bld 21:30 Auto LYMPH % -20-2 6.1 % 10-50.0 complet 013 ed 21:30 Monocyt 12-20-2 3.5 % 1.7-9.3 complet es Fr 013 ed Bld 21:30 Auto Eosinop -20-2 0.3 % 0.1-12. complet hil Fr 013 0 ed Bld 21:30 Auto Basophi 12-20-2 0.1 % 0.1-2.0 complet ls Fr 013 ed Bld 21:30 Auto Granulo -20-2 10.4 1.8-7.8 complet cytes # 013 K/mm3 ed Bld 21:30 Auto Lymphoc -20-2 0.7 0.7-4.5 complet ytes Fr 013 K/mm3 ed Bld 21:30 Auto Monocyt -20-2 0.4 0.1-1.0 complet es # 013 K/mm3 ed Bld 21:30 Auto Eosinop -20-2 0.0 0.0-0.4 complet hil # 013 K/mm3 ed Bld 21:30 Auto Basophi 20-2 0.0 0-0.2 complet ls # 013 K/MM3 ed Bld 21:30 Auto Glucose BldC Glucomtr-[facility] (07-31-2013 23:27) Glucose 07-31-2 471 70-110 High complet BldC 013 mg/dl alert ed Glucomt 23:27 r-[facility] COMPREHENSIVE METABOLIC PANEL (07-31-2013 21:30) Glucose 07-31-2 602 74-106 High complet 013 mg/dL alert ed Bld-mCn 21:30 c BUN 07-31-2 12 7-18 complet Bld-mCn 013 mg/dL ed c 21:30 Creat 07-31-2 1.0 0.6-1.0 complet SerPl-m 013 mg/dL ed Cnc 21:30 ESTIMAT 07-31-2 78 50-200 complet ED 013 ML/MIN ed CREATIN 21:30 INE CLEARAN CE GFR 07-31- 69 59- complet (ESTIMA 013 ML/MIN ed MARYSE) 21:30 Sodium 07-31- 129 136-145 complet SerPl-s 013 mmoL/L ed Cnc 21:30 Potassi 07-31-2 4.1 3.5-5.1 complet um 013 mmoL/L ed SerPl-s 21:30 Cnc Chlorid 07-31-2 95 98-107 complet e 013 mmoL/L ed SerPl-s 21:30 Cnc CO2 07-31- 28 21.0-32 complet SerPl-s 013 mmoL/L .0 ed Cnc 21:30 Calcium 07-31-2 9.3 8.5-10. complet 013 mg/dL 1 ed SerPl-m 21:30 Cnc Prot 11-15-2 7.7 6.4-8.2 complet SerPl-m 013 gm/dL ed Cnc 21:30 Albumin 11-15-2 4.2 3.4-5.0 complet 013 gm/dL ed SerPl-m 21:30 Cnc Globuli 11-15-2 3.5 1.3-3.2 complet n 013 gm/dL ed Ser-mCn 21:30 c Albumin 11-15-2 1.2 UNK 1.1-1.8 complet /Glob 013 ed SerPl-m 21:30 Rto Bilirub 11-15-2 0.3 0.2-1.0 complet 013 mg/dL ed SerPl-m 21:30 Cnc AST 11-15-2 14 U/L 15-37 complet SerPl-c 013 ed Cnc 21:30 ALT 11-15-2 51 U/L 30-65 complet SerPl-c 013 ed Cnc 21:30 ALP 11-15-2 103 U/L 50-136 complet SerPl-c 013 ed Cnc 21:30 ACETONE, SERUM (07-31-2013 21:30) ACETONE 11-15-2 NONE NOT complet , SERUM 013 DETECTE DETECTD ed 21:30 D CBC with AUTO DIFF (07-31-2013 21:30) WBC # 11-15-2 7.8 4.8-10. complet Bld 013 K/MM3 8 ed Auto 21:30 RBC # 11-15-2 5.49 4.2-5.4 complet Bld 013 M/mm3 ed Auto 21:30 Hgb 11-15-2 16.2 12.2-16 complet Bld-mCn 013 g/dL .2 ed c 21:30 Hct Fr 11-15-2 45.5 % 37.0-47 complet Bld 013 .0 ed 21:30 MCV RBC 11-15-2 82.9 fl 82.2-97 complet 013 .8 ed 21:30 MCH RBC 11-15-2 29.5 pg 27-31.2 complet Qn 013 ed Auto 21:30 MEAN 11-15-2 35.6 31.8-35 complet CORPUSC 013 g/dl .4 ed ULAR 21:30 HGB CONC RDW RBC 11-15-2 14.0 % 11.5-17 complet Auto 013 .5 ed 21:30 Platele 11-15-2 251 142-424 complet t Bld 013 K/mm3 ed Ql 21:30 Manual MEAN 11-15-2 8.4 fl 7.4-10. complet PLATELE 013 4 ed T 21:30 VOLUME Granulo 11-15-2 61.6 % 37.0-80 complet cytes 013 .0 ed Fr Bld 21:30 Auto LYMPH % 11-15-2 31.2 % 10-50.0 complet 013 ed 21:30 Monocyt 11-15-2 4.5 % 1.7-9.3 complet es Fr 013 ed Bld 21:30 Auto Eosinop 11-15-2 2.3 % 0.1-12. complet hil Fr 013 0 ed Bld 21:30 Auto Basophi 11-15-2 0.5 % 0.1-2.0 complet ls Fr 013 ed Bld 21:30 Auto Granulo 11-15-2 4.8 1.8-7.8 complet cytes # 013 K/mm3 ed Bld 21:30 Auto Lymphoc 11-15-2 2.4 0.7-4.5 complet ytes Fr 013 K/mm3 ed Bld 21:30 Auto Monocyt 11-15-2 0.4 0.1-1.0 complet es # 013 K/mm3 ed Bld 21:30 Auto Eosinop 11-15-2 0.2 0.0-0.4 complet hil # 013 K/mm3 ed Bld 21:30 Auto Basophi 11-15-2 0.0 0-0.2 complet ls # 013 K/MM3 ed Bld 21:30 Auto URINALYSIS/COMPLETE (07-31-2013 21:25) URINE 11-15-2 YELLOW YELLOW complet COLOR 013 ed 21:25 URINE 11-15-2 CLEAR CLEAR complet APPEARA 013 ed NCE 21:25 URINE 11-15-2 3+ NEG complet GLUCOSE 013 ed - 21:25 DIPSTIC K URINE 11-15-2 NEGATIV NEG complet BILIRUB 013 E ed IN - 21:25 DIPSTIC K URINE 11-15-2 TRACE NEG complet KETONE 013 mg/dL ed 21:25 URINE 11-15-2 1.010 1.005-1 complet SPECIFI 013 UNK .030 ed C 21:25 GRAVITY URINE 15-2 2+ NEG complet BLOOD 013 ed 21:25 URINE -15-2 6.0 UNK 5.0-8.5 complet PH 013 ed 21:25 URINE 11-15-2 NEGATIV NEG complet PROTEIN 013 E mg/dL ed - 21:25 DIPSTIC K URINE 11-15-2 0.2 NEG complet UROBILI 013 E.U./dL ed NOGEN - 21:25 DIPSTIC K URINE -15-2 NEGATIV NEG complet NITRATE 013 E ed - 21:25 DIPSTIC K URINE 11-15-2 NEGATIV NEG complet LEUK 013 E ed ESTERAS 21:25 E URINE -15-2 3-5 0 complet RBC 013 rbc/hpf ed 21:25 URINE -15-2 3-5 0-5 complet SQUAMOU 013 #/hpf ed S CELLS 21:25 URINE 15-2 TRACE O complet BACTERI 013 ed A 21:25 COMPREHENSIVE METABOLIC PANEL (05-27-2013 16:10) Glucose 191 74-106 complet 013 mg/dL ed Bld-mCn 16:10 c BUN 12 7-18 complet Bld-mCn 013 mg/dL ed c 16:10 Creat 0.7 0.6-1.0 complet SerPl-m 013 mg/dL ed Cnc 16:10 ESTIMAT 111 50-200 complet ED 013 ML/MIN ed CREATIN 16:10 INE CLEARAN CE GFR 104 59- complet (ESTIMA 013 ML/MIN ed MARYSE) 16:10 Sodium 138 136-145 complet SerPl-s 013 mmoL/L ed Cnc 16:10 Potassi 3.9 3.5-5.1 complet um 013 mmoL/L ed SerPl-s 16:10 Cnc Chlorid 101 98-107 complet e 013 mmoL/L ed SerPl-s 16:10 Cnc CO2 25 21.0-32 complet SerPl-s 013 mmoL/L .0 ed Cnc 16:10 Calcium 9.0 8.5-10. complet 013 mg/dL 1 ed SerPl-m 16:10 Cnc Prot 8.1 6.4-8.2 complet SerPl-m 013 gm/dL ed Cnc 16:10 Albumin 05-27- 3.9 3.4-5.0 complet 013 gm/dL ed SerPl-m 16:10 Cnc Globuli 4.2 1.3-3.2 complet n 013 gm/dL ed Ser-mCn 16:10 c Albumin 0.9 UNK 1.1-1.8 complet /Glob 013 ed SerPl-m 16:10 Rto Bilirub 0.5 0.2-1.0 complet 013 mg/dL ed SerPl-m 16:10 Cnc AST 18 U/L 15-37 complet SerPl-c 013 ed Cnc 16:10 ALT 34 U/L 30-65 complet SerPl-c 013 ed Cnc 16:10 ALP 89 U/L 50-136 complet SerPl-c 013 ed Cnc 16:10 ACETONE, SERUM (05-27-2013 16:10) ACETONE NONE NOT complet , SERUM 013 DETECTE DETECTD ed 16:10 D CBC with AUTO DIFF (05-27-2013 16:10) WBC # 05-27- 7.3 4.8-10. complet Bld 013 K/MM3 8 ed Auto 16:10 RBC # 05-27- 5.81 4.2-5.4 complet Bld 013 M/mm3 ed Auto 16:10 Hgb 16.4 12.2-16 complet Bld-mCn 013 g/dL .2 ed c 16:10 Hct Fr 48.4 % 37.0-47 complet Bld 013 .0 ed 16:10 MCV RBC 83.4 fl 82.2-97 complet 013 .8 ed 16:10 MCH RBC 05-27- 28.3 pg 27-31.2 complet Qn 013 ed Auto 16:10 MEAN 33.9 31.8-35 complet CORPUSC 013 g/dl .4 ed ULAR 16:10 HGB CONC RDW RBC 13.8 % 11.5-17 complet Auto 013 .5 ed 16:10 Platele 09-11-2 213 142-424 complet t Bld 013 K/mm3 ed Ql 16:10 Manual MEAN -11-2 8.0 fl 7.4-10. complet PLATELE 013 4 ed T 16:10 VOLUME Granulo -11-2 66.2 % 37.0-80 complet cytes 013 .0 ed Fr Bld 16:10 Auto LYMPH % 09-11-2 23.6 % 10-50.0 complet 013 ed 16:10 Monocyt 09-11-2 9.2 % 1.7-9.3 complet es Fr 013 ed Bld 16:10 Auto Eosinop 09-11-2 0.6 % 0.1-12. complet hil Fr 013 0 ed Bld 16:10 Auto Basophi -11-2 0.3 % 0.1-2.0 complet ls Fr 013 ed Bld 16:10 Auto Granulo -11-2 4.8 1.8-7.8 complet cytes # 013 K/mm3 ed Bld 16:10 Auto Lymphoc -11-2 1.7 0.7-4.5 complet ytes Fr 013 K/mm3 ed Bld 16:10 Auto Monocyt -11-2 0.7 0.1-1.0 complet es # 013 K/mm3 ed Bld 16:10 Auto Eosinop -11-2 0.1 0.0-0.4 complet hil # 013 K/mm3 ed Bld 16:10 Auto Basophi 09-11-2 0.0 0-0.2 complet ls # 013 K/MM3 ed Bld 16:10 Auto ARTERIAL BLOOD GAS (05-27-2013 16:07) ARTERIA 09-11-2 7.43 7.35-7. complet L PH 013 MMOL/L 45 ed 16:07 ARTERIA 09-11-2 34.9 35.0-45 complet L PCO2 013 MMHG .0 ed 16:07 ARTERIA 09-11-2 92.7 80-100 complet L PO2 013 MMHG ed 16:07 ARTERIA 09-11-2 22.6 22.0-26 complet L HCO3 013 MMOL/L .0 ed 16:07 ARTERIA 09-11-2 23.7 23-27 complet L TCO2 013 MMOL/L ed 16:07 Base -11-2 -1.7 -2.4-+2 complet excess 013 MMOL/L .3 ed BldA-sC 16:07 nc ARTERIA 97.6 % 90-100 complet L O2 013 ed SAT 16:07 OXYGEN ROOM complet 013 AIR ed 16:07 Arteria N/A complet l 013 ed patency 16:07 Wrist a SOURCE R complet 013 BRACHIA ed 16:07 L Glucose BldC Glucomtr-mCnc (05-27-2013 16:00) Glucose 184 70-110 complet BldC 013 mg/dl ed Glucomt 16:00 r-mCnc URINALYSIS/COMPLETE (05-27-2013 16:00) URINE YELLOW YELLOW complet COLOR 013 ed 16:00 URINE SL CLEAR complet APPEARA 013 CLOUDY ed NCE 16:00 URINE 2+ NEG complet GLUCOSE 013 ed - 16:00 DIPSTIC K URINE 1+ NEG complet BILIRUB 013 ed IN - 16:00 DIPSTIC K URINE 2+ NEG complet KETONE 013 mg/dL ed 16:00 URINE Greater 1.005-1 complet SPECIFI 013 than .030 ed C 16:00 or GRAVITY equal to 1.030 URINE NEGATIV NEG complet BLOOD 013 E ed 16:00 URINE 6.0 UNK 5.0-8.5 complet PH 013 ed 16:00 URINE TRACE NEG complet PROTEIN 013 mg/dL ed - 16:00 DIPSTIC K URINE 0.2 NEG complet UROBILI 013 E.U./dL ed NOGEN - 16:00 DIPSTIC K URINE NEGATIV NEG complet NITRATE 013 E ed - 16:00 DIPSTIC K URINE NEGATIV NEG complet LEUK 013 E ed ESTERAS 16:00 E URINE OCC 0 complet RBC 013 rbc/hpf ed 16:00 URINE OCC O complet WBC 013 wbc/hpf ed 16:00 URINE 5-10 0-5 complet SQUAMOU 013 #/hpf ed S CELLS 16:00 URINE 2+ O complet BACTERI 013 ed A 16:00 URINE 09-11-2 2+ OCC complet MUCUS 013 ed 16:00 STREP SCREEN (RAPID) (05-27-2013 15:35) STREP NEGATIV complet SCREEN 013 E ed (RAPID) 15:35 Glucose BldC Glucomtr-[facility] (03-08-2013 09:25) Glucose 03-08-2 277 70-110 complet BldC 013 mg/dl ed Glucomt 09:25 r-nc BASIC METABOLIC PANEL (03-08-2013 08:58) Glucose 03-08-2 243 74-106 complet 013 mg/dL ed Bld-mCn 08:58 c BUN 03-08-2 6 mg/dL 7-18 complet Bld-mCn 013 ed c 08:58 Creat 03-08-2 0.7 0.6-1.0 complet SerPl-m 013 mg/dL ed Cnc 08:58 ESTIMAT 03-08-2 116 50-200 complet ED 013 ML/MIN ed CREATIN 08:58 INE CLEARAN CE GFR 104 59- complet (ESTIMA 013 ML/MIN ed MARYSE) 08:58 Sodium 03-08-2 138 136-145 complet SerPl-s 013 mmoL/L ed Cnc 08:58 Potassi 03-08-2 3.4 3.5-5.1 complet um 013 mmoL/L ed SerPl-s 08:58 Cnc Chlorid 03-08-2 105 98-107 complet e 013 mmoL/L ed SerPl-s 08:58 Cnc CO2 03-08-2 27 21.0-32 complet SerPl-s 013 mmoL/L .0 ed Cnc 08:58 Calcium 03-08-2 7.7 8.5-10. complet 013 mg/dL 1 ed SerPl-m 08:58 Cnc Glucose BldC Glucomtr-[facility] (03-08-2013 07:04) Glucose 03-08-2 111 70-110 complet BldC 013 mg/dl ed Glucomt 07:04 r-[facility] ACETONE, SERUM (03-08-2013 03:33) ACETONE NONE NOT complet , SERUM 013 DETECTE DETECTD ed 03:33 D Phosphate SerPl-[facility] (03-08-2013 03:33) Phospha 03-08-2 3.3 2.4-4.9 complet te 013 mg/dL ed SerPl-m 03:33 Cnc Magnesium SerPl-nc (03-08-2013 03:33) Magnesi 1.6 1.4-2.2 complet um 013 mg/dL ed SerPl-m 03:33 Cnc Glucose BldC Glucomtr-[facility] (03-07-2013 20:49) Glucose 205 70-110 complet BldC 013 mg/dl ed Glucomt 20:49 r-[facility] BASIC METABOLIC PANEL (03-07-2013 19:05) Glucose 169 74-106 complet 013 mg/dL ed Bld-mCn 19:05 c BUN 10 7-18 complet Bld-mCn 013 mg/dL ed c 19:05 Creat 0.8 0.6-1.0 complet SerPl-m 013 mg/dL ed Cnc 19:05 ESTIMAT 102 50-200 complet ED 013 ML/MIN ed CREATIN 19:05 INE CLEARAN CE GFR 89 59- complet (ESTIMA 013 ML/MIN ed MARYSE) 19:05 Sodium 138 136-145 complet SerPl-s 013 mmoL/L ed Cnc 19:05 Potassi 3.7 3.5-5.1 complet um 013 mmoL/L ed SerPl-s 19:05 Cnc Chlorid 106 98-107 complet e 013 mmoL/L ed SerPl-s 19:05 Cnc CO2 29 21.0-32 complet SerPl-s 013 mmoL/L .0 ed Cnc 19:05 Calcium 7.5 8.5-10. complet 013 mg/dL 1 ed SerPl-m 19:05 Cnc Glucose BldC Glucomtr-[facility] (03-07-2013 18:20) Glucose 130 70-110 complet BldC 013 mg/dl ed Glucomt 18:20 r-[facility] Glucose BldC Glucomtr-[facility] (03-07-2013 17:12) Glucose 83 70-110 complet BldC 013 mg/dl ed Glucomt 17:12 r-[facility] Glucose BldC Glucomtr-[facility] (03-07-2013 14:46) Glucose 77 70-110 complet BldC 013 mg/dl ed Glucomt 14:46 [facility] BASIC METABOLIC PANEL (03-07-2013 12:00) Glucose 94 74-106 complet 013 mg/dL ed Bld-mCn 12:00 c BUN 11 7-18 complet Bld-mCn 013 mg/dL ed c 12:00 Creat 0.7 0.6-1.0 complet SerPl-m 013 mg/dL ed Cnc 12:00 ESTIMAT 116 50-200 complet ED 013 ML/MIN ed CREATIN 12:00 INE CLEARAN CE GFR 104 59- complet (ESTIMA 013 ML/MIN ed MARYSE) 12:00 Sodium 140 136-145 complet SerPl-s 013 mmoL/L ed Cnc 12:00 Potassi 3.3 3.5-5.1 complet um 013 mmoL/L ed SerPl-s 12:00 Cnc Chlorid 107 98-107 complet e 013 mmoL/L ed SerPl-s 12:00 Cnc CO2 26 21.0-32 complet SerPl-s 013 mmoL/L .0 ed Cnc 12:00 Calcium 7.9 8.5-10. complet 013 mg/dL 1 ed SerPl-m 12:00 [facility] 11[facility]56[facility] Glucose 127 70-110 complet BldC 013 mg/dl ed Glucomt 11:56 [facility] BASIC METABOLIC PANEL (03-07-2013 08:40) Glucose 164 74-106 complet 013 mg/dL ed Bld-mCn 08:40 c BUN 11 7-18 complet Bld-mCn 013 mg/dL ed c 08:40 Creat 0.8 0.6-1.0 complet SerPl-m 013 mg/dL ed Cnc 08:40 ESTIMAT 102 50-200 complet ED 013 ML/MIN ed CREATIN 08:40 INE CLEARAN CE GFR 89 59- complet (ESTIMA 013 ML/MIN ed MARYSE) 08:40 Sodium 138 136-145 complet SerPl-s 013 mmoL/L ed Cnc 08:40 Potassi 3.4 3.5-5.1 complet um 013 mmoL/L ed SerPl-s 08:40 Cnc Chlorid 107 98-107 complet e 013 mmoL/L ed SerPl-s 08:40 Cnc CO2 27 21.0-32 complet SerPl-s 013 mmoL/L .0 ed Cnc 08:40 Calcium 7.4 8.5-10. complet 013 mg/dL 1 ed SerPl-m 08:40 Cnc Glucose BldC Glucomtr-mCnc (03-07-2013 08:20) Glucose 2 205 70-110 complet BldC 013 mg/dl ed Glucomt 08:20 r-mCnc Glucose BldC Glucomtr-mCnc (03-07-2013 06:53) Glucose 227 70-110 complet BldC 013 mg/dl ed Glucomt 06:53 r-mCnc Glucose BldC Glucomtr-mCnc (03-07-2013 06:13) Glucose 03-07-2 213 70-110 complet BldC 013 mg/dl ed Glucomt 06:13 r-mCnc Glucose BldC Glucomtr-mCnc (03-07-2013 05:18) Glucose 03-07-2 187 70-110 complet BldC 013 mg/dl ed Glucomt 05:18 r-mCnc Glucose BldC Glucomtr-mCnc (03-07-2013 04:22) Glucose 03-07-2 178 70-110 complet BldC 013 mg/dl ed Glucomt 04:22 r-mCnc BASIC METABOLIC PANEL (03-07-2013 04:20) Glucose 03-07-2 178 74-106 complet 013 mg/dL ed Bld-mCn 04:20 c BUN 12 7-18 complet Bld-mCn 013 mg/dL ed c 04:20 Creat 0.7 0.6-1.0 complet SerPl-m 013 mg/dL ed Cnc 04:20 ESTIMAT 116 50-200 complet ED 013 ML/MIN ed CREATIN 04:20 INE CLEARAN CE GFR 104 59- complet (ESTIMA 013 ML/MIN ed MARYSE) 04:20 Sodium 139 136-145 complet SerPl-s 013 mmoL/L ed Cnc 04:20 Potassi 4.3 3.5-5.1 complet um 013 mmoL/L ed SerPl-s 04:20 Cnc Chlorid 106 98-107 complet e 013 mmoL/L ed SerPl-s 04:20 Cnc CO2 27 21.0-32 complet SerPl-s 013 mmoL/L .0 ed Cnc 04:20 Calcium 7.7 8.5-10. complet 013 mg/dL 1 ed SerPl-m 04:20 Cnc ACETONE, SERUM (03-07-2013 04:20) ACETONE NONE NOT complet , SERUM 013 DETECTE DETECTD ed 04:20 D COMPREHENSIVE METABOLIC PANEL (03-07-2013 02:15) Glucose 525 74-106 High complet 013 mg/dL alert ed Bld-mCn 02:15 c BUN 14 7-18 complet Bld-mCn 013 mg/dL ed c 02:15 Creat 0.9 0.6-1.0 complet SerPl-m 013 mg/dL ed Cnc 02:15 ESTIMAT 90 50-200 complet ED 013 ML/MIN ed CREATIN 02:15 INE CLEARAN CE GFR 78 59- complet (ESTIMA 013 ML/MIN ed MARYSE) 02:15 Sodium 131 136-145 complet SerPl-s 013 mmoL/L ed Cnc 02:15 Potassi 4.4 3.5-5.1 complet um 013 mmoL/L ed SerPl-s 02:15 Cnc Chlorid 97 98-107 complet e 013 mmoL/L ed SerPl-s 02:15 Cnc CO2 27 21.0-32 complet SerPl-s 013 mmoL/L .0 ed Cnc 02:15 Calcium 8.4 8.5-10. complet 013 mg/dL 1 ed SerPl-m 02:15 Cnc Prot 7.1 6.4-8.2 complet SerPl-m 013 gm/dL ed Cnc 02:15 Albumin 03-07-2 3.8 3.4-5.0 complet 013 gm/dL ed SerPl-m 02:15 Cnc Globuli 3.3 1.3-3.2 complet n 013 gm/dL ed Ser-mCn 02:15 c Albumin 1.2 UNK 1.1-1.8 complet /Glob 013 ed SerPl-m 02:15 Rto Bilirub 0.3 0.2-1.0 complet 013 mg/dL ed SerPl-m 02:15 Cnc AST 45 U/L 15-37 complet SerPl-c 013 ed Cnc 02:15 ALT 69 U/L 30-65 complet SerPl-c 013 ed Cnc 02:15 ALP 92 U/L 50-136 complet SerPl-c 013 ed Cnc 02:15 ACETONE, SERUM (03-07-2013 02:15) ACETONE DETECTE NOT complet , SERUM 013 D DETECTD ed 02:15 Phosphate SerPl-mCnc (03-07-2013 02:15) Phospha 03-07- 3.7 2.4-4.9 complet te 013 mg/dL ed SerPl-m 02:15 Cnc Magnesium SerPl-mCnc (03-07-2013 02:15) Magnesi 1.8 1.4-2.2 complet um 013 mg/dL ed SerPl-m 02:15 Cnc CBC with AUTO DIFF (03-07-2013 02:15) WBC # 03-07-2 6.2 4.8-10. complet Bld 013 K/MM3 8 ed Auto 02:15 RBC # 03-07-2 5.64 4.2-5.4 complet Bld 013 M/mm3 ed Auto 02:15 Hgb 15.7 12.2-16 complet Bld-mCn 013 g/dL .2 ed c 02:15 Hct Fr 46.3 % 37.0-47 complet Bld 013 .0 ed 02:15 MCV RBC 82.0 fl 82.2-97 complet 013 .8 ed 02:15 MCH RBC 06-22-2 27.8 pg 27-31.2 complet Qn 013 ed Auto 02:15 MEAN 22-2 33.9 31.8-35 complet CORPUSC 013 g/dl .4 ed ULAR 02:15 HGB CONC RDW RBC 22-2 13.2 % 11.5-17 complet Auto 013 .5 ed 02:15 Platele 22-2 240 142-424 complet t Bld 013 K/mm3 ed Ql 02:15 Manual MEAN 03-07-2 8.3 fl 7.4-10. complet PLATELE 013 4 ed T 02:15 VOLUME Granulo 22-2 49.8 % 37.0-80 complet cytes 013 .0 ed Fr Bld 02:15 Auto LYMPH % -22-2 41.7 % 10-50.0 complet 013 ed 02:15 Monocyt 0622-2 6.2 % 1.7-9.3 complet es Fr 013 ed Bld 02:15 Auto Eosinop -22-2 1.9 % 0.1-12. complet hil Fr 013 0 ed Bld 02:15 Auto Basophi -22-2 0.4 % 0.1-2.0 complet ls Fr 013 ed Bld 02:15 Auto Granulo 06-22-2 3.1 1.8-7.8 complet cytes # 013 K/mm3 ed Bld 02:15 Auto Lymphoc -22-2 2.6 0.7-4.5 complet ytes Fr 013 K/mm3 ed Bld 02:15 Auto Monocyt 06-22-2 0.4 0.1-1.0 complet es # 013 K/mm3 ed Bld 02:15 Auto Eosinop -22-2 0.1 0.0-0.4 complet hil # 013 K/mm3 ed Bld 02:15 Auto Basophi 06-22-2 0.0 0-0.2 complet ls # 013 K/MM3 ed Bld 02:15 Auto URINALYSIS/COMPLETE (03-07-2013 02:00) URINE 03-07-2 YELLOW YELLOW complet COLOR 013 ed 02:00 URINE 03-07-2 CLEAR CLEAR complet APPEARA 013 ed NCE 02:00 URINE 03-07-2 3+ NEG complet GLUCOSE 013 ed - 02:00 DIPSTIC K URINE 03-07-2 NEGATIV NEG complet BILIRUB 013 E ed IN - 02:00 DIPSTIC K URINE 03-07-2 1+ NEG complet KETONE 013 mg/dL ed 02:00 URINE 03-07-2 1.010 1.005-1 complet SPECIFI 013 UNK .030 ed C 02:00 GRAVITY URINE 03-07-2 NEGATIV NEG complet BLOOD 013 E ed 02:00 URINE 03-07-2 6.0 UNK 5.0-8.5 complet PH 013 ed 02:00 URINE 03-07-2 NEGATIV NEG complet PROTEIN 013 E mg/dL ed - 02:00 DIPSTIC K URINE 03-07-2 0.2 NEG complet UROBILI 013 E.U./dL ed NOGEN - 02:00 DIPSTIC K URINE 03-07-2 NEGATIV NEG complet NITRATE 013 E ed - 02:00 DIPSTIC K URINE 03-07-2 NEGATIV NEG complet LEUK 013 E ed ESTERAS 02:00 E URINE 03-07-2 OCC 0-5 complet SQUAMOU 013 #/hpf ed S CELLS 02:00 URINE 03-07-2 TRACE NONE complet AMORPH 013 ed SEDIMEN 02:00 T Glucose BldC Glucomtr-nc (12-11-2012 23:04) Glucose 157 70-110 complet BldC 013 mg/dl ed Glucomt 23:04 r-mCnc Glucose BldC Glucomtr-nc (12-11-2012 21:24) Glucose 224 70-110 complet BldC 013 mg/dl ed Glucomt 21:24 r-mCnc Glucose BldC Glucomtr-mCnc (12-11-2012 16:36) Glucose 91 70-110 complet BldC 013 mg/dl ed Glucomt 16:36 r-mCnc Glucose BldC Glucomtr-mCnc (12-11-2012 14:04) Glucose 243 70-110 complet BldC 013 mg/dl ed Glucomt 14:04 r-mCnc Glucose Bld-mCnc (12-11-2012 11:50) Glucose 52 74-106 complet 013 mg/dL ed Bld-mCn 11:50 c Glucose BldC Glucomtr-mCnc (12-11-2012 11:41) Glucose Less 70-110 complet BldC 013 than 50 ed Glucomt 11:41 mg/dl r-[facility] Glucose dC Glucomtr-[facility] (12-11-2012 06:42) Glucose 340 70-110 High complet BldC 013 mg/dl alert ed Glucomt 06:42 r-[facility] BASIC METABOLIC PANEL (12-11-2012 05:18) Glucose 322 74-106 complet 013 mg/dL ed Bld-mCn 05:18 c BUN 11 7-18 complet Bld-mCn 013 mg/dL ed c 05:18 Creat 1.0 0.6-1.0 complet SerPl-m 013 mg/dL ed Cnc 05:18 ESTIMAT 79 50-200 complet ED 013 ML/MIN ed CREATIN 05:18 INE CLEARAN CE GFR 69 59- complet (ESTIMA 013 ML/MIN ed MARYSE) 05:18 Sodium 139 136-145 complet SerPl-s 013 mmoL/L ed Cnc 05:18 Potassi 4.1 3.5-5.1 complet um 013 mmoL/L ed SerPl-s 05:18 Cnc Chlorid 104 98-107 complet e 013 mmoL/L ed SerPl-s 05:18 Cnc CO2 29 21.0-32 complet SerPl-s 013 mmoL/L .0 ed Cnc 05:18 Calcium 8.0 8.5-10. complet 013 mg/dL 1 ed SerPl-m 05:18 Cnc CBC with AUTO DIFF (12-11-2012 05:18) WBC # 8.4 4.8-10. complet Bld 013 K/MM3 8 ed Auto 05:18 RBC # 5.00 4.2-5.4 complet Bld 013 M/mm3 ed Auto 05:18 Hgb 14.1 12.2-16 complet Bld-mCn 013 g/dL .2 ed c 05:18 Hct Fr 40.5 % 37.0-47 complet Bld 013 .0 ed 05:18 MCV RBC 81.0 fl 82.2-97 complet 013 .8 ed 05:18 MCH RBC 28.1 pg 27-31.2 complet Qn 013 ed Auto 05:18 MEAN 34.8 31.8-35 complet CORPUSC 013 g/dl .4 ed ULAR 05:18 HGB CONC RDW RBC 13.2 % 11.5-17 complet Auto 013 .5 ed 05:18 Platele 210 142-424 complet t Bld 013 K/mm3 ed Ql 05:18 Manual MEAN 8.4 fl 7.4-10. complet PLATELE 013 4 ed T 05:18 VOLUME Granulo 71.8 % 37.0-80 complet cytes 013 .0 ed Fr Bld 05:18 Auto LYMPH % 21.6 % 10-50.0 complet 013 ed 05:18 Monocyt 4.7 % 1.7-9.3 complet es Fr 013 ed Bld 05:18 Auto Eosinop 12-11-2 1.7 % 0.1-12. complet hil Fr 013 0 ed Bld 05:18 Auto Basophi 12-11-2 0.2 % 0.1-2.0 complet ls Fr 013 ed Bld 05:18 Auto Granulo 12-11-2 6.0 1.8-7.8 complet cytes # 013 K/mm3 ed Bld 05:18 Auto Lymphoc 12-11-2 1.8 0.7-4.5 complet ytes Fr 013 K/mm3 ed Bld 05:18 Auto Monocyt 12-11-2 0.4 0.1-1.0 complet es # 013 K/mm3 ed Bld 05:18 Auto Eosinop 12-11-2 0.1 0.0-0.4 complet hil # 013 K/mm3 ed Bld 05:18 Auto Basophi 12-11-2 0.0 0-0.2 complet ls # 013 K/MM3 ed Bld 05:18 Auto Glucose BldC Glucomtr-[facility] (12-11-2012 03:35) Glucose 12-11-2 72 70-110 complet BldC 013 mg/dl ed Glucomt 03:35 r-nc URINALYSIS/COMPLETE (12-10-2012 21:25) URINE 12-10-2 YELLOW YELLOW complet COLOR 013 ed 21:25 URINE 12-10-2 CLEAR CLEAR complet APPEARA 013 ed NCE 21:25 URINE 12-10-2 2+ NEG complet GLUCOSE 013 ed - 21:25 DIPSTIC K URINE 12-10-2 NEGATIV NEG complet BILIRUB 013 E ed IN - 21:25 DIPSTIC K URINE 12-10-2 2+ NEG complet KETONE 013 mg/dL ed 21:25 URINE 12-10-2 1.010 1.005-1 complet SPECIFI 013 UNK .030 ed C 21:25 GRAVITY URINE 12-10-2 NEGATIV NEG complet BLOOD 013 E ed 21:25 URINE 12-10-2 6.5 UNK 5.0-8.5 complet PH 013 ed 21:25 URINE 12-10-2 NEGATIV NEG complet PROTEIN 013 E mg/dL ed - 21:25 DIPSTIC K URINE 12-10-2 0.2 NEG complet UROBILI 013 E.U./dL ed NOGEN - 21:25 DIPSTIC K URINE 12-10-2 NEGATIV NEG complet NITRATE 013 E ed - 21:25 DIPSTIC K URINE 12-10-2 NEGATIV NEG complet LEUK 013 E ed ESTERAS 21:25 E URINE 12-10-2 3-5 0 complet RBC 013 rbc/hpf ed 21:25 URINE 12-10-2 5-10 O complet WBC 013 wbc/hpf ed 21:25 URINE 12-10-2 10-20 0-5 complet SQUAMOU 013 #/hpf ed S CELLS 21:25 URINE 12-10-2 TRACE O complet BACTERI 013 ed A 21:25 URINE 12-10-2 OCC OCC complet MUCUS 013 ed 21:25 COMPREHENSIVE METABOLIC PANEL (12-10-2012 21:20) Glucose 12-10-2 398 74-106 complet 013 mg/dL ed Bld-mCn 21:20 c BUN 12-10-2 9 mg/dL 7-18 complet Bld-mCn 013 ed c 21:20 Creat 12-10-2 0.9 0.6-1.0 complet SerPl-m 013 mg/dL ed Cnc 21:20 ESTIMAT 12-10-2 87 50-200 complet ED 013 ML/MIN ed CREATIN 21:20 INE CLEARAN CE GFR 03-27-2 78 59- complet (ESTIMA 013 ML/MIN ed MARYSE) 21:20 Sodium 137 136-145 complet SerPl-s 013 mmoL/L ed Cnc 21:20 Potassi 4.3 3.5-5.1 complet um 013 mmoL/L ed SerPl-s 21:20 Cnc Chlorid 97 98-107 complet e 013 mmoL/L ed SerPl-s 21:20 Cnc CO2 29 21.0-32 complet SerPl-s 013 mmoL/L .0 ed Cnc 21:20 Calcium 9.2 8.5-10. complet 013 mg/dL 1 ed SerPl-m 21:20 Cnc Prot 7.2 6.4-8.2 complet SerPl-m 013 gm/dL ed Cnc 21:20 Albumin 4.0 3.4-5.0 complet 013 gm/dL ed SerPl-m 21:20 Cnc Globuli 3.2 1.3-3.2 complet n 013 gm/dL ed Ser-mCn 21:20 c Albumin 1.3 UNK 1.1-1.8 complet /Glob 013 ed SerPl-m 21:20 Rto Bilirub 0.4 0.2-1.0 complet 013 mg/dL ed SerPl-m 21:20 Cnc AST 14 U/L 15-37 complet SerPl-c 013 ed Cnc 21:20 ALT 32 U/L 30-65 complet SerPl-c 013 ed Cnc 21:20 ALP 95 U/L 50-136 complet SerPl-c 013 ed Cnc 21:20 ACETONE, SERUM (12-10-2012 21:20) ACETONE NONE NOT complet , SERUM 013 DETECTE DETECTD ed 21:20 D CBC with AUTO DIFF (12-10-2012 21:20) WBC # 12-10-2 8.3 4.8-10. complet Bld 013 K/MM3 8 ed Auto 21:20 RBC # 12-10-2 6.11 4.2-5.4 complet Bld 013 M/mm3 ed Auto 21:20 Hgb 03-27-2 16.9 12.2-16 complet Bld-mCn 013 g/dL .2 ed c 21:20 Hct Fr 12-10-2 49.4 % 37.0-47 complet Bld 013 .0 ed 21:20 MCV RBC 12-10-2 81.0 fl 82.2-97 complet 013 .8 ed 21:20 MCH RBC 12-10-2 27.6 pg 27-31.2 complet Qn 013 ed Auto 21:20 MEAN 2 34.1 31.8-35 complet CORPUSC 013 g/dl .4 ed ULAR 21:20 HGB CONC RDW RBC 12-10-2 13.2 % 11.5-17 complet Auto 013 .5 ed 21:20 Platele 12-10-2 247 142-424 complet t Bld 013 K/mm3 ed Ql 21:20 Manual MEAN 2 8.2 fl 7.4-10. complet PLATELE 013 4 ed T 21:20 VOLUME Granulo 12-10-2 66.9 % 37.0-80 complet cytes 013 .0 ed Fr Bld 21:20 Auto LYMPH % 12-10-2 27.3 % 10-50.0 complet 013 ed 21:20 Monocyt 12-10-2 4.0 % 1.7-9.3 complet es Fr 013 ed Bld 21:20 Auto Eosinop -27-2 1.5 % 0.1-12. complet hil Fr 013 0 ed Bld 21:20 Auto Basophi -27-2 0.3 % 0.1-2.0 complet ls Fr 013 ed Bld 21:20 Auto Granulo -27-2 5.5 1.8-7.8 complet cytes # 013 K/mm3 ed Bld 21:20 Auto Lymphoc -27-2 2.3 0.7-4.5 complet ytes Fr 013 K/mm3 ed Bld 21:20 Auto Monocyt -27-2 0.3 0.1-1.0 complet es # 013 K/mm3 ed Bld 21:20 Auto Eosinop 03-27-2 0.1 0.0-0.4 complet hil # 013 K/mm3 ed Bld 21:20 Auto Basophi -27-2 0.0 0-0.2 complet ls # 013 K/MM3 ed Bld 21:20 Auto Glucose BldC Glucomtr-[facility] (12-10-2012 21:01) Glucose 407 70-110 High complet BldC 013 mg/dl alert ed Glucomt 21:01 r-[facility] ARTERIAL BLOOD GAS (12-10-2012 21:00) ARTERIA 7.44 7.35-7. complet L PH 013 MMOL/L 45 ed 21:00 ARTERIA 35.4 35.0-45 complet L PCO2 013 MMHG .0 ed 21:00 ARTERIA 99.2 80-100 complet L PO2 013 MMHG ed 21:00 ARTERIA 23.7 22.0-26 complet L HCO3 013 MMOL/L .0 ed 21:00 ARTERIA 24.8 23-27 complet L TCO2 013 MMOL/L ed 21:00 Base -0.4 -2.4-+2 complet excess 013 MMOL/L .3 ed BldA-sC 21:00 nc ARTERIA 98.2 % 90-100 complet L O2 013 ed SAT 21:00 OXYGEN 21%,RA complet 013 ed 21:00 Arteria ACCEPTA complet l 013 BLE ed patency 21:00 Wrist a Encounters Encounter Start End Date Code Location Performer Type Date Inpatient HUNTER Brandt MD (IN) 3 21:12 3 13:30 [facility] Emergency AUTUMN Anguiano (ER) 3 21:24 3 23:59 [facility] Emergency AUTUMN Brandt MD (ER) 3 15:41 3 18:00 [facility] Inpatient HUNTER Rees ([place]) 3 01:46 3 11:10 [facility] Inpatient HUNTER Rees ([place]) 3 20:16 3 15:20 [facility]
--- OUTSIDE RECORDS SUMMARY | 2017-08-11 20:17 | External Medical Summary Rpt | CCD ---
Author Author , VIRGILIO POOLE Address Unknown Phone [email or web address] Care Team Providers Care Warp Doffer Name Role Phone [facility] Un[facility] Un[facility], [facility] Keyur Rees MD, Unavailable Unavailable Keyur Rees [...] OF OCCURRENCE OF THE EXTERNAL CAUSE Z79.01 HYBRID CORN BREEDER 07-17-2017 (CURRENT) USE OF ANTICOAGULA NTS Z79.4 LONG-TERM 07-17-2017 (CURRENT) USE OF INSULIN Z79.899 OTHER [...] 05-24-2017 INJURY OF HEAD, INITIAL ENCOUNTER Z79.02 HYBRID CORN BREEDER 05-24-2017 (CURRENT) USE OF ANTITHROMBO TICS/ANTIPL ATELETS Z79.51 HYBRID CORN BREEDER 05-24-2017 (CURRENT) USE OF INHALED STEROIDS Z86.14 [...] 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 [id number] Vaginitis [facility] [id number] Active [facility] 682.2 Cellulitis Rose and abscess [facility] 682.5 Cellulitis Rose of [facility] [id number] Chronic [facility] A04.72 ENTEROCOLIT IS D/T CLOSTRIDIUM DIFFICILE, NOT [...] 93 1- Lo G 69 20 ng [place] 61 13 er X 9 70 Ac [...] ti ve 32 5 MG -5 MG FL 00 06 1 No OM 64 -2 ET 11 2- Lo KHAN 49 20 ng ZI 53 13 er NE 5 Ac 25 ti ve MG /M L AM PU L NO 00 06 1 No VO 16 -2 LO 93 2- Lo G 69 20 ng [place] 61 13 er X 9 70 Ac [...] 93 8- Lo G 69 20 ng [place] 61 13 er X 9 70 Ac [...] SQUARE METERS Comment: If this patient is -Gambian, then multiply the Comment: result by 1.210. [...] SQUARE METERS Comment: If this patient is -Gambian, then multiply the Comment: result by 1.210. [...] SQUARE METERS Comment: If this patient is -Gambian, then multiply the Comment: result by 1.210. [...] SQUARE METERS Comment: If this patient is -Gambian, then multiply the Comment: result by 1.210. [...] SQUARE METERS Comment: If this patient is -Gambian, then multiply the Comment: result by 1.210. [...] SQUARE METERS Comment: If this patient is -Gambian, then multiply the Comment: result by 1.210. [...] SQUARE METERS Comment: If this patient is -Gambian, then multiply the Comment: result by 1.210. [...] SQUARE METERS Comment: If this patient is -Gambian, then multiply the Comment: result by 1.210. [...] SQUARE METERS Comment: If this patient is -Gambian, then multiply the Comment: result by 1.210. [...] SQUARE METERS Comment: If this patient is -Gambian, then multiply the Comment: result by 1.210. [...] SQUARE METERS Comment: If this patient is -Gambian, then multiply the Comment: result by 1.210. [...] SQUARE METERS Comment: If this patient is -Gambian, then multiply the Comment: result by 1.210. 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 complet leukocy 017 K/MM3 8 ed nito 22:05 count (number /volume ) Automat = 12.6 11.5-17 complet ed 017 % .5 ed erythro 22:05 cyte distrib ution width [place] % = 3.4 % 1.7-9.3 complet 017 [...] ce] in Urine by Test strip Glucose [facility] Glucomtr-[facility] (09-06-2013 12:19) Glucose 188 70-110 complet BldC 013 mg/dl ed Glucomt 12:19 r-[facility] Glucose [facility] (09-06-2013 11:40) Glucose 2 54 74-106 complet 013 mg/dL ed d-n 11:40 c Glucose [facility] Glucom-[facility] (09-06-2013 06:39) Glucose 205 70-110 complet BldC 013 mg/dl ed Glucomt 06:39 r-[facility] BASIC METABOLIC PANEL (09-06-2013 06:30) Glucose 201 [...] K/MM3 ed Bld 06:30 Auto Glucose BldC [facility] (09-05-2013 13:24) Glucose 104 70-110 complet BldC 013 mg/dl ed Glucomt 13:24 r-[facility] Glucose BldC [facility] (09-05-2013 12:02) Glucose 09-05-2 80 70-110 complet BldC 013 mg/dl ed Glucomt 12:02 r-[facility] Glucose BldC [facility]tr-[facility] (09-05-2013 09:13) Glucose 09-05-2 165 70-110 complet BldC 013 mg/dl ed Glucomt 09:13 r-[facility] BASIC METABOLIC PANEL (09-05-2013 06:50) Glucose 198 [...] K/MM3 ed Bld 21:30 Auto Glucose BldC Glucomtr-[facility] (07-31-2013 23:27) Glucose 07-31-2 471 70-110 High complet BldC 013 mg/dl alert ed Glucomt 23:27 r-[facility] COMPREHENSIVE METABOLIC PANEL (07-31-2013 21:30) Glucose 07-31-2 [...] 013 E ed (RAPID) 15:35 Glucose BldC [facility]comtr-[facility] (03-08-2013 09:25) Glucose 03-08-2 277 70-110 complet [...] 1 ed SerPl-m 08:58 Cnc Glucose BldC Glucomtr-[facility] (03-08-2013 07:04) Glucose 03-08-2 111 70-110 complet BldC 013 mg/dl ed Glucomt 07:04 r-[facility] ACETONE, SERUM (03-08-2013 03:33) ACETONE NONE NOT complet , SERUM 013 DETECTE DETECTD ed 03:33 D Phosphate SerPl-[facility] (03-08-2013 03:33) Phospha 03-08-2 3.3 2.4-4.9 complet te 013 mg/dL ed SerPl-m 03:33 Cnc Magnesium SerPl-nc (03-08-2013 03:33) Magnesi 1.6 1.4-2.2 complet um 013 mg/dL ed SerPl-m 03:33 Cnc Glucose BldC Glucomtr-[facility] (03-07-2013 20:49) Glucose 205 70-110 complet BldC 013 mg/dl ed Glucomt 20:49 r-[facility] BASIC METABOLIC PANEL (03-07-2013 19:05) Glucose 169 [...] 1 ed SerPl-m 19:05 Cnc Glucose BldC [facility]comtr-[facility] (03-07-2013 18:20) Glucose 130 70-110 complet BldC 013 mg/dl ed Glucomt 18:20 r-[facility] Glucose BldC [facility]tr-[facility] (03-07-2013 17:12) Glucose 83 70-110 complet BldC 013 mg/dl ed Glucomt 17:12 r-[facility] Glucose BldC [facility]comtr-[facility] (03-07-2013 14:46) Glucose 77 70-110 complet BldC 013 mg/dl ed Glucomt 14:46 [facility] BASIC METABOLIC PANEL (03-07-2013 12:00) Glucose 94 [...] complet 013 mg/dL 1 ed SerPl-m 12:00 [facility] Glucose dC [facility] (03-07-2013 11:56) Glucose 127 70-110 complet BldC 013 mg/dl ed Glucomt 11:56 [facility] BASIC METABOLIC PANEL (03-07-2013 08:40) Glucose 164 [...] 013 than 50 ed Glucomt 11:41 mg/dl r-[facility] Glucose dC Glucomtr-[facility] (12-11-2012 06:42) Glucose 340 70-110 High complet BldC 013 mg/dl alert ed Glucomt 06:42 r-[facility] BASIC METABOLIC PANEL (12-11-2012 05:18) Glucose 322 [...] K/MM3 ed Bld 05:18 Auto Glucose BldC [facility]comtr-[facility] (12-11-2012 03:35) Glucose 12-11-2 72 70-110 complet [...] K/MM3 ed Bld 21:20 Auto Glucose BldC Glucomtr-[facility] (12-10-2012 21:01) Glucose 407 70-110 High complet BldC 013 mg/dl alert ed Glucomt 21:01 r-[facility] ARTERIAL BLOOD GAS (12-10-2012 21:00) ARTERIA 7.44 [...] Brandt MD (IN) 3 21:12 3 13:30 [facility] Emergency AUTUMN Anguiano (ER) 3 21:24 3 23:59 [facility] Emergency AUTUMN Brandt MD (ER) 3 15:41 3 18:00 [facility] Inpatient HUNTER Rees (IN) 3 01:46 3 11:10 [facility] Inpatient HUNTER Rees ([place]) 3 20:16 3 15:20 [facility]
[2017-08-11 20:18] LABS: URINE BILIRUBIN - DIPSTICK NEGATIVE (NEG); URINE BLOOD 3+ (NEG)
[2017-08-11 20:19] LABS: VENOUS ABE -7.9 MMOL/L (-2.4-2.3); VENOUS O2 SAT 79.7 % (75-80); VENOUS TCO2 19.2 MMOL/L (23-27)
--- OUTSIDE RECORDS SUMMARY | 2017-08-11 20:21 | External Medical Summary Rpt | CCD ---
Demographics Preferred Language Hong Konger Marital Status Unknown Orthodoxy Affiliation Unknown Race Unknown Ethnic Group Unknown Author Author , VIRGILIO POOLE Address Unknown Phone [email or web address] Care Team Providers Care Seed Trucker Name Role Phone [facility], Unavailable Unavailable [facility] Unavailable Unavailable [place], [facility] [place] [facility] # Unavailable Unavailable [id number], [facility] # 51866 [facility] Unavailable Unavailable [id number] # 0391, [facility] 62[address] # 0391 [facility] Unavailable Unavailable 69[address] # 0393, [facility] 84[address] # 0393 [facility], Unavailable Unavailable [facility] #[id number] # Unavailable Unavailable [id number], [facility] #[id number] # [id number] [facility]92 # Unavailable Unavailable 4892, [facility]4892 # 4892 [facility]74 # Unavailable Unavailable 5574, [facility] #5574 # 5574 [facility], Unavailable Unavailable [facility] Purpose Continuity of Care Document - 11-27-2009 through 2016 Medications Na ND Rx Da Fi Fi Am Da Di Ph RX Ph St me C No te ll ll ou ys ag ar # ys at rm s nt no ma ic us Or Da si cy ia de te s n re d LA 00 10 10 0 20 20 WI 38 HU Ac NT 08 -0 -0 .0 0 LS 76 NT ti US 82 6- 6- 00 ON 52 ER ve 22 20 20 [address] NA 0 3 UG NC UN Y IT IN C /M C L AL BD 08 10 10 0 30 30 WI 38 HU Ac 29 -0 -0 .0 LS 76 NT ti SY 03 6- 6- 00 ON 53 ER ve R 28 20 20 0[address] NA 3 0 UG NC ML Y IN C 8M C MX 31 G (1 /2 ) FL 59 10 10 3 1. 1 WI 38 CL Ac UC 76 -0 -0 00 LS 74 AR ti ON 25 4- 4- 0 ON 01 KE ve AZ 01 20 20 OL [address] DURBIN 1 UG RE 15 K 0 IN J MG C TA BL ET TE 00 10 10 2 20 3 WI 38 CL Ac RC 59 -0 -0 .0 LS 74 AR ti ON 13 4- 4- 00 ON 02 KE ve AZ 19 20 20 OL [address] DURBIN 2 UG RE 0. K 8% IN J C CR EA M 00 10 10 0 5. 1 WI 38 BE Ac 59 -0 -0 00 LS 74 SS ti 10 4- 4- 0 ON 15 ON ve 34 20 [address] 5 UG EP HE IN N C A 68 09 09 0 10 5 EA 24 GR Ac 82 -2 -[address] 26 AY ti 00 7- 7- 00 SI 47 ve 06 20 20 DE RO 30 11 11 BE 9 PH RT AR B MA CY OF CY NT HI AN A AB 59 08 09 1 30 30 WI 38 BE Ac IL 14 -0 -2 .0 LS 01 SS ti IF 80 1- 6- 00 ON 89 ON ve Y 00 20 20 [address] 3 UG EP MG HE IN N TA C A BL ET AB 59 09 09 5 30 30 RI 89 FL Ac IL 14 -2 -2 .0 TE 98 OR ti IF 80 1- 1- 00 75 EN ve Y 01 20 20 AI CE 20 01 11 11 D 3 PH SA MG AR RA MA H TA CY L BL ET 03 93 8 # 03 93 RA 11 09 09 1 30 30 RI 89 FL Ac 82 -2 -2 .0 TE 98 OR ti LO 23 1- 1- 00 76 EN ve RA 31 20 20 AI CE TA 55 11 11 D -D 0 PH SA AR RA 24 MA H -H CY L OU R 03 TA 93 BL 8 ET # 03 93 DO 00 09 09 0 14 7 WI 38 CL Ac XY 14 -1 -1 .0 LS 52 AR ti CY 33 5- 5- 00 ON 87 KE ve CL 14 20 20 IN [address] DURBIN 5 UG RE HY K CL IN J AT C E 10 0 MG CA P ON 53 01 09 1. 30 RI 89 BE Ac ET 88 -2 -1 00 TE 90 SS ti OU 50 6- 4- 0 07 ON ve CH 41 20 20 AI [address] UL 1 PH EP TR AR HE AM MA N IN CY A I ME 03 TE 93 R 8 # 03 93 ON 53 09 09 5 10 33 RI 45 BE Ac ET 88 -1 -1 0. TE 61 SS ti OU 50 4- 4- 00 43 ON ve CH 24 20 20 0 AI [address] UL 0 PH EP TR AR HE A MA N TE CY A ST 03 ST 91 RI 4 PS # 03 91 ON 53 09 09 5 10 33 RI 45 BE Ac ET 88 -1 -1 0. TE 61 SS ti OU 50 4- 4- 00 44 ON ve CH 39 20 20 0 AI [address] UL 0 PH EP TR AR HE MA N OF CY A T LA 03 NC 91 ET 4 S # 03 91 AB 59 08 08 0 30 30 WI 38 FL Ac IL 14 -0 -0 .0 LS 01 OR ti IF 80 1- 1- 00 ON 89 EN ve Y 00 20 20 CE [address] Major UG SA MG RA IN H TA C L BL ET ON 07 1 10 30 RI 89 BE Ac ET 88 -2 -2 0. TE 24 SS ti OU 50 3- 6- 00 30 ON ve CH 39 20 20 0 AI [address] UL 0 PH EP TR AR HE MA N OF CY A T LA 03 NC 93 ET 8 S # 03 93 ON 07 1 10 30 RI 89 BE Ac ET 88 -2 -2 0. TE 24 SS ti OU 50 3- 6- 00 28 ON ve CH 24 20 20 0 AI [address] UL 0 PH EP TR AR HE A MA N TE CY A ST 03 ST 93 RI 8 PS # 03 93 ON 53 06 3 10 20 SO 37 MC Ac ET 88 -2 -2 0. PE 43 KE ti OU 50 4- 1- 00 RS 78 AR ve CH 24 20 20 0 E 51 11 11 FA JR UL 0 AR TR LY WI A LL TE DR SANDRO HUFF M F ST RI PS ON 06 3 10 20 SO 37 MC Ac ET 88 -2 -2 0. PE 43 KE ti OU 50 4- 1- 00 RS 79 AR ve CH 39 20 20 0 E 31 11 11 FA JR UL 0 AR TR LY WI LL OF DR SANDRO MAYER F NC ET S ON 53 05 3 10 20 SO 37 MC Ac ET 88 -2 -2 0. PE 43 KE ti OU 50 4- 4- 00 RS 79 AR ve CH 39 20 20 0 E 31 11 11 FA JR UL 0 AR TR LY WI LL OF DR SANDRO Chakraborty LA F NC ET S ON 53 05 3 10 20 SO 37 MC Ac ET 88 -2 -2 0. PE 43 KE ti OU 50 4- 4- 00 RS 78 AR ve CH 24 20 20 0 E 51 11 11 FA JR UL 0 AR TR LY WI A LL TE DR IA ST UG M F ST RI PS CY 59 05 05 2 90 30 SO 37 MC Ac CL 74 -2 -2 .0 PE 43 KE ti OB 60 4- 4- 00 RS 77 AR ve EN 17 20 20 E ZA 71 11 11 FA JR MS 0 AR IN LY WI E LL 10 DR IA UG M MG F TA BL ET OX 00 04 04 0 10 4 WI 37 MA Ac YC 60 -2 -2 .0 LS 03 X ti OD 34 9- 9- 00 ON 28 DO ve ON 99 20 20 NA E- [address] LD AC 8 UG P ET AM IN IN C OP HE N 5- 32 5 00 04 04 0 15 3 WI 36 MA Ac 59 -2 -2 .0 LS 99 X ti 10 6- 6- 00 ON 25 DO ve 54 20 20 NA [address] LD 5 UG P IN C CL 63 04 04 0 12 3 WI 36 MA Ac IN 30 -2 -2 .0 LS 99 X ti DA 40 6- 6- 00 ON 24 DO ve MY 69 20 20 NA CI [address] LD N 1 UG P HC L IN 15 C 0 MG CA PS UL E 00 04 04 0 15 3 WI 36 MA Ac 59 -2 -2 .0 LS 99 X ti 10 6- 6- 00 ON 25 DO ve 54 20 20 NA [address] LD 5 UG P IN C ON 53 01 04 3 10 30 RI 42 BE Ac ET 88 -2 -2 0. TE 86 SS ti OU 50 3- 4- 00 14 ON ve CH 24 20 20 0 AI [address] UL 0 PH EP TR AR HE A MA N TE CY A ST 03 ST 91 RI 4 PS # 03 91 ON 53 01 04 3 10 30 RI 42 BE Ac ET 88 -2 -2 0. TE 86 SS ti OU 50 3- 4- 00 15 ON ve CH 39 20 20 0 AI [address] UL 0 PH EP TR AR HE MA N OF CY A T LA 03 NC 91 ET 4 S # 03 91 00 04 04 0 15 2 WA 13 MA Ac 59 -2 -2 .0 LG 02 X ti 10 0- 0- 00 RE 30 DO ve 38 20 20 EN 0 NA 50 11 11 S LD 5 #1 P 02 06 # 10 20 6 00 04 04 0 15 2 WA 13 MA Ac 59 -2 -2 .0 LG 02 X ti 10 0- 0- 00 RE 30 DO ve 38 20 20 EN 0 NA 50 11 11 S LD 5 #1 P 02 06 # 10 20 6 AM 00 04 04 0 21 7 WA 13 MA Ac OX 09 -2 -2 .0 LG 02 X ti IC 33 0- 0- 00 RE 29 DO ve IL 10 20 20 EN 8 NA LI 70 11 11 S LD N 5 #1 P 25 02 0 06 MG # CA 10 PS 20 UL 6 E 00 04 04 0 24 3 KR 45 ME Ac 40 -1 -1 .0 OG 71 AD ti 60 6- 6- 00 ER 51 E ve [address] 70 11 11 PH EV 5 AR EN MA D CY # 24 35 2 CH 00 04 04 0 47 15 KR 64 DO Ac LO 11 -1 -1 3. OG 77 WE ti RH 62 6- 6- 00 ER 57 LL ve EX 00 20 20 0 7 ID 11 11 11 PH JR IN 6 AR E MA RO 0. CY NA 12 # LD % W RI 24 NS 35 E 2 CL 63 04 04 0 21 7 KR 64 DO Ac IN 30 -1 -1 .0 OG 77 WE ti DA 40 6- 6- 00 ER 57 LL ve MY 69 20 20 6 CI 30 11 11 PH JR N 1 AR HC MA RO L CY NA 30 # LD 0 W MG 24 35 CA 2 PS UL E 00 04 04 8. 2 RI 43 SM Ac 60 -1 -1 00 TE 85 IT ti 33 3- 3- 0 50 H ve 88 20 20 AI DO 12 11 11 D UG 8 PH LA AR S MA F CY 03 91 4 # 03 91 TR 65 04 04 0 24 4 WI 36 KI Ac AM 16 -1 -1 .0 LS 82 NG ti AD 20 1- 1- 00 ON 43 ve OL 62 20 20 MA [address] RK HC 1 UG A L 50 IN C MG TA BL ET 00 04 04 0 12 2 WI 36 NE Ac 59 -0 -0 .0 LS 81 WM ti 10 8- 8- 00 ON 25 AN ve 34 20 [address] AN 5 UG NA E IN C 00 04 04 0 12 2 WI 36 NE Ac 59 -0 -0 .0 LS 78 WM ti 10 6- 6- 00 ON 59 AN ve 34 20 [address] AN 5 UG NA E IN C AZ 00 04 04 0 6. 5 WI 36 No Ac IT 78 -0 -0 00 LS 78 t ti HR 11 6- 6- 0 ON 60 Av ve OM 49 20 20 ai YC [address] la IN 8 UG bl e 25 IN 0 C MG TA BL ET 00 02 02 0 30 5 WI 36 CL Ac 59 -2 -2 .0 LS 32 AR ti 10 3- 3- 00 ON 34 KE ve 38 20 [address] DE 5 UG RE K IN J C SM 49 02 02 1 25 13 EA 21 CL Ac 34 -1 -[address] 30 AR ti GE 80 8- 8- 00 SI 45 KE ve NT 59 20 20 DE LE 90 11 11 DE 5 PH RE LA AR K XA MA J TI CY VE OF EC 5 CY NT MG HI AN TA A B [place] 53 02 02 0 20 10 WI 36 CL Ac LF 74 -1 -1 .0 LS 17 AR ti AM 60 1- - 00 ON 73 KE ve ET 27 20 20 HO [address] DE XA 5 UG RE ZO K LE IN J -T C MP DS TA BL ET 00 02 02 0 20 5 WI 36 CL Ac 59 -0 -0 .0 LS 10 AR ti 10 4- 4- 00 ON 33 KE ve 38 20 [address] DE 5 UG RE K IN J C ME 29 01 01 0 30 30 WI 36 FL Ac LO 30 -3 -3 .0 LS 04 OR ti XI 00 1 ON 06 EN ve CA 12 20 20 CE M [address] 15 0 UG SA RA MG IN H C L TA BL ET PA 65 01 01 0 30 30 WI 36 FL Ac RO 86 -3 -3 .0 LS 04 OR ti XE 20 1- - ON 05 EN ve TI 15 20 20 CE NE [address] 0 UG SA HC RA L IN H 30 C L MG TA BL ET BD 08 01 01 3 12 30 RI 42 BE Ac 29 -2 -2 0. TE 86 SS ti SY 03 3- 3- 00 16 ON ve RI 28 20 20 0 AI NG [address] E 6 PH EP 0. AR HE 5 MA N ML CY A 12 03 .7 91 MM 4 X3 # 0G 03 91 NO 00 01 01 3 20 30 RI 42 BE Ac VO 16 -2 -2 .0 TE 86 SS ti LO 93 3- 3- 00 17 ON ve G 68 20 20 AI AR [address] X 2 PH EP 70 AR HE -3 MA N 0 CY A AL 03 91 4 # 03 91 HY 00 01 01 20 7 RI [address] 60 -2 -2 .0 TE 85 SS ti OC 33 3- 3- 00 98 ON ve OD 89 20 20 AI ON [address] E- 1 PH EP IB AR HE UP MA N RO CY A FE N 03 7. 91 5- 4 20 # 0 03 91 CI 65 01 01 14 7 RI 42 BE Ac MS 86 -2 -2 .0 TE 86 SS ti OF 20 3- 3- 00 00 ON ve LO 07 20 20 AI XA [address] CI 1 PH EP N AR HE HC MA N L CY A 50 0 03 MG 91 4 TA # B 03 91 ON 53 01 01 3 10 30 RI 42 BE Ac ET 88 -2 -2 0. TE 86 SS ti OU 50 3- 3- 00 14 ON ve CH 24 20 20 0 AI [address] UL 0 PH EP TR AR HE A MA N TE CY A ST 03 ST 91 RI 4 PS # 03 91 ON 53 01 01 3 10 30 RI 42 BE Ac ET 88 -2 -2 0. TE 86 SS ti OU 50 3- 3- 00 15 ON ve CH 39 20 20 0 AI [address] UL 0 PH EP TR AR HE MA N OF CY A T LA 03 NC 91 ET 4 S # 03 91 [place] 00 01 01 0 20 10 WI 35 HU Ac LF 60 -1 -1 .0 LS 90 NT ti AM 35 8- 8- 00 ON 09 ER ve ET 78 20 20 HO [address] NA XA 8 UG NC ZO Y LE IN C -T C MP DS TA BL ET CE 65 01 01 0 20 10 WI 35 BE Ac FD 86 -0 -0 .0 LS 77 SS ti IN 20 5- 5- 00 ON 32 ON ve IR 17 20 [address] 30 0 UG EP 0 HE MG IN N C A CA PS UL E 60 01 01 0 12 2 WI 35 BE Ac 25 -0 -0 0. LS 77 SS ti 80 5- 5- 00 ON 33 ON ve 23 20 20 [address] 6 UG EP HE IN N C A DI 16 12 12 0 60 30 WI 35 BE Ac CL 57 -2 -2 .0 LS 69 SS ti OF 10 9- 9- 00 ON 53 ON ve EN 20 20 20 AC [address] 0 UG EP SO HE D IN N EC C A 75 MG TA B PO 51 12 12 0 52 30 WI 35 BE Ac LY 99 -2 -2 7. LS 69 SS ti ET 10 ON 55 ON ve HY 45 20 20 0 LE [address] NE 7 UG EP HE GL IN N YC C A OL 33 50 PO WD ET 00 12 12 0 60 30 WI 35 BE Ac OD 09 -2 -2 .0 LS 61 SS ti OL 30 1- ON 10 ON ve AC 89 20 [address] 40 1 UG EP 0 HE MG IN N C A TA BL ET AB 59 12 12 0 30 30 WI 35 BE Ac IL 14 -2 -2 .0 LS 61 SS ti IF 80 1- ON 09 ON ve Y 00 20 20 [address] MG 3 UG EP HE TA IN N BL C A ET CY 00 12 12 0 30 15 WI 35 HU Ac CL 60 -1 -1 .0 LS 50 NT ti OB 33 0- 0- 00 ON 40 ER ve EN 07 20 20 ZA [address] NA MS 8 UG NC IN Y E IN C 5 C MG TA BL ET AL 59 11 12 0 90 30 WI 35 BE Ac MS 76 -2 -0 .0 LS 32 SS ti AZ 23 3- 7- 00 ON 26 ON ve OL 72 20 20 AM [address] 4 UG EP 0. HE 5 IN N MG C A TA BL ET PA 13 11 11 2 30 30 WI 35 BE Ac RO 10 -2 -2 .0 LS 32 SS ti XE 70 3- 3- 00 ON 19 ON ve TI 15 20 20 NE [address] 9 UG EP HC HE L IN N 20 C A MG TA BL ET AL 59 11 11 0 90 30 WI 35 BE Ac MS 76 -2 -2 .0 LS 31 SS ti AZ 23 3- 3- 00 ON 05 ON ve OL 71 20 20 AM [address] 4 UG EP 0. HE 25 IN N C A MG TA BL ET ME 00 11 11 0 21 6 EA 19 MC Ac TH 78 -1 -[address] 98 KE ti YL 15 5- 5- 00 SI 62 AR ve MS 02 20 20 DE E ED 20 10 10 JR NI 7 PH SO AR WI LO MA LL NE CY IA 4 M OF F MG CY DO NT SE HI PK AN A 00 11 11 1 30 6 EA 19 MC Ac 59 -0 -[address] 86 KE ti 10 6- 6- 00 SI 68 AR ve 34 20 20 DE E 90 10 10 JR 1 PH AR WI MA LL CY IA M OF F CY NT HI AN A 00 11 11 0 8. 2 EA 19 WE Ac 59 -0 -[address] 86 HR ti 10 5- 5- 0 SI 15 MA ve 34 20 20 DE N 90 10 10 II 1 PH I AR WI MA LL CY IA M OF E CY NT HI AN A 00 10 10 0 20 2 WA 88 PE Ac 59 -2 -2 .0 LG 04 RE ti 10 0- 1- 00 RE 59 Z, ve 74 20 20 EN 90 10 10 S JR 5 #5 ., 57 4 DO # 55 OS 74 CA R O CE 00 10 10 21 7 RI 85 MC Ac PH 14 -1 -1 .0 TE 40 KE ti AL 39 4- 4- 00 14 AR ve EX 89 20 20 AI E IN 70 10 10 D JR 1 PH 50 AR WI 0 MA LL MG CY IA M CA 03 F PS 93 UL 8 E # 03 93 ME 59 10 10 3 1. 30 CL [address] 76 -1 -1 00 IN 48 AR ti OX 24 2- 2- 0 IC 60 KE ve YP 53 20 20 RO 70 10 10 PH DE GE [address] MA K ER CY J ON E LL 15 C 0 MG /M L 00 10 10 0 12 2 EA 19 SC Ac 59 -1 -[address] 51 HU ti 10 2- 2- 00 SI 76 LS ve 34 20 20 DE TA 90 10 10 D 1 PH CA AR MP MA BE CY LL K OF CY NT HI AN A MS 00 10 10 0 20 5 EA 19 HU Ac OM 78 -0 -[address] 46 NT ti ET 11 8- 8- 00 SI 21 ER ve KHAN 83 20 20 DE ZI 01 10 10 NA NE 0 PH NC AR Y 25 MA C CY MG OF TA BL CY ET NT HI AN A CE 00 09 09 1 20 10 RI 41 No Ac FD 78 -2 -2 .0 TE 51 t ti IN 12 3- 3- 00 97 Av ve IR 17 20 20 AI ai 66 10 10 D la 30 0 PH bl 0 AR e MG MA CY CA PS 03 UL 91 E 4 # 03 91 00 07 09 5 90 30 WI 34 CL Ac 17 -2 -0 .0 LS 44 AR ti 25 3- 1- 00 ON 36 KE ve 66 20 [address] DE 0 UG RE K IN J C 00 08 08 30 5 RI 41 CL Ac 60 -2 -2 .0 TE 15 AR ti 33 3- 3- 00 52 KE ve 88 20 20 AI 12 10 10 D DE 8 PH RE AR K MA J CY 03 91 4 # 03 91 00 08 08 30 5 RI 41 CL Ac 60 -1 -1 .0 TE 09 AR ti 33 7- 7- 00 76 KE ve 88 20 20 AI 12 10 10 D DE 8 PH RE AR K MA J CY 03 91 4 # 03 91 DO 00 08 08 1 60 30 RI 41 No Ac CU 53 -1 -1 .0 TE 06 t ti SA 63 0- 4- 00 96 Av ve TE 75 20 20 AI ai 70 10 10 D la SO 1 PH bl DI AR e UM MA CY 25 0 03 MG 91 4 CA # PS 03 UL 91 E IB 53 08 08 1 60 15 RI 41 No Ac UP 74 -1 -1 .0 TE 06 t ti RO 60 0- 4- 00 97 Av ve FE 46 20 20 AI ai N 50 10 10 D la 60 5 PH bl 0 AR e MG MA CY TA BL 03 ET 91 4 # 03 91 MS 60 08 08 10 30 30 RI 41 No Ac EN 25 -1 -1 .0 TE 06 t ti AT 80 0- 4- 00 98 Av ve AL 19 20 20 AI ai 40 10 10 D la AD 9 PH bl AR e TA MA BL CY ET 03 91 4 # 03 91 OX 00 08 08 25 2 RI 41 No Ac YC 60 -1 -1 .0 TE 06 t ti OD 34 0- 4- 00 99 Av ve ON 99 20 20 AI ai E- 82 10 10 D la AC 1 PH bl ET AR e AM MA IN CY OP HE 03 N 91 5- 4 32 # 5 03 91 NI 00 08 08 1 30 30 RI 41 No Ac FE 09 -1 -1 .0 TE 06 t ti DI 35 2- 4- 00 95 Av ve CA 17 20 20 AI ai L 30 10 10 D la XL 1 PH bl AR e 60 MA CY MG 03 TA 91 BL 4 ET # 03 91 00 08 08 0 15 2 KR 45 CH Ac 40 -0 -0 .0 OG 64 AM ti 60 5- 5- 00 ER 98 BE ve 35 20 20 6 RL 70 10 10 PH AI 5 AR N MA JE CY FF # RE Y 24 D 35 2 00 07 07 6 90 30 RI 84 CL Ac 17 -2 -2 .0 TE 27 AR ti 25 3- 3- 00 95 KE ve 66 20 20 AI 46 10 10 D DE 0 PH RE AR K MA J CY 03 93 8 # 03 93 TR 00 07 07 30 5 RI 40 CL Ac AM 09 -2 -2 .0 TE 84 AR ti AD 30 2- 2- 00 44 KE ve OL 05 20 20 AI 80 10 10 D DE HC 1 PH RE L AR K 50 MA J CY MG 03 TA 91 BL 4 ET # 03 91 NI 00 07 07 2 12 30 RI 40 KHAN Ac FE 22 -1 -2 0. TE 83 NS ti DI 82 9- 2- 00 30 EN ve PI 53 20 20 0 AI NE 01 10 10 D WE 0 PH ND 20 AR Y MA F MG CY CA 03 PS 91 UL 4 E # 03 91 GL 00 07 07 3 60 30 RI 40 KHAN Ac YB 09 -1 -2 .0 TE 83 NS ti UR 39 9- 1- 00 28 EN ve ID 36 20 20 AI E 41 10 10 D WE 5 0 PH ND MG AR Y MA F TA CY BL ET 03 91 4 # 03 91 SE 59 06 06 5 15 30 RI 40 CL Ac RT 76 -2 -2 .0 TE 52 AR ti RA 24 1- 1- 00 67 KE ve LI 91 20 20 AI NE 00 10 10 D DE 1 PH RE HC AR K L MA J 10 CY 0 MG 03 91 TA 4 BL # ET 03 91 LO 00 06 06 2 30 30 RI 40 FL Ac RA 78 -1 -1 .0 TE 41 OR ti TA 15 0- 0- 00 87 EN ve DI 07 20 20 AI CE NE 70 10 10 D 1 PH SA 10 AR RA MA H MG CY L TA 03 BL 91 ET 4 # 03 91 NI 00 06 06 20 10 RI 83 KHAN Ac TR 37 -0 -0 .0 TE 72 RP ti OF 83 8- 8- 00 42 EL ve UR 42 20 20 AI AN 20 10 10 D GE TO 1 PH RA IN AR LD MA R MO CY NO -M 03 CR 93 8 10 # 0 03 MG 93 00 05 05 9 30 30 RI 40 CL Ac 67 -2 -2 .0 TE 23 AR ti 70 4- 4- 00 04 KE ve 07 20 20 AI 00 10 10 D DE 1 PH RE AR K MA J CY 03 91 4 # 03 91 NI 00 05 05 20 10 RI 40 CL Ac TR 37 -2 -2 .0 TE 23 AR ti OF 83 4- 4- 00 06 KE ve UR 42 20 20 AI AN 20 10 10 D DE TO 1 PH RE IN AR K MA J MO CY NO -M 03 CR 91 4 10 # 0 03 MG 91 TE 00 05 05 12 20 RI 40 CL Ac RB 52 -2 -2 0. TE 21 AR ti UT 71 1- 1- 00 00 KE ve AL 31 20 20 0 AI IN 80 10 10 D DE E 1 PH RE [place] AR K LF MA J AT CY E 2. 03 5 91 MG 4 # TA 03 B 91 CE 00 04 04 20 10 RI 39 BE Ac FD 78 -2 -2 .0 TE 94 SS ti IN 12 7- 7- 00 58 ON ve IR 17 20 20 AI [address] 30 0 PH EP 0 AR HE MG MA N CY A CA PS 03 UL 91 E 4 # 03 91 00 04 04 3. 10 RI 39 BE Ac GA 06 -2 -2 00 TE 94 SS ti MO 54 7- 7- 0 61 ON ve X 01 20 20 AI 0. [address] 5% 3 PH EP AR HE EY MA N E CY A DR OP 03 S 91 4 # 03 91 NI 00 04 04 20 10 RI 39 HU Ac TR 37 -2 -2 .0 TE 90 NT ti OF 83 2- 2- 00 52 ER ve UR 42 20 20 AI AN 20 10 10 D NA TO 1 PH NC IN AR Y MA C MO CY NO -M 03 CR 91 4 10 # 0 03 MG 91 LO 00 04 04 8 12 30 RI 39 CL Ac VE 07 -1 -1 .0 TE 83 AR ti NO 50 6- 6- 00 68 KE ve X 62 20 20 AI 40 04 10 10 D DE 0 PH RE MG AR K /0 MA J .4 CY ML 03 91 SY 4 RI # NG 03 E 91 00 04 04 20 5 RI 39 KHAN Ac 14 -0 -0 .0 TE 69 RP ti 31 2- 2- 00 61 EL ve 78 20 20 AI 50 10 10 D GE 1 PH RA AR LD MA R CY 03 91 4 # 03 91 00 03 03 0 15 2 WA 28 WI Ac 59 -2 -2 .0 LG 58 LD ti 10 3- 3- 00 RE 03 ER ve 34 20 20 EN 2 90 10 10 S CHARLES 5 #4 KE 89 J 2 # 48 92 OX 00 03 03 0 16 4 WA 28 DA Ac 59 -1 -1 .0 LG 54 LE ti OD 10 4 00 RE 87 ve ON 93 20 20 EN 4 II -A 30 10 10 S CE 1 #4 TH TA 89 OM AR 2 NO # PH 48 EN 92 7. 5- 32 5
--- OUTSIDE RECORDS SUMMARY | 2017-08-11 20:21 | External Medical Summary Rpt | CCD ---
Demographics Preferred Language Mexican Marital Status Unknown Moravian Affiliation Unknown Race Unknown Ethnic Group Unknown Author Author , VIRIGLIO POOLE Address Unknown Phone [email or web address] Care Team Providers Care District Court Judge Name Role Phone [facility] Unavailable Unavailable [facility] Unavailable Unavailable [place], [facility] [place] [facility] # Unavailable Unavailable [id number], [facility] # 40119 [facility] Unavailable Unavailable [address] # 0391, [facility] 309[address] # 0391 [facility] Unavailable Unavailable [address] # 0393, [facility] [address] # 0393 [facility], Unavailable Unavailable [facility] #[id number] # Unavailable Unavailable [id number], [facility] #46915 # 19136 [facility] #4892 # Unavailable Unavailable 4892, [facility] #4892 # 4892 [facility] #5574 # Unavailable Unavailable 5574, [facility] #5574 # 5574 [employer] [facility], Unavailable Unavailable [facility] Purpose Continuity of Care Document [...] OU 50 4- 1- 00 RS 78 NH ve CH 24 20 20 0 E 51 11 11 FA JR UL 0 NH TR LY WI A LL TE DR SANDRO HUFF M F ST RI PS ON 06 3 10 20 SO 37 MC Ac ET 88 -2 -2 0. PE 43 KE ti OU 50 4- 1- 00 RS 79 NH ve CH 39 20 20 0 E 31 11 11 FA JR UL 0 NH TR LY WI LL OF DR SANDRO MAYER F NC ET S ON 53 05 3 10 20 SO 37 MC Ac ET 88 -2 -2 0. PE 43 KE ti OU 50 4- 4- 00 RS 79 NH ve CH 39 20 20 0 E 31 11 11 FA JR UL 0 NH TR LY WI LL OF DR SANDRO Chakraborty LA F NC ET S ON 53 05 3 10 20 SO 37 MC Ac ET 88 -2 -2 0. PE 43 KE ti OU 50 4- 4- 00 RS 78 NH ve CH 24 20 20 0 E 51 11 11 FA JR UL 0 NH TR LY WI A LL TE DR IA ST UG M F ST RI PS CY 59 05 05 2 90 30 SO 37 MC Ac CL 74 -2 -2 .0 PE 43 KE ti OB 60 4- 4- 00 RS 77 NH ve EN 17 20 20 E ZA 71 11 11 FA JR MI 0 NH IN LY WI E LL 10 DR [...] ON ve G 68 20 20 AI NH [address] X 2 [...] 01 14 7 RI 42 BE Ac MI 86 -2 -2 .0 TE 86 SS [...] 20 ZA [address] NA MI 8 UG NC IN Y E IN C 5 C MG TA BL ET AL 59 11 12 0 90 30 WI 35 BE Ac MI 76 -2 -0 .0 LS 32 SS [...] 0 90 30 WI 35 BE Ac MI 76 -2 -2 .0 LS 31 SS [...] YL 15 5- 5- 00 SI 62 NH ve MI 02 20 20 DE E ED 20 10 10 JR NI 7 PH SO AR WI LO MA LL NE CY IA 4 M OF F MG CY DO NT SE HI PK AN A 00 11 11 1 30 6 EA 19 MC Ac 59 -0 -[address] 86 KE ti 10 6- 6- 00 SI 68 NH ve 34 20 20 DE E 90 [...] ti AL 39 4- 4- 00 14 NH ve EX 89 20 20 AI E [...] K OF CY NT HI AN A MI 00 10 10 0 20 5 EA [...] 03 ET 91 4 # 03 91 MI 60 08 08 10 30 30 RI [...] CE 1 #4 TH TA 89 OM NH 2 NO # PH 48 EN 92 7. 5- 32 5
--- OUTSIDE RECORDS SUMMARY | 2017-08-11 20:22 | External Medical Summary Rpt | CCD ---
Author Author , VIRGILIO POOLE Address Unknown Phone [email or web address] Support Name Relationship Address Phone WILLY, Next [...]
--- OUTSIDE RECORDS SUMMARY | 2017-08-11 20:22 | External Medical Summary Rpt | CCD ---
Author Author , VIRGILIO POOLE Address Unknown Phone [email or web address] Support Name Relationship Address Phone WILLY, Next [...]
--- OUTSIDE RECORDS SUMMARY | 2017-08-11 20:27 | External Medical Summary Rpt ---
Author Author [facility]IR[facility] Finn, LEXISANGELES [employer] Organization [employer] Address Unknown Phone Unavailable Results Glucose [Mass/volume] in Capillary blood by Glucometer Observa Value Referen Units Interpr Notes Date tion ce etation Range Glucose 70 - 110 mg/dl High No Oct 16 [Mass/vol informati 2016 ume] in on in 11:45 AM Capillary source blood by data Glucomete r Basic metabolic panel in Blood Observa Value Referen Units Interpr Notes Date tion ce etation Range Urea 7 - 18 mg/dL Normal No Oct 16 nitrogen informati 2017 9:00 [Mass/vol on in AM ume] in source Serum or data Plasma Calcium 8.5 - mg/dL Low No Oct 16 [Mass/vol 10.1 informati 2017 9:00 ume] in on in AM Serum or source Plasma data Chloride 98 - 107 mmoL/L High No Oct 16 [Moles/vo informati 2017 9:00 lume] in on in AM Serum or source Plasma data Carbon 21.0 - mmoL/L Normal No Oct 16 dioxide, 32.0 informati 2017 9:00 total on in AM [Moles/vo source lume] in data Serum or Plasma Creatinin 0.55 - mg/dL Normal No Oct 16 e 1.02 informati 2017 9:00 [Mass/vol on in AM ume] in source Serum or data Plasma Creatinin 50 - 200 ML/MIN Normal No Oct 16 e renal informati 2017 9:00 clearance on in AM source predicted data by Cockcroft -Gault formula Estimated 59- ML/MIN No REFERENCE Oct 16 informati RANGE: 2017 9:00 glomerula on in >60 AM r source ML/MIN/1. filtratio data 73 SQUARE n rate METERSIf (GF this patient is -A merican, then multiply theresult by 1.210. Glucose 74 - 106 mg/dL High No Oct 16 [Mass/vol informati 2017 9:00 ume] in on in AM Serum or source Plasma data Potassium 3.5 - 5.1 mmoL/L Normal No Oct 16 informati 2016 9:00 [Moles/vo on in AM lume] in source Serum or data Plasma Sodium 136 - 145 mmoL/L Normal No Oct 16 [Moles/vo informati 2017 9:00 lume] in on in AM Serum or source Plasma data Glucose [Mass/volume] in Capillary blood by Glucometer Observa Value Referen Units Interpr Notes Date tion ce etation Range Glucose 70 - 110 mg/dl High No Jun 16 [Mass/vol alert informati 2017 6:34 ume] in on in AM Capillary source blood by data Glucomete r Basic metabolic panel in Blood Observa Value Referen Units Interpr Notes Date tion ce etation Range Urea 7 - 18 mg/dL Normal No Jun 16 nitrogen informati 2016 5:10 [Mass/vol on in AM ume] in source Serum or data Plasma Calcium 8.5 - mg/dL Low No Jun 16 [Mass/vol 10.1 informati 2016 5:10 ume] in on in AM Serum or source Plasma data Chloride 98 - 107 mmoL/L Normal No Jun 16 [Moles/vo informati 2016 5:10 lume] in on in AM Serum or source Plasma data Carbon 21.0 - mmoL/L Normal No Jun 16 dioxide, 32.0 informati 2016 5:10 total on in AM [Moles/vo source lume] in data Serum or Plasma Creatinin 0.55 - mg/dL No No Jun 16 e 1.02 informati informati 2016 5:10 [Mass/vol on in on in AM ume] in source source Serum or data data Plasma Creatinin 50 - 200 ML/MIN No No Jun 16 e renal informati informati 2016 5:10 clearance on in on in AM source source predicted data data by Cockcroft -Gault formula Estimated 59- ML/MIN No REFERENCE Oct 16 informati RANGE: 2017 5:10 glomerula on in >60 AM r source ML/MIN/1. filtratio data 73 SQUARE n rate METERSIf (GF this patient is -A merican, then multiply theresult by 1.210. Glucose 74 - 106 mg/dL High No Jun 16 [Mass/vol informati 2016 5:10 ume] in on in AM Serum or source Plasma data Potassium 3.5 - 5.1 mmoL/L Normal No Oct 16 informati 2017 5:10 [Moles/vo on in AM lume] in source Serum or data Plasma Sodium 136 - 145 mmoL/L Normal No Jun 16 [Moles/vo informati 2016 5:10 lume] in on in AM Serum or source Plasma data Acetone [Mass/volume] in Serum or Plasma Observa Value Referen Units Interpr Notes Date tion ce etation Range Acetone NOT No No No Jun 16 [Mass/vol DETECTD informati informati informati 2016 5:10 ume] in on in on in on in AM Serum or source source source Plasma data data data Glucose [Mass/volume] in Capillary blood by Glucometer Observa Value Referen Units Interpr Notes Date tion ce etation Range Glucose 70 - 110 mg/dl High No Jun 15 [Mass/vol informati 2016 7:56 ume] in on in PM Capillary source blood by data Glucomete r Basic metabolic panel in Blood Observa Value Referen Units Interpr Notes Date tion ce etation Range Urea 7 - 18 mg/dL No No Jun 15 nitrogen informati informati 2016 6:00 [Mass/vol on in on in PM ume] in source source Serum or data data Plasma Calcium 8.5 - mg/dL Low No Jun 15 [Mass/vol 10.1 informati 2017 6:00 ume] in on in PM Serum or source Plasma data Chloride 98 - 107 mmoL/L Normal No Jun 15 [Moles/vo informati 2017 6:00 lume] in on in PM Serum or source Plasma data Carbon 21.0 - mmoL/L Normal No Jun 15 dioxide, 32.0 informati 2016 6:00 total on in PM [Moles/vo source lume] in data Serum or Plasma Creatinin 0.55 - mg/dL No No Jun 15 e 1.02 informati informati 2017 6:00 [Mass/vol on in on in PM ume] in source source Serum or data data Plasma Creatinin 50 - 200 ML/MIN No No Jun 15 e renal informati informati 2016 6:00 clearance on in on in PM source source predicted data data by Cockcroft -Gault formula Estimated 59- ML/MIN No REFERENCE Oct 15 informati RANGE: 2017 6:00 glomerula on in >60 PM r source ML/MIN/1. filtratio data 73 SQUARE n rate METERSIf (GF this patient is -A merican, then multiply theresult by 1.210. Glucose 74 - 106 mg/dL High No Jun 30 [Mass/vol informati 2016 6:00 ume] in on in PM Serum or source Plasma data Potassium 3.5 - 5.1 mmoL/L Normal No Jun 30 informati 2016 6:00 [Moles/vo on in PM lume] in source Serum or data Plasma Sodium 136 - 145 mmoL/L Normal No Jun 30 [Moles/vo informati 2016 6:00 lume] in on in PM Serum or source Plasma data Acetone [Mass/volume] in Serum or Plasma Observa Value Referen Units Interpr Notes Date tion ce etation Range Acetone NOT No No No Jun 30 [Mass/vol DETECTD informati informati informati 2016 6:00 ume] in on in on in on in PM Serum or source source source Plasma data data data Glucose [Mass/volume] in Capillary blood by Glucometer Observa Value Referen Units Interpr Notes Date tion ce etation Range Glucose 70 - 110 mg/dl High No Jun 30 [Mass/vol alert informati 2016 5:09 ume] in on in PM Capillary source blood by data Glucomete r Magnesium [Moles/volume] in Unspecified specimen Observa Value Referen Units Interpr Notes Date tion ce etation Range Magnesium 1.4 - 2.2 mg/dL Normal No Jun 30 inform2016 [Moles/vo on in 12:00 PM lume] in source Unspecifi data ed specimen Phosphate [Moles/volume] in Unspecified specimen Observa Value Referen Units Interpr Notes Date tion ce etation Range Phosphate 2.4 - 4.9 mg/dL No No Jun 30 informati informati 2016 [Moles/vo on in on in 12:00 PM lume] in source source Unspecifi data data ed specimen Glucose [Mass/volume] in Capillary blood by Glucometer Observa Value Referen Units Interpr Notes Date tion ce etation Range Glucose 70 - 110 mg/dl High No Jun 30 [Mass/vol informati 2017 ume] in on in 11:58 AM Capillary source blood by data Glucomete r Basic metabolic panel in Blood Observa Value Referen Units Interpr Notes Date tion ce etation Range Urea 7 - 18 mg/dL Low No Jun 30 nitrogen informati 2017 8:59 [Mass/vol on in AM ume] in source Serum or data Plasma Calcium 8.5 - mg/dL Low No Oct 15 [Mass/vol 10.1 informati 2017 8:59 ume] in on in AM Serum or source Plasma data Chloride 98 - 107 mmoL/L High No Oct 15 [Moles/vo informati 2016 8:59 lume] in on in AM Serum or source Plasma data Carbon 21.0 - mmoL/L Normal No Jun 15 dioxide, 32.0 informati 2016 8:59 total on in AM [Moles/vo source lume] in data Serum or Plasma Creatinin 0.55 - mg/dL Normal No Oct 15 e 1.02 informati 2016 8:59 [Mass/vol on in AM ume] in source Serum or data Plasma Creatinin 50 - 200 ML/MIN Normal No Oct 15 e renal informati 2017 8:59 clearance on in AM source predicted data by Cockcroft -Gault formula Estimated 59- ML/MIN No REFERENCE Oct 15 informati RANGE: 2017 8:59 glomerula on in >60 AM r source ML/MIN/1. filtratio data 73 SQUARE n rate METERSIf (GF this patient is -A merican, then multiply theresult by 1.210. Glucose 74 - 106 mg/dL High No Jun 15 [Mass/vol informati 2016 8:59 ume] in on in AM Serum or source Plasma data Potassium 3.5 - 5.1 mmoL/L Normal No Oct 15 informati 2016 8:59 [Moles/vo on in AM lume] in source Serum or data Plasma Sodium 136 - 145 mmoL/L Normal No Jun 15 [Moles/vo informati 2016 8:59 lume] in on in AM Serum or source Plasma data Glucose [Mass/volume] in Capillary blood by Glucometer Observa Value Referen Units Interpr Notes Date tion ce etation Range Glucose 70 - 110 mg/dl High No Jun 15 [Mass/vol alert informati 2017 6:07 ume] in on in AM Capillary source blood by data Glucomete r Basic metabolic panel in Blood Observa Value Referen Units Interpr Notes Date tion ce etation Range Urea 7 - 18 mg/dL Low No Oct 15 nitrogen informati 2017 6:00 [Mass/vol on in AM ume] in source Serum or data Plasma Calcium 8.5 - mg/dL Low No Jun 15 [Mass/vol 10.1 informati 2016 6:00 ume] in on in AM Serum or source Plasma data Chloride 98 - 107 mmoL/L Normal No Jun 15 [Moles/vo informati 2016 6:00 lume] in on in AM Serum or source Plasma data Carbon 21.0 - mmoL/L Low No Jun 30 dioxide, 32.0 informati 2016 6:00 total on in AM [Moles/vo source lume] in data Serum or Plasma Creatinin 0.55 - mg/dL No No Jun 15 e 1.02 informati informati 2017 6:00 [Mass/vol on in on in AM ume] in source source Serum or data data Plasma Creatinin 50 - 200 ML/MIN No No Jun 30 e renal informati informati 2017 6:00 clearance on in on in AM source source predicted data data by Cockcroft -Gault formula Estimated 59- ML/MIN No REFERENCE Jun 30 informati RANGE: 2017 6:00 glomerula on in >60 AM r source ML/MIN/1. filtratio data 73 SQUARE n rate METERSIf (GF this patient is -A merican, then multiply theresult by 1.210. Glucose 74 - 106 mg/dL High Jun 30 [Mass/vol 2016 6:00 ume] in CRITICAL AM Serum or RESULTS Plasma RESU LTS CALLED TO: S CALL DELMI 06/30/17 0630 Vanesa Lange Potassium 3.5 - 5.1 mmoL/L Normal No Jun 30 informati 2016 6:00 [Moles/vo on in AM lume] in source Serum or data Plasma Sodium 136 - 145 mmoL/L Normal No Jun 15 [Moles/vo informati 2016 6:00 lume] in on in AM Serum or source Plasma data Acetone [Mass/volume] in Serum or Plasma Observa Value Referen Units Interpr Notes Date tion ce etation Range Acetone NOT No No No Jun 30 [Mass/vol DETECTD informati informati informati 2016 6:00 ume] in on in on in on in AM Serum or source source source Plasma data data data Magnesium [Moles/volume] in Unspecified specimen Observa Value Referen Units Interpr Notes Date tion ce etation Range Magnesium 1.4 - 2.2 mg/dL Normal No Jun 14 informati 2017 [Moles/vo on in 11:59 PM lume] in source Unspecifi data ed specimen Phosphate [Moles/volume] in Unspecified specimen Observa Value Referen Units Interpr Notes Date tion ce etation Range Phosphate 2.4 - 4.9 mg/dL Low Jun 29 NOTIFICAT 2016 [Moles/vo ION 11:59 PM lume] in RESULT Unspecifi ed specimen Glucose [Mass/volume] in Capillary blood by Glucometer Observa Value Referen Units Interpr Notes Date tion ce etation Range Glucose 70 - 110 mg/dl High No Jun 14 [Mass/vol alert informati 2017 8:16 ume] in on in PM Capillary source blood by data Glucomete r Basic metabolic panel in Blood Observa Value Referen Units Interpr Notes Date tion ce etation Range Urea 7 - 18 mg/dL Low No Jun 14 nitrogen informati 2016 6:03 [Mass/vol on in PM ume] in source Serum or data Plasma Calcium 8.5 - mg/dL Low No Jun 14 [Mass/vol 10.1 informati 2017 6:03 ume] in on in PM Serum or source Plasma data Chloride 98 - 107 mmoL/L Normal No Jun 14 [Moles/vo informati 2017 6:03 lume] in on in PM Serum or source Plasma data Carbon 21.0 - mmoL/L Normal No Jun 14 dioxide, 32.0 informati 2017 6:03 total on in PM [Moles/vo source lume] in data Serum or Plasma Creatinin 0.55 - mg/dL Normal No Jun 14 e 1.02 informati 2017 6:03 [Mass/vol on in PM ume] in source Serum or data Plasma Creatinin 50 - 200 ML/MIN Normal No Jun 14 e renal informati 2017 6:03 clearance on in PM source predicted data by Cockcroft -Gault formula Estimated 59- ML/MIN No REFERENCE Oct 14 informati RANGE: 2017 6:03 glomerula on in >60 PM r source ML/MIN/1. filtratio data 73 SQUARE n rate METERSIf (GF this patient is -A merican, then multiply theresult by 1.210. Glucose 74 - 106 mg/dL High No Jun 14 [Mass/vol informati 2017 6:03 ume] in on in PM Serum or source Plasma data Potassium 3.5 - 5.1 mmoL/L Normal No Jun 14 informati 2017 6:03 [Moles/vo on in PM lume] in source Serum or data Plasma Sodium 136 - 145 mmoL/L Normal No Jun 14 [Moles/vo informati 2017 6:03 lume] in on in PM Serum or source Plasma data Acetone [Mass/volume] in Serum or Plasma Observa Value Referen Units Interpr Notes Date tion ce etation Range Acetone NOT No No No Jun 14 [Mass/vol DETECTD informati informati informati 2017 6:03 ume] in on in on in on in PM Serum or source source source Plasma data data data Glucose [Mass/volume] in Capillary blood by Glucometer Observa Value Referen Units Interpr Notes Date tion ce etation Range Glucose 70 - 110 mg/dl High No Jun 14 [Mass/vol informati 2016 5:23 ume] in on in PM Capillary source blood by data Glucomete r Glucose [Mass/volume] in Capillary blood by Glucometer Observa Value Referen Units Interpr Notes Date tion ce etation Range Glucose 70 - 110 mg/dl High No Jun 14 [Mass/vol alert informati 2016 2:03 ume] in on in PM Capillary source blood by data Glucomete r Glucose [Mass/volume] in Capillary blood by Glucometer Observa Value Referen Units Interpr Notes Date tion ce etation Range Glucose 70 - 110 mg/dl High No Jun 14 [Mass/vol alert informati 2017 ume] in on in 12:29 PM Capillary source blood by data Glucomete r Acetone [Mass/volume] in Serum or Plasma Observa Value Referen Units Interpr Notes Date tion ce etation Range SPECIMEN COMMENT: MAY USE BLOOD FROM 1200 LABS Acetone NOT No No No Jun 14 [Mass/vol DETECTD informati informati informati 2017 ume] in on in on in on in 11:48 AM Serum or source source source Plasma data data data Basic metabolic panel in Blood Observa Value Referen Units Interpr Notes Date tion ce etation Range Urea 7 - 18 mg/dL Normal No Jun 14 nitrogen informati 2017 [Mass/vol on in 11:48 AM ume] in source Serum or data Plasma Calcium 8.5 - mg/dL Low No Jun 29 [Mass/vol 10.1 informati 2016 ume] in on in 11:48 AM Serum or source Plasma data Chloride 98 - 107 mmoL/L Normal No Jun 14 [Moles/vo informati 2016 lume] in on in 11:48 AM Serum or source Plasma data Carbon 21.0 - mmoL/L Low No Jun 14 dioxide, 32.0 informati 2016 total on in 11:48 AM [Moles/vo source lume] in data Serum or Plasma Creatinin 0.55 - mg/dL Normal No Jun 14 e 1.02 informati 2016 [Mass/vol on in 11:48 AM ume] in source Serum or data Plasma Creatinin 50 - 200 ML/MIN Normal No Jun 29 e renal informati 2017 clearance on in 11:48 AM source predicted data by Cockcroft -Gault formula Estimated 59- ML/MIN No REFERENCE Jun 29 informati RANGE: 2017 glomerula on in >60 11:48 AM r source ML/MIN/1. filtratio data 73 SQUARE n rate METERSIf (GF this patient is -A merican, then multiply theresult by 1.210. Glucose 74 - 106 mg/dL High No Jun 29 [Mass/vol informati 2016 ume] in on in 11:48 AM Serum or source Plasma data Potassium 3.5 - 5.1 mmoL/L Normal No Jun 29 inform2016 [Moles/vo on in 11:48 AM lume] in source Serum or data Plasma Sodium 136 - 145 mmoL/L Low No Jun 14 [Moles/vo informati 2016 lume] in on in 11:48 AM Serum or source Plasma data Magnesium [Moles/volume] in Unspecified specimen Observa Value Referen Units Interpr Notes Date tion ce etation Range Magnesium 1.4 - 2.2 mg/dL Normal No Jun 29 inform2016 [Moles/vo on in 11:48 AM lume] in source Unspecifi data ed specimen Phosphate [Moles/volume] in Unspecified specimen Observa Value Referen Units Interpr Notes Date tion ce etation Range Phosphate 2.4 - 4.9 mg/dL Normal No Jun 29 inform2016 [Moles/vo on in 11:48 AM lume] in source Unspecifi data ed specimen Glucose [Mass/volume] in Capillary blood by Glucometer Observa Value Referen Units Interpr Notes Date tion ce etation Range Glucose 70 - 110 mg/dl High No Oct 14 [Mass/vol alert informati 2017 ume] in on in 11:43 AM Capillary source blood by data Glucomete r Glucose [Mass/volume] in Capillary blood by Glucometer Observa Value Referen Units Interpr Notes Date tion ce etation Range Glucose 70 - 110 mg/dl High No Oct 14 [Mass/vol alert informati 2017 ume] in on in 10:41 AM Capillary source blood by data Glucomete r Glucose [Mass/volume] in Capillary blood by Glucometer Observa Value Referen Units Interpr Notes Date tion ce etation Range Glucose 70 - 110 mg/dl High No Oct 14 [Mass/vol informati 2017 9:39 ume] in on in AM Capillary source blood by data Glucomete r Basic metabolic panel in Blood Observa Value Referen Units Interpr Notes Date tion ce etation Range Urea 7 - 18 mg/dL Normal No Oct 14 nitrogen informati 2017 9:03 [Mass/vol on in AM ume] in source Serum or data Plasma Calcium 8.5 - mg/dL Low No Oct 14 [Mass/vol 10.1 informati 2017 9:03 ume] in on in AM Serum or source Plasma data Chloride 98 - 107 mmoL/L High No Oct 14 [Moles/vo informati 2017 9:03 lume] in on in AM Serum or source Plasma data Carbon 21.0 - mmoL/L Normal No Oct 14 dioxide, 32.0 informati 2017 9:03 total on in AM [Moles/vo source lume] in data Serum or Plasma Creatinin 0.55 - mg/dL Normal No Oct 14 e 1.02 informati 2017 9:03 [Mass/vol on in AM ume] in source Serum or data Plasma Creatinin 50 - 200 ML/MIN Normal No Oct 14 e renal informati 2017 9:03 clearance on in AM source predicted data by Cockcroft -Gault formula Estimated 59- ML/MIN No REFERENCE Oct 14 informati RANGE: 2017 9:03 glomerula on in >60 AM r source ML/MIN/1. filtratio data 73 SQUARE n rate METERSIf (GF this patient is -A merican, then multiply theresult by 1.210. Glucose 74 - 106 mg/dL High No Oct 14 [Mass/vol informati 2017 9:03 ume] in on in AM Serum or source Plasma data Potassium 3.5 - 5.1 mmoL/L Normal No Oct 14 informati 2017 9:03 [Moles/vo on in AM lume] in source Serum or data Plasma Sodium 136 - 145 mmoL/L Normal No Oct 14 [Moles/vo informati 2016 9:03 lume] in on in AM Serum or source Plasma data Glucose [Mass/volume] in Capillary blood by Glucometer Observa Value Referen Units Interpr Notes Date tion ce etation Range Glucose 70 - 110 mg/dl No No Oct 14 [Mass/vol informati informati 2017 8:41 ume] in on in on in AM Capillary source source blood by data data Glucomete r Basic metabolic panel in Blood Observa Value Referen Units Interpr Notes Date tion ce etation Range Urea 7 - 18 mg/dL Normal No Oct 14 nitrogen informati 2016 7:45 [Mass/vol on in AM ume] in source Serum or data Plasma Calcium 8.5 - mg/dL Low No Jun 14 [Mass/vol 10.1 informati 2017 7:45 ume] in on in AM Serum or source Plasma data Chloride 98 - 107 mmoL/L High No Jun 14 [Moles/vo informati 2016 7:45 lume] in on in AM Serum or source Plasma data Carbon 21.0 - mmoL/L Normal No Oct 14 dioxide, 32.0 informati 2017 7:45 total on in AM [Moles/vo source lume] in data Serum or Plasma Creatinin 0.55 - mg/dL Normal No Oct 14 e 1.02 informati 2017 7:45 [Mass/vol on in AM ume] in source Serum or data Plasma Creatinin 50 - 200 ML/MIN Normal No Oct 14 e renal informati 2017 7:45 clearance on in AM source predicted data by Cockcroft -Gault formula Estimated 59- ML/MIN No REFERENCE Oct 14 informati RANGE: 2017 7:45 glomerula on in >60 AM r source ML/MIN/1. filtratio data 73 SQUARE n rate METERSIf (GF this patient is -A merican, then multiply theresult by 1.210. Glucose 74 - 106 mg/dL High No Oct 14 [Mass/vol informati 2016 7:45 ume] in on in AM Serum or source Plasma data Potassium 3.5 - 5.1 mmoL/L Normal No Oct 14 informati 2017 7:45 [Moles/vo on in AM lume] in source Serum or data Plasma Sodium 136 - 145 mmoL/L Normal No Oct 14 [Moles/vo informati 2017 7:45 lume] in on in AM Serum or source Plasma data Glucose [Mass/volume] in Capillary blood by Glucometer Observa Value Referen Units Interpr Notes Date tion ce etation Range Glucose 70 - 110 mg/dl High No Jun 14 [Mass/vol informati 2016 6:44 ume] in on in AM Capillary source blood by data Glucomete r Glucose [Mass/volume] in Capillary blood by Glucometer Observa Value Referen Units Interpr Notes Date tion ce etation Range Glucose 70 - 110 mg/dl High No Jun 14 [Mass/vol informati 2016 5:26 ume] in on in AM Capillary source blood by data Glucomete r Basic metabolic panel in Blood Observa Value Referen Units Interpr Notes Date tion ce etation Range Urea 7 - 18 mg/dL Normal No Oct 14 nitrogen informati 2016 4:05 [Mass/vol on in AM ume] in source Serum or data Plasma Calcium 8.5 - mg/dL Low No Jun 14 [Mass/vol 10.1 informati 2017 4:05 ume] in on in AM Serum or source Plasma data Chloride 98 - 107 mmoL/L Normal No Oct 14 [Moles/vo informati 2016 4:05 lume] in on in AM Serum or source Plasma data Carbon 21.0 - mmoL/L Low No Oct 14 dioxide, 32.0 informati 2017 4:05 total on in AM [Moles/vo source lume] in data Serum or Plasma Creatinin 0.55 - mg/dL No No Oct 14 e 1.02 informati informati 2017 4:05 [Mass/vol on in on in AM ume] in source source Serum or data data Plasma Creatinin 50 - 200 ML/MIN No No Oct 14 e renal informati informati 2017 4:05 clearance on in on in AM source source predicted data data by Cockcroft -Gault formula Estimated 59- ML/MIN No REFERENCE Oct 14 informati RANGE: 2017 4:05 glomerula on in >60 AM r source ML/MIN/1. filtratio data 73 SQUARE n rate METERSIf (GF this patient is -A merican, then multiply theresult by 1.210. Glucose 74 - 106 mg/dL High No Jun 14 [Mass/vol informati 2016 4:05 ume] in on in AM Serum or source Plasma data Potassium 3.5 - 5.1 mmoL/L Normal No Jun 14 informati 2016 4:05 [Moles/vo on in AM lume] in source Serum or data Plasma Sodium 136 - 145 mmoL/L Normal No Jun 14 [Moles/vo informati 2016 4:05 lume] in on in AM Serum or source Plasma data Acetone [Mass/volume] in Serum or Plasma Observa Value Referen Units Interpr Notes Date tion ce etation Range Acetone NOT No High TRACE Jun 29 [Mass/vol DETECTD informati 2016 4:05 ume] in on in NOTIFICAT AM Serum or source ION Plasma data RESULT Glucose [Mass/volume] in Capillary blood by Glucometer Observa Value Referen Units Interpr Notes Date tion ce etation Range Glucose 70 - 110 mg/dl High No Jun 29 [Mass/vol informati 2016 3:34 ume] in on in AM Capillary source blood by data Glucomete r Glucose [Mass/volume] in Capillary blood by Glucometer Observa Value Referen Units Interpr Notes Date tion ce etation Range Glucose 70 - 110 mg/dl High No Jun 29 [Mass/vol informati 2016 2:28 ume] in on in AM Capillary source blood by data Glucomete r Glucose [Mass/volume] in Capillary blood by Glucometer Observa Value Referen Units Interpr Notes Date tion ce etation Range Glucose 70 - 110 mg/dl High No Jun 29 [Mass/vol alert informati 2017 ume] in on in 12:29 AM Capillary source blood by data Glucomete r Basic metabolic panel in Blood Observa Value Referen Units Interpr Notes Date tion ce etation Range Urea 7 - 18 mg/dL Normal No Jun 29 nitrogen informati 2016 [Mass/vol on in 12:16 AM ume] in source Serum or data Plasma Calcium 8.5 - mg/dL Low No Jun 29 [Mass/vol 10.1 informati 2016 ume] in on in 12:16 AM Serum or source Plasma data Chloride 98 - 107 mmoL/L Normal No Oct 14 [Moles/vo informati 2016 lume] in on in 12:16 AM Serum or source Plasma data Carbon 21.0 - mmoL/L Low No Jun 14 dioxide, 32.0 informati 2016 total on in 12:16 AM [Moles/vo source lume] in data Serum or Plasma Creatinin 0.55 - mg/dL Normal No Jun 14 e 1.02 informati 2016 [Mass/vol on in 12:16 AM ume] in source Serum or data Plasma Creatinin 50 - 200 ML/MIN Normal No Jun 14 e renal informati 2017 clearance on in 12:16 AM source predicted data by Cockcroft -Gault formula Estimated 59- ML/MIN No REFERENCE Oct 14 informati RANGE: 2017 glomerula on in >60 12:16 AM r source ML/MIN/1. filtratio data 73 SQUARE n rate METERSIf (GF this patient is -A merican, then multiply theresult by 1.210. Glucose 74 - 106 mg/dL High No Jun 29 [Mass/vol informati 2016 ume] in on in 12:16 AM Serum or source Plasma data Potassium 3.5 - 5.1 mmoL/L Normal No Jun 14 inform2016 [Moles/vo on in 12:16 AM lume] in source Serum or data Plasma Sodium 136 - 145 mmoL/L Low No Jun 14 [Moles/vo informati 2016 lume] in on in 12:16 AM Serum or source Plasma data Magnesium [Moles/volume] in Unspecified specimen Observa Value Referen Units Interpr Notes Date tion ce etation Range Magnesium 1.4 - 2.2 mg/dL Normal No Jun 29 inform2016 [Moles/vo on in 12:16 AM lume] in source Unspecifi data ed specimen Phosphate [Moles/volume] in Unspecified specimen Observa Value Referen Units Interpr Notes Date tion ce etation Range Phosphate 2.4 - 4.9 mg/dL Normal No Jun 29 inform2016 [Moles/vo on in 12:16 AM lume] in source Unspecifi data ed specimen Acetone [Mass/volume] in Serum or Plasma Observa Value Referen Units Interpr Notes Date tion ce etation Range Acetone NOT No No No Jun 13 [Mass/vol DETECTD informati informati informati 2016 ume] in on in on in on in 10:05 PM Serum or source source source Plasma data data data Comprehensive metabolic 2000 panel in Serum or Plasma Observa Value Referen Units Interpr Notes Date tion ce etation Range Albumin/G 1.1 - 1.8 No Normal No Jun 13 lobulin informati informati 2016 [Mass on in [...] 50 - 200 ML/MIN Normal No Jun 13 e renal informati 2017 clearance on in 10:05 PM source predicted data by Cockcroft -Gault formula Estimated 59- ML/MIN No REFERENCE Jun 13 informati RANGE: 2017 glomerula on in >60 10:05 PM r source ML/MIN/1. filtratio data 73 SQUARE n rate METERSIf (GF this patient is -A merican, then multiply theresult by 1.210. Globulin 1.3 - 3.2 gm/dL High No Jun 13 [Mass/vol informati 2017 ume] in on in 10:05 PM Serum source data Glucose 74 - 106 mg/dL High Jun 28 [Mass/vol alert 2016 ume] in CRITICAL 10:05 PM Serum or RESULTS Plasma RESU LTS CALLED TO: Magy PEE LASHONDA TECH06/28 2231 Vanesa Lange Potassium 3.5 - 5.1 mmoL/L Normal No Jun 28 inform2016 [Moles/vo on in 10:05 PM lume] in [...] 7.8 K/mm3 Normal No Jun 28 nito inform2016 [#/volume on in 10:05 PM ] in source Blood by data Automated count Granulocy 37.0 - % Normal No Jun 28 nito/100 80.0 informati 2017 leukocyte on in 10:05 PM s in source Blood by data Automated count Hematocri 37.0 - % High No Jun 28 t [Volume 47.0 2016 on in 10:05 PM Fraction] source of Blood data Hemoglobi 12.2 - g/dL High No Jun 28 n 16.2 inform2016 [Mass/vol on in 10:05 PM ume] in source Blood data Lymphocyt 0.7 - 4.5 K/mm3 Normal No Jun 28 es 2016 [#/volume on in 10:05 PM ] in source Unspecifi data ed specimen by Automated count Lymphocyt 10 - 50.0 % Normal No Jun 28 es inform2016 [#/volume on in 10:05 PM ] in [...] Normal No Jun 28 te mean 97.8 inform2016 corpuscul on in 10:05 PM ar volume source [Entitic data volume] by Automated count Monocytes 0.1 - 1.0 K/mm3 Normal No Jun 282016 [#/volume on in 10:05 PM ] in source Blood by data Automated count Monocytes 1.7 - 9.3 % Normal No Jun 28 /100 2016 leukocyte on in 10:05 PM s in source Blood by data Automated count Platelet 7.4 - fl Normal No Jun 28 mean 10.4 2016 volume on in 10:05 PM [Entitic source volume] data in Blood by Automated count Platelets 142 - 424 K/mm3 No No Jun 28 informati informati 2016 [#/volume on in on in 10:05 PM ] in source source Blood data data Erythrocy 4.2 - 5.4 M/mm3 High No Jun 28 nito inform2016 [#/volume on in 10:05 PM ] in source Amniotic data fluid Erythrocy 11.5 - % Normal No Jun 28 te 17.5 2016 distribut on in 10:05 PM ion width source [Entitic data volume] by Automated count Leukocyte 4.8 - K/MM3 Normal No Jun 28 s 10.8 informati 2016 [#/volume on in 10:05 PM ] [...] mg/dL Normal No Apr 17 nitrogen informati 2017 6:25 [Mass/vol on in AM [...] Normal No Apr 17 e 1.02 informati 2017 6:25 [Mass/vol on in AM ume] in source Serum or data Plasma Creatinin 50 - 200 ML/MIN Normal No Apr 17 e renal informati 2017 6:25 clearance on in AM source predicted data by Cockcroft -Gault formula Estimated 59- ML/MIN No REFERENCE Apr 17 informati RANGE: 2016 6:25 glomerula on in >60 AM r [...] - 2.0 % Normal No Apr 17 / informati 2017 6:25 leukocyte on in AM s in source Blood by data Automated count Eosinophi 0.0 - 0.4 K/mm3 Normal Apr 17 ls informati 2016 6:25 [#/volume on in AM ] in source Blood by data Automated count Eosinophi 0.1 - % Normal Apr 17 ls/100 12.0 informati 2016 6:25 leukocyte on in AM s in source Blood by data Automated count Granulocy 1.8 - 7.8 K/mm3 Normal No Apr 17 nito informati 2016 6:25 [#/volume on in AM ] in source Blood by data Automated count Granulocy 37.0 - % Normal Apr 17 nito/100 80.0 informati 2016 6:25 leukocyte on in AM s in source Blood by data Automated count Hematocri 37.0 - % Normal Apr 17 t [Volume 47.0 informati 2016 6:25 on in AM Fraction] source of Blood data Hemoglobi 12.2 - g/dL Normal No Apr 17 n 16.2 informati 2016 6:25 [Mass/vol on in AM ume] in source Blood data Lymphocyt 0.7 - 4.5 K/mm3 Normal No Apr 17 es informati 2016 [...] No Apr 17 te mean 97.8 informati 2016 6:25 corpuscul on in AM ar volume source [Entitic data volume] by Automated count Monocytes 0.1 - 1.0 K/mm3 Normal No Apr 17 informati 2016 6:25 [...] mg/dl High No Apr 17 [Mass/vol informati 2017 5:52 ume] in on [...] High No Apr 16 [Mass/vol informati 2016 8:27 ume] in on in AM Capillary [...] 5.1 mmoL/L Low No Apr 16 informati 2017 6:05 [Moles/vo on in AM lume] in [...] K/mm3 Normal No Apr 16 ls informati 2017 6:05 [#/volume on in AM [...] % Normal No Apr 16 es informati 2016 6:05 [#/volume on in AM ] in source Unspecifi data ed specimen by Automated count Erythrocy 27 - 31.2 pg Normal No Apr 16 te mean informati 2017 6:05 corpuscul on in AM ar source hemoglobi data n [Entitic mass] Erythrocy 31.8 - g/dl Normal No Apr 16 te mean 35.4 informati 2016 6:05 corpuscul on in AM ar source hemoglobi data n concentra tion [Mass/vol ume] by Automated count Erythrocy 82.2 - fl Normal No Apr 16 te mean 97.8 informati 2016 6:05 corpuscul on in AM ar volume [...] 424 K/mm3 Normal No Apr 16 informati 2016 6:05 [#/volume on in AM ] in source Blood data Erythrocy 4.2 - 5.4 M/mm3 Normal No Apr 16 nito informati 2016 6:05 [#/volume on in AM ] in source Amniotic data fluid Erythrocy 11.5 - % Normal No Apr 16 te 17.5 informati 2016 6:05 distribut on in AM ion width source [Entitic data volume] by Automated count Leukocyte 4.8 - K/MM3 No No Apr 16 s 10.8 informati informati 2016 6:05 [#/volume on in on in AM ] in source source Blood data data Glucose [Mass/volume] in Capillary blood by Glucometer Observa Value Referen Units Interpr Notes Date ti ce etation Range Glucose 70 - 110 mg/dl No No Apr 16 [Mass/vol informati informati 2016 6:02 ume] in on in on in [...] Date tion ce etation Range COMMENTS TO CHIPPER FEEDER: draw around 1300 Urea 7 - 18 [...] No Apr 15 dioxide, 32.0 informati 2016 1:00 total on in PM [Moles/vo source lume] in data Serum or Plasma Creatinin 0.55 - mg/dL Normal No Apr 15 e 1.02 informati 2017 1:00 [Mass/vol on in PM ume] in source Serum or data Plasma Creatinin 50 - 200 ML/MIN Normal No Apr 15 e renal informati 2016 1:00 clearance on in PM source predicted [...] geena DETECTE DETECTE informa informa informa 2016 [Presen D tion in tion in tion [...] sp DNA DETECTE DETECTE informa informa informa 2016 [Identi D tion in tion in tion in 9:00 AM fier] source source source in data data data Unspeci fied specime n by Probe & target amplifi cation method Vibrio NOT NOT No No No Apr 15 sp DETECTE DETECTE informa informa informa 2016 identif D tion in tion in tion in 9:00 AM ied in source source source Stool data data data by Organis m specifi c culture Basic metabolic panel in Blood Observa Value Referen Units Interpr Notes Date tion ce etation Range COMMENTS TO CHIPPER FEEDER: Q2HR X 5 TILL 6AM TIMED FOR [...] - 2.0 % Normal No Apr 15 informati 2017 7:45 leukocyte on in AM [...] K/mm3 High No Apr 15 nito informati 2016 7:45 [#/volume on in AM ] in source Blood by data Automated count Granulocy 37.0 - % Normal No Apr 15 nito/100 80.0 informati 2016 7:45 leukocyte on in AM [...] Normal No Apr 15 te mean informati 2016 7:45 corpuscul on in AM ar source hemoglobi data n [Entitic mass] Erythrocy 31.8 - g/dl Normal No Apr 15 te mean 35.4 informati 2016 7:45 corpuscul on in AM ar source [...] Normal No Apr 15 te 17.5 informati 2016 7:45 distribut on in AM ion width [...] High No Apr 15 [Mass/vol informati 2016 5:19 ume] in on in AM Capillary [...] Date tion ce etation Range COMMENTS TO CHIPPER FEEDER: Q2HR X 5 TILL 6AM Urea 7 [...] Normal No Apr 15 [Moles/vo informati 2016 4:05 lume] in on in AM Serum [...] No Apr 15 e renal informati 2016 4:05 clearance on in AM source predicted data by Cockcroft -Gault formula Estimated 59- ML/MIN Low REFERENCE Apr 15 RANGE: 2017 4:05 glomerula >60 AM r ML/MIN/1. filtratio 73 SQUARE n rate METERSIf (GF this patient is -A merican, then multiply theresult by 1.210. Glucose 74 - 106 mg/dL High No Apr 15 [Mass/vol informati 2017 4:05 ume] in on in [...] No Apr 15 [Mass/vol alert informati 2016 2:08 ume] in on in AM Capillary source blood by data Glucomete r Basic metabolic panel in Blood Observa Value Referen Units Interpr Notes Date tion ce etation Range COMMENTS TO CHIPPER FEEDER: Q2HR X 5 TILL 6AM Urea 7 [...] Date tion ce etation Range COMMENTS TO CHIPPER FEEDER: Q2HR X 5 TILL 6AM SPECIMEN SLIGHTLY [...] e 1.02 informati 2016 [Mass/vol on in 11:59 PM [...] No Apr 14 [Mass/vol alert informati 2016 ume] in on in 11:03 PM Capillary [...] RESULTS Plasma RESU LTS CALLED TO: Beba BAIG 04/14/17 4227 Vanes[address] Lange Potassium 3.5 - 5.1 mmoL/L High Apr 14 2016 [Moles/vo CRITICAL 10:10 PM lume] in RESULTS Serum or Plasma RESU LTS CALLED TO: Beba BAIG RN 04/14/17 5556 Vanesa Lange Sodium 136 - 145 mmoL/L Low No [...] 2.4 - 4.9 mg/dL High No Apr 142016 [Moles/vo on in 10:10 PM lume] in [...] No Apr 14 mine E informa informa 2017 [Presen tion in tion in 8:30 PM [...] No Apr 14 [Mass/vol informati informati 2016 8:30 ume] in on in on in [...] - MMHG Low Apr 14 dioxide 45.0 2017 6:20 [Partial CRITICAL PM pressure] RESULTS in Arterial RESU blood LTS CALLED TO: DR CONRAD 04/14/17 1822 Anderson Naranjo pH of 7.35 - MMOL/L Low alert Apr 14 Arterial 7.45 2016 6:20 blood CRITICAL PM RESULTS RESU LTS CALLED TO: DR CONRAD 04/14/17 1822 Anderson Naranjo Oxygen 80 - 100 MMHG [...] No Apr 14 te mean 97.8 informati 2016 6:10 corpuscul on in PM ar volume source [Entitic data volume] by Automated count Monocytes 0.1 - 1.0 K/mm3 Normal No Apr 14 informati 2017 6:10 [#/volume on in PM ] in source Blood by data Automated count Monocytes 1.7 - 9.3 % Normal No Apr 14 informati 2017 [...] High No Apr 14 s 10.8 informati 2017 6:10 [#/volume on in PM [...] - 50 % Low No Apr 14 inform 2017 tion in 6:10 PM source data Monocytes [...] High No Mar 28 [Mass/vol informati 2017 4:52 ume] in on in PM Capillary [...] High No Mar 28 [Mass/vol informati 2017 6:29 ume] in on in AM Capillary source blood by data Glucomete r Amylase [Enzymatic activity/volume] in Serum or Plasma Observa Value Referen Units Interpr Notes Date tion ce etation Range COMMENTS TO CHIPPER FE[employer]ER: run on blood in lab Amylase 25 - 115 U/L Normal No Mar 28 [Enzymati informati 2016 6:15 c on in AM activity/ source volume] data in Serum or Plasma Lipase [Enzymatic activity/volume] in Serum or Plasma Observa Value Referen Units Interpr Notes Date ti ce etation Range COMMENTS TO CHIPPER FEEDER: run on blood in lab Lipase 73 [...] mmoL/L Normal No Mar 28 [Moles/vo informati 2017 6:15 [...] No Mar 28 n 16.2 informati informati 2017 6:15 [Mass/vol on in on in AM [...] MMOL/L Low No Mar 26 excess in inform2016 Venous on in 11:11 PM blood source [...] % Low No Mar 26 saturatio informati 2017 n.calcula on in 11:11 PM jennifer [...] Granulocy 37.0 - % Normal No Mar 26/ 80.0 informati 2016 9:50 leukocyte on in [...] K/MM3 Normal No Mar 26 s 10.8 ati 2016 9:50 [#/volume on in PM [...] Normal No Mar 08 lobulin informati informati 2017 [Mass on in on in 12:41 AM [...] 145 mmoL/L Normal No Mar 08 [Moles/vo 2016 lume] in on in 12:41 AM [...] Normal No Mar 08 t [Volume 47.0 2016 on in 12:41 AM Fraction] source [...] Interpr Notes Date tion ce etation Range Amylase 25 - 115 [...] mg/dL Low No February 12 .total informati 2017 [Mass/vol on in 10:20 PM ume] in source Serum or data Plasma Urea 7 - 18 mg/dL Normal No February 12 nitrogen informati 2017 [Mass/vol on in 10:20 PM ume] in [...] e renal inform 2017 clearance on in 10: PM source predicted data by Cockcroft -Gault [...] mg/dL Normal No February 12 [Mass/vol informati 2017 ume] [...] gm/dL Normal No February 12 [Mass/vol informati 2017 ume] in on in 10:20 PM Serum or source Plasma data Lipase [Enzymatic activity/volume] in Serum or Plasma Observa Value Referen Units Interpr Notes Date ti ce etation Range Lipase 73 - 393 U/L Low No February 12 [Enzymati informati 2016 c [...] g/dL Normal No February 12 n 16.2 informati 2016 [Mass/vol on in 10:20 PM [...] 5.4 M/mm3 Normal No February 12 nito 2016 [#/volume on in 10:20 PM ] in source Amniotic data fluid Erythrocy 11.5 - % Normal No May 30 te 17.5 informati 2017 distribut on in 10:20 PM ion width [...] source blood by data Glucomete r F5 gene.p.[id number] [Presence] in Blood or Tissue by Molecular genetics method Observa Value Referen Units Interpr Notes Date ti ce etation Range COMMENTS TO CHIPPER FEEDER: please do on blood drawn in ER [...] elevated homocystein levels, or Factor II/prothrombin mutation ([id number]). Additionally, for individuals found to be heterozygous for the Factor V Leiden mutation, presence of a second mutation, Factor V R2, further increases the risk of venous thrombosis. Contact [facility] [employer] Customer Service at for further information on both the Factor II (Prothrombin) DNA Analysis, and Factor V R2 DNA Analysis tests. Comment: Genetic counselors are available for health care providers to discuss results at [phone]). Methodology: DNA analysis of the Factor V gene was performed by allele-specific PCR. The diagnostic sensitivity and specificity is >99% for both. Molecular-based testing is highly accurate, but as in any laboratory test, diagnostic errors may occur. All test results must be combined with clinical information for the most accurate interpretation. This test was developed and its performance characteristics determined by [facility]. It has not been cleared or approved by the [place]. Food and Drug administration. References: Timothy Lama (1996). Clin Lab Med 16:169-186 Marce Gutierrez, PhD, [facility] Nargis Salcido, PhD, [facility] Jing Tubbs, PhD, [facility] Teresa Lagos MYoS., PhD, [facility] Ana Harding, PhD, [facility] Larissa Richardson, PhD, [facility] Buster Blount, PhD, [facility] TEST FLAG Factor V Leiden Mutation [...] elevated homocystein levels, or Factor II/prothrombin mutation ([id number]). Additionally, for individuals found to be heterozygous for the Factor V Leiden mutation, presence of a second mutation, Factor V R2, further increases the risk of venous thrombosis. Contact [facility]'s [facility] Customer Service at for further information on both the Factor II (Prothrombin) DNA Analysis, and Factor V R2 DNA Analysis tests. Comment: Genetic counselors are available for health care providers to discuss results at [phone]). Methodology: DNA analysis of the Factor V gene was performed by allele-specific PCR. The diagnostic sensitivity and specificity is >99% for both. Molecular-based testing is highly accurate, but as in any laboratory test, diagnostic errors may occur. All test results must be combined with clinical information for the most accurate interpretation. This test was developed and its performance characteristics determined by [facility]. It has not been cleared or approved by the [place].S. Food and Drug administration. References: Timothy Hicks. (1996). Clin Lab Med 16:169-186 Marce Gutierrez, PhD, [facility] Nargis Salcido, PhD, [facility] Jing Tubbs, PhD, [facility] Teresa Lagos M.S., PhD, [facility] Ana Harding, PhD, [facility] Larissa Richardson, PhD, [facility] Buster Blount, PhD, FAC
--- OUTSIDE RECORDS SUMMARY | 2017-08-11 20:27 | External Medical Summary Rpt ---
[...] Date tion ce etation Range COMMENTS TO OUTSIDE PHYSICAL DAMAGE APPRAISER: draw around 1300 Urea 7 - 18 [...] Date tion ce etation Range COMMENTS TO OUTSIDE PHYSICAL DAMAGE APPRAISER: Q2HR X 5 TILL 6AM TIMED FOR [...] Date tion ce etation Range COMMENTS TO OUTSIDE PHYSICAL DAMAGE APPRAISER: Q2HR X 5 TILL 6AM Urea 7 [...] Date tion ce etation Range COMMENTS TO OUTSIDE PHYSICAL DAMAGE APPRAISER: Q2HR X 5 TILL 6AM Urea 7 [...] Date tion ce etation Range COMMENTS TO OUTSIDE PHYSICAL DAMAGE APPRAISER: Q2HR X 5 TILL 6AM SPECIMEN SLIGHTLY [...] RESU LTS CALLED TO: Beba BAIG 04/14/17 9039 Vanesa Lange Potassium 3.5 - 5.1 mmoL/L High Apr 14 2016 [Moles/vo CRITICAL 10:10 PM lume] in RESULTS Serum or Plasma RESU LTS CALLED TO: Beba BAIG RN 04/14/17 7794 Vanesa Lange Sodium 136 - 145 mmoL/L [...] of Blood RESU LTS CALLED TO: Brijesh SAEDE RN 04/14/17 1837 Vanesa Lange hn Hemoglobi [...] Date tion ce etation Range COMMENTS TO OUTSIDE PHYSICAL DAMAGE APPRAISER: run on blood in lab Amylase 25 - 115 U/L Normal No Mar 28 [Enzymati informati 2016 6:15 c on in AM activity/ source volume] data in Serum or Plasma Lipase [Enzymatic activity/volume] in Serum or Plasma Observa Value Referen Units Interpr Notes Date ti ce etation Range COMMENTS TO OUTSIDE PHYSICAL DAMAGE APPRAISER: run on blood in lab Lipase 73 [...] source blood by data Glucomete r F5 gene.p.[id number] [Presence] in Blood or Tissue by Molecular genetics method Observa Value Referen Units Interpr Notes Date ti ce etation Range COMMENTS TO OUTSIDE PHYSICAL DAMAGE APPRAISER: please do on blood drawn in ER [...] elevated homocystein levels, or Factor II/prothrombin mutation ([id number]). Additionally, for individuals found to be heterozygous for the Factor V Leiden mutation, presence of a second mutation, Factor V R2, further increases the risk of venous thrombosis. Contact [employer]'s [employer] Customer Service at for further information on both the Factor II (Prothrombin) DNA Analysis, and Factor V R2 DNA Analysis tests. Comment: Genetic counselors are available for health care providers to discuss results at [phone]). Methodology: DNA analysis of the Factor V gene was performed by allele-specific PCR. The diagnostic sensitivity and specificity is >99% for both. Molecular-based testing is highly accurate, but as in any laboratory test, diagnostic errors may occur. All test results must be combined with clinical information for the most accurate interpretation. This test was developed and its performance characteristics determined by [facility]. It has not been cleared or approved by the [place].S. Food and Drug administration. References: Timothy Lama (1996). Clin Lab Med 16:169-186 Marce Gutierrez, PhD, [facility] Nargis Salcido, PhD, [facility] Jing Tubbs, PhD, [facility] Teresa Lagos MYoS., PhD, [facility] Ana Harding, PhD, [facility] Larissa Richardson, PhD, [facility] Buster Blount, PhD, [facility] TEST FLAG Factor V Leiden Mutation Factor [...] elevated homocystein levels, or Factor II/prothrombin mutation ([id number]). Additionally, for individuals found to be heterozygous for the Factor V Leiden mutation, presence of a second mutation, Factor V R2, further increases the risk of venous thrombosis. Contact [facility]'s Genetic Customer Service at for further information on both the Factor II (Prothrombin) DNA Analysis, and Factor V R2 DNA Analysis tests. Comment: Genetic counselors are available for health care providers to discuss results at [phone]). Methodology: DNA analysis of the Factor V gene was performed by allele-specific PCR. The diagnostic sensitivity and specificity is >99% for both. Molecular-based testing is highly accurate, but as in any laboratory test, diagnostic errors may occur. All test results must be combined with clinical information for the most accurate interpretation. This test was developed and its performance characteristics determined by [employer]. It has not been cleared or approved by the [place].S. Food and Drug administration. References: Timothy Hicks. (1996). Clin Lab Med 16:169-186 Marce Gutierrez, PhD, [facility] Nargis Salcido, PhD, [facility] Jing Tubbs, PhD, FAC Teresa Lagos M.S., PhD, [facility] Ana Harding, PhD, [facility] Larissa Richardson, PhD, [facility] Buster Blount, PhD, FAC
--- NOTE | 2017-08-11 20:38 | Emergency Room Report ---
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 N Clinical Suspician of Infection? N Mental Status: 1 - Regular (Normal Baseline) Sepsis Risk:Low Sepsis Risk Have you (or family members/close friends) recently traveled outside the [place]? N If Yes, where/when: Have you had exposure to infectious disease within the past month? N TB? Other? Specify: Source patient, RN notes reviewed, family, RN/MD Exam Limitations no limitations Comment This is a 27-year-old female patient arriving to the emergency room with nausea, vomiting, diarrhea for the past 3 days, currently unable to hold any solid food or liquids down. Patient has a history of factor V Leiden deficiency and she was diagnosed in January 2017 with a RIGHT lower extremity DVT, as well as a bilateral PE. She has been on Xarelto samples, 30 mg daily since. Patient denies any chest pain or shortness of breath today. She was told by her ECP, Anyi Vail, that she may need a [place] filter, and that she will need to be referred to a specialist for such procedure. So far she has not received any calls in regards to this upcoming appointment. ALLERGIES Coded Allergies: tramadol (Severe, 04/15/17) Adhesives (12/12/16) Penicillins (12/12/16) butalbital (12/12/16) caffeine (From FIORICET) (03/26/17) codeine (12/12/16) iodine (12/12/16) ketorolac (12/12/16) povidone-iodine (From BETADINE) (03/26/17) soap (From BETADINE) (03/26/17) Home Medications Active Scripts Rivaroxaban (Xarelto) 15 MG PO BID #42 TAB Prov: 01/25/17 Reported Medications Propranolol Hcl (Inderal 20MG. Tablet) 20 MG PO QHS Paroxetine (Paxil) 30 MG PO DAILY FLUTICASONE/SALMETEROL (Advair 250-50 Diskus) 1 PUFF IN BID INSULIN GLARGINE (Lantus 3ML Solostar Pen) 50 UNITS SC BID Insulin Lispro, Recombinant (Humalog 100 UNITS/ML 10ML) 15 UNITS SC ACHS Albuterol Sulfate (Proair Hfa) 1 PUFF IH Q6HP PRN ASTHMA Quetiapine Fumarate (Seroquel 50MG) 50 MG PO DAILY BUPRENORPHINE HCL/NALOXONE HCL (Buprenorphin-Naloxon 8-2 MG Sl) 1 TAB SL DAILY Gabapentin (Gabapentin 400MG Capsule) 400 MG PO TID #90 History Medical History General CAD? No Angina: No [place]: No Hypertension? No Hyperlipidemia? No CHF? No DVT? No PE? Yes COPD? No Asthma? Yes Anemia? No GERD? Yes Gastric ulcers? Yes GI Bleed? No Hernia? Yes Thyroid Problems? No Hypothyroidism? No CVA? No Seizures? Yes Diabetes? Yes Insulin Dependent: Yes Insulin Pump: No Home FSBS? Yes Renal Insuffiency? No End Stage Renal Disease? No UTI? Yes Stones? Yes GB Disease: Yes Nephritic Syndrome? No Asplenia? No Hepatitis? No Sickle Cell Disease? No Arthritis? No Migraines? Yes Cataracts? No Glaucoma? No MRSA? Yes HIV? No TB? No Anxiety? Yes Depression? No Cancer? No More? 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 13 Months Or More Family History Family Hx Diabetes Yes CAD Yes Hypertension Yes Hyperlipidemia Yes Cancer Yes TB No Social History Smoking Hx Smoker: Current Every Day Smoker Tobacco: Yes Type Cigarettes Packs/day < 1 Pack Alcohol Alcohol: No Review of Systems All Other Systems Reviewed and Negative Gastrointestinal see HPI, denies abdominal pain, diarrhea, nausea, vomiting Physical Exam Vital Signs Vital Signs Date Time Temp Pulse Resp B/P Pulse O2 O2 Flow FiO2 Ox Delivery Rate 08/11 2314 97.8 69 14 110/67 99 08/114 69 14 110/67 99 08/11 2211 78 14 118/57 99 08/11 2124 88 14 124/71 98 08/11 2052 83 14 124/71 98 08/11 2024 83 20 110/75 98 08/11 1945 97.8 86 20 132/85 97 General Appearance normal appearance, WD/WN, mild distress Respiratory Status Yes: trachea midline, chest symmetrical, non tender chest. No: respiratory distress. Lung Sounds bilateral: normal breath sounds, lungs clear. Cardiovascular normal exam, regular rate/rhythm, no peripheral edema, no gallop, no JVD, no murmur, no rub, normal peripheral pulses Gastrointestinal normal bowel sounds, normal exam, non tender, soft, no organomegaly Extremities non-tender, normal range of motion, normal inspection Neurologic alert, travel director II-XII nml as tested, normal exam, oriented x 3 Mental status depressed affect Skin normal color, warm/dry, decreased skin turgor, dry mucous membranes Medical Decision Making LABS/Meds/Orders Pt receiving controlled substance in ED? No Comment 2244-as the medical records reflect, the patient has thromboembolism of her RIGHT lower extremity as well as a pulmonary embolism. The patient should be on Xarelto 20mg daily, instead of the 30mg that she is currently on. Advised patient to follow-up with Dr. Edgar Segal, for evaluation of current antithrombotic therapy as well as possible [place] filter deployment. Her blood sugar was brought down to below 400, with patient refusing any further fingersticks, and wanting to go home. Patient is refusing admission at this time , as she is feeling better and able to drink liquids and to hold down solid food as well. She is being discharged in stable, improved medical condition. Provided patient with position for Zofran, if any further nausea/vomiting. Results/Orders Laboratory Tests 08/11/172120: POC Glucose 428 *H 08/11/17 2018: VBG pH 7.33, VBG Total CO2 19.2 L, VBG O2 Sat (Calc) 79.7, VBG Base Excess -7.9 L, Mixed VBG pCO2 35.4 L, Mixed VBG pO2 44.2 H, Mixed VBG HCO3 18.1 L 08/11/171954: Lactic Acid Cancelled 08/11/171954: Creatine Kinase 54, CK-MB (CK-2) Rel Index 0.9, CK and CKMB Interp < 0.5, Troponin I < 0.02 08/11/171954: Sodium 135 L, Potassium 4.2, Chloride 99, Carbon Dioxide 20 L, BUN 10, Creatinine 1.0, Estimated Creat Clear 76, Estimated GFR (MDRD) 67, Glucose 612 * H, Calcium 9.4, Total Bilirubin 0.6, AST 18, ALT 29, Alkaline Phosphatase 94, Total Protein 7.4, Albumin 4.1, Globulin 3.3 H, Albumin/Globulin Ratio 1.2, D- Dimer 791 *H, WBC 7.8, RBC 5.75 H, Hgb 16.5 H, Hct 49.6 H, MCV 86.2, RDW 12.8 , Plt Count 270, MPV 8.6, Gran % 74.9, Gran # 5.8, Lymphocytes % 19.4, Monocytes % 4.4, Eosinophils % 1.0, Basophils % 0.3, Lymphocytes # 1.5, Monocytes # 0.3, Eosinophils # 0.1, Basophils # 0.0, PUBS MCHC 33.2, MCH 28.6, Opiates Screen NEGATIVE, Urine Methadone Screen NEGATIVE, Barbiturates NEGATIVE, Phencyclidine Screen NEGATIVE, Amphetamines Screen NEGATIVE, Benzodiazepines Screen NEGATIVE, Cocaine Screen NEGATIVE, Marijuana (THC) Screen NEGATIVE, Urine Color RED, Urine Appearance SL CLOUDY, Urine pH 5.5, Ur Specific [place] 1.010, Urine Protein NEGATIVE, Urine Ketones 3+ H, Urine Blood 3+ H, Urine Nitrate NEGATIVE, Urine Bilirubin NEGATIVE, Urine Urobilinogen 0.2, Ur Leukocyte Esterase NEGATIVE, Urine RBC TNTC, Urine Glucose 3+ H Current Medication Orders Sig/Caleb Start time Last Medication Dose Route Stop Time Status Admin Insulin Human Regular 0 .STK-MED ONE 08/11 2201 DC .ROUTE Insulin Human Regular 6 UNITS ONCE ONE 08/11 2200 DC IVP 08/11 2201 Insulin Human Regular 4 UNITS ONCE ONE 08/11 2200 DC 08/11 IVP 08/11 Ketorolac 30 MG ONCE ONE 08/11 2045 CANr Tromethamine IV 08/11 2046 Ondansetron HCl 4 MG ONCE ONE 08/11 2045 DC 08/11 IV 08/11 Sodium Chloride 1,000 ML .Q1H1M 08/11 2045 DC 08/11 IV 08/11 Sodium Chloride 10 ML PRN PRN 08/11 2045 DCD IV 08/12 2036 Ondansetron HCl 0 .STK-MED ONE 08/11 2040 DC .ROUTE Sodium Chloride 1,000 ML .STK-MED ONE 08/11 2040 DC IV Ketorolac 0 .STK-MED ONE 08/11 2039 DCr Tromethamine .ROUTE Insulin Human Regular 10 UNITS ONCE ONE 08/11 2015 DC 08/11 IVP 08/11 Sodium Chloride 10 ML PRN PRN 08/11 2015 DCD IV 08/12 2003 Sodium Chloride 1,000 ML .Q1H1M 08/11 2015 DC 08/11 IV 08/11 Sodium Chloride 10 ML PRN PRN 08/11 2015 DCD IV 08/12 2003 Insulin Human Regular 0 .STK-MED ONE 08/11 2010 DC .ROUTE Sodium Chloride 1,000 ML .STK-MED ONE 08/11 2002 DC IV Orders Procedure Date/time Status FSBS REQUEST BY CARE AREA 08/11 2128 Active FINGERSTICK BLOOD SUGAR 08/11 2121 Complete CARDIAC ENZYMES 08/11 2035 Complete DRUG ABUSE SCREEN (10) 08/11 2033 Complete SERUM , QUAL 08/11 2032 Complete D-DIMER 08/11 2006 Complete URINALYSIS/COMPLETE 08/11 2004 Complete ARTERIAL BLOOD GAS REQUEST 08/11 2003 Active IV SALINE LOCK 08/11 2003 Active GLUCOSE, RANDOM 08/11 2003 Complete CBC WITH AUTO DIFF 08/11 2003 Complete CHEM 12 PROFILE 08/11 2003 Complete CM/EKG 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 of ischemic chgs, no ectopy, normal QRS, normal IL, no EKG for comparison, non-spec. ST/Twave chgs, ST elevation, ST depression, LBBB, RBBB, ectopy, abnormal Q waves Departure Departure Time of Disposition 2252 Disposition DC Home or Self Care(routine) Clinical Impression Primary Impression: Diabetic hyperosmolar non-ketotic state Secondary Impressions: Dehydration Hyperglycemia Pulmonary embolism Qualifiers: Pulmonary embolism type: other Chronicity: chronic Acute cor pulmonale presence: without acute cor pulmonale Qualified Code: I27.82 - Chronic pulmonary embolism Condition STABLE Referrals ANYI VAIL APRN (Family) Edgar Segal MD Patient Instructions DI for Dehydration -- Adult, DI for Hyperglycemia -- Adult Additional Instructions Please call Dr. Edgar Segal in the morning and schedule a follow-up appointment regarding an evaluation for possible [place] filter the deployment. Take the medication for nausea, as needed. Please keep your self well-hydrated, drink plenty of fluids. Discharge Counseling Counseled pt/family regarding diagnosis, test results, medications/RX, home care, follow up needs Comment Please call Dr. Edgar Segal in the morning and schedule a follow-up appointment regarding an evaluation for possible [place] filter the deployment. Take the medication for nausea, as needed. Please keep your self well-hydrated, drink plenty of fluids. Prescriptions Current Visit Scripts ONDANSETRON HCL (Zofran 4MG Tab) 4 MG PO Q6HP PRN NAUSEA AND VOMITING #20 TAB ED Critical Care Critical Care No at 0624
[2017-08-11 21:06] LABS: AMPHETAMINES/METAMPHETAMINES NEGATIVE ng/mL (<1000)
[2017-08-11] MEDS ORDERED: ZOFRAN4 MG PO (23:11)
[2017-08-11 23:14] VITALS: BP 110/67
== END 2017-08-11 23:15 | disposition home or self-care (01) ==
LOC: ER 19:35
PROVIDERS: Emergency Medicine; General Practice
DX: E11.01 Type 2 diabetes mellitus with hyperosmolarity with coma (principal); Z79.4 Long term (current) use of insulin; E86.0 Dehydration; I27.82 Chronic pulmonary embolism; Z79.01 Long term (current) use of anticoagulants; Z88.8 Allergy status to other drugs, medicaments and biological substances; J45.909 Unspecified asthma, uncomplicated; K21.9 Gastro-esophageal reflux disease without esophagitis
CPT/HCPCS: J2405

== ENCOUNTER 2017-08-16 10:44 | Outpatient (CLI) | payer MEDICAID | END 2017-08-16 15:55 | LOC: ACC 10:44 | DX: D68.51 Activated protein C resistance (principal); Z79.01 Long term (current) use of anticoagulants; Z51.81 Encounter for therapeutic drug level monitoring | CPT/HCPCS: G0463 ==